=== PATIENT | female | born 1940 | race Caucasian/White ===

== ENCOUNTER → 2016-10-28 | Outpatient (CLI) | payer OTHER ==
[~2016-10-28] MED LIST: ACET-1256 PO; ASPEC81 PO; LPR25 PO; LPT20 PO; LXP10 PO; NCDT21 TD; NRV5 PO; PRT40 PO
[2016-10-28 17:36] LABS: HEMATOCRIT 42.6 % (37-47); MEAN CELL VOLUME 90.3 fL (80-100); MEAN CORPUSCULAR HGB CONC 35.4 g/dl (32-36); MEAN PLATELET VOLUME 10.2 fL (7.4-10.4); PLATELET COUNT 356 K/uL (130-400); RED BLOOD COUNT 4.72 M/uL (4.2-5.4); WHITE BLOOD COUNT 12.09 K/uL (4.8-10.8)
[2016-10-28 17:49] LABS: ALT/SGPT 23 U/L (12-78); AST/SGOT 8 U/L (15-37); BLOOD UREA NITROGEN 10 mg/dl (7-18); BUN/CREATININE RATIO 12.2 (10-20); CALCIUM 9.3 mg/dl (8.5-10.1); CARBON DIOXIDE 27 mmol/L (21-32); CHLORIDE 108 mmol/L (98-107); CREATININE 0.85 mg/dl (0.60-1.20); GLUCOSE 93 mg/dl (70-99); SODIUM 142 mmol/L (136-145)
[2016-10-28 17:51] LABS: ALB/GLOB RATIO 1.1 (0.9-2); ALKALINE PHOSPHATASE 120 U/L (45-117); CHOLESTEROL 139 mg/dl (0-200); CHOLESTEROL/HDL RATIO 3.5; HDL CHOLESTEROL 40 mg/dl; LDL CHOLESTEROL CALCULATED 73 mg/dl; TRIGLYCERIDES 132 mg/dl (0-150); VERY LOW DENSITY LIPOPROT CALC 26 mg/dl
== END | disposition home or self-care (01) ==
LOC: C.LABBFT 10:33
PROVIDERS: ATTEND Internal Medicine
DX: I63.9 Cerebral infarction, unspecified (principal); E78.5 Hyperlipidemia, unspecified

== ENCOUNTER 2017-07-17 23:39 | Emergency (ER) | payer OTHER ==
[~2017-07-17] VITALS: Ht 157.5 cm; Wt 79.4 kg
[2017-07-17 23:43] VITALS: TEMP 36.9; Ht 157.5 cm; Wt 79.4 kg
[2017-07-17] MEDS ORDERED: SODIUM CHLORIDE 0.9% 1000ML 1,000 ML IV SCH (23:58)
[2017-07-18 00:12] LABS: BASO % 0.1 %; BASO ABS # 0.02 K/uL (0-0.2); EOS % 0.4 %; EOS ABS # 0.07 K/uL (0-0.5); HEMATOCRIT 42.6 % (37-47); HEMOGLOBIN 15.2 g/dL (12.0-16.0); IG# 0.06 K/uL (0.00-0.02); LYMPH % 16.8 %; LYMPH ABS # 2.98 K/uL (1.2-3.4); MEAN CORPUSCULAR HEMOGLOBIN 31.4 pg (25-34); MEAN CORPUSCULAR HGB CONC 35.7 g/dl (32-36); MEAN PLATELET VOLUME 9.2 fL (7.4-10.4); MONO % 3.7 %; MONO ABS # 0.66 K/uL (0.11-0.59); NEUT % 78.7 %; NEUT ABS # 13.93 K/uL (1.4-6.5); PLATELET COUNT 337 K/uL (130-400); RED CELL DISTRIBUTION WIDTH CV 13.2 % (11.5-14.5); RED CELL DISTRIBUTION WIDTH SD 42.4 fL (36.4-46.3); WHITE BLOOD COUNT 17.72 K/uL (4.8-10.8)
[2017-07-18] MEDS ORDERED: AMLO-114 PO (00:17)
[2017-07-18] MEDS ORDERED: ASPI81TA28 PO (00:18)
--- NOTE | 2017-07-18 00:18 | DIAGNOSTIC IMAGING REPORT ---
CT SCAN OF THE BRAIN WITHOUT IV CONTRAST CLINICAL HISTORY: Right arm numbness. Stroke like symptoms. COMPARISON STUDY: CT of the brain dated 11/16/2014. TECHNIQUE: Unenhanced axial CT scan of the brain is performed from the vertex to the skull base. A dose lowering technique was utilized adhering to the principles of ALARA. CT DOSE: 537.48 mGy.cm FINDINGS: Brain parenchyma: There are age-related involutional changes noting moderate to advanced subcortical and periventricular microangiopathic change. Left occipital encephalomalacia is consistent with a remote infarct. A chronic lacunar infarct is identified in the left thalamus. There is no hemorrhage, mass effect, or evidence of acute territorial ischemia by CT criteria. Venegas-white matter is preserved. No extra-axial fluid collection is seen. Ventricles, sulci, cisterns: Prominent secondary to involutional change. Intracranial vasculature: There is atherosclerotic calcification of the cavernous carotid arteries. Calvarium: Unremarkable. Sinuses and mastoids: The visualized paranasal sinuses are clear. There is a trace right mastoid effusion. The left mastoid air cells are well pneumatized. Orbits: The bony orbits are grossly intact. There are bilateral ocular lens implants. IMPRESSION: 1. There is no hemorrhage, mass effect, or evidence of acute territorial ischemia by CT criteria. 2. Senescent changes and remote infarct as above. Electronically signed by: Michele Pavon M.D. 07/18/2017 12:17 AM Dictated Date/Time: 07/18/2017 12:13 AM
[2017-07-18] MEDS ORDERED: ATOR-22 PO (00:19)
[2017-07-18] MEDS ORDERED: LORA-741 PO (00:20)
[2017-07-18] MEDS ORDERED: METO25TA56 PO (00:21)
--- NOTE | 2017-07-18 00:21 | EMERGENCY ROOM VISIT NOTE ---
History Report prepared by Ita: Piedad Garcia Under the Supervision of: Dr. Farrah Baumann D.O. First contact with patient: 23:49 Chief Complaint: STROKE SYMPTOMS Stated Complaint: ARM NUMBNESS ON RIGHT History of Present Illness The patient is a 76 year old female who presents to the Emergency Room with complaints of an episode of stroke like symptoms starting 2 hours ago. The patient states that she has a history of strokes with the last being 2 years ago and takes Aspirin daily. She reports that tonight she was washing dishes when her right hand started shaking. She reports that it then started to shake her whole arm. She states that it then felt weak. The patient states that she immediately took 4 Aspirin. The patient complains of being fatigued and having chills. The patient notes that when she had her last stroke she couldn't walk, her face was numb, and she couldn't talk. She reports that the only deficit she has is that she cannot see in her peripheral vision in her right eye. The patient notes that they think the stroke was from her hypertension. The patient denies drinking any alcohol. The patient notes that she is a smoker. Source of History: patient Onset: 2 hours ago Position: other (global) Quality: other (stroke like) Timing: other (episode) Associated Symptoms: + chills, + fatigue, + weakness Note: The patient complains of shaking in her right arm. Review of Systems See HPI for pertinent positives & negatives. A total of 10 systems reviewed and were otherwise negative. Past Medical & Surgical Medical Problems: (1) History of CVA (cerebrovascular accident) (2) Hx: UTI (urinary tract infection) (3) Hypertension Surgical Problems: (1) S/P cholecystectomy Family History Diabetes mellitus Heart disease Hypertension Stroke Social History Smoking Status: Current Every Day Smoker Alcohol Use: none Drug Use: none Marital Status: Housing Status: lives alone Occupation Status: retired Current/Historical Medications Scheduled Aspirin (Aspirin Ec), 81 MG PO DAILY Atorvastatin (Lipitor), 20 MG PO DAILY Metoprolol Tartrate (Lopressor) (Lopressor), 25 MG PO BID Omeprazole (Prilosec), 40 MG PO QAM Sulfamethoxazole-Trimethoprim (Bactrim Ds 800MG/160MG), 1 TAB PO BID Scheduled PRN Lorazepam (Ativan), 0.5 MG PO DAILY PRN for Anxiety Allergies Coded Allergies: Penicillins (Verified Allergy, Intermediate, HIVES, 11/16/14) Physical Exam Vital Signs Date Time Temp Pulse Resp B/P (MAP) Pulse Ox O2 Delivery O2 Flow Rate FiO2 07/18/17 02:26 171/95 07/18/17 02:14 73 19 97 07/18/17 02:01 165/82 07/18/17 01:44 74 20 95 07/18/17 01:31 173/85 07/18/17 01:20 85 07/18/17 01:14 79 19 98 07/18/17 01:00 170/96 07/18/17 00:44 78 20 97 07/18/17 00:39 78 20 98 07/18/17 00:31 188/79 07/18/17 00:24 79 20 168/86 97 Room Air 07/18/17 00:13 184/94 07/17/17 23:43 36.9 91 18 197/75 97 Room Air Physical Exam HEENT: Head - normocephalic and atraumatic. Pupils are equal, round, and reactive to light. Extraocular eye muscles are intact and sclera are anicteric. Ears - bilaterally patent canals with noninjected tympanic membranes and no evidence of hemotympanum. Nose - moist nasal mucosa without discharge. Mouth - moist buccal mucosa. Oropharynx is nonerythematous and there is no tonsillar exudate or edema noted. Neck: Supple; no JVD, nuchal rigidity, cervical lymphadenopathy. Heart: Regular rate and rhythm. There is a normal S1 and S2 with no murmurs, clicks, or gallops appreciated. Lungs: Clear to auscultation bilaterally with no wheezes, rales, or rhonchi. Abdomen: Soft, completely nontender, nondistended, with good bowel sounds. There are no palpable pulsatile masses or hepatosplenomegaly. There is no guarding, rigidity, or rebound noted. Extremities: No evidence of cyanosis, clubbing, or edema. There are easily palpable peripheral pulses. Neuro:The patient is awake and alert, oriented to day, time, and place. Muscle strength is 5/5 in all 4 extremities. The patient has equal dynamics ax developer strength and equal pedal push and pull. There are no cerebellar signs. Medical Decision & Procedures ER Provider Diagnostic Interpretation: Radiology results as stated below per my review and the radiologist's interpretation: CT SCAN OF THE BRAIN WITHOUT IV CONTRAST CLINICAL HISTORY: Right arm numbness. Stroke like symptoms. COMPARISON STUDY: CT of the brain dated 11/16/2014. TECHNIQUE: Unenhanced axial CT scan of the brain is performed from the vertex to the skull base. A dose lowering technique was utilized adhering to the principles of ALARA. CT DOSE: 537.48 mGy.cm FINDINGS: Brain parenchyma: There are age-related involutional changes noting moderate to advanced subcortical and periventricular microangiopathic change. Left occipital encephalomalacia is consistent with a remote infarct. A chronic lacunar infarct is identified in the left thalamus. There is no hemorrhage, mass effect, or evidence of acute territorial ischemia by CT criteria. Venegas-white matter is preserved. No extra-axial fluid collection is seen. Ventricles, sulci, cisterns: Prominent secondary to involutional change. Intracranial vasculature: There is atherosclerotic calcification of the cavernous carotid arteries. Calvarium: Unremarkable. Sinuses and mastoids: The visualized paranasal sinuses are clear. There is a trace right mastoid effusion. The left mastoid air cells are well pneumatized. Orbits: The bony orbits are grossly intact. There are bilateral ocular lens implants. IMPRESSION: 1. There is no hemorrhage, mass effect, or evidence of acute territorial ischemia by CT criteria. 2. Senescent changes and remote infarct as above. Electronically signed by: Michele Pavon M.D. 07/18/2017 12:17 AM Dictated Date/Time: 07/18/2017 12:13 AM Laboratory Results 07/17/17 23:55 Red Blood Count 4.84, Mean Corpuscular Volume 88.0, Mean Corpuscular Hemoglobin 31.4, Mean Corpuscular Hemoglobin Concent 35.7, Mean Platelet Volume 9.2, Neutrophils (%) (Auto) 78.7, Lymphocytes (%) (Auto) 16.8, Monocytes (%) (Auto) 3.7, Eosinophils (%) (Auto) 0.4, Basophils (%) (Auto) 0.1, Neutrophils # (Auto) 13.93, Lymphocytes # (Auto) 2.98, Monocytes # (Auto) 0.66, Eosinophils # (Auto) 0.07, Basophils # (Auto) 0.02 07/17/17 23:55 Test 07/17/17 23:55 07/18/17 00:14 07/18/17 01:00 White Blood Count 17.72 K/uL (4.8-10.8) Red Blood Count 4.84 M/uL (4.2-5.4) Hemoglobin 15.2 g/dL (12.0-16.0) Hematocrit 42.6 % (37-47) Mean Corpuscular Volume 88.0 fL (80-100) Mean Corpuscular Hemoglobin 31.4 pg (25-34) Mean Corpuscular Hemoglobin Concent 35.7 g/dl (32-36) Platelet Count 337 K/uL (130-400) Mean Platelet Volume 9.2 fL (7.4-10.4) Neutrophils (%) (Auto) 78.7 % Lymphocytes (%) (Auto) 16.8 % Monocytes (%) (Auto) 3.7 % Eosinophils (%) (Auto) 0.4 % Basophils (%) (Auto) 0.1 % Neutrophils # (Auto) 13.93 K/uL (1.4-6.5) Lymphocytes # (Auto) 2.98 K/uL (1.2-3.4) Monocytes # (Auto) 0.66 K/uL (0.11-0.59) Eosinophils # (Auto) 0.07 K/uL (0-0.5) Basophils # (Auto) 0.02 K/uL (0-0.2) RDW Standard Deviation 42.4 fL (36.4-46.3) RDW Coefficient of Variation 13.2 % (11.5-14.5) Immature Granulocyte % (Auto) 0.3 % Immature Granulocyte # (Auto) 0.06 K/uL (0.00-0.02) Prothrombin Time 10.0 SECONDS (9.0-12.0) Prothromb Time International Ratio 1.0 (0.9-1.1) Activated Partial Thromboplast Time 26.1 SECONDS (21.0-31.0) Partial Thromboplastin Ratio 1.0 Anion Gap 7.0 mmol/L (3-11) Est Creatinine Clear Calc Drug Dose 36.2 ml/min Estimated GFR () 45.5 Estimated GFR (Non- 39.3 BUN/Creatinine Ratio 9.5 (10-20) Calcium Level 9.0 mg/dl (8.5-10.1) Magnesium Level 1.3 mg/dl (1.8-2.4) Total Creatine Kinase 94 U/L (26-192) Creatine Kinase MB 1.6 ng/ml (0.5-3.6) Creatine Kinase MB Ratio 1.7 (0-3.0) Troponin I 0.035 ng/ml (0-0.045) Bedside Prothrombin Time INR 1.0 (0.9-1.1) Bedside Glucose 124 mg/dl (70-90) Urine Color YELLOW Urine Appearance ERROR (CLEAR) Urine pH 5.0 (4.5-7.5) Urine Specific [place] 1.008 (1.000-1.030) Urine Protein NEG (NEG) Urine Glucose (UA) NEG (NEG) Urine Ketones NEG (NEG) Urine Occult Blood 1+ (NEG) Urine Nitrite POS (NEG) Urine Bilirubin NEG (NEG) Urine Urobilinogen NEG (NEG) Urine Leukocyte Esterase MODERATE (NEG) Urine WBC (Auto) 10-30 /hpf (0-5) Urine RBC (Auto) 10-30 /hpf (0-4) Urine Hyaline Casts (Auto) 5-10 /lpf (0-5) Urine Epithelial Cells (Auto) >30 /lpf (0-5) Urine Bacteria (Auto) 4+ (NEG) Laboratory results per my review. Medications Administered Medications (Trade) Dose Ordered Sig/Jen Route Start Time Stop Time Status Last Admin Dose Admin Sodium Chloride 1,000 ml @ 50 mls/hr Q20H IV 07/17/17 23:58 07/18/17 03:25 DC 07/18/17 00:20 50 MLS/HR Procedure 2358: Ordered NSS 1000 ml @ 50 mls/hr IV. ECG Per My Interpretation Indication: weakness Rate (beats per minute): 83 Rhythm: normal sinus Findings: PAC, no acute ischemic change ED Course 2349: Past medical records reviewed. The patient was evaluated in room A12B. A complete history and physical exam was performed. Laboratory studies were drawn as above. A 12-lead EKG was obtained as described above. 2358: Ordered NSS 1000 ml @ 50 mls/hr IV. The patient went for CT scan of the brain as described above. 0113: I reevaluated the patient and her symptoms have completely resolved, but her blood pressure is still high. 0133: I consulted the [facility] Hospitalist at this time. 0151: I reevaluated the patient and she is signing out AMA. I let Dalton Grullon know to cancel the consult. I discussed findings and results with her. She verbalized agreement of the treatment plan. The patient was discharged home AMA. Medical Decision The patient is a 76 year old female who presents to the Emergency Room with complaints of an episode of stroke like symptoms starting 2 hours ago. Differential diagnoses include CVA, TIA, dizziness. LABS: White count 17.7 Stable H&H Glucose 124 Troponin 0.035 Magnesium 1.3 BUN 13 Creatine 1.3 Urine 1+ blood, positive nitrite, moderate leukocyte esterase, 4+ bacteria, 10- 30 white cells, and 10-30 red cells. This is a 76-year-old female who presents to the emergency department with weakness in her right upper extremity. The patient's symptoms have essentially resolved at this time. She does have a history of a previous thalamic stroke. I am concerned about this being a TIA. The patient does continue to have risk factors as she continues to smoke. Also, her blood pressure is uncontrolled. It seems that the patient has evidence of urinary tract infection. He will be treated with oral antibiotics. Medication Reconcilliation Current Medication List: was personally reviewed by me Blood Pressure Screening Patient's blood pressure: Elevated blood pressure Blood pressure disposition: Referred to PCP Impression Primary Impression: TIA (transient ischemic attack) Additional Impressions: Uncontrolled hypertension UTI (urinary tract infection) Scribe Attestation The scribe's documentation has been prepared under my direction and personally reviewed by me in its entirety. I confirm that the note above accurately reflects all work, treatment, procedures, and medical decision making performed by me. Departure Information Dispostion Home / Self-Care Prescriptions Sulfamethoxazole-Trimethoprim (Bactrim Ds 800MG/160MG) 1 Tab Tab 1 TAB PO BID, #20 TAB Prov: Farrah Baumann D.O. 07/18/17 Referrals Last Null M.D. (PCP) Forms HOME CARE DOCUMENTATION FORM, IMPORTANT VISIT INFORMATION Patient Instructions My [facility] Additional Instructions You are leaving against my advice. You are at risk of having a full-blown stroke that could leave you debilitated. STOP SMOKING Return to the ER at any time for further stroke symptoms. Keep a log of your BP and follow up with Dr. Null on Wednesday Problem Qualifiers Primary Impression: TIA (transient ischemic attack) Transient cerebral ischemia type: unspecified Qualified Codes: G45.9 - Transient cerebral ischemic attack, unspecified Additional Impressions: UTI (urinary tract infection) Urinary tract infection type: site unspecified Hematuria presence: with hematuria Qualified Codes: N39.0 - Urinary tract infection, site not specified ; R31.9 - Hematuria, unspecified
[2017-07-18 00:22] LABS: PTT PATIENT 26.1 SECONDS (21.0-31.0)
[2017-07-18] MEDS ORDERED: PRLSR20 PO (00:22)
[2017-07-18] MEDS ORDERED: ALBUAER INH (00:23)
[2017-07-18 00:31] LABS: CREATININE 1.33 mg/dl (0.60-1.20); POTASSIUM 3.2 mmol/L (3.5-5.1)
[2017-07-18 00:36] LABS: CKMB 1.6 ng/ml (0.5-3.6)
[2017-07-18] MEDS ORDERED: SULF800T23 PO (02:12)
[2017-07-18 02:14] VITALS: PULSE 73; O2SAT 97
[2017-07-18 02:26] VITALS: BP 171/95
--- NOTE | 2017-07-20 12:19 | Pharmacy Progress Note ---
ED Pharmacist Culture FollowUp Date of Service: Jul 20, 2017. Patient was sent home with a prescription for Bactrim DS 1 tab BID x 10 days, which should cover the E. coli growing from the patient's urine culture.
== END 2017-07-18 02:35 | disposition left against medical advice (07) ==
LOC: C.EDB 23:39 → C.EDA 07-18 02:35
DX: G45.9 Transient cerebral ischemic attack, unspecified (principal); I10 Essential (primary) hypertension; N39.0 Urinary tract infection, site not specified; R31.9 Hematuria, unspecified; F17.200 Nicotine dependence, unspecified, uncomplicated; I69.398 Other sequelae of cerebral infarction; H53.451 Other localized visual field defect, right eye; Z79.82 Long term (current) use of aspirin; Z90.49 Acquired absence of other specified parts of digestive tract; Z88.0 Allergy status to penicillin; Z83.3 Family history of diabetes mellitus; Z82.49 Family history of ischemic heart disease and other diseases of the circulatory system; Z82.3 Family history of stroke

== ENCOUNTER → 2017-07-27 | Outpatient (CLI) | payer OTHER ==
[~2017-07-27] MED LIST changes: -ACET-1256 PO; -ASPEC81 PO; +ASPI81TA28 PO; +ATOR-22 PO; +LORA-741 PO; -LPR25 PO; -LPT20 PO; -LXP10 PO; +METO25TA56 PO; -NCDT21 TD; -NRV5 PO; +PRLSR20 PO; -PRT40 PO; +SULF800T23 PO
[2017-07-27 12:45] LABS: BLOOD UREA NITROGEN 16 mg/dl (7-18); CREATININE 1.53 mg/dl (0.60-1.20)
== END | disposition home or self-care (01) ==
LOC: C.LABBFT 10:27
PROVIDERS: ATTEND Physician Assistant Medical
DX: I10 Essential (primary) hypertension (principal); I63.9 Cerebral infarction, unspecified; G45.9 Transient cerebral ischemic attack, unspecified

== ENCOUNTER → 2017-07-29 | Outpatient (CLI) | payer OTHER ==
[~2017-07-29] MED LIST changes: +GADAVIST IV PRN
--- NOTE | 2017-07-29 10:51 | DIAGNOSTIC IMAGING REPORT ---
ULTRASOUND OF THE CAROTID ARTERIES CLINICAL HISTORY: Transient ischemic attack. COMPARISON STUDY: Carotid artery ultrasound dated 11/16/2014. TECHNIQUE: Real-time, grayscale, and color Doppler sonography of the carotid arteries is performed. Images are reviewed in the transverse and longitudinal planes. FINDINGS: Blood pressure in the right arm measures 184/86 and blood pressure in the left arm measures 180/83. The carotid arteries are patent bilaterally and demonstrate antegrade flow. There is moderate echogenic shadowing atherosclerotic plaque seen bilaterally. Normal doppler arterial waveforms are seen throughout. Velocity measurements are listed below. Common carotid peak systolic velocity (cm/sec): RIGHT: 73 LEFT: 44 ICA proximal peak systolic velocity (cm/sec): RIGHT: 38 LEFT: 113 ICA mid peak systolic velocity (cm/sec): RIGHT: 104 LEFT: 118 ICA distal peak systolic velocity (cm/sec): RIGHT: 180 LEFT: 78 ICA/CC peak systolic ratio: RIGHT: 2.5 LEFT: 2.7 Antegrade flow was shown in the vertebral arteries. The external carotid arteries are patent. IMPRESSION: 1. Atherosclerotic plaque with findings suggesting 50-69% stenosis in the distal right internal carotid artery. Some of this may artifactual due to vessel tortuosity. 2. There is no sonographic evidence of hemodynamically significant stenosis in the left carotid arterial system. 3. Antegrade flow is shown in the vertebral arteries. Electronically signed by: Michele Pavon M.D. 07/29/2017 10:50 AM Dictated Date/Time: 07/29/2017 10:47 AM
--- NOTE | 2017-07-29 10:53 | DIAGNOSTIC IMAGING REPORT ---
(RENAL)RETROPERITON COMP HISTORY: 76 years-old Female N17.9 Acute kidney [id number] acute kidney injury COMPARISON: None available TECHNIQUE: Multiple real-time sonographic images of the kidneys and urinary bladder were obtained assessing grayscale appearance and color flow FINDINGS: Right kidney measures 11.4 cm in length and is unremarkable without renal calculi or hydronephrosis. Mild cortical thinning is noted within the right kidney. Right ureteral jet is noted. Bladder is unremarkable. Atrophic echogenic left kidney with cortical thinning decreased cortical medullary differentiation measures 8.9 cm in length. No suspicious renal mass lesions, renal calculi or hydronephrosis. IMPRESSION: 1. No renal calculi or hydronephrosis. 2. Atrophic echogenic left kidney. 3. Only the right ureteral jet identified. The above report was generated using voice recognition software. It may contain grammatical, syntax or spelling errors. Electronically signed by: Ricco Burton M.D. 07/29/2017 10:52 AM Dictated Date/Time: 07/29/2017 10:50 AM
--- NOTE | 2017-07-29 11:26 | DIAGNOSTIC IMAGING REPORT ---
MRI OF THE BRAIN COMBO CLINICAL HISTORY: Transient ischemic attack. COMPARISON STUDY: CT of the brain dated 07/18/2017. MRI of the brain dated 11/16/2014. TECHNIQUE: MRI of the brain was performed utilizing various T1 and T2-weighted sequences in the axial, sagittal, and coronal planes. Contrast-enhanced sequences were acquired following the administration of 7.7 cc of Gadavist. The examination is modestly degraded by motion artifact. FINDINGS: Brain parenchyma: There are age-related involutional changes noting moderate to advanced confluent subcortical and periventricular microangiopathic disease. Left occipital encephalomalacia is consistent with a remote infarct. Small foci of restricted diffusion are present within the left occipital region and may represent acute on chronic ischemia. This was corroborated on the ADC maps. No additional foci of restricted diffusion are identified. Chronic lacunar infarct identified in the left thalamus and left caudate head. There is no hemorrhage or mass effect. No enhancing mass lesion is identified on the postcontrast images. Venegas-white matter differentiation is preserved. No extra-axial fluid collection is seen. The cerebellar tonsils are normal in configuration. Ventricles, sulci, and cisterns: Prominent secondary to involutional change. Pituitary and sella: Unremarkable. Intracranial vasculature: Normal flow voids are maintained at the skull base. Orbits: The bony orbits are grossly intact. Orbital contents are normal in appearance noting bilateral ocular lens implants. Sinuses and mastoids: Clear. Calvarium: Unremarkable. Cervical cord: Partially visualized cervical spinal cord is normal in morphology and signal intensity. IMPRESSION: 1. There is a large focus of left occipital encephalomalacia consistent with a remote infarct. 2. There are several small foci of restricted diffusion within the left occipital lobe, likely representing foci of acute to subacute on chronic ischemia. 3. No additional foci of restricted diffusion are identified. There is no hemorrhage or mass effect. 4. Advanced microangiopathic change. Electronically signed by: Michele Pavon M.D. 07/29/2017 11:24 AM Dictated Date/Time: 07/29/2017 11:18 AM
== END | disposition home or self-care (01) ==
LOC: C.ULTR 09:38
PROVIDERS: ATTEND Physician Assistant Medical
DX: N17.9 Acute kidney failure, unspecified (principal); G45.9 Transient cerebral ischemic attack, unspecified

== ENCOUNTER → 2017-08-16 | Outpatient (CLI) | payer OTHER ==
[~2017-08-16] MED LIST changes: -GADAVIST IV PRN; -SULF800T23 PO
--- NOTE | 2017-08-16 11:13 | DIAGNOSTIC IMAGING REPORT ---
DUPLEX RENAL ARTERY CLINICAL HISTORY: 76 years-old Female presenting with I10 Hypertension E78.5 Hyperlipidemia F17.200 Nicotine dependenceN. TECHNIQUE: Real-time grayscale and color and spectral Doppler ultrasound imaging of the kidneys was performed. COMPARISON: Renal ultrasound from 07/29/2017. FINDINGS: Right kidney: Mild diffuse cortical thinning though normal echogenicity of the renal parenchyma is noted. Right kidney measures 10.5 cm. No hydronephrosis. No convincing evidence of calculus or mass. Intrarenal resistive indices range from 0.64 to 0.67. Normal intrarenal arterial waveforms. Renal artery patent with peak systolic velocity 112 cm/s proximally, 159 cm/s in the midportion, and 152 cm/s distally. Renal vein patent. Left kidney: Diffuse cortical thinning with mild overall atrophy of the left kidney. Left kidney measures 8.4 cm. No hydronephrosis. No convincing evidence of calculus or mass. Intrarenal resistive indices range from 0.63 to 1.0. Abnormal intrarenal arterial waveforms with geographic absence of diastolic flow at the interpolar to lower pole regions. Renal artery patent with peak systolic velocity 71 cm/s proximally, 94 cm/s in the midportion, and 49 cm/s distally. Renal vein patent. Abdominal aorta: Patent. Peak systolic velocity 67 cm/s. Ratio of right renal artery PSV/aortic PSV: 2.37. Ratio of left renal artery PSV/aortic PSV: 1.40. Other: None. Reference ranges: Normal main renal artery peak systolic velocity less than 180 cm/s. Ratio of renal artery PSV to aortic PSV less than 3.5 equates to normal or less than 60% stenosis. Only one of the two criteria listed needs to be met for diagnosis. IMPRESSION: 1. No evidence of renal artery stenosis. 2. Abnormal intrarenal indices in the left kidney is nonspecific and could suggest chronic medical renal disease given the presence of left renal atrophy. 3. No hydronephrosis. Electronically signed by: Fabián Robertson M.D. 08/16/2017 11:12 AM Dictated Date/Time: 08/16/2017 11:03 AM
== END | disposition home or self-care (01) ==
LOC: C.ULTR 10:10
PROVIDERS: ATTEND Internal Medicine Nephrology
DX: I12.9 Hypertensive chronic kidney disease with stage 1 through stage 4 chronic kidney disease, or unspecified chronic kidney disease (principal); N18.9 Chronic kidney disease, unspecified; E78.5 Hyperlipidemia, unspecified; I73.9 Peripheral vascular disease, unspecified; F17.200 Nicotine dependence, unspecified, uncomplicated

== ENCOUNTER → 2017-08-24 | Outpatient (CLI) | payer OTHER ==
[2017-08-24 12:34] LABS: ALBUMIN 3.6 gm/dl (3.4-5.0); BLOOD UREA NITROGEN 16 mg/dl (7-18); CALCIUM 8.7 mg/dl (8.5-10.1); CARBON DIOXIDE 26 mmol/L (21-32); CREATININE 1.16 mg/dl (0.60-1.20); GLUCOSE 81 mg/dl (70-99); POTASSIUM 3.5 mmol/L (3.5-5.1); SODIUM 140 mmol/L (136-145)
[2017-08-24 12:35] LABS: PHOSPHORUS 2.7 mg/dl (2.5-4.9)
[2017-08-24 13:14] LABS: HEMATOCRIT 41.9 % (37-47); HEMOGLOBIN 14.8 g/dL (12.0-16.0); MEAN CORPUSCULAR HEMOGLOBIN 31.1 pg (25-34); MEAN CORPUSCULAR HGB CONC 35.3 g/dl (32-36); MEAN PLATELET VOLUME 10.5 fL (7.4-10.4); PLATELET COUNT 321 K/uL (130-400); RED CELL DISTRIBUTION WIDTH CV 13.2 % (11.5-14.5); RED CELL DISTRIBUTION WIDTH SD 42.7 fL (36.4-46.3); WHITE BLOOD COUNT 10.56 K/uL (4.8-10.8)
[2017-08-24 13:16] LABS: BASO % 0.2 %; BASO ABS # 0.02 K/uL (0-0.2); EOS % 0.9 %; IG# 0.03 K/uL (0.00-0.02); LYMPH % 29.5 %; LYMPH ABS # 3.12 K/uL (1.2-3.4); MONO % 4.4 %; MONO ABS # 0.46 K/uL (0.11-0.59); NEUT % 64.7 %; NEUT ABS # 6.83 K/uL (1.4-6.5)
== END | disposition home or self-care (01) ==
LOC: C.LAB1850 10:27
PROVIDERS: ATTEND Internal Medicine Nephrology
DX: I12.9 Hypertensive chronic kidney disease with stage 1 through stage 4 chronic kidney disease, or unspecified chronic kidney disease (principal); E78.5 Hyperlipidemia, unspecified; F17.200 Nicotine dependence, unspecified, uncomplicated; N18.9 Chronic kidney disease, unspecified; I73.9 Peripheral vascular disease, unspecified; N17.9 Acute kidney failure, unspecified

== ENCOUNTER → 2017-11-23 | Outpatient (CLI) | payer OTHER ==
[2017-11-23 17:26] LABS: ALBUMIN 3.5 gm/dl (3.4-5.0); BLOOD UREA NITROGEN 15 mg/dl (7-18); CALCIUM 8.5 mg/dl (8.5-10.1); CARBON DIOXIDE 28 mmol/L (21-32); CREATININE 1.24 mg/dl (0.60-1.20); GLUCOSE 95 mg/dl (70-99); PHOSPHORUS 3.4 mg/dl (2.5-4.9); POTASSIUM 3.2 mmol/L (3.5-5.1); SODIUM 141 mmol/L (136-145)
== END | disposition home or self-care (01) ==
LOC: C.LABBFT 14:03
PROVIDERS: ATTEND Internal Medicine Nephrology
DX: I12.9 Hypertensive chronic kidney disease with stage 1 through stage 4 chronic kidney disease, or unspecified chronic kidney disease (principal); N18.9 Chronic kidney disease, unspecified

== ENCOUNTER 2020-10-20 19:33 | Inpatient (IN) ==
[2020-10-20] MEDS ORDERED: dilTIAZem HCl 5 MG/ML 5 ML VIAL IV STA (20:27)
[2020-10-20] MEDS ORDERED: STAT IV Infusion **Titration per Protocol STA (20:27)
[2020-10-20 20:31] LABS: Basophils # (auto) 0.01 K/uL (0-0.2); Basophils % (auto) 0.1 %; Eosinophils # (auto) 0.06 K/uL (0-0.5); Eosinophils % (auto) 0.5 %; Hematocrit (blood only) 40.5 % (37-47); Hemoglobin 14.7 g/dL (12.0-16.0); Immature Granulocytes # (auto) 0.04 K/uL (0.00-0.02); Immature Granulocytes % (auto) 0.3 %; Lymphocytes # (auto) 3.59 K/uL (1.2-3.4); Lymphocytes % (auto) 27.2 %; Mean Corpuscular Hemoglobin 30.3 pg (25-34); Mean Corpuscular Hgb Conc 36.3 g/dL (32-36); Mean Corpuscular Volume 83.5 fL (80-100); Mean Platelet Volume 10.1 fL (7.4-10.4); Monocytes # (auto) 0.79 K/uL (0.11-0.59); Neutrophils # (auto) 8.72 K/uL (1.4-6.5); Neutrophils % (auto) 65.9 %; Platelet Count 390 K/uL (130-400); RDW Coefficient of Variation 12.7 % (11.5-14.5); RDW Standard Deviation 38.5 fL (36.4-46.3); Red Blood Count 4.85 M/uL (4.2-5.4); White Blood Count 13.21 K/uL (4.8-10.8)
--- NOTE | 2020-10-20 20:33 | Emergency Department Note ---
Impression & Plan Atrial fibrillation with rapid ventricular response, Gastroenteritis, Weakness, Elevated troponin I level, Acute hyponatremia, Hypokalemia, Hypomagnesemia ED Provider Note Provider: Francois Livingston MD DATE OF SERVICE: 10/20/2020 CHIEF COMPLAINT: Weakness, diarrhea HISTORY OF PRESENT ILLNESS: Patient is a 79-year-old female past medical history including hypertension, nephrectomy, CVA, UTI presenting here today with daughter reporting over the past approximately 2 days significant diarrhea little bit red yesterday but firmed up today. Decreased appetite last several days only taking some water and Diet Coke but no food. Significantly weak today with shakes and Will get around. Reports feeling bit short of breath and a bit dizzy but denies any significant headache or chest pain. Denies abdominal pain earlier or now. Denies back pain. Patient states again the diarrhea has subsid ed some today. No sick contacts reported. No suspect food intake or well water usage. No history of similar reported. Patient evidently had significant increase of weakness today. Recently moved back in by herself and has been some stress recently. Patient has received Covid vaccine. REVIEW OF SYSTEMS: A total of 10 review of systems was obtained and negative except as stated above in the HPI. PAST MEDICAL HISTORY: As noted above MEDICATIONS: Reviewed home medication list SOCIAL HISTORY: Smoker, currently lives by herself PHYSICAL EXAM: GENERAL: alert and oriented in no acute distress on stretcher fatigued appearing Head: normocephalic and atraumatic EYES: No injection, discharge or icterus. NECK: Trachea midline. LUNGS: Airway patent. No retractions. Breath sounds many scattered wheeze with diminished bases. HEART: Irregularly irregular tachycardic rate and rhythm. No chest wall tenderness ABDOMEN: Soft and non-tender, without guarding or rebound. SKIN: Acyanotic, warm, dry, without rashes EXTREMITIES: Without swelling, tenderness or deformity NEUROLOGICAL: No focal deficits. No aphasia. No facial droop or slurred speech. Normal strength and tone in the extremities. Sensation to gross touch normal. Ambulatory. EK bpm atrial fibrillation with rapid ventricular response. Some lateral T wave inversions and ST flattening but no acute ST segment elevation noted. 2 inversions in the inferior leads as well CONTINUOUS CARDIAC MONITORING: was ordered and showed a heart rate of 150s bpm in atrial fibrillation 1 view chest x-ray per my interpretation: No evidence of acute pneumonia or pneumothorax. No pleural effusions. No significant cardiomegaly. No severe pulmonary edema with trace interstitial markings. Patient's laboratory studies and imaging reviewed. Differential includes Infection, dehydration, metabolic abnormality, hypo/hyperglycemia, electrolyte disturbance, anemia, hypoxia, cardiac sources, intracerebral event, toxicologic, neurologic, as well as other pathologies. IMPRESSION/MEDICAL DECISION MAKING: Patient presents with several days of diarrhea and decreased intake significant worsening weakness today. Likely no falls. Denies chest pain. Patient appears to have new onset atrial fibrillation with rapid ventricular response. Labs were obtained. Doubt this is sepsis. Diltiazem drip was ordered after bolus. CT the abdomen pelvis to exclude intra-abdominal pathology will be completed without contrast given her history of nephrectomy but lower suspicion as she is fairly benign here. Question of the physiological stress from decreased intake and her diarrhea because this. She stools maybe a little bit of red stool but denies ignacia blood. Denies a history of significant bleeding. Patient without anemia but some leukocytosis of 13.2 today. Hyponatremia 126 and hypokalemia of 2.7 is noted. Hypomagnesemia of 0.4. Renal function appears at baseline. Given some IV fluids, magnesium, and IV and oral potassium to help with supplementation which may help her A. fib. Troponin at 0.122 consistent with likely demand from her A. fib onset but no CP and doubt ACS. Chest x-ray without significant evidence of pneumonia or severe fluid overload. Patient not hypoxic here but somewhat wheezy and will avoid beta agonist given her A. fib RVR currently. CT scan as below with gastroenteritis findings as below. Made aware patient and her daughter of incidental granuloma and AAA seen on scan. Patient quires admission given her electrolyte abnormalities weakness new onset atrial fibrillation. Will start on heparin drip. Hospitalist contacted. Covid testing negative. DIAGNOSIS: New onset atrial fibrillation with rapid ventricular response, weakness, hyponatremia, hypomagnesemia, hypokalemia, elevated troponin, gastroenteritis DISPOSITION: Hospitalist will evaluate Patient was agreeable with this plan. Critical Care I have personally spent 33 minutes of critical care time in the direct management of this patient. This includes bedside care, interpretation of diagnostic studies, and testing, discussion with consultants, patient, and family members, and other required patient management activities. These 33 minutes is in excess of all separately billable procedures. Preliminary Findings Only See Final Report For Complete Findings CT ABDOMEN & PELVIS Without Contrast: Normal cardiac size. Right lower lobe calcified granuloma measuring 7 mm. Remainder of the lung bases are clear. Status post cholecystectomy otherwise unremarkable biliary system. Normal liver. Splenic granuloma, otherwise normal spleen. The pancreas unremarkable. Mild hypertrophy of the bilateral adrenal glands. Severe atrophy of the left kidney. Unremarkable right kidney. The stomach is decompressed with borderline thickening of the wall. Mild fullness of some of the left side of small bowel loops reaching a maximum diameter of 2.5 cm with air-fluid level and borderline thickening of the wall. These findings suggest gastroenteritis. Diverticulosis with the colon/sigmoid with no signs of diverticulitis. Normal appendix. Over distended urinary bladder. Atrophy of the uterus. Degenerative disease of the spine with osteoporosis. Aneurysmal dilatation of the infrarenal aorta measuring a maximum diameter of 3.2 x 3.2 cm. Radiologist: Mala Ramirez MD Study ready at 20:58 and initial results transmitted at 21:18 Past Med/Surg History Medical History (Updated 10/20/20 @ 21:46 by Francois Livingston M.D.) Hyperlipidemia Hypertension PAD (peripheral artery disease) TIA (transient ischemic attack) Vitamin D deficiency Surgical History History of cholecystectomy Hx of tonsillectomy Family History Other Diabetes Hypertension Myocardial infarction Denies family history of Ovarian cancer Prostate cancer Breast cancer Colorectal cancer Social History Smoking Status: Current every day smoker Age Started Using Tobacco: 30; packs per day: 1; Cigarettes Per Day: 20; Second Hand Exposure: Yes; Hx Alcohol Use: No Hx Substance Use: No Preferred Language: Danish Communication Ability: Effective Hearing Ability: Normal Rod Placer Required: No marital status: / Current Living Situation: Alone current occupational status: retired Feels Safe at Home: Yes Childhood Exposure to Second-Hand Smoke: No caffeine: Yes (diet coke daily) Dental Care, Regularly: Yes Physical Activity Frequency: Does not Exercise Seatbelt Use: always Sunscreen Use: No Assistive Devices: None Allergies Allergies Allergy/AdvReac Type Severity Reaction Status Date / Time Penicillins Allergy Intermediate HIVES Verified 10/20/20 20:43 Home Meds Home Medications Medication Instructions Recorded Confirmed aspirin 81 mg tablet,delayed 81 mg PO DAILY tab 12/16/18 10/20/20 release furosemide 20 mg tablet 20 mg PO DAILY PRN #90 tab 12/16/18 10/20/20 Previous Rx's Medication Instructions Recorded amlodipine 10 mg tablet 10 mg PO DAILY #90 tab 02/15/20 metoprolol tartrate 25 mg tablet 25 mg PO BID #180 tab 04/15/20 potassium chloride 20 mEq 20 meq PO DAILY #90 tab 08/14/20 tablet,extended release omeprazole 20 mg capsule,delayed 40 mg PO DAILY #180 cap 09/10/20 release atorvastatin 40 mg tablet 40 mg PO HS #90 tab 09/23/20 Results & Data (ED) Vital Signs Vital Signs - 24 hr 10/20/20 19:44 10/20/20 20:30 10/20/20 20:31 Temperature 36.8 C Temperature Source Temporal Artery Scan Pulse Rate 110 H 123 H Pulse Rate from SpO2 Sensor Pulse Rhythm Regular Pulse Strength Normal Respiratory Rate 20 18 Respiratory Effort / Characteristics Non-Labored Spontaneous Respiratory Depth Normal Respiratory Pattern Regular Blood Pressure 121/75 138/93 Blood Pressure Mean 90 108 Blood Pressure Position Sitting Pulse Oximetry 98 97 97 Oxygen Delivery Method Room Air Room Air Sepsis Recent Fever Within 48 Hours No Sepsis New/Unexplained Change in Mental Status N/A Sepsis Action Taken by Nursing No Action Required 10/20/20 21:30 10/20/20 21:32 10/20/20 22:00 Temperature Temperature Source Pulse Rate 120 H 139 H 110 H Pulse Rate from SpO2 Sensor 132 H Pulse Rhythm Pulse Strength Respiratory Rate 33 H 27 H 21 Respiratory Effort / Characteristics Respiratory Depth Respiratory Pattern Blood Pressure 153/108 H 119/97 Blood Pressure Mean 123 104 Blood Pressure Position Pulse Oximetry 90 Oxygen Delivery Method Sepsis Recent Fever Within 48 Hours Sepsis New/Unexplained Change in Mental Status Sepsis Action Taken by Nursing 10/20/20 22:01 10/20/20 22:31 Temperature Temperature Source Pulse Rate 117 H 110 H Pulse Rate from SpO2 Sensor Pulse Rhythm Pulse Strength Respiratory Rate 25 H 23 Respiratory Effort / Characteristics Respiratory Depth Respiratory Pattern Blood Pressure 133/101 H Blood Pressure Mean 111 Blood Pressure Position Pulse Oximetry 96 Oxygen Delivery Method Sepsis Recent Fever Within 48 Hours Sepsis New/Unexplained Change in Mental Status Sepsis Action Taken by Nursing Laboratory Data Result diagrams: 10/20/20 20:20 10/20/20 20:20 Lab Results 10/20/20 10/20/20 10/20/20 Range/Units 20:20 20:20 21:04 WBC 13.21 H (4.8-10.8) K/uL RBC 4.85 (4.2-5.4) M/uL Hgb 14.7 (12.0-16.0) g/dL Hct 40.5 (37-47) % MCV 83.5 (80-100) fL MCH 30.3 (25-34) pg MCHC 36.3 H (32-36) g/dL RDW Std Deviation 38.5 (36.4-46.3) fL RDW Coeff of Faviola 12.7 (11.5-14.5) % Plt Count 390 (130-400) K/uL MPV 10.1 (7.4-10.4) fL Immature Gran % (Auto) 0.3 % Neut % (Auto) 65.9 % Lymph % (Auto) 27.2 % Mcdonald % (Auto) 6.0 % Eos % (Auto) 0.5 % Baso % (Auto) 0.1 % Neut # (Auto) 8.72 H (1.4-6.5) K/uL Lymph # (Auto) 3.59 H (1.2-3.4) K/uL Mcdonald # (Auto) 0.79 H (0.11-0.59) K/uL Eos # (Auto) 0.06 (0-0.5) K/uL Baso # (Auto) 0.01 (0-0.2) K/uL Immature Gran # (Auto) 0.04 H (0.00-0.02) K/uL PT 11.9 (9.0-12.0) Seconds INR 1.2 H (0.9-1.1) Sodium 126 L (136-145) mmol/L Potassium 2.7 L (3.5-5.1) mmol/L Chloride 92 L (98-107) mmol/L Carbon Dioxide 22 (21-32) mmol/L Anion Gap 12.0 H (3-11) BUN 12 (7-18) mg/dl Creatinine 1.15 (0.6-1.2) mg/dl Est Cr Clr Drug Dosing Not Reportable Est GFR ( Amer) 53.2 ml/min Est GFR (Non-Af Amer) 45.9 ml/min BUN/Creatinine Ratio 10.3 (10-20) Glucose 98 (70-99) mg/dl Calcium 6.7 L (8.5-10.1) mg/dl Magnesium 0.4 L* (1.8-2.4) mg/dl Total Bilirubin 1.1 H (0.2-1) mg/dl AST 31 (15-37) U/L ALT 23 (12-78) U/L Alkaline Phosphatase 96 (45-117) U/L Troponin I 0.122 H* (0-0.045) ng/ml Total Protein 7.5 (6.4-8.2) gm/dl Albumin 3.8 (3.4-5.0) gm/dl Globulin 3.7 (2.5-4.0) gm/dl Albumin/Globulin Ratio 1.0 (0.9-2) Lipase 60 L (73-393) U/L TSH 0.617 (0.300-4.500) uIu/ml Urine Color Urine Appearance (Clear) Urine pH (4.5-7.5) Ur Specific Beaumont (1.000-1.030) Urine Protein (Negative) Urine Glucose (UA) (Negative) Urine Ketones (Negative) Urine Blood (Negative) Urine Nitrite (Negative) Urine Bilirubin (Negative) Urine Urobilinogen (Negative) Ur Leukocyte Esterase (Negative) Urine WBC (Auto) (0-5) /hpf Urine RBC (Auto) (0-4) /hpf U Hyaline Cast (Auto) (0-5) /lpf U Epithel Cells (Auto) (0-5) /lpf Urine Bacteria (Auto) (Negative) COVID-19 Eval Order SARS-CoV-2 (PCR) (Negative) 10/20/20 10/20/20 10/20/20 Range/Units 21:06 21:06 21:30 WBC (4.8-10.8) K/uL RBC (4.2-5.4) M/uL Hgb (12.0-16.0) g/dL Hct (37-47) % MCV (80-100) fL MCH (25-34) pg MCHC (32-36) g/dL RDW Std Deviation (36.4-46.3) fL RDW Coeff of Faviola (11.5-14.5) % Plt Count (130-400) K/uL MPV (7.4-10.4) fL Immature Gran % (Auto) % Neut % (Auto) % Lymph % (Auto) % Mcdonald % (Auto) % Eos % (Auto) % Baso % (Auto) % Neut # (Auto) (1.4-6.5) K/uL Lymph # (Auto) (1.2-3.4) K/uL Mcdonald # (Auto) (0.11-0.59) K/uL Eos # (Auto) (0-0.5) K/uL Baso # (Auto) (0-0.2) K/uL Immature Gran # (Auto) (0.00-0.02) K/uL PT (9.0-12.0) Seconds INR (0.9-1.1) Sodium (136-145) mmol/L Potassium (3.5-5.1) mmol/L Chloride (98-107) mmol/L Carbon Dioxide (21-32) mmol/L Anion Gap (3-11) BUN (7-18) mg/dl Creatinine (0.6-1.2) mg/dl Est Cr Clr Drug Dosing Est GFR ( Amer) ml/min Est GFR (Non-Af Amer) ml/min BUN/Creatinine Ratio (10-20) Glucose (70-99) mg/dl Calcium (8.5-10.1) mg/dl Magnesium (1.8-2.4) mg/dl Total Bilirubin (0.2-1) mg/dl AST (15-37) U/L ALT (12-78) U/L Alkaline Phosphatase (45-117) U/L Troponin I (0-0.045) ng/ml Total Protein (6.4-8.2) gm/dl Albumin (3.4-5.0) gm/dl Globulin (2.5-4.0) gm/dl Albumin/Globulin Ratio (0.9-2) Lipase (73-393) U/L TSH (0.300-4.500) uIu/ml Urine Color Yellow Urine Appearance Clear (Clear) Urine pH 5.0 (4.5-7.5) Ur Specific Bea[place]ont 1.005 (1.000-1.030) Urine Protein Negative (Negative) Urine Glucose (UA) Negative (Negative) Urine Ketones Negative (Negative) Urine Blood Trace H (Negative) Urine Nitrite Negative (Negative) Urine Bilirubin Negative (Negative) Urine Urobilinogen Negative (Negative) Ur Leukocyte Esterase Negative (Negative) Urine WBC (Auto) 1-5 (0-5) /hpf Urine RBC (Auto) 0-4 (0-4) /hpf U Hyaline Cast (Auto) 0 (0-5) /lpf U Epithel Cells (Auto) 5-10 H (0-5) /lpf Urine Bacteria (Auto) 2+ H (Negative) COVID-19 Eval Order Covid19 at [facility] SARS-CoV-2 (PCR) NEGATIVE (Negative) Administered Medications Diltiazem HCl 125 mg/ Dextrose 125 mls @ 5 mls/hr IV .Q24H JENNIFER; Protocol Stop: 11/19/20 20:29 Last Titration: 10/20/20 22:18 Dose: 15 mg/hr, 15 mls/hr Documented by: [id number] Cosigned by: [id number] Titration: 10/20/20 21:35 Dose: 10 mg/hr, 10 mls/hr Documented by: [id number] Cosigned by: [id number] Admin: 10/20/20 21:00 Dose: 5 mg/hr, 5 mls/hr Documented by: [id number] Cosigned by: [id number] Potassium Chloride (K Jacky / Wtr) 10 meq in 100 mls @ 100 mls/hr IV Q1H JENNIFER Stop: 10/20/20 23:14 Last Admin: 10/20/20 21:45 Dose: 100 mls/hr Documented by: [id number] Heparin Sodium/Dextrose (Heparin Sodium/Dextrose) 25,000 units in 500 mls @ 24 mls/hr IV .[id number] JENNIFER; Protocol Stop: 11/19/20 21:52 Last Admin: 10/20/20 22:11 Dose: 1,200 units/hr, 24 mls/hr Documented by: [id number] Cosigned by: [id number] Discontinued Medications Diltiazem HCl (Diltiazem Hcl 5 Mg/Ml 5 Ml Vial) 10 mg IV NOW STA Stop: 10/20/20 20:28 Last Admin: 10/20/20 20:33 Dose: 10 mg Documented by: [id number] Cosigned by: [id number] Heparin Sodium/Dextrose (Heparin Iv Adult Wt-Based Standard *No* Bolus Protocol) 1 ea N/A ONE ONE; Protocol Stop: 10/20/20 21:38 Last Admin: 10/20/20 22:05 Dose: Not Given Documented by: [id number] Sodium Chloride (Nss) 500 mls @ 999 mls/hr IV .Q31M ONE Stop: 10/20/20 21:32 Last Infusion: 10/20/20 22:32 Dose: 0 mls/hr Documented by: [id number] Admin: 10/20/20 21:05 Dose: 999 mls/hr Documented by: [id number] Magnesium Sulfate/Dextrose (Magnesium Sulfate / D5w) 1 gm in 100 mls @ 200 mls/hr IV Q30M JENNIFER Stop: 10/20/20 22:14 Last Admin: 10/20/20 22:17 Dose: 200 mls/hr Documented by: [id number] Infusion: 10/20/20 22:15 Dose: 200 mls/hr Documented by: [id number] Admin: 10/20/20 21:45 Dose: 200 mls/hr Documented by: [id number] Miscellaneous (Stat Iv Infusion Titration Per Protocol) 1 ea N/A NOW STA Stop: 10/20/20 20:28 Last Admin: 10/20/20 20:34 Dose: 1 ea Documented by: [id number] Potassium Chloride (Potassium Chloride Crtab 20 Meq Tabcr) 20 meq PO NOW STA Stop: 10/20/20 21:03 Last Admin: 10/20/20 21:45 Dose: 20 meq Documented by: [id number] Discharge Plan Visit Data Chief Complaint: Diarrhea Stated Complaint: DIARRHEA, WEAKNESS ED Provider: Francois Livingston Discharge Problem: Atrial fibrillation with rapid ventricular response, Gastroenteritis, Weakness, Elevated troponin I level, Acute hyponatremia, Hypokalemia, Hypomagnesemia Patient Disposition: Being Evaluated by Hospitalist Forms Stand Alone Forms: My [facility] Prescriptions Prescriptions: No Action amlodipine 10 mg tablet 10 mg PO DAILY Qty: 90 RF: 3 metoprolol tartrate 25 mg tablet 25 mg PO BID Qty: 180 RF: 3 omeprazole 20 mg capsule,delayed release(DR/EC) 40 mg PO DAILY Qty: 180 RF: 3 atorvastatin 40 mg tablet 40 mg PO HS Qty: 90 RF: 3 potassium chloride 20 mEq tablet extended release 20 meq PO DAILY Qty: 90 RF: 3 aspirin 81 mg tablet,delayed release (DR/EC) 81 mg PO DAILY RF: 0 furosemide 20 mg tablet 20 mg PO DAILY PRN (Reason: sbp > 180 or leg swelling) Qty: 90 RF: 0 Referrals Referrals: Last Null III, MD [Primary Care Provider] -
[2020-10-20 20:46] LABS: Albumin Level 3.8 gm/dl (3.4-5.0); Blood Urea Nitrogen 12 mg/dl (7-18); Calcium 6.7 mg/dl (8.5-10.1); Carbon Dioxide 22 mmol/L (21-32); Chloride 92 mmol/L (98-107); Glucose 98 mg/dl (70-99); Potassium 2.7 mmol/L (3.5-5.1); Sodium 126 mmol/L (136-145)
[2020-10-20 20:48] LABS: Alanine Aminotransferase 23 U/L (12-78); Aspartate Aminotransferase 31 U/L (15-37); BUN Creatinine Ratio 10.3 (10-20); Est GFR (African American) 53.2 ml/min; Est GFR (Non-African American) 45.9 ml/min
[2020-10-20] MEDS: dilTIAZem HCL 125 MG in DEXTROSE 5% 100 ML IV SCH (21:00)
[2020-10-20] MEDS ORDERED: SODIUM CHLORIDE 0.9% 500 ML IV ONE (21:02)
[2020-10-20] MEDS ORDERED: POTASSIUM CHLORIDE CRTAB 20 MEQ TABCR PO STA (21:02)
[2020-10-20 21:17] LABS: Alkaline Phosphatase 96 U/L (45-117); Bilirubin,Total 1.1 mg/dl (0.2-1); Globulin 3.7 gm/dl (2.5-4.0); Thyroid Stimulating Hormone 0.617 uIu/ml (0.300-4.500); Total Protein 7.5 gm/dl (6.4-8.2)
[2020-10-20 21:30] LABS: Magnesium 0.4 mg/dl (1.8-2.4); Troponin I 0.122 ng/ml (0-0.045)
[2020-10-20 21:30] LABS: INR 1.2 (0.9-1.1); Prothrombin Time 11.9 Seconds (9.0-12.0)
[2020-10-20 21:31] LABS: Lipase 60 U/L (73-393)
[2020-10-20] MEDS ORDERED: Heparin IV Adult Wt-Based Standard *NO* Bolus Protocol ONE (21:37)
[2020-10-20] MEDS: MAGNESIUM SULFATE / D5W 1 GM/100 ML BAG IV SCH ×2 (21:45→22:17)
[2020-10-20] MEDS: POTASSIUM CHLORIDE / WTR 10 MEQ/100 ML PLCT IV SCH ×2 (21:45→22:48)
[2020-10-20 21:52] LABS: Appearance Urine Clear (Clear); Bacteria Urine Automated 2+ (Negative); Bilirubin Urine Negative (Negative); Blood Urine Trace (Negative); Cast Urine Automated 0 /lpf (0-5); Color Urine Yellow; Glucose Urine UA Negative (Negative); Ketones Urine Negative (Negative); Leukocyte Esterase Urine Negative (Negative); Nitrite Urine Negative (Negative); Protein Urine Negative (Negative); RBC Urine Automated 0-4 /hpf (0-4); Specific Gravity Urine 1.005 (1.000-1.030); Urobilinogen Urine Negative (Negative)
[2020-10-20] MEDS: HEPARIN SODIUM/DEXTROSE 25,000 UNITS/500 ML BAG IV SCH (22:11)
--- NOTE | 2020-10-20 23:07 | History & Physical Report ---
Date of Service October 20, 2020 Assessment & Plan (1) Gastroenteritis: 79yo female with history of HTN, HLP presenting with diarrhea, poor oral intake, electrolyte abnormalities to include acute hyponatremia, hypomagnesemia and hypokalemia as well as new onset atrial fibrillation. Diarrhea stopped today. CT with findings consistent with gastroenteritis. -Admit to PCU -IVF and electrolyte repletion as below -NSS at 125mL/hr x 2 liters -Zofran PRN Present on Admission?: Yes (2) Atrial fibrillation with rapid ventricular response: Patient with new onset atrial fibrillation with RVR - initially 123 on ar rival now 96 bpm. Most likely secondary to electrolyte abnormalities. Was started on Diltiazem gtt in ER as well as heparin gtt. [id number] score of 6 (Age >75, Female, history of HTN and prior CVA). Patient should continue on anticoagulation therapy. TSH within normal limits. -Continue Diltiazem gtt -Continue heparin gtt -Check 2D echo -Electrolyte repletion as above -Continue Metoprolol Present on Admission?: Yes (3) Elevated troponin I level: Troponin = 0.122. Patient denies chest pain. No acute ischemic changes on EKG. Possibly supply-demand mismatch in setting of new AF with RVR -Telemetry monitoring -Trend troponin x 3 sets -Echo in AM as above Present on Admission?: Yes (4) Acute hyponatremia: Zi=590 from normal baseline of 136 in 07/2020. Most likely secondary to volume depletion. Patient appears slightly dry on exam -Check urine and serum osm as well as urine Na -NSS x 500mL given in ER -Continue NSS at 125mL/hr x 2 liters -Repeat labs in AM Present on Admission?: Yes (5) Hypokalemia: K=2.7. Patient has had history of hypokalemia before and has been on PO K. Given 30 mEq in ER -KCl x 40mEq PO -Repeat chemistry in AM Present on Admission?: Yes (6) Hypomagnesemia: Mg = 0.4. Given 2gm in ER -Replete x 3gm -Repeat level in AM Present on Admission?: Yes (7) Hypercholesteremia: Chronic -Continue Atorvastatin (8) Hypertension: Blood pressure well controlled at this time -Continue Amlodipine -Continue to monitor F/E/N - NSS at 125mL/ghr x 2 liters, electrolytes as above, AHA diet as tolerated Ppx -Heparin gtt Code - Full per discussion with patient Dispo - Admit to PCU History of Present Illness Chief Complaint: weakness, fatigue, diarrhea Primary Care Provider: Last Null MD Kathi Samuel is a 79yo female with history of HTN, HLP and prior CVA presenting with weakness and shaking. Patient had two days of severe diarrhea - reports multiple episodes of watery diarrhea which stopped today. She does not think there was blood in her BMS. She has had poor appetite and decreased oral intake for the last several days as well. She has nausea but no vomiting as well as subjective fevers and chills. Dizziness and weakness today which prompted her to come to the ER. She denies sick contacts, recent antibiotic use or abnormal food intake. She has had Covid vaccination x 2 No additional complaints at this time - denies chest pain, palpitations, dizziness, abdominal pain, edema Patient found to be in atrial fibrillation upon arrival. No history of prior. ER Course: Diltiazem gtt, Heparin gtt, KCl 30mEq, Mg x 2gm Allergies Allergy/AdvReac Type Severity Reaction Status Date / Time Penicillins Allergy Intermediate HIVES Verified 10/20/20 20:43 Home Medications Medication Instructions Recorded Confirmed Type aspirin 81 mg tablet,delayed 81 mg PO DAILY tab 12/16/18 10/20/20 History release furosemide 20 mg tablet 20 mg PO DAILY PRN #90 tab 12/16/18 10/20/20 History amlodipine 10 mg tablet 10 mg PO DAILY #90 tab 02/15/20 10/20/20 Rx metoprolol tartrate 25 mg tablet 25 mg PO BID #180 tab 04/15/20 10/20/20 Rx potassium chloride 20 mEq 20 meq PO DAILY #90 tab 08/14/20 10/20/20 Rx tablet,extended release omeprazole 20 mg capsule,delayed 40 mg PO DAILY #180 cap 09/10/20 10/20/20 Rx release atorvastatin 40 mg tablet 40 mg PO HS #90 tab 09/23/20 10/20/20 Rx Past Med/Surg History Medical History History of CVA (cerebrovascular accident) Hyperlipidemia Hypertension PAD (peripheral artery disease) TIA (transient ischemic attack) Vitamin D deficiency Surgical History History of cholecystectomy Hx of tonsillectomy Family History Other Diabetes Hypertension Myocardial infarction Denies family history of Ovarian cancer Prostate cancer Breast cancer Colorectal cancer Social History Smoking Status: Current every day smoker Age Started Using Tobacco: 30; packs per day: 1; Cigarettes Per Day: 20; Second Hand Exposure: Yes; Hx Alcohol Use: No Hx Substance Use: No Preferred Language: Kyrgyz Communication Ability: Effective Hearing Ability: Normal Scale Attendant Required: No marital status: / Current Living Situation: Alone current occupational status: retired Feels Safe at Home: Yes Childhood Exposure to Second-Hand Smoke: No caffeine: Yes (diet coke daily) Dental Care, Regularly: Yes Physical Activity Frequency: Does not Exercise Seatbelt Use: always Sunscreen Use: No Assistive Devices: None Review of Systems Review of Systems: All systems reviewed & are unremarkable except as noted in HPI & below Physical Exam Physical Exam: General: patient resting comfortably, NAD, non-toxic in appearance, AA&O x 4 Skin: warm, dry, intact, no rashes or lesions HEENT: NC/AT, PERRL, EOMI, anicteric sclera, conjunctiva without injection, external ear normal to inspection and nontender, nares patent, moist mucus membranes, dentition intact, no oropharyngeal lesions, neck supple, trachea midline, no LAD, no thyromegaly, no JVD Heart: +S1/S2, irregularly irregular, no m/r/g Lungs: equal air entry bilaterally, no rales/rhonchi, scattered end-expiratory wheezing in bilateral lung hinson Abd: +BS, soft, NT/ND, no masses/organomegaly/ascites Ext: warm, 2+ pulses in UE/LE bilaterally, no clubbing/cyanosis or edema Neuro: nonfocal, patient AA&O x 4, speech intact, no facial droop, moving all extremities on command with equal strength 5/5 Results & Data Results & Data ([facility]) Vital Signs (Past 12 Hours) Vital Signs Temp Pulse Resp BP Pulse Ox 10/20/20 22:31 110 H 23 133/101 H 96 10/20/20 22:01 117 H 25 H 10/20/20 22:00 110 H 21 119/97 10/20/20 21:32 139 H 27 H 153/108 H 90 10/20/20 21:30 120 H 33 H 10/20/20 20:31 97 10/20/20 20:30 123 H 18 138/93 97 10/20/20 19:44 36.8 C 110 H 20 121/75 98 Laboratory Results Laboratory Results WBC 13.21 K/uL (4.8-10.8) H 10/20/20 20:20 RBC 4.85 M/uL (4.2-5.4) 10/20/20 20:20 Hgb 14.7 g/dL (12.0-16.0) 10/20/20 20:20 Hct 40.5 % (37-47) 10/20/20 20:20 MCV 83.5 fL (80-100) 10/20/20 20:20 MCH 30.3 pg (25-34) 10/20/20 20:20 MCHC 36.3 g/dL (32-36) H 10/20/20 20:20 RDW Std Deviation 38.5 fL (36.4-46.3) 10/20/20 20:20 RDW Coeff of Faviola 12.7 % (11.5-14.5) 10/20/20 20:20 Plt Count 390 K/uL (130-400) 10/20/20 20:20 MPV 10.1 fL (7.4-10.4) 10/20/20 20:20 Immature Gran % (Auto) 0.3 % 10/20/20 20:20 Neut % (Auto) 65.9 % 10/20/20 20:20 Lymph % (Auto) 27.2 % 10/20/20 20:20 [place] % (Auto) 6.0 % 10/20/20 20:20 Eos % (Auto) 0.5 % 10/20/20 20:20 Baso % (Auto) 0.1 % 10/20/20 20:20 Neut # (Auto) 8.72 K/uL (1.4-6.5) H 10/20/20 20:20 Lymph # (Auto) 3.59 K/uL (1.2-3.4) H 10/20/20 20:20 [place] # (Auto) 0.79 K/uL (0.11-0.59) H 10/20/20 20:20 Eos # (Auto) 0.06 K/uL (0-0.5) 10/20/20 20:20 Baso # (Auto) 0.01 K/uL (0-0.2) 10/20/20 20:20 Immature Gran # (Auto) 0.04 K/uL (0.00-0.02) H 10/20/20 20:20 PT 11.9 Seconds (9.0-12.0) 10/20/20 21:04 INR 1.2 (0.9-1.1) H 10/20/20 21:04 Sodium 126 mmol/L (136-145) L 10/20/20 20:20 Potassium 2.7 mmol/L (3.5-5.1) L 10/20/20 20:20 Chloride 92 mmol/L (98-107) L 10/20/20 20:20 Carbon Dioxide 22 mmol/L (21-32) 10/20/20 20:20 Anion Gap 12.0 (3-11) H 10/20/20 20:20 BUN 12 mg/dl (7-18) 10/20/20 20:20 Creatinine 1.15 mg/dl (0.6-1.2) 10/20/20 20:20 Est Cr Clr Drug Dosing Not Reportable 10/20/20 20:20 Est GFR ( Amer) 53.2 ml/min 10/20/20 20:20 Est GFR (Non-Af Amer) 45.9 ml/min 10/20/20 20:20 BUN/Creatinine Ratio 10.3 (10-20) 10/20/20 20:20 Glucose 98 mg/dl (70-99) 10/20/20 20:20 Calcium 6.7 mg/dl (8.5-10.1) L 10/20/20 20:20 Magnesium 0.4 mg/dl (1.8-2.4) L* 10/20/20 20:20 Total Bilirubin 1.1 mg/dl (0.2-1) H 10/20/20 20:20 AST 31 U/L (15-37) 10/20/20 20:20 ALT 23 U/L (12-78) 10/20/20 20:20 Alkaline Phosphatase 96 U/L (45-117) 10/20/20 20:20 Troponin I 0.122 ng/ml (0-0.045) H* 10/20/20 20:20 Total Protein 7.5 gm/dl (6.4-8.2) 10/20/20 20:20 Albumin 3.8 gm/dl (3.4-5.0) 10/20/20 20:20 Globulin 3.7 gm/dl (2.5-4.0) 10/20/20 20:20 Albumin/Globulin Ratio 1.0 (0.9-2) 10/20/20 20: Lipase 60 U/L (73-393) L 10/20/20 20:20 TSH 0.617 uIu/ml (0.300-4.500) 10/20/20 20:20 Urine Color Yellow 10/20/20 21:30 Urine Appearance Clear (Clear) 10/20/20 21:30 Urine pH 5.0 (4.5-7.5) 10/20/20 21:30 Ur Specific [place]ff[place] 1.005 (1.000-1.030) 10/20/20 21:30 Urine Protein Negative (Negative) 10/20/20 21:30 Urine Glucose (UA) Negative (Negative) 10/20/20 21:30 Urine Ketones Negative (Negative) 10/20/20 21:30 Urine Blood Trace (Negative) H 10/20/20 21:30 Urine Nitrite Negative (Negative) 10/20/20 21:30 Urine Bilirubin Negative (Negative) 10/20/20 21:30 Urine Urobilinogen Negative (Negative) 10/20/20 21:30 Ur Leukocyte Esterase Negative (Negative) 10/20/20 21:30 Urine WBC (Auto) 1-5 /hpf (0-5) 10/20/20 21:30 Urine RBC (Auto) 0-4 /hpf (0-4) 10/20/20 21:30 U Hyaline Cast (Auto) 0 /lpf (0-5) 10/20/20 21:30 U Epithel Cells (Auto) 5-10 /lpf (0-5) H 10/20/20 21:30 Urine Bacteria (Auto) 2+ (Negative) H 10/20/20 21:30 COVID-19 Eval Order Covid19 at [facility] 10/20/20 21:06 SARS-CoV-2 (PCR) NEGATIVE (Negative) 10/20/20 21:06 Diagnostic Findings CXR - by my interpretation, mild calcification or aorta, no infiltrate or evidence of pulmonary edema CT Abdomen and Pelvis - per STAT rad - RLL calcified granuloma measuring 7mm. Remainder of the lulng bases are clear. Status post cholecystectomy otherwise unremarkable biliary system. Normal lier. Splenic granuloma, otherwise normal spleen. The pancreas unremarkable. Mild hypertrophy of the bilateral adrenal glands. Severe atrophy o fthe left kidney. Unremarkable right kidney. The stomach is decompressed wtih borderline thickening of the wall. Mild fullness of some of the left side of small bowel loops reaching a maximum diameter of 2.5cm with air-fluid level and borderline thickening of the wall. Findings sugg est gastroenteritis. Diverticulosis with the colon/sigmoid with no signs of diverticulitis. Normal appendix. Over distended urinary bladder. Atrophy of the uterus. Degenerative disease of the spine with osteoporosis. Aneurysmal dilatation of the infrarenal aorta measuring a maximum diameter of 3.2 x 3.2 cm. ECG Additional Comments: EKG with AF Code Status & VTE Plan VTE Prophylaxis Plan VTE Prophylaxis will be ordered: Yes PG Care Time/CCT Total # of Minutes Spent Total Time Spent with Patient: Total time spent is greater than 50% in agency service coordinator rdination of care (as documented) at patient's floor/unit and/or counseling patient: Coding Level of Care Code 94942 Initial Inpt Care Lvl 3 Diagnoses Gastroenteritis K52.9 Atrial fibrillation with rapid ventricular response I48.91 Elevated troponin I level R77.8 Acute hyponatremia E87.1 Hypokalemia E87.6 Hypomagnesemia E83.42 Hypercholesteremia E78.00 Hypertension I10 Hypertension type: unspecified (1) Hypertension Hypertension type: unspecified Qualified Code(s): I10 - Essential (primary) hypertension
[2020-10-21] MEDS ORDERED: ONDANSETRON INJ 2 MG/ML 2 ML VIAL IV PRN (00:50)
[2020-10-21] MEDS ORDERED: ACETAMINOPHEN 325 MG TAB PO PRN (00:50)
[2020-10-21] MEDS ORDERED: SODIUM CHLORIDE 0.9% 1000ML 1,000 ML IV SCH (01:15)
[2020-10-21 01:44] LABS: Phosphorus 3.9 mg/dl (2.5-4.9)
[2020-10-21] MEDS ORDERED: POTASSIUM CHLORIDE CRTAB 20 MEQ TABCR PO ONE (02:15)
[2020-10-21] MEDS: MAGNESIUM SULFATE / D5W 1 GM/100 ML BAG IV SCH ×3 (02:33→06:18)
[2020-10-21 04:21] LABS: Basophils # (auto) 0.01 K/uL (0-0.2); Basophils % (auto) 0.1 %; Eosinophils # (auto) 0.11 K/uL (0-0.5); Eosinophils % (auto) 0.9 %; Hematocrit (blood only) 34.6 % (37-47); Hemoglobin 12.5 g/dL (12.0-16.0); Immature Granulocytes # (auto) 0.02 K/uL (0.00-0.02); Immature Granulocytes % (auto) 0.2 %; Lymphocytes # (auto) 3.13 K/uL (1.2-3.4); Lymphocytes % (auto) 24.7 %; Mean Corpuscular Hemoglobin 30.6 pg (25-34); Mean Corpuscular Hgb Conc 36.1 g/dL (32-36); Mean Corpuscular Volume 84.8 fL (80-100); Mean Platelet Volume 9.6 fL (7.4-10.4); Monocytes # (auto) 0.89 K/uL (0.11-0.59); Neutrophils # (auto) 8.51 K/uL (1.4-6.5); Neutrophils % (auto) 67.1 %; Platelet Count 303 K/uL (130-400); RDW Coefficient of Variation 12.8 % (11.5-14.5); RDW Standard Deviation 39.5 fL (36.4-46.3); Red Blood Count 4.08 M/uL (4.2-5.4); White Blood Count 12.67 K/uL (4.8-10.8)
[2020-10-21 04:40] LABS: BUN Creatinine Ratio 10.9 (10-20); Creatinine Clr Calc Pharmacy 48.1 ml/min; Est GFR (African American) 62.9 ml/min; Est GFR (Non-African American) 54.3 ml/min; Magnesium 1.5 mg/dl (1.8-2.4); Partial Thromboplastin Ratio 1.9; Potassium 2.6 mmol/L (3.5-5.1)
[2020-10-21 04:43] LABS: Partial Thromboplastin Time 48.7 Seconds (21.0-31.0)
[2020-10-21 04:45] LABS: Troponin I 0.101 ng/ml (0-0.045)
[2020-10-21] MEDS ORDERED: POTASSIUM CHLORIDE 10 MEQ TABCR PO STA (06:11)
[2020-10-21] MEDS: dilTIAZem HCL 125 MG in DEXTROSE 5% 100 ML IV SCH (06:18)
[2020-10-21] MEDS ORDERED: CALCIUM GLUCONATE 10% 2,000 MG in SODIUM CHLORIDE 0.9% 50 ML IV ONE ×2 (06:30→08:00)
[2020-10-21] MEDS: POTASSIUM CHLORIDE / WTR 10 MEQ/100 ML PLCT IV SCH ×4 (06:33→09:41)
--- NOTE | 2020-10-21 07:00 | XRay Report ---
XR chest 1V portable CLINICAL HISTORY: weakness COMPARISON STUDY: November 16, 2014 FINDINGS: No pneumothorax. No pleural effusion. No large infiltrates or consolidative lesions are seen. Stable nodular density is seen at the right infrahilar region which is unchanged since prior study an d might represent calcified granuloma or prominent vessel. Cardiomediastinal silhouette is within normal limits in size. Bilateral russell are prominent which is stable since prior study. Mild central peribronchial cuffing is seen.Aorta is calcified. Osseous structures: unremarkable IMPRESSION: 1. No large infiltrates or consolidative lesions. ACT 112: Negative or not required by law. The above report was generated using voice recognition software. It may contain grammatical, syntax o r spelling errors. Electronically signed by: Nicky Mcclain DO 10/21/2020 6:58 AM
[2020-10-21] MEDS: POTASSIUM CHLORIDE 40 MEQ in SODIUM CHLORIDE 0.9% 1000ML 1,000 ML IV SCH ×2 (07:37→16:06)
[2020-10-21] MEDS ORDERED: PNEUMOCOCCAL POLYSACCHARIDES 25 MCG/0.5 ML VIAL/SYR IM ONE (08:00)
[2020-10-21] MEDS: ASPIRIN 81 MG ECTAB PO SCH (08:42)
[2020-10-21] MEDS: PANTOprazole 40 MG TAB PO SCH (08:43)
--- NOTE | 2020-10-21 08:57 | CT Scan Report ---
CT SCAN OF THE ABDOMEN AND PELVIS WITHOUT IV CONTRAST CLINICAL HISTORY: Diarrhea. Generalized weakness. COMPARISON STUDY: Renal ultrasound dated 07/29/2017. TECHNIQUE: CT scan of the abdomen and pelvis is performed from the lung bases to the proximal femora. Images are reviewed in the axial, sagittal, and coronal planes. IV contrast was not administered for this examination. Note that the examination was performed in suboptimal fashion without oral and IV contrast. A dose lowering technique was utilized adhering to the principles of ALARA. The examination is modestly degraded by motion artifact. CT DOSE: 658.95 mGy.cm FINDINGS: Lung bases: The heart is normal in size and without pericardial effusion. The mitral annulus is dense ly calcified. A tiny hiatal hernia is noted. Emphysematous changes suspected. A large calcified granu kris is seen in the right lower lobe. The lung bases are otherwise clear. Liver: The unenhanced liver is normal in size, contour, and attenuation. There is no intrahepatic babita iary ductal dilatation. Gallbladder: Surgically absent noting clips in the gallbladder fossa. Spleen: Normal in size and attenuation. There are calcified splenic granulomas. Pancreas: The unenhanced pancreas is moderately atrophic and grossly unremarkable. Adrenal glands: Bilateral adrenal adenomas measure up to 1.7 cm. Kidneys: There is markedly asymmetric cortical atrophy of the left kidney as compared to the right. N o hydronephrosis is seen. There are no renal calculi identified. A 2.4 cm cyst is noted in the left u pper pole. Abdominal vasculature: There is advanced atherosclerotic calcification and ectasia of the abdominal a mily. An infrarenal abdominal aortic aneurysm measures up to 3.0 cm. Bowel: There is moderate colonic diverticulosis without CT evidence of acute diverticulitis. No bowel obstruction is seen. The appendix is well-visualized and normal. Peritoneum: There is no intraperitoneal free air or abdominal ascites. Lymphadenopathy: None. Pelvic viscera: The bladder is distended otherwise normal in appearance. The uterus and adnexa are no rmal as visualized. There are small fat-containing inguinal hernias. Skeletal structures: The skeletal structures are osteopenic. Mild lumbosacral spondylosis is observed . Large hemangiomas are seen in the bodies of T10 and L2. No lytic or blastic lesions are seen. IMPRESSION: 1. There are no acute infectious or inflammatory findings in the abdomen or pelvis. 2. Moderate colonic diverticulosis without CT evidence of acute diverticulitis. 3. There is a 3.0 cm infrarenal abdominal aortic aneurysm. 4. Bladder distention. 5. Additional findings as above. ACT 112: Negative or not required by law. Electronically signed by: Michele Pavon M.D. 10/21/2020 8:56 AM
[2020-10-21] MEDS ORDERED: METOPROLOL TARTRATE 25 MG TAB PO SCH (09:00)
[2020-10-21] MEDS ORDERED: amLODIPine BESYLATE 5 MG TAB PO SCH (09:00)
[2020-10-21] MEDS: POTASSIUM CHLORIDE CRTAB 20 MEQ TABCR PO SCH ×2 (09:13→20:52)
[2020-10-21 10:40] LABS: BUN Creatinine Ratio 8.1 (10-20); Calcium 6.6 mg/dl (8.5-10.1); Creatinine Clr Calc Pharmacy 46.2 ml/min; Est GFR (Non-African American) 51.8 ml/min; Magnesium 2.2 mg/dl (1.8-2.4); Phosphorus 2.4 mg/dl (2.5-4.9); Potassium 3.8 mmol/L (3.5-5.1)
--- NOTE | 2020-10-21 13:41 | XCELERA ---
[id number]
--- NOTE | 2020-10-21 15:19 | Hospitalist Progress Note ---
Date of Service October 21, 2020 Assessment & Plan (1) Acute kidney injury: Cr up to 1.6 despite fluids, likely very dry on admission continue fluids, UO is more than adequate check BMP in the morning avoid nephrotoxins (2) Gastroenteritis: diarrhea x 2 days, poor oral intake, electrolyte abnormalities to include acute hyponatremia, hypomagnesemia and hypokalemia as well as new onset atrial fibrillation. CT with findings consistent with gastroenteritis. advance diet as tolerated continue IV fluids only has diarrhea if she eats something, suggests issue with absorption, not a secretory diarrhea (3) Atrial fibrillation with rapid ventricular response: Patient with new onset atrial fibrillation with RVR - initially 123 on arrival Most likely secondary to electrolyte abnormalities HR better on diltiazem drip 5mg/hr and Lopressor 25mg BID continue heparin drip will increase Lopressor to 50mg BID, change to Diltiazem CD 120mg in the morning change to Eliquis 5mg BID as well echo with hyperdynamic LV EF at 70% (4) Elevated troponin I level: troponin elevated at 0.1 for three sets, no rise and fall, no chest pain, no wall motion changes on echo likely just elevated troponin in setting of Afib RVR and hypovolemia does not represent demand ischemia no further work up at this time (5) Acute hyponatremia: Vk=347 Most likely secondary to volume depletion. Patient appears slightly dry on exam Na coming up with NSS, continue and repeat BMP in AM (6) Hypokalemia: K=2.7. Patient has had history of hypokalemia before and has been on PO K. Given 30 mEq in ER K coming up gradually, continue aggressive replacement (7) Hypomagnesemia: Mg = 0.4. Given 2gm in ER -Replete x 3gm up to normal today (8) Hypercholesteremia: Chronic -Continue Atorvastatin (9) Hypertension: Blood pressure well controlled at this time -stop amlodipine since we plan on using Diltiazem and increasing Lopressor (10) Hypophosphatemia: aggressive IV replacement (11) Claudication: will check bilateral arterial dopplers Admission and Anticipated Discharge Date Admission Date: October 20, 2020 Subjective patient feeling better, heart rate well controlled on Diltiazem drip and metoprolol tried eating, had loose stools, feels like food goes right through her says she was not eating/drinking well for a 5 days prior to admission no chest pain, no fever/chills updated her daughter at the bedside reviewed chart and labs, K and Ca low, Cr trending up to 1.6 phosphorus low at 1.8 patient and her daughter mention pain in her legs, sounds like claudication she says she can walk maybe 40-50 feet before both legs start to ache discussed getting arterial doppler tomorrow to assess her circulation Review of Systems Review of Systems: All systems reviewed & are unremarkable except as noted in Subjective Respiratory: + cough; no dyspnea, no dyspnea on exertion and no sputum production Cardiovascular: + claudication; no chest pain, no palpitations and no edema Gastrointestinal: + diarrhea/loose stools; no abdominal pain, no nausea, no vomiting and no constipation Physical Exam Constitutional: well developed, + ill appearing and + frail appearing; no acute distress Neck: trachea midline, no thyromegaly Respiratory: normal respiratory effort, lungs clear to auscultation Cardiovascular: Rate/Rhythm: + tachycardic and + irregularly irregular Heart Sounds: normal S1 and normal S2; no murmur Vessels: no JVD Extremities: normal capillary refill; no edema Gastrointestinal (Abdomen): normal bowel sounds, soft, nontender, no hepatosplenomegaly Musculoskeletal: no cyanosis or clubbing, extremities motor strength 5/5 Skin: no rashes, warm and dry Neurologic: patellar DTR's 2+ bilat, sensation intact and PERRL, EOMI, accommodation nl, no face palsy, no dysarthria Psychiatric: A+Ox3, euthymic affect Results & Data Results & Data ([facility]) Vital Signs (Past 12 Hours) Vital Signs Temp Pulse Pulse Resp BP BP Pulse Ox 10/21/20 11:16 36.9 C 89 20 112/66 98 10/21/20 07:45 36.9 C 125 H 22 125/93 96 10/21/20 07:15 88 10/21/20 06:01 92 H 35 H 10/21/20 06:00 81 29 H 117/67 10/21/20 05:31 94 H 17 10/21/20 05:30 74 17 107/62 10/21/20 05:01 88 17 10/21/20 05:00 74 17 102/65 10/21/20 04:31 98 H 19 10/21/20 04:30 84 16 107/69 10/21/20 04:01 75 17 10/21/20 04:00 90 18 122/61 10/21/20 03:57 37.1 C 93 H 96 10/21/20 03:56 95 H 20 10/21/20 03:30 97/58 L Laboratory Results Laboratory Results - last 24 hr 10/20/20 10/20/20 10/20/20 20:20 20:20 20:20 WBC 13.21 H RBC 4.85 Hgb 14.7 Hct 40.5 MCV 83.5 MCH 30.3 MCHC 36.3 H RDW Std Deviation 38.5 RDW Coeff of Faviola 12.7 Plt Count 390 MPV 10.1 Immature Gran % (Auto) 0.3 Neut % (Auto) 65.9 Lymph % (Auto) 27.2 [place] % (Auto) 6.0 Eos % (Auto) 0.5 Baso % (Auto) 0.1 Neut # (Auto) 8.72 H Lymph # (Auto) 3.59 H [place] # (Auto) 0.79 H Eos # (Auto) 0.06 Baso # (Auto) 0.01 Immature Gran # (Auto) 0.04 H PT INR APTT PTT Ratio Sodium 126 L Potassium 2.7 L Chloride 92 L Carbon Dioxide 22 Anion Gap 12.0 H BUN 12 Creatinine 1.15 Est Cr Clr Drug Dosing Not Reportable Est GFR ( Amer) 53.2 Est GFR (Non-Af Amer) 45.9 BUN/Creatinine Ratio 10.3 Glucose 98 Osmolality 259 L Calcium 6.7 L Ionized Calcium Phosphorus 3.9 Magnesium 0.4 L* Total Bilirubin 1.1 H AST 31 ALT 23 Alkaline Phosphatase 96 Troponin I 0.122 H* Total Protein 7.5 Albumin 3.8 Globulin 3.7 Albumin/Globulin Ratio 1.0 Lipase 60 L TSH 0.617 Urine Color Urine Appearance Urine pH Ur Specific [place] Urine Protein Urine Glucose (UA) Urine Ketones Urine Blood Urine Nitrite Urine Bilirubin Urine Urobilinogen Ur Leukocyte Esterase Urine WBC (Auto) Urine RBC (Auto) U Hyaline Cast (Auto) U Epithel Cells (Auto) Urine Bacteria (Auto) Urine Osmolality Ur Random Sodium COVID-19 Eval Order SARS-CoV-2 (PCR) 10/20/20 10/20/20 10/20/20 21:04 21:06 21:06 WBC RBC Hgb Hct MCV MCH MCHC RDW Std Deviation RDW Coeff of Faviola Plt Count MPV Immature Gran % (Auto) Neut % (Auto) Lymph % (Auto) [place] % (Auto) Eos % (Auto) Baso % (Auto) Neut # (Auto) Lymph # (Auto) [place] # (Auto) Eos # (Auto) Baso # (Auto) Immature Gran # (Auto) PT 11.9 INR 1.2 H APTT PTT Ratio Sodium Potassium Chloride Carbon Dioxide Anion Gap BUN Creatinine Est Cr Clr Drug Dosing Est GFR ( Amer) Est GFR (Non-Af Amer) BUN/Creatinine Ratio Glucose Osmolality Calcium Ionized Calcium Phosphorus Magnesium Total Bilirubin AST ALT Alkaline Phosphatase Troponin I Total Protein Albumin Globulin Albumin/Globulin Ratio Lipase TSH Urine Color Urine Appearance Urine pH Ur Specific [place] Urine Protein Urine Glucose (UA) Urine Ketones Urine Blood Urine Nitrite Urine Bilirubin Urine Urobilinogen Ur Leukocyte Esterase Urine WBC (Auto) Urine RBC (Auto) U Hyaline Cast (Auto) U Epithel Cells (Auto) Urine Bacteria (Auto) Urine Osmolality Ur Random Sodium COVID-19 Eval Order Covid19 at [facility] SARS-CoV-2 (PCR) NEGATIVE 10/20/20 10/21/20 10/21/20 21:30 01:55 01:55 WBC RBC Hgb Hct MCV MCH MCHC RDW Std Deviation RDW Coeff of Faviola Plt Count MPV Immature Gran % (Auto) Neut % (Auto) Lymph % (Auto) [place] % (Auto) Eos % (Auto) Baso % (Auto) Neut # (Auto) Lymph # (Auto) [place] # (Auto) Eos # (Auto) Baso # (Auto) Immature Gran # (Auto) PT INR APTT PTT Ratio Sodium Potassium Chloride Carbon Dioxide Anion Gap BUN Creatinine Est Cr Clr Drug Dosing Est GFR ( Amer) Est GFR (Non-Af Amer) BUN/Creatinine Ratio Glucose Osmolality Calcium Ionized Calcium Phosphorus Magnesium Total Bilirubin AST ALT Alkaline Phosphatase Troponin I Total Protein Albumin Globulin Albumin/Globulin Ratio Lipase TSH Urine Color Yellow Urine Appearance Clear Urine pH 5.0 Ur Specific [place] 1.005 Urine Protein Negative Urine Glucose (UA) Negative Urine Ketones Negative Urine Blood Trace H Urine Nitrite Negative Urine Bilirubin Negative Urine Urobilinogen Negative Ur Leukocyte Esterase Negative Urine WBC (Auto) 1-5 Urine RBC (Auto) 0-4 U Hyaline Cast (Auto) 0 U Epithel Cells (Auto) 5-10 H Urine Bacteria (Auto) 2+ H Urine Osmolality 82 L Ur Random Sodium 11 COVID-19 Eval Order SARS-CoV-2 (PCR) 10/21/20 10/21/20 10/21/20 04:12 04:12 04:12 WBC 12.67 H RBC 4.08 L Hgb 12.5 Hct 34.6 L MCV 84.8 MCH 30.6 MCHC 36.1 H RDW Std Deviation 39.5 RDW Coeff of Faviola 12.8 Plt Count 303 MPV 9.6 Immature Gran % (Auto) 0.2 Neut % (Auto) 67.1 Lymph % (Auto) 24.7 [place] % (Auto) 7.0 Eos % (Auto) 0.9 Baso % (Auto) 0.1 Neut # (Auto) 8.51 H Lymph # (Auto) 3.13 [place] # (Auto) 0.89 H Eos # (Auto) 0.11 Baso # (Auto) 0.01 Immature Gran # (Auto) 0.02 PT INR APTT PTT Ratio Sodium 134 L D Potassium 2.6 L Chloride 101 Carbon Dioxide 23 Anion Gap 10.0 BUN 11 Creatinine 1.00 Est Cr Clr Drug Dosing 48.1 Est GFR ( Amer) 62.9 Est GFR (Non-Af Amer) 54.3 BUN/Creatinine Ratio 10.9 Glucose 85 Osmolality Calcium 6.0 L Ionized Calcium 0.76 L* Phosphorus Magnesium 1.5 L Total Bilirubin AST ALT Alkaline Phosphatase Troponin I 0.101 H* Total Protein Albumin Globulin Albumin/Globulin Ratio Lipase TSH Urine Color Urine Appearance Urine pH Ur Specific [place] Urine Protein Urine Glucose (UA) Urine Ketones Urine Blood Urine Nitrite Urine Bilirubin Urine Urobilinogen Ur Leukocyte Esterase Urine WBC (Auto) Urine RBC (Auto) U Hyaline Cast (Auto) U Epithel Cells (Auto) Urine Bacteria (Auto) Urine Osmolality Ur Random Sodium COVID-19 Eval Order SARS-CoV-2 (PCR) 10/21/20 10/21/20 10/21/20 04:12 09:55 12:28 WBC RBC Hgb Hct MCV MCH MCHC RDW Std Deviation RDW Coeff of Faviola Plt Count MPV Immature Gran % (Auto) Neut % (Auto) Lymph % (Auto) [place] % (Auto) Eos % (Auto) Baso % (Auto) Neut # (Auto) Lymph # (Auto) [place] # (Auto) Eos # (Auto) Baso # (Auto) Immature Gran # (Auto) PT INR APTT 48.7 H* PTT Ratio 1.9 Sodium 136 Potassium 3.8 D Chloride 105 Carbon Dioxide 22 Anion Gap 9.0 BUN 8 Creatinine 1.04 Est Cr Clr Drug Dosing 46.2 Est GFR ( Amer) 60.0 Est GFR (Non-Af Amer) 51.8 BUN/Creatinine Ratio 8.1 L Glucose 97 Osmolality Calcium 6.6 L Ionized Calcium Phosphorus 2.4 L D Magnesium 2.2 Total Bilirubin AST ALT Alkaline Phosphatase Troponin I 0.100 H* Total Protein Albumin Globulin Albumin/Globulin Ratio Lipase TSH Urine Color Urine Appearance Urine pH Ur Specific [place] Urine Protein Urine Glucose (UA) Urine Ketones Urine Blood Urine Nitrite Urine Bilirubin Urine Urobilinogen Ur Leukocyte Esterase Urine WBC (Auto) Urine RBC (Auto) U Hyaline Cast (Auto) U Epithel Cells (Auto) Urine Bacteria (Auto) Urine Osmolality Ur Random Sodium COVID-19 Eval Order SARS-CoV-2 (PCR) Medications Administered Current Inpatient Medications Acetaminophen (Acetaminophen 325 Mg Tab) 650 mg PO Q4H PRN PRN Reason: pain/fever Stop: 11/20/20 00:49 Aspirin (Aspirin 81 Mg Ectab) 81 mg PO DAILY [facility] Stop: 11/20/20 08:59 Last Admin: 10/21/20 08:42 Dose: 81 mg Documented by: Atorvastatin Calcium (Atorvastatin 40 Mg Tab) 40 mg PO HS [facility] Stop: 11/20/20 20:59 Diltiazem HCl 125 mg/ Dextrose 125 mls @ 5 mls/hr IV .Q24H [facility]; Protocol Stop: 11/19/20 20:29 Last Titration: 10/21/20 07:30 Dose: 5 mg/hr, 5 mls/hr Documented by: Heparin Sodium/Dextrose (Heparin Sodium/Dextrose) 25,000 units in 500 mls @ 24 mls/hr IV .[id number] [facility]; Protocol Stop: 11/19/20 21:52 Last Titration: 10/21/20 07:21 Dose: 1,200 units/hr, 24 mls/hr Documented by: Potassium Chloride 40 meq/ (Sodium Chloride) 1,020 mls @ 125 mls/hr IV .[id number] [facility] Stop: 10/21/20 22:49 Last Admin: 10/21/20 07:37 Dose: 125 mls/hr Documented by: Metoprolol Tartrate (Metoprolol Tartrate 50 Mg Tab) 50 mg PO BID [facility] Stop: 11/20/20 20:59 Ondansetron HCl (Ondansetron Inj 2 Mg/Ml 2 Ml Vial) 4 mg IV Q6H PRN PRN Reason: Nausea Stop: 11/20/20 00:49 Pantoprazole Sodium (Pantoprazole 40 Mg Tab) 40 mg PO DAILY [facility] Stop: 11/20/20 08:59 Last Admin: 10/21/20 08:43 Dose: 40 mg Documented by: Potassium Chloride (Potassium Chloride Crtab 20 Meq Tabcr) 20 meq PO BID [facility] Stop: 11/20/20 08:59 Last Admin: 10/21/20 09:13 Dose: 20 meq Documented by: PG Care Time/CCT Total # of Minutes Spent Total Time Spent with Patient: Total time spent is greater than 50% in coordination of care (as documented) at patient's floor/unit and/or counseling patient: Coding Level of Care Code 05082 Subseq Hosp Care Lvl 3 Diagnoses Acute kidney injury N17.9 Gastroenteritis K52.9 Atrial fibrillation with rapid ventricular response I48.91 Elevated troponin I level R77.8 Acute hyponatremia E87.1 Hypokalemia E87.6 Hypomagnesemia E83.42 Hypercholesteremia E78.00 Hypertension I10 Hypertension type: unspecified Hypophosphatemia E83.39 Claudication I73.9 (1) Hypertension Hypertension type: unspecified Qualified Code(s): I10 - Essential (primary) hypertension
--- NOTE | 2020-10-21 17:17 | Electrocardiogram Report ---
Test Reason : Blood Pressure : / mmHG Vent. Rate : 133 BPM Atrial Rate : 144 BPM P-R Int : 000 ms QRS Dur : 094 ms QT Int : 368 ms P-R-T Axes : 000 015 205 degrees QTc Int : 547 ms Poor data quality, interpretation may be adversely affected Atrial fibrillation with rapid ventricular response Low voltage QRS Possible Inferior infarct , age undetermined Cannot rule out Anterior infarct (cited on or before 16-NOV-2014) Abnormal ECG When compared with ECG of 18-JUL-2017 00:18, Atrial fibrillation has replaced Sinus rhythm Vent. rate has increased BY 50 BPM T wave inversion now evident in Lateral leads Confirmed by Jakub Hampton ([id number]) on 10/21/2020 5:17:03 PM Referred By: REFERRED SELF Confirmed By:Jakub Hampton
[2020-10-21] MEDS: HEPARIN SODIUM/DEXTROSE 25,000 UNITS/500 ML BAG IV SCH (17:50)
[2020-10-21 18:32] LABS: BUN Creatinine Ratio 6.4 (10-20); Calcium 6.6 mg/dl (8.5-10.1); Creatinine Clr Calc Pharmacy 29.5 ml/min; Est GFR (African American) 34.9 ml/min; Est GFR (Non-African American) 30.1 ml/min; Magnesium 1.9 mg/dl (1.8-2.4); Phosphorus 1.8 mg/dl (2.5-4.9); Potassium 4.4 mmol/L (3.5-5.1)
[2020-10-21] MEDS: ATORVASTATIN 40 MG TAB PO SCH (20:52)
[2020-10-21] MEDS: METOPROLOL TARTRATE 50 MG TAB PO SCH (20:53)
[2020-10-21] MEDS: NICOTINE 14 MG/24 HR PATCH TD SCH (21:20)
[2020-10-22] MEDS ORDERED: LEVALBUTEROL HCL 0.63 MG/3 ML NEB NEB STA (03:22)
[2020-10-22] MEDS: dilTIAZem HCL 125 MG in DEXTROSE 5% 100 ML IV SCH (05:20)
[2020-10-22] MEDS ORDERED: COUGH DROP (SUGAR FREE) LOZ 24 LOZ/1 BOX BUCCAL ONE (06:32)
[2020-10-22 07:02] LABS: Partial Thromboplastin Ratio 3.4
[2020-10-22 07:06] LABS: Partial Thromboplastin Time 89.1 Seconds (21.0-31.0)
[2020-10-22 07:18] LABS: BUN Creatinine Ratio 10.4 (10-20); Calcium 7.3 mg/dl (8.5-10.1); Creatinine Clr Calc Pharmacy 42.5 ml/min; Est GFR (African American) 54.3 ml/min; Est GFR (Non-African American) 46.8 ml/min; Magnesium 1.8 mg/dl (1.8-2.4)
[2020-10-22] MEDS: NICOTINE 14 MG/24 HR PATCH TD SCH (07:21)
[2020-10-22] MEDS: PANTOprazole 40 MG TAB PO SCH (07:22)
[2020-10-22] MEDS: METOPROLOL TARTRATE 50 MG TAB PO SCH (07:22)
[2020-10-22] MEDS: POTASSIUM CHLORIDE CRTAB 20 MEQ TABCR PO SCH (07:23)
[2020-10-22] MEDS: ASPIRIN 81 MG ECTAB PO SCH (07:23)
[2020-10-22] MEDS ORDERED: dilTIAZem HCL 120 MG CAPCR PO SCH (09:00)
[2020-10-22] MEDS: POT PHOSPHATE MONOBASIC W/ SOD TAB PO SCH ×2 (09:48→20:44)
[2020-10-22] MEDS: APIXABAN 2.5 MG TAB PO SCH ×2 (10:55→20:43)
[2020-10-22] MEDS ORDERED: LOPERAMIDE HCL 2 MG CAP PO PRN (11:50)
--- NOTE | 2020-10-22 13:01 | Hospitalist Progress Note ---
Date of Service October 22, 2020 Assessment & Plan (1) Acute kidney injury: Cr up to 1.6 on 10/21 despite fluids, likely very dry on admission Cr improved to 1.1 today, can stop fluids today as she is drinking better avoid nephrotoxins K is 5.0, stop supplements Phos is low at 2.0, add NeutraPhos (2) Gastroenteritis: diarrhea x 2 days prior to admission, poor oral intake, electrolyte abnormalities to include acute hyponatremia, hypomagnesemia and hypokalemia CT with findings consistent with gastroenteritis. advance diet as tolerated only has diarrhea if she eats something, suggests issue with absorption, not a secretory diarrhea she had 4 very small loose BM this morning add Imodium to use PRN and follow for improvement (3) Atrial fibrillation with rapid ventricular response: Patient with new onset atrial fibrillation with RVR - initially 123 on arrival Most likely secondary to electrolyte abnormalities and dehydration HR better on diltiazem drip 5mg/hr and Lopressor 25mg BID on 10/21 treated with heparin drip echo with hyperdynamic LV EF at 70% today, stopped cardizem drip and HR is in 80-90's continue Lopressor 50mg BID but will increase to 75mg BID this evening started Eliquis 5mg BID (4) Elevated troponin I level: troponin elevated at 0.1 for three sets, no rise and fall, no chest pain, no wall motion changes on echo likely just elevated troponin in setting of Afib RVR and hypovolemia does not represent demand ischemia no further work up at this time (5) Acute hyponatremia: Mm=825 Most likely secondary to volume depletion. Patient appears slightly dry on exam on admission Na up to 140, stop fluids (6) Hypokalemia: K=2.7. Patient has had history of hypokalemia before and has been on PO K. Given 30 mEq in ER K up to 5.0, stop supplementation (7) Hypomagnesemia: Mg = 0.4. Given 2gm in ER -Replete x 3gm up to normal today at 1.8 (8) Hypercholesteremia: Chronic -Continue Atorvastatin (9) Hypertension: Blood pressure well controlled at this time -stop amlodipine since increasing Lopressor (10) Hypophosphatemia: 2.0 today start on NeutraPhos (11) Claudication: will check bilateral arterial dopplers - still pending (12) Dyspnea: certainly possible she has undiagnosed COPD given her smoking history and dyspnea no wheezing on exam will start on Breo and Incruse inhalers plan for referral to pulmonology as outpatient with PFT in a few weeks Admission and Anticipated Discharge Date Admission Date: October 20, 2020 Subjective patient doing well, c/o shortness of breath and increased cough RN did have to increase her oxygen from 2L to 4L this morning, but now her saturations are 98% on the 4L she is a smoker, likely has COPD but not on any inhalers will start on Breo and Incruse and set up with pulmonology as outpatient her labs are improved, Cr down to normal at 1.1, K is 5.0, phos 2.0 no wheezing on exam but she claims she had wheezing last night she is still having diarrhea, maybe 4x this morning, all small amounts, admits to tenesmus, no incontinence HR is 80-90's on monitor despite stopping Cardizem drip, only on Lopressor 50mg BID stopped heparin drip and started Eliquis this morning Review of Systems Review of Systems: All systems reviewed & are unremarkable except as noted in Subjective Respiratory: + cough, + dyspnea, + dyspnea on exertion and + sputum production Cardiovascular: no chest pain and no edema Gastrointestinal: + diarrhea/loose stools; no abdominal pain, no nausea, no vomiting and no constipation Physical Exam Constitutional: well developed; no acute distress Neck: trachea midline, no thyromegaly Respiratory: normal respiratory effort, lungs clear to auscultation Cardiovascular: Rate/Rhythm: regular rate and + irregularly irregular Heart Sounds: normal S1 and normal S2; no murmur Vessels: no JVD Extremities: normal capillary refill; no edema Gastrointestinal (Abdomen): normal bowel sounds, soft, nontender, no hepatosplenomegaly Musculoskeletal: no cyanosis or clubbing, extremities motor strength 5/5 Skin: no rashes, warm and dry Neurologic: patellar DTR's 2+ bilat, sensation intact and PERRL, EOMI, accommodation nl, no face palsy, no dysarthria Psychiatric: A+Ox3, euthymic affect Results & Data Results & Data ([facility]) Vital Signs (Past 12 Hours) Vital Signs Temp Pulse Pulse Resp BP BP Pulse Ox 10/22/20 11:18 36.6 C 82 22 136/68 98 07/06/21 08:00 62 10/22/20 07:03 36.7 C 99 H 22 128/73 91 10/22/20 03:37 90 95 10/22/20 03:00 36.9 C 90 18 121/87 91 Laboratory Results Laboratory Results - last 24 hr 10/21/20 10/21/20 10/22/20 12:28 17:54 06:00 APTT 89.1 H* PTT Ratio 3.4 Sodium 135 L Potassium 4.4 D Chloride 108 H Carbon Dioxide 21 Anion Gap 6.0 BUN 11 Creatinine 1.63 H D Est Cr Clr Drug Dosing 29.5 Est GFR ( Amer) 34.9 Est GFR (Non-Af Amer) 30.1 BUN/Creatinine Ratio 6.4 L Glucose 122 H Calcium 6.6 L Phosphorus 1.8 L Magnesium 1.9 Troponin I 0.100 H* 10/22/20 06:00 APTT PTT Ratio Sodium 140 Potassium 5.0 Chloride 113 H Carbon Dioxide 21 Anion Gap 6.0 BUN 12 Creatinine 1.13 D Est Cr Clr Drug Dosing 42.5 Est GFR ( Amer) 54.3 Est GFR (Non-Af Amer) 46.8 BUN/Creatinine Ratio 10.4 Glucose 104 H Calcium 7.3 L Phosphorus 2.0 L Magnesium 1.8 Troponin I Medications Administered Current Inpatient Medications Acetaminophen (Acetaminophen 325 Mg Tab) 650 mg PO Q4H PRN PRN Reason: pain/fever Stop: 11/20/20 00:49 Apixaban (Apixaban 2.5 Mg Tab) 5 mg PO BID [facility] Stop: 11/21/20 09:29 Last Admin: 10/22/20 10:55 Dose: 5 mg Documented by: Aspirin (Aspirin 81 Mg Ectab) 81 mg PO DAILY [facility] Stop: 11/20/20 08:59 Last Admin: 10/22/20 07:23 Dose: 81 mg Documented by: Atorvastatin Calcium (Atorvastatin 40 Mg Tab) 40 mg PO HS [facility] Stop: 11/20/20 20:59 Last Admin: 10/21/20 20:52 Dose: 40 mg Documented by: Fluticasone/Vilanterol (Fluticasone/Vilanterol 100/25mcg 14 Puffs/Inhaler) 1 puffs INH DAILY [facility] Stop: 11/21/20 13:14 Loperamide HCl (Loperamide Hcl 2 Mg Cap) 2 mg PO Q4H PRN PRN Reason: Diarrhea Stop: 11/21/20 11:49 Last Admin: 10/22/20 12:13 Dose: 2 mg Documented by: Metoprolol Tartrate (Metoprolol Tartrate 25 Mg Tab) 75 mg PO BID [facility] Stop: 11/21/20 20:59 Miscellaneous (Remove Nicoderm Patch) 1 ea N/A DAILY@[id number] [facility] Stop: 11/21/20 08:58 Last Admin: 10/22/20 07:24 Dose: 1 ea Documented by: Nicotine (Nicotine 14 Mg/24 Hr Patch) 14 mg TD QAM [facility] Stop: 11/20/20 20:29 Last Admin: 10/22/20 07:21 Dose: 14 mg Documented by: Ondansetron HCl (Ondansetron Inj 2 Mg/Ml 2 Ml Vial) 4 mg IV Q6H PRN PRN Reason: Nausea Stop: 11/20/20 00:49 Pantoprazole Sodium (Pantoprazole 40 Mg Tab) 40 mg PO DAILY [facility] Stop: 11/20/20 08:59 Last Admin: 10/22/20 07:22 Dose: 40 mg Documented by: Potassium Phosphate (Pot Phosphate Monobasic W/ Sod Tab) 1 tab PO BID [facility] Stop: 11/21/20 08:59 Last Admin: 10/22/20 09:48 Dose: 1 tab Documented by: Umeclidinium [place] (Umeclidinium [place] 62.5mcg/Blister 7 Puffs/Inhaler) 1 puffs INH DAILY [facility] Stop: 11/21/20 13:14 PG Care Time/CCT Total # of Minutes Spent Total Time Spent with Patient: Total time spent is greater than 50% in coordination of care (as documented) at patient's floor/unit and/or counseling patient: Coding Level of Care Code 37308 Subseq Hosp Care Lvl 3 Diagnoses Acute kidney injury N17.9 Gastroenteritis K52.9 Atrial fibrillation with rapid ventricular response I48.91 Elevated troponin I level R77.8 Acute hyponatremia E87.1 Hypokalemia E87.6 Hypomagnesemia E83.42 Hypercholesteremia E78.00 Hypertension I10 Hypertension type: unspecified Hypophosphatemia E83.39 Claudication I73.9 Dyspnea R06.00 (1) Hypertension Hypertension type: unspecified Qualified Code(s): I10 - Essential (primary) hypertension
--- NOTE | 2020-10-22 13:11 | XRay Report ---
TWO VIEW CHEST CLINICAL HISTORY: Hypoxia. COPD. FINDINGS: PA and lateral chest radiographs are compared to study dated 10/20/2020. The heart is enlarge d noting atherosclerotic calcification of the thoracic aorta. Emphysematous change and chronic inters titial thickening is similar to previous. Bibasilar opacities likely represent scarring/atelectasis. There is no pleural effusion or pneumothorax. The skeletal structures are osteopenic. The a mild comp ression deformity is noted in the thoracic spine. Degenerative change and hyperkyphosis is observed. IMPRESSION: 1. Cardiomegaly and emphysema. There is no radiographic evidence of congestive failure. 2. Bibasilar airspace opacities likely represent scarring/atelectasis. Clinical correlation will be r equired. ACT 112: Negative or not required by law. Electronically signed by: Michele Pavon M.D. 10/22/2020 1:10 PM
[2020-10-22] MEDS: UMECLIDINIUM BROMIDE 62.5MCG/BLISTER 7 PUFFS/INHALER INH SCH (16:08)
[2020-10-22] MEDS: FLUTICASONE/VILANTEROL 100/25MCG 14 PUFFS/INHALER INH SCH (16:08)
[2020-10-22] MEDS ORDERED: dilTIAZem HCL 30 MG TAB PO ONE (19:14)
[2020-10-22] MEDS: ATORVASTATIN 40 MG TAB PO SCH (20:43)
[2020-10-22] MEDS: METOPROLOL TARTRATE 25 MG TAB PO SCH (20:44)
--- NOTE | 2020-10-22 23:17 | Ultrasound Report ---
ULTRASOUND BILATERAL LOWER EXTREMITY ARTERIAL; ANKLE-BRACHIAL INDICES CLINICAL HISTORY: Lower extremity claudication. COMPARISON STUDY: No priors. TECHNIQUE: Real-time grayscale and color Doppler sonography of the arteries of the right and left low er extremities performed from the inguinal crease to the foot. Ankle-brachial indices were assessed. FINDINGS: Ankle-brachial indices: Left brachial pressure measures 129. Pressures in the right posterior tibial artery measure 78 for an ALICIA of 0.60, and pressures in the left dorsalis pedis measure 69 for an ALICIA of 0.53. Pressures in the left posterior tibial artery measure 135 for an ALICIA of 1.05, and pressures in the left dorsalis pedis measure 113 for an ALICIA of 0.88. Right lower extremity: Advanced atherosclerotic plaque and irregularity seen throughout the arteries of the right lower extremity. There are monophasic waveforms in the right common femoral artery with velocities measuring up to 64 cm/s. The profunda femoris artery is patent with velocities measuring u p to 61 cm second. Monophasic waveforms are seen throughout the superficial femoral artery with a wilfredo nted arterial upstroke. Velocities in the superficial femoral artery measure up to 49 cm second. Blun quang monophasic waveforms in the popliteal artery are identified with velocities measuring up to 26 cm /s. There is three-vessel runoff to the foot. Velocities within the calf arteries measure up to 20 cm /s. The dorsalis pedis artery is patent with velocities measuring up to 13 cm/s. Left lower extremity: Advanced atherosclerotic plaque and irregularity is seen throughout the arterie s of the left lower extremity. Triphasic waveforms are seen in the common femoral artery with velocit ies measuring up to 107 cm/s. The profunda femoris artery is patent with velocities measuring up to 9 4 cm/s. There are triphasic waveforms seen throughout the superficial femoral artery with velocities measuring up to 89 cm/s. Triphasic waveforms are seen in the popliteal artery with velocities measuri ng up to 38 cm/s. There is three-vessel run-off to the foot. Velocities in the calf arteries measure up to 46 cm/s. The dorsalis pedis artery is patent with velocities measuring up to 43 cm/s. IMPRESSION: 1. Findings are consistent with bilateral lower extremity peripheral vascular disease as above, right leg greater than left. 2. There is no sonographic evidence of focal/high-grade stenosis or focal vessel occlusion throughout the right or left lower extremity arteries. 3. Ankle-brachial indices as above. Dictated: 10/22/2020 10:29 PM Transcribed: 10/22/2020 10:57 PM [facility] [id number] MELISSA_Shonda Electronically signed by: Michele Pavon M.D. 10/22/2020 11:16 PM
[2020-10-23] MEDS: NICOTINE 14 MG/24 HR PATCH TD SCH (09:09)
[2020-10-23] MEDS: METOPROLOL TARTRATE 25 MG TAB PO SCH ×2 (09:10→20:32)
[2020-10-23] MEDS: PANTOprazole 40 MG TAB PO SCH (09:10)
[2020-10-23] MEDS: FLUTICASONE/VILANTEROL 100/25MCG 14 PUFFS/INHALER INH SCH (09:11)
[2020-10-23] MEDS: POT PHOSPHATE MONOBASIC W/ SOD TAB PO SCH ×2 (09:11→20:31)
[2020-10-23] MEDS: ASPIRIN 81 MG ECTAB PO SCH (09:11)
[2020-10-23] MEDS: UMECLIDINIUM BROMIDE 62.5MCG/BLISTER 7 PUFFS/INHALER INH SCH (09:12)
[2020-10-23] MEDS: APIXABAN 2.5 MG TAB PO SCH ×2 (09:12→20:31)
--- NOTE | 2020-10-23 13:23 | Hospitalist Progress Note ---
Date of Service October 23, 2020 Assessment & Plan (1) Acute kidney injury: Cr up to 1.6 on 10/21 despite fluids, likely very dry on admission Cr improved to 1.1 on 10/22, eating and drinking well avoid nephrotoxins (2) Gastroenteritis: diarrhea x 2 days prior to admission, poor oral intake, electrolyte abnormalities to include acute hyponatremia, hypomagnesemia and hypokalemia CT with findings consistent with gastroenteritis. advance diet as tolerated, eating well today diarrhea much improved today, pretty much resolved (3) Atrial fibrillation with rapid ventricular response: Patient with new onset atrial fibrillation with RVR - initially 123 on arrival Most likely secondary to electrolyte abnormalities and dehydration HR better on diltiazem drip 5mg/hr and Lopressor 25mg BID on 10/21 treated with heparin drip echo with hyperdynamic LV EF at 70% continue Eliquis 5mg BID continue Lopressor 75mg BID started Diltiazem 60mg BID, HR better, in 100's will change to Diltiazem CD 180mg tomorrow morning likely ready for discharge tomorrow (4) Elevated troponin I level: troponin elevated at 0.1 for three sets, no rise and fall, no chest pain, no wall motion changes on echo likely just elevated troponin in setting of Afib RVR and hypovolemia does not represent demand ischemia no further work up at this time (5) Acute hyponatremia: Jb=387 Most likely secondary to volume depletion. Patient appears slightly dry on exam on admission Na up to 140, stop fluids (6) Hypokalemia: K=2.7. Patient has had history of hypokalemia before and has been on PO K. Given 30 mEq in ER K up to 5.0, stop supplementation (7) Hypomagnesemia: Mg = 0.4. Given 2gm in ER -Replete x 3gm up to normal at 1.8 (8) Hypercholesteremia: Chronic -Continue Atorvastatin (9) Hypertension: Blood pressure well controlled at this time Lopressor 75mg BID and Diltiazem 60mg BID (10) Hypophosphatemia: continue neutraphos (11) Claudication: arterial dopplers with evidence of peripheral vascular disease, no severe stenosis ALICIA is 0.6 and 0.8 continue aspirin and Lipitor (12) Dyspnea: certainly possible she has undiagnosed COPD given her smoking history and dyspnea will start on Breo and Incruse inhalers, she feels better now plan for referral to pulmonology as outpatient with PFT in a few weeks Admission and Anticipated Discharge Date Admission Date: October 20, 2020 Subjective patient is feeling better today, no diarrhea, she is happy to say that it is resolved eating well, no nausea breathing better after starting inhalers no labs today HR is 100's at rest on Lopressor 75mg and Diltiazem 60mg BID will increase the Diltiazem tomorrow and plan for discharge tomorrow, she agrees with this plan Review of Systems Review of Systems: All systems reviewed & are unremarkable except as noted in Subjective Respiratory: + cough and + dyspnea on exertion; no dyspnea Cardiovascular: no chest pain, no palpitations, no syncope and no edema Gastrointestinal: no abdominal pain, no nausea, no vomiting, no constipation and no diarrhea/loose stools Physical Exam Constitutional: well developed; no acute distress Neck: trachea midline, no thyromegaly Respiratory: normal respiratory effort; no respiratory distress, no labored breathing and no cough Auscultation: + wheezes (faint, end expiratory); no rales and no rhonchi Cardiovascular: Rate/Rhythm: + tachycardic and + irregularly irregular H eart Sounds: normal S1 and normal S2; no murmur Vessels: no JVD Extremities: normal capillary refill; no edema Gastrointestinal (Abdomen): normal bowel sounds, soft, nontender, no hepatosplenomegaly Musculoskeletal: no cyanosis or clubbing, extremities motor strength 5/5 Skin: no rashes, warm and dry Neurologic: patellar DTR's 2+ bilat, sensation intact and PERRL, EOMI, accommodation nl, no face palsy, no dysarthria Psychiatric: A+Ox3, euthymic affect Results & Data Results & Data ([facility]) Vital Signs (Past 12 Hours) Vital Signs Temp Pulse Pulse Resp BP Pulse Ox 10/23/20 11:36 36.9 C 103 H 18 145/81 H 95 10/23/20 08:00 37.3 C 131 H 111 H 26 H 128/75 96 10/23/20 03:00 36.4 C L 91 H 18 140/90 92 Medications Administered Current Inpatient Medications Acetaminophen (Acetaminophen 325 Mg Tab) 650 mg PO Q4H PRN PRN Reason: pain/fever Stop: 11/20/20 00:49 Apixaban (Apixaban 2.5 Mg Tab) 5 mg PO BID [facility] Stop: 11/21/20 09:29 Last Admin: 10/23/20 09:12 Dose: 5 mg Documented by: Aspirin (Aspirin 81 Mg Ectab) 81 mg PO DAILY [facility] Stop: 11/20/20 08:59 Last Admin: 10/23/20 09:11 Dose: 81 mg Documented by: Atorvastatin Calcium (Atorvastatin 40 Mg Tab) 40 mg PO HS [facility] Stop: 11/20/20 20:59 Last Admin: 10/22/20 20:43 Dose: 40 mg Documented by: Diltiazem HCl (Diltiazem Sr 60 Mg Cap) 60 mg PO BID [facility] Stop: 10/23/20 23:59 Last Admin: 10/23/20 09:10 Dose: 60 mg Documented by: Diltiazem HCl (Diltiazem Hcl 180 Mg Capcr) 180 mg PO QAM [facility] Stop: 11/23/20 08:59 Fluticasone/Vilanterol (Fluticasone/Vilanterol 100/25mcg 14 Puffs/Inhaler) 1 puffs INH DAILY [facility] Stop: 11/21/20 13:14 Last Admin: 10/23/20 09:11 Dose: 1 puffs Documented by: Loperamide HCl (Loperamide Hcl 2 Mg Cap) 2 mg PO Q4H PRN PRN Reason: Diarrhea Stop: 11/21/20 11:49 Last Admin: 10/22/20 12:13 Dose: 2 mg Documented by: Metoprolol Tartrate (Metoprolol Tartrate 25 Mg Tab) 75 mg PO BID [facility] Stop: 11/21/20 20:59 Last Admin: 10/23/20 09:10 Dose: 75 mg Documented by: Miscellaneous (Remove Nicoderm Patch) 1 ea N/A DAILY@0859 [facility] Stop: 11/21/20 08:58 Last Admin: 10/23/20 09:13 Dose: 1 ea Documented by: Nicotine (Nicotine 14 Mg/24 Hr Patch) 14 mg TD QAM [facility] Stop: 11/20/20 20:29 Last Admin: 10/23/20 09:09 Dose: 14 mg Documented by: Ondansetron HCl (Ondansetron Inj 2 Mg/Ml 2 Ml Vial) 4 mg IV Q6H PRN PRN Reason: Nausea Stop: 11/20/20 00:49 Pantoprazole Sodium (Pantoprazole 40 Mg Tab) 40 mg PO DAILY [facility] Stop: 11/20/20 08:59 Last Admin: 10/23/20 09:10 Dose: 40 mg Documented by: Potassium Phosphate (Pot Phosphate Monobasic W/ Sod Tab) 1 tab PO BID [facility] Stop: 11/21/20 08:59 Last Admin: 10/23/20 09:11 Dose: 1 tab Documented by: Umeclidinium [place] (Umeclidinium [place] 62.5mcg/Blister 7 Puffs/Inhaler) 1 puffs INH DAILY [facility] Stop: 11/21/20 13:14 Last Admin: 10/23/20 09:12 Dose: 1 puffs Documented by: PG Care Time/CCT Total # of Minutes Spent Total Time Spent with Patient: Total time spent is greater than 50% in coordination of care (as documented) at patient's floor/unit and/or counseling patient: Coding Level of Care Code 50884 Subseq Hosp Care Lvl 3 Diagnoses Acute kidney injury N17.9 Gastroenteritis K52.9 Atrial fibrillation with rapid ventricular response I48.91 Elevated troponin I level R77.8 Acute hyponatremia E87.1 Hypokalemia E87.6 Hypomagnesemia E83.42 Hypercholesteremia E78.00 Hypertension I10 Hypertension type: unspecified Hypophosphatemia E83.39 Claudication I73.9 Dyspnea R06.00 (1) Hypertension Hypertension type: unspecified Qualified Code(s): I10 - Essential (primary) hypertension
[2020-10-23] MEDS: HEPARIN SODIUM/DEXTROSE 25,000 UNITS/500 ML BAG IV SCH (19:16)
[2020-10-23] MEDS: dilTIAZem HCL 125 MG in DEXTROSE 5% 100 ML IV SCH (19:16)
[2020-10-23] MEDS: ATORVASTATIN 40 MG TAB PO SCH (20:32)
[2020-10-24 06:37] LABS: Hematocrit (blood only) 38.8 % (37-47); Hemoglobin 13.1 g/dL (12.0-16.0); Mean Corpuscular Hemoglobin 29.8 pg (25-34); Mean Corpuscular Hgb Conc 33.8 g/dL (32-36); Mean Corpuscular Volume 88.4 fL (80-100); Mean Platelet Volume 10.5 fL (7.4-10.4); Platelet Count 322 K/uL (130-400); RDW Coefficient of Variation 13.8 % (11.5-14.5); RDW Standard Deviation 44.9 fL (36.4-46.3); Red Blood Count 4.39 M/uL (4.2-5.4); White Blood Count 11.42 K/uL (4.8-10.8)
[2020-10-24 07:13] LABS: BUN Creatinine Ratio 13.6 (10-20); Calcium 8.9 mg/dl (8.5-10.1); Creatinine Clr Calc Pharmacy 43.4 ml/min; Est GFR (African American) 54.9 ml/min; Est GFR (Non-African American) 47.3 ml/min; Magnesium 1.2 mg/dl (1.8-2.4); Potassium 4.2 mmol/L (3.5-5.1)
[2020-10-24] MEDS: NICOTINE 14 MG/24 HR PATCH TD SCH (08:10)
[2020-10-24] MEDS: UMECLIDINIUM BROMIDE 62.5MCG/BLISTER 7 PUFFS/INHALER INH SCH (08:10)
[2020-10-24] MEDS: FLUTICASONE/VILANTEROL 100/25MCG 14 PUFFS/INHALER INH SCH (08:10)
[2020-10-24] MEDS: METOPROLOL TARTRATE 25 MG TAB PO SCH (08:10)
[2020-10-24] MEDS: APIXABAN 2.5 MG TAB PO SCH (08:11)
[2020-10-24] MEDS: ASPIRIN 81 MG ECTAB PO SCH (08:12)
[2020-10-24] MEDS: POT PHOSPHATE MONOBASIC W/ SOD TAB PO SCH (08:12)
[2020-10-24] MEDS: PANTOprazole 40 MG TAB PO SCH (08:12)
[2020-10-24] MEDS ORDERED: dilTIAZem HCL 180 MG CAPCR PO SCH (09:00)
--- NOTE | 2020-10-27 07:33 | Discharge Summary ---
Date of Service October 24, 2020 Admission HPI Per Admitting Provider Kathi Samuel is a 79yo female with history of HTN, HLP and prior CVA presenting with weakness and shaking. Patient had two days of severe diarrhea - reports multiple episodes of watery diarrhea which stopped today. She does not think there was blood in her BMS. She has had poor appetite and decreased oral intake for the last several days as well. She has nausea but no vomiting as well as subjective fevers and chills. Dizziness and weakness today which prompted her to come to the ER. She denies sick contacts, recent antibiotic use or abnormal food intake. She has had Covid vaccination x 2 No additional complaints at this time - denies chest pain, palpitations, dizziness, abdominal pain, edema Patient found to be in atrial fibrillation upon arrival. No history of prior. ER Course: Diltiazem gtt, Heparin gtt, KCl 30mEq, Mg x 2gm Principal Diagnosis Atrial fibrillation with RVR Discharge Exam Constitutional well developed; no acute distress Neck trachea midline, no thyromegaly Respiratory normal respiratory effort; no respiratory distress, no labored breathing and no cough Auscultation: + diminished lung sounds; no rales, no rhonchi and no wheezes Cardiovascular Rate/Rhythm: regular rate and + irregularly irregular Heart Sounds: normal S1 and normal S2; no murmur Vessels: no JVD Extremities: normal capillary refill; no edema Gastrointestinal (Abdomen) normal bowel sounds, soft, nontender, no hepatosplenomegaly Musculoskeletal no cyanosis or clubbing, extremities motor strength 5/5 Skin no rashes, warm and dry Neurologic patellar DTR's 2+ bilat, sensation intact and PERRL, EOMI, accommodation nl, no face palsy, no dysarthria Psychiatric A+Ox3, euthymic affect Discharge Data Allergies Allergy/AdvReac Type Severity Reaction Status Date / Time Penicillins Allergy Intermediate HIVES Verified 10/20/20 20:43 Consultations 10/20/20 21:43 ED Decision to Admit Stat Ordered Studies 10/20/20 20:27 CT abd pelvis wo con Urgent 10/22/20 07:46 US arterial duplex LE BI Routine Hospital Course (1) Atrial fibrillation with rapid ventricular response: Patient with new onset atrial fibrillation with RVR - initially 123 on arrival Most likely secondary to electrolyte abnormalities and dehydration HR better on diltiazem drip 5mg/hr and Lopressor 25mg BID on 10/21 treated with heparin drip initially echo with hyperdynamic LV EF at 70% initiated on Eliquis 5mg BID for stroke prevention titrated up on Lopressor to 75mg BID, continue this on discharge started Diltiazem 60mg BID, HR better, in 100's will change to Diltiazem CD 240mg PO daily on discharge rates are well controlled at rest and on exertion, anticoagulated will place referral to follow up with 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 advance diet as tolerated, eating well for three days diarrhea much improved today, pretty much resolved (4) Dyspnea: certainly possible she has undiagnosed COPD given her smoking history and dyspnea CXR with signs of emphysema will start on Breo and Incruse inhalers, she feels better the past two days, no longer has faint wheezing plan for referral to pulmonology as outpatient with PFT in a few weeks needs to stop smoking, she says she is committed to stopping (5) Claudication: arterial dopplers with evidence of peripheral vascular disease, no severe stenosis ALICIA is 0.6 and 0.8 continue aspirin and Lipitor follow up with PCP (6) Elevated troponin I level: troponin elevated at 0.1 for three sets, no rise and fall, no chest pain, no wall motion changes on echo likely just elevated troponin in setting of Afib RVR and hypovolemia does not represent demand ischemia no further work up at this time (7) Acute hyponatremia: Rt=307 Most likely secondary to volume depletion. Patient appears slightly dry on exam on admission Na up to 140, stop fluids (8) Hypokalemia: K=2.7. Patient has had history of hypokalemia before and has been on PO K. Given 30 mEq in ER K up to 5.0, stopped supplementation (9) Hypomagnesemia: Mg = 0.4. Given 2gm in ER -Replete x 3gm up to normal at 1.8 (10) Hypercholesteremia: Chronic -Continue Atorvastatin (11) Hypertension: Blood pressure well controlled at this time Lopressor 75mg BID and Diltiazem 60mg BID (12) Hypophosphatemia: continue neutraphos Total Time Total Time Spent Total Time Spent (In Minutes): 38 Total Time Includes: Examination of the Patient, Discharge Planning, Medication Reconciliation and Other (discussion with her daughter) Discharge Plan Discharge Items Patient Disposition: Home - Self-Care Reason For Visit: AF WITH RVR, ELECTROLYTE ABNORMALITIES Discharge Diagnosis: Atrial fibrillation with rapid response Suspected COPD causing shortness of breath Diarrhea causing electrolyte abnormalities, dehydration Condition on Discharge: Good Goals: medical management of atrial fibrillation stay well nourished, well hydrated follow up with pulmonology for pulmonary function testing Activity: Resume your previous activity Driving/Machine Use: No limitations Weightbearing: Full weightbearing Non-emergency contact: Primary Care Provider Call non-emergency contact if: you have any medication questions Follow-up/Referrals: Blaine Weinstein MD [Physician] - 11/11/20 10:30 am (Please follow up with Dr. Weinstein on Wednesday11/11/20 at 10:30 am. Please arrive to the office at 10:15 am for your appointment. If you are unable to keep this appointment, please call the office to reschedule at [phone].) Last Null III, MD [Primary Care Provider] - 10/31/20 11:00 am (Please follow up with Dr. Null on 10/31/20 at 11:00 am. Please arrive to the office at 10:45 am for your appointment. If you are unable to keep this appointment, please call the office to reschedule at [phone].) Av Thompson MD [Physician] - (can be with any provider in pulmonology, needs PFTs) Diet: Heart Healthy Addtl Attending Provider Instructions: Medications: - ELIQUIS: 5mg twice a day, this thins blood, protects against stroke, you need to take it every day as prescribed - METOPROLOL: dose increased to 75mg three times a day for better heart rate control - DILTIAZEM: 240mg daily, new medications for heart rate control with atrial fibrillation - BREO and INCRUSE ELIPTA: new inhalers that are intended to be maintenance inh tina for COPD, use these each once a day to help you breathe please note that AMLODIPINE was stopped, do not take this medication anymore Atrial fibrillation with rapid response, new diagnosis of atrial fibrillation goal is to control heart rate and use anticoagulation to prevent stroke we increased metoprolol to 75mg twice a day and added Diltiazem 240mg daily we started Eliquis 5mg twice a day for prevention of stroke please follow up with cardiology, will make a referral [place] [facility] [place] Peripheral artery disease arterial dopplers showed that you have stenosis (narrowing) in major arteries in legs at this point no areas show severe stenosis manage with aspirin and Lipitor and follow with cardiology Suspected COPD/emphysema due to years of smoking chest x-ray shows some signs of emphysema, formal diagnosis would be made with pulmonary function tests, these are only done as outpatient started you on inhaled steroid, long acting beta agonist and anti-muscarinic (Breo and Incruse Elipta) will refer you to pulmonology for evaluation and recommendations you need to quit smoking to prevent any further damage to your lungs stay well hydrated, well nourished and get rest Pending Studies at Discharge: No Stand-Alone Forms: My [facility], Smoking Cessation Medications and DC Order Prescriptions: New Incruse Ellipta 62.5 mcg/actuation Blister With Device 1 inh inhalation DAILY 30 Days Qty: 30 RF: 3 apixaban 5 mg tablet 5 mg PO BID 30 Days Qty: 60 RF: 3 metoprolol tartrate 25 mg Tablet 75 mg PO BID 30 Days Qty: 180 RF: 3 diltiazem HCl 240 mg capsule,extended release 24hr 240 mg PO QAM Qty: 30 RF: 3 Breo Ellipta 100-25 mcg/dose Blister With Device 1 inh inhalation DAILY 28 Days Qty: 28 RF: 3 Continued omeprazole 20 mg capsule,delayed release(DR/EC) 40 mg PO DAILY Qty: 180 RF: 3 atorvastatin 40 mg tablet 40 mg PO HS Qty: 90 RF: 3 potassium chloride 20 mEq tablet extended release 20 meq PO DAILY Qty: 90 RF: 3 aspirin 81 mg tablet,delayed release (DR/EC) 81 mg PO DAILY RF: 0 furosemide 20 mg tablet 20 mg PO DAILY PRN (Reason: sbp > 180 or leg swelling) Qty: 90 RF: 0 Discontinued amlodipine 10 mg tablet 10 mg PO DAILY Qty: 90 RF: 3 metoprolol tartrate 25 mg tablet 25 mg PO BID Qty: 180 RF: 3 Discharge Orders: Discharge Order (Routine); Ordered 10/24/20 Ordered By: Rangel Mejia Admission Data Admit Date/Time: 10/20/20 22:59 Attending Provider: Rangel Mejia Admit Provider: Rosario Washington Primary Care Provider: Last Null III Other Providers: Rosario Washington Other Interventions: Discharge Summary Assessment (RN) Last Done: 10/24/20 14:29 Coding Level of Care Code D/C Day Management >30 mins Diagnoses Atrial fibrillation with rapid ventricular response I48.91 Acute kidney injury N17.9 Gastroenteritis K52.9 Dyspnea R06.00 Claudication I73.9 Elevated troponin I level R77.8 Acute hyponatremia E87.1 Hypokalemia E87.6 Hypomagnesemia E83.42 Hypercholesteremia E78.00 Hypertension I10 Hypertension type: unspecified Hypophosphatemia E83.39
== END 2020-10-24 14:25 | disposition home or self-care (01) | DRG 392 ==
LOC: ED 19:33 → 2E 22:59 → SUATTDRO 22:59 → 2E 10-21 00:12

== ENCOUNTER 2020-11-22 09:48 | Inpatient (IN) ==
[2020-11-22] MEDS ORDERED: ONDANSETRON INJ 2 MG/ML 2 ML VIAL IV STA (11:51)
[2020-11-22] MEDS ORDERED: ACETAMINOPHEN 1,000 MG/100 ML VIAL IV STA (11:51)
[2020-11-22] MEDS ORDERED: HYDROmorphone INJ 0.5 MG/0.5 ML SYR IV PRN ×3 (11:51→19:30)
[2020-11-22] MEDS ORDERED: ACETAMINOPHEN 1000 MG/100 ML IV IV ONE (12:18)
[2020-11-22] MEDS ORDERED: HYDROmorphone INJ 0.5 MG/0.5 ML SYR ONE (12:19)
[2020-11-22] MEDS ORDERED: ONDANSETRON INJ 2 MG/ML 2 ML VIAL ONE (12:19)
[2020-11-22 13:10] LABS: Basophils # (auto) 0.01 K/uL (0-0.2); Basophils % (auto) 0.1 %; Eosinophils # (auto) 0.06 K/uL (0-0.5); Eosinophils % (auto) 0.4 %; Hematocrit (blood only) 39.7 % (37-47); Hemoglobin 13.3 g/dL (12.0-16.0); Immature Granulocytes # (auto) 0.03 K/uL (0.00-0.02); Immature Granulocytes % (auto) 0.2 %; Lymphocytes # (auto) 3.48 K/uL (1.2-3.4); Lymphocytes % (auto) 25.6 %; Mean Corpuscular Hemoglobin 29.5 pg (25-34); Mean Corpuscular Hgb Conc 33.5 g/dL (32-36); Mean Platelet Volume 11.3 fL (7.4-10.4); Monocytes # (auto) 0.88 K/uL (0.11-0.59); Monocytes % (auto) 6.5 %; Neutrophils # (auto) 9.13 K/uL (1.4-6.5); Neutrophils % (auto) 67.2 %; Platelet Count 394 K/uL (130-400); RDW Coefficient of Variation 13.6 % (11.5-14.5); Red Blood Count 4.51 M/uL (4.2-5.4); White Blood Count 13.59 K/uL (4.8-10.8)
[2020-11-22 13:23] LABS: Partial Thromboplastin Ratio 1.1; Partial Thromboplastin Time 28.6 Seconds (21.0-31.0)
[2020-11-22 13:28] LABS: Albumin Globulin Ratio 0.7 (0.9-2); Albumin Level 2.9 gm/dl (3.4-5.0); BUN Creatinine Ratio 17.7 (10-20); Bilirubin,Total 0.5 mg/dl (0.2-1); Calcium 6.9 mg/dl (8.5-10.1); Est GFR (African American) 49.5 ml/min; Est GFR (Non-African American) 42.7 ml/min; Globulin 4.4 gm/dl (2.5-4.0); Potassium 4.4 mmol/L (3.5-5.1); Total Protein 7.3 gm/dl (6.4-8.2)
--- NOTE | 2020-11-22 13:36 | CT Scan Report ---
CT lumbar spine wo con CT DOSE: 642.36 mGy.cm CLINICAL HISTORY: Pt low back pain TECHNIQUE: Helical images were acquired in transverse plane. Reformatted sagittal and coronal images were reviewed. A dose lowering technique was utilized adhering to the principles of ALARA. CONTRAST: No contrast was administered COMPARISON STUDY: None. FINDINGS: No definite acute fracture or traumatic malalignment is seen. Vertebral body heights are maintained. Intervertebral disc space narrowing is seen at L5-S1 level. Minimal anterior osteophytes are seen at multiple levels. Accidental findings of calcified abdominal aorta with few partially visualized areas of ectasia are s een and where better visualized on CT of abdomen and pelvis performed on October 20, 2020. L1-2 level: There is no evidence of significant disc bulge or focal herniation. There is no evidence of spinal or foraminal stenosis. L2-3 level: Minimal narrowing of intervertebral disc space with diffuse bulge of the disc and mild ce ntral canal stenosis. Bilateral neuroforamina are patent. L3-4 level: Intervertebral disc space is preserved. Diffuse bulge of the disc is seen and in associat ion with hypertrophic changes of facet joints causing severe stenosis of the central canal. Bilateral neuroforamina are patent. L4-5 level: Intervertebral disc space is preserved. Diffuse bulge of the disc is seen and in associat ion with hypertrophic changes of facet joints causing severe stenosis of the central canal. Bilateral neural foramina are patent. L5-S1 level: Narrowing of intervertebral disc space is seen with subchondral sclerosis and vacuum phe nomenon. Diffuse bulge of the disc is seen and in association with hypertrophic changes of facet join ts causing moderate stenosis of the central canal. Bilateral neuroforamina are patent. IMPRESSION: 1. No acute fracture or traumatic malalignment. Limited evaluation due to osteopenia. 2. Few areas of disc bulge causing stenosis of the central canal, most severe at the C3-4 and 4 5 l evels ACT 112: Negative or not required by law. The above report was generated using voice recognition software. It may contain grammatical, syntax o r spelling errors. Electronically signed by: Nicky Mcclain DO 11/22/2020 1:34 PM
--- NOTE | 2020-11-22 13:51 | XRay Report ---
XR chest 1V portable CLINICAL HISTORY: Chest Pain COMPARISON STUDY: Chest radiograph October 22, 2020. FINDINGS: Lung volumes are normal. There is cardiomegaly. No evidence for pulmonary edema. No pneumot horax or pleural effusion is present. Mild bilateral opacities have improved since exam October 22, 2020. Minimal left basilar opacity favors atelectasis. IMPRESSION: 1. Interval improvement in mild bilateral airspace opacities since chest radiograph of October 22, 2020. 2. Cardiomegaly without evidence for pulmonary edema. ACT 112: Negative or not required by law. Electronically signed by: Silviano Call M.D. 11/22/2020 1:50 PM
[2020-11-22 13:54] LABS: Troponin I 0.055 ng/ml (0-0.045)
[2020-11-22] MEDS ORDERED: dilTIAZem HCl 5 MG/ML 5 ML VIAL IV STA (14:23)
[2020-11-22] MEDS ORDERED: MAGNESIUM SULFATE / D5W 1 GM/100 ML BAG IV STA (17:20)
--- NOTE | 2020-11-22 17:41 | History & Physical Report ---
Date of Service November 22, 2020 Assessment & Plan (1) Back pain: Plan: Appears to be right-sided thoracic paraspinal spasm driven. While she was imaged with CT, unfortunately was the lumbar spine, and its really more of a mid to lower thoracic region where there is pain. She does not have bony tenderness, but given her age gender and vitamin D deficiencyshe also could easily have some degree of osteoporotic type changes such as a compression fracture driving the paraspinal changeswe will check plain film x-rays to evaluate for this, but otherwise start management for the paraspinal spasm that is clearly there. -OMT as above -Voltaren gel 4 times daily, lidocaine patch nightly -Tylenol -Valium as a muscle relaxantdiscussed efficacy versus delirium genic risk, both patient and daughter are accepting of risk-benefit balance -Consider Toradolbut with her CKD and mild troponin bump for now I am hesitant that the harm may outweigh the benefit -PT/OT eval and treat -IV mag, supplement calcium (2) Somatic dysfunction of thoracic region: Plan: OMT as above (3) Superficial burn: Plan: While there was a little bit of a concern as it relates to shingles, it clearly does seem to be a bit of a superficial burn woundand does not seem consistent with shingles and that it is bilateral and crosses dermatomes. Topical care (4) Atrial fibrillation with rapid ventricular response: Plan: She has known A. fib, generally rate controlled with metoprolol and diltiazem, anticoagulated with Eliquisher rate control is essentially commensurate with a reflex tachycardia from her pain. Follow, but no specific intervention other than her home meds at this time (5) Vitamin D deficiency: Plan: Related to her CKDlabs from about 4 days ago also suggest she has some secondary hyperparathyroidism. Given that the hypocalcemia could be perpetuating the muscle spasm, will supplement calcium as well as vitamin D in the acute setting, obviously this will need to be continued in the chronic sett ing as well (6) Benign hypertension with chronic kidney disease, stage III: Plan: Home meds and follow (7) Elevated troponin: Plan: Question mild demand ischemia from pain/mild degree of RVR. At any rate she does not appear consistent with any true ACS picture (8) Tobacco dependence: Plan: She has been cutting back, she declines need for nicotine patch at this time, her daughter does note that she could have some withdrawalwe will add nicotine gum as needed (9) DVT prophylaxis: Plan: Anticoagulated with Eliquis (10) [facility] planning issues: [facility] Goal will be to improve pain, improve mobility, and hopefully be able to discharge to her home setting. History of Present Illness Chief Complaint: Back pain Primary Care Provider: Last Null MD 79-year-old female with onset of back pain about 5 or 6 days ago. Does not rec all any inciting eventsno strains, no fall, no lifting, no heavy work, no trauma. Just notes that it started somewhat spontaneously and then got very intense very quickly. It is right side mid to low back, it does not radiate into her buttock, does not radiate down her legs, she has no change in bowel or bladder. It is very intense. Is a little bit better whenever she lays flat, if she is sitting still that is better than moving but still quite intense, and if she is moving it is the worst. Pain is all right-sided and intense and predominantly in her right mid to low back. She was trying heating pad to helpunfortunately fell asleep on a heating pad, and has some burn blisters on her low back. She saw her PCP who got her set up for x-rays and therapy, she was actually supposed to have her first therapy appointment today, but the pain was too intense, so she came to the ER for further evaluation. Denies any chest pain or shortness of breath, no palpitations, no abdominal pain, no nausea vomiting. No change in bowel or bladder habits, no numbness no radiation down legs etc. Review of systems is otherwise negative except for as above. Allergies Allergy/AdvReac Type Severity Reaction Status Date / Time Penicillins Allergy Intermediate HIVES Verified 11/22/20 14:16 Home Medications Medication Instructions Recorded Confirmed Type aspirin 81 mg tablet,delayed 81 mg PO QAM tab 12/16/18 11/22/20 History release furosemide 20 mg tablet 20 mg PO DAILY PRN #90 tab 12/16/18 11/22/20 History atorvastatin 40 mg tablet 40 mg PO HS #90 tab 09/23/20 11/22/20 Rx apixaban 5 mg tablet 5 mg PO BID 30 Days #60 tab 10/24/20 11/22/20 Rx diltiazem HCl 240 mg 240 mg PO QAM #30 cap 10/24/20 11/22/20 Rx capsule,extended release 24 hr metoprolol tartrate 25 mg tablet 75 mg PO BID 30 Days #180 tab 10/24/20 11/22/20 Rx silver sulfadiazine 1 % topical 1 applic TOPICAL BID #25 g 11/20/20 11/22/20 Rx cream (Silvadene) acetaminophen 500 mg tablet 1,000 mg PO Q6H PRN 11/22/20 11/22/20 History (Tylenol Extra Strength) fluticasone furoate 100 1 inh INHALATION QAM 11/22/20 11/22/20 History mcg-vilanterol 25 mcg/dose inhalation powder (Breo Ellipta) magnesium oxide 400 mg (241.3 mg 400 mg PO QAM 11/22/20 11/22/20 History magnesium) tablet omeprazole 20 mg capsule,delayed 40 mg PO QAM 11/22/20 11/22/20 History release potassium chloride 20 mEq 20 meq PO QAM 11/22/20 11/22/20 History tablet,extended release umeclidinium 62.5 mcg/actuation 1 inh INHALATION QAM 11/22/20 11/22/20 History blister powder for inhalation (Incruse Ellipta) Past Med/Surg History Medical History Acute hyponatremia Elevated troponin I level Gastroenteritis History of CVA (cerebrovascular accident) Hyperlipidemia Hypertension Hypokalemia Hypomagnesemia PAD (peripheral artery disease) TIA (transient ischemic attack) Vitamin D deficiency Weakness Surgical History History of cholecystectomy Hx of tonsillectomy Family History Other Diabetes Hypertension Myocardial infarction Denies family history of Ovarian cancer Prostate cancer Breast cancer Colorectal cancer Social History Smoking Status: Current every day smoker Age Started Using Tobacco: 30; packs per day: 1; Cigarettes Per Day: pack a day; Second Hand Exposure: Yes; Hx Alcohol Use: No Hx Substance Use: No Preferred Language: Sami Communication Ability: Effective Hearing Ability: Normal [employer] Required: No Beliefs That Will Affect Care: None marital status: / Current Living Situation: Alone current occupational status: retired Feels Safe at Home: Yes Childhood Exposure to Second-Hand Smoke: No caffeine: Yes (diet coke daily) Dental Care, Regularly: Yes Physical Activity Frequency: Does not Exercise Seatbelt Use: always Sunscreen Use: No Assistive Devices: Glasses Review of Systems Review of Systems: All systems reviewed & are unremarkable except as noted in HPI & below Physical Exam Physical Exam: Vitals noted, in general she is awake alert oriented x3 pleasant whenever she is laying still appears mildly uncomfortable, whenever he is moving she appears to be in significant pain. HEENT normocephalic atraumatic mucous membranes are moist. Neck is supple. Cardio is irregularly irregular, mildly tachycardic, no rubs murmurs or gallops. Lungs are overall clear diminished air entry with faint wheeze base right, and a little bit of an upper airway wheezing soundwhich seems to be chronic on again/off again. Abdomen is soft nondistended nontender no masses organomegaly, no guarding rebound or rigidity. Extremities without cyanosis clubbing or edema no calf tenderness. S kin shows no pallor or icterus, she does have several areas of shallow blisters or where the blisters have been denuded with shallow ulcerations in her low backshe notes is the region where she fell asleep with a heating pad onof note it does cover multiple dermatomes bilaterally and has no surrounding erythema no exudate. Neuro shows no focal deficits. Cranial nerves II through XII grossly intact. Most notably she has no distal motor or sensory deficits and equal sensation bilaterally. Strength 5 out of 5 and equal lower extremities bilaterally. Musculoskeletal/osteopathic structural exam shows her to have right-sided paraspinal hypertonicity, decreased range of motion, tender about T8-11 on the rightresponded reasonably nicely to direct myofascial and mild inhibitory pressure, but was unable to tolerate LAS. No notable bony tenderness over her thoracic spine. Results & Data Results & Data ([facility]) Vital Signs (Past 12 Hours) Vital Signs Temp Pulse Resp BP Pulse Ox 11/22/20 16:31 93 H 23 158/89 H 91 11/22/20 16:00 115 H 19 138/110 H 92 11/22/20 15:30 95 H 13 148/86 H 11/22/20 15:00 95 H 22 126/85 91 11/22/20 14:31 120 H 17 159/94 H 97 11/22/20 14:00 116 H 19 128/98 94 11/22/20 13:30 115 H 24 140/84 94 11/22/20 11:51 98 11/22/20 10:55 108 H 22 141/114 H 99 11/22/20 09:52 97.3 F L 127 H 22 123/86 98 PG Care Time/CCT Total # of Minutes Spent Total Time Spent with Patient: Total time spent is greater than 50% in coordination of care (as documented) at patient's floor/unit and/or counseling patient: Coding Level of Care Code 30653 Initial Inpt Care Lvl 3 Diagnoses Back pain M54.9 Somatic dysfunction of thoracic region M99.02 Superficial burn T30.0 Atrial fibrillation with rapid ventricular response I48.91 Vitamin D deficiency E55.9 Benign hypertension with chronic kidney disease, stage III I12.9; N18.3 Elevated troponin R74.8 Tobacco dependence F17.200 DVT prophylaxis Z29.9 Discharge planning issues Z02.9 CPT Codes Musculoskeletal - Musculoskeletal: [address] 1-2 Body regions ([id number])
[2020-11-22] MEDS ORDERED: ACETAMINOPHEN 325 MG TAB PO PRN (18:28)
[2020-11-22] MEDS ORDERED: NICOTINE POLACRILEX 2 MG GUM MT PRN (18:28)
[2020-11-22] MEDS ORDERED: diazePAM 5 MG TABLET PO ONE (18:28)
[2020-11-22] MEDS ORDERED: ONDANSETRON INJ 2 MG/ML 2 ML VIAL IV PRN (18:28)
[2020-11-22] MEDS ORDERED: ACETAMINOPHEN 500 MG TAB PO PRN (18:28)
[2020-11-22] MEDS ORDERED: ERGOCALCIFEROL 50,000 UNITS 1250 MCG CAP PO ONE (18:28)
[2020-11-22] MEDS ORDERED: diazePAM 2 MG TABLET PO PRN (18:28)
[2020-11-22] MEDS ORDERED: MAGNESIUM HYDROXIDE SUSP 30 ML UDC PO PRN (18:28)
[2020-11-22] MEDS ORDERED: ALUMINUM/MAGNESIUM SUSP 30 ML UDC PO PRN (18:28)
[2020-11-22] MEDS ORDERED: CALCIUM GLUCONATE 10% 1,000 MG in SODIUM CHLORIDE 0.9% 50 ML IV ONE (19:30)
[2020-11-22] MEDS: ATORVASTATIN 40 MG TAB PO SCH (21:16)
[2020-11-22] MEDS: APIXABAN 5 MG TABLET PO SCH (21:16)
[2020-11-22] MEDS: METOPROLOL TARTRATE 25 MG TAB PO SCH (21:16)
[2020-11-22] MEDS: LIDOCAINE 5% 1 PATCH TD SCH (21:18)
[2020-11-22] MEDS: SILVER SULFADIAZINE 1% CR 50 GM JAR TOP SCH (21:18)
[2020-11-22] MEDS: CALCIUM CARBONATE 500 MG CHEWABLE TAB PO SCH (21:18)
[2020-11-22] MEDS: DICLOFENAC SOD 1% GEL 100 GM TUBE EXT SCH (21:18)
[2020-11-22] MEDS: MAGNESIUM SULFATE / D5W 1 GM/100 ML BAG IV SCH (22:31)
[2020-11-23] MEDS: MAGNESIUM SULFATE / D5W 1 GM/100 ML BAG IV SCH ×2 (00:29→03:00)
[2020-11-23 03:32] LABS: Appearance Urine Clear (Clear); Bacteria Urine Automated 1+ (Negative); Bilirubin Urine Negative (Negative); Blood Urine Negative (Negative); Color Urine Yellow; Epithelial Cell Urine Auto 20-30 /lpf (0-5); Glucose Urine UA Negative (Negative); Ketones Urine Negative (Negative); Leukocyte Esterase Urine Trace (Negative); Nitrite Urine Negative (Negative); Protein Urine Trace (Negative); RBC Urine Automated 0-4 /hpf (0-4); Specific Gravity Urine 1.013 (1.000-1.030); Urobilinogen Urine Negative (Negative); pH Urine 5.5 (4.5-7.5)
--- NOTE | 2020-11-23 06:58 | Electrocardiogram Report ---
Test Reason : Blood Pressure : / mmHG Vent. Rate : 115 BPM Atrial Rate : 131 BPM P-R Int : 000 ms QRS Dur : 076 ms QT Int : 330 ms P-R-T Axes : 000 060 088 degrees QTc Int : 456 ms Atrial fibrillation with rapid ventricular response Low voltage QRS Cannot rule out Anteroseptal infarct (cited on or before 16-NOV-2014) Abnormal ECG When compared with ECG of 20-OCT-2020 20:13, Borderline criteria for Inferior infarct are no longer Present Confirmed by Jakub Hampton ([id number]) on 11/23/2020 6:58:06 AM Referred By: REFERRED SELF Confirmed By:Jakub Hampton
[2020-11-23 07:24] LABS: BUN Creatinine Ratio 16.4 (10-20); Calcium 7.6 mg/dl (8.5-10.1); Creatinine Clr Calc Pharmacy 39.4 ml/min; Est GFR (Non-African American) 43.1 ml/min; Magnesium 1.6 mg/dl (1.8-2.4); Potassium 4.4 mmol/L (3.5-5.1)
[2020-11-23] MEDS ORDERED: METOPROLOL TARTRATE 25 MG TAB PO ONE (08:21)
[2020-11-23] MEDS: ASPIRIN 81 MG ECTAB PO SCH (08:31)
[2020-11-23] MEDS: CHOLECALCIFEROL 1,000 UNITS 25 MCG TAB PO SCH (08:31)
[2020-11-23] MEDS: APIXABAN 5 MG TABLET PO SCH ×2 (08:31→20:19)
[2020-11-23] MEDS: dilTIAZem HCL 240 MG CAPCR PO SCH (08:32)
[2020-11-23] MEDS: PANTOprazole 40 MG TAB PO SCH (08:32)
[2020-11-23] MEDS: POTASSIUM CHLORIDE CRTAB 20 MEQ TABCR PO SCH (08:32)
[2020-11-23] MEDS: CALCIUM CARBONATE 500 MG CHEWABLE TAB PO SCH ×3 (08:32→20:21)
[2020-11-23] MEDS: DICLOFENAC SOD 1% GEL 100 GM TUBE EXT SCH ×4 (08:33→20:18)
[2020-11-23] MEDS: SILVER SULFADIAZINE 1% CR 50 GM JAR TOP SCH ×2 (08:33→20:18)
[2020-11-23] MEDS: UMECLIDINIUM BROMIDE 62.5MCG/BLISTER 7 PUFFS/INHALER INH SCH (08:33)
[2020-11-23] MEDS: FLUTICASONE/VILANTEROL 100/25MCG 14 PUFFS/INHALER INH SCH (08:34)
[2020-11-23] MEDS: HYDROmorphone INJ 0.5 MG/0.5 ML SYR IV PRN ×2 (08:40→13:47)
[2020-11-23] MEDS ORDERED: MAGNESIUM OXIDE 400 MG TAB PO SCH (09:00)
[2020-11-23] MEDS: METOPROLOL TARTRATE 25 MG TAB PO SCH ×2 (09:10→20:19)
[2020-11-23] MEDS ORDERED: diazePAM 5 MG TABLET PO PRN (09:58)
--- NOTE | 2020-11-23 11:43 | XRay Report ---
Thoracic SPINE 3 VIEWS HISTORY: R paraspinal pain ?compression fx COMPARISON: None. FINDINGS: Multilevel compression fracture deformities are seen within thoracolumbar spine. Evaluation is limit ed due to osteopenia. Mild degenerative changes are seen. Aortic calcifications and cholecystectomy clips are seen. Normal thoracic kyphosis is preserved. Small anterior osteophytes are seen at multiple levels. IMPRESSION: Multilevel compression fracture deformities within thoracic spine. ACT 112: Negative or not required by law. Electronically signed by: Nicky Mcclain DO 11/23/2020 11:42 AM
--- NOTE | 2020-11-23 19:06 | Hospitalist Progress Note ---
Date of Service November 23, 2020 Assessment & Plan (1) Back pain: Plan: Appears to be right-sided thoracic paraspinal spasm driven. X-ray does show some compression fractures, but do not overtly appear acute to me, radiology does not comment on acuity versus chronicity, but patient herself does not have bony tenderness. At any rate nothing would require surgical interventionit would all be pain control and supportive care, and her pain is entirely in the paraspinals at this time. -OMT as above again -Continue Voltaren gel 4 times daily, lidocaine patch nightly -Continue Tylenol -Continue Valium as a muscle relaxantfortunately she showed no delirium -Consider Toradolbut with her CKD and mild troponin bump for now I am hesitant that the harm may outweigh the benefit (continue to consider day to day, but objectively she seems to be showing improvement.) -PT/OT eval and treat -IV mag, supplement calcium (2) Somatic dysfunction of thoracic region: Plan: OMT as above again today (3) Superficial burn: Plan: While there was a little bit of a concern as it relates to shingles, it clearly does seem to be a bit of a superficial burn woundand does not seem consistent with shingles and that it is bilateral and crosses dermatomes. continue topical care (4) Atrial fibrillation with rapid ventricular response: Plan: She has known A. fib, generally rate controlled with metoprolol and diltiazem, anticoagulated with Eliquisher rate control is essentially commensurate with a reflex tachycardia from her pain. Follow, but no specific intervention other than her home meds at this time - rates reasonable (5) Vitamin D deficiency: Plan: Related to her CKDlabs from about 4 days ago also suggest she has some secondary hyperparathyroidism. Given that the hypocalcemia could be perpetuati ng the muscle spasm, will supplement calcium as well as vitamin D in the acute setting, obviously this will need to be continued in the chronic setting as well (6) Benign hypertension with chronic kidney disease, stage III: Plan: Home meds and follow (7) Elevated troponin: Plan: Question mild demand ischemia from pain/mild degree of RVR. At any rate she does not appear consistent with any true ACS picture (8) Tobacco dependence: Plan: She has been cutting back, she declines need for nicotine patch at this time, her daughter does note that she could have some withdrawalwe will add nicotine gum as needed (9) DVT prophylaxis: Plan: Anticoagulated with Eliquis (10) Discharge planning issues: Plan: stable [facility] She is a full code Goal will be to improve pain, improve mobility, and hopefully be able to discharge to her home setting. Admission and Anticipated Discharge Date Admission Date: November 22, 2020 Subjective thinks she's feeling about the same. not worse. still hurts w movement and reasonably ok at rest. No chest pain palpitations or shortness of breath. no confusion w valium Review of Systems Review of Systems: All systems reviewed & are unremarkable except as noted in HPI & below Physical Exam Physical Exam: In general she is awake and alert pleasant no distress. She is sitting up in a chair, not grimacing or staying perfectly still like she was in bed whenever I first met her last nightshe is rocking back and forth a little in the chair appearing mildly uncomfortable at times. HEENT normocephalic atraumatic mucous membranes moist. HEENT normocephalic atraumatic mucous membranes are moist. Breathing unlabored no accessory muscle use good effort. Still no bony tenderness, but with osteopathic/musculoskeletal while she does not have bony tenderness, she has right-sided thoracic paraspinal tenderness and hypertonicitydirect myofascial done with some improvement in tissue texture changes, patient tolerated well. Results & Data Results & Data ([facility]) Vital Signs (Past 12 Hours) Vital Signs Temp Pulse Pulse Resp BP Pulse Ox 11/23/20 15:36 97.7 F 84 16 121/81 91 11/23/20 15:00 83 11/23/20 13:22 98.1 F 85 16 118/81 93 11/23/20 07:52 97.9 F 131 H 16 143/96 H 91 11/23/20 07:17 114 H PG Care Time/CCT Total # of Minutes Spent Total Time Spent with Patient: Total time spent is greater than 50% in coordination of care (as documented) at patient's floor/unit and/or counseling patient: Coding Level of Care Code 77223 Subseq Hosp Care Lvl 3 Diagnoses Back pain M54.9 Somatic dysfunction of thoracic region M99.02 Superficial burn T30.0 Atrial fibrillation with rapid ventricular response I48.91 Vitamin D deficiency E55.9 Benign hypertension with chronic kidney disease, stage III I12.9; N18.3 Elevated troponin R74.8 Tobacco dependence F17.200 DVT prophylaxis Z29.9 Discharge planning issues Z02.9 CPT Codes Musculoskeletal - Musculoskeletal: [address] 1-2 Body regions ([id number])
[2020-11-23] MEDS: ATORVASTATIN 40 MG TAB PO SCH (20:20)
[2020-11-23] MEDS: LIDOCAINE 5% 1 PATCH TD SCH (20:20)
[2020-11-23] MEDS: MAGNESIUM OXIDE 400 MG TAB PO SCH (20:21)
[2020-11-24 07:00] LABS: BUN Creatinine Ratio 16.1 (10-20); Calcium 8.4 mg/dl (8.5-10.1); Creatinine Clr Calc Pharmacy 36.1 ml/min; Est GFR (Non-African American) 38.8 ml/min; Magnesium 1.3 mg/dl (1.8-2.4); Potassium 4.9 mmol/L (3.5-5.1)
[2020-11-24] MEDS: HYDROmorphone INJ 0.5 MG/0.5 ML SYR IV PRN (08:01)
[2020-11-24] MEDS: DICLOFENAC SOD 1% GEL 100 GM TUBE EXT SCH ×4 (08:05→20:17)
[2020-11-24] MEDS: SILVER SULFADIAZINE 1% CR 50 GM JAR TOP SCH ×2 (08:06→20:18)
[2020-11-24] MEDS: FLUTICASONE/VILANTEROL 100/25MCG 14 PUFFS/INHALER INH SCH (08:08)
[2020-11-24] MEDS: UMECLIDINIUM BROMIDE 62.5MCG/BLISTER 7 PUFFS/INHALER INH SCH (08:08)
[2020-11-24] MEDS: CALCIUM CARBONATE 500 MG CHEWABLE TAB PO SCH ×3 (08:09→20:10)
[2020-11-24] MEDS: CHOLECALCIFEROL 1,000 UNITS 25 MCG TAB PO SCH (08:10)
[2020-11-24] MEDS: PANTOprazole 40 MG TAB PO SCH (08:10)
[2020-11-24] MEDS: POTASSIUM CHLORIDE CRTAB 20 MEQ TABCR PO SCH (08:10)
[2020-11-24] MEDS: dilTIAZem HCL 240 MG CAPCR PO SCH (08:10)
[2020-11-24] MEDS: APIXABAN 5 MG TABLET PO SCH ×2 (08:10→20:10)
[2020-11-24] MEDS: METOPROLOL TARTRATE 25 MG TAB PO SCH ×2 (08:10→20:05)
[2020-11-24] MEDS: ASPIRIN 81 MG ECTAB PO SCH (08:11)
[2020-11-24] MEDS ORDERED: Nursing to Pharmacy Communication SCH (08:30)
[2020-11-24] MEDS: MAGNESIUM SULFATE / D5W 1 GM/100 ML BAG IV SCH ×2 (09:37→11:27)
[2020-11-24] MEDS: ACETAMINOPHEN 325 MG TAB PO SCH ×3 (09:37→20:04)
[2020-11-24] MEDS: MAGNESIUM OXIDE 400 MG TAB PO SCH ×2 (09:37→20:06)
[2020-11-24] MEDS ORDERED: diazePAM 2 MG TABLET PO PRN (16:17)
--- NOTE | 2020-11-24 16:17 | Hospitalist Progress Note ---
Date of Service November 24, 2020 Assessment & Plan (1) Back pain: Plan: Appears to be right-sided thoracic paraspinal spasm driven. X-ray does show some compression fractures, but do not overtly appear acute to me, radiology does not comment on acuity versus chronicity, but patient herself does not have bony tenderness. At any rate nothing would require surgical interventionit would all be pain control and supportive care, and her pain is entirely in the paraspinals at this time. -OMT as above again -Continue Voltaren gel 4 times daily, lidocaine patch nightly -Continue Tylenol -Continue Valium for muscle relaxant purposesbut given that the pain appears to be improving, and she does appear a little bit "loopy" will reduce from 5 mg to 2 -PT/OT eval and treatof note yesterday they recommended subacute rehab, but as her pain improves, hopefully so will her functional status, I will await reassessment today and tomorrow, with the hopes that maybe she can go home. -Supplement magnesium and calcium. (2) Somatic dysfunction of thoracic region: Plan: OMT directed at thoracic paraspinals done 11/22, 11/23, none appears indicated today (3) Superficial burn: Plan: While there was a little bit of a concern as it relates to shingles, it clearly does seem to be a bit of a superficial burn woundand does not seem consistent with shingles and that it is bilateral and crosses dermatomes. continue topical care (4) Atrial fibrillation with rapid ventricular response: Plan: She has known A. fib, generally rate controlled with metoprolol and diltiazem, anticoagulated with Eliquisoverall rates have been reasonable, but I am seeing that she seems to be persistently tachycardic first thing in the morning before she gets her meds. I wonder given that her metoprolol is twice daily but her diltiazem is daily, if it starts to wear off at the end of her dosing interval. Rather than increasing dosing, we will take the 240, switch to 120 twice daily, and follow how her heart rates behave through the day, night, and supervisor assembling. (5) Vitamin D deficiency: Plan: Related to her CKDlabs from about 4 days ago also suggest she has some secondary hyperparathyroidism. Given that the hypocalcemia could be perpetuating the muscle spasm, continue to supplement calcium as well as vitamin D in the acute setting, obviously this will need to be continued in the chronic setting as well (6) Benign hypertension with chronic kidney disease, stage III: Plan: Home meds and follow (7) Elevated troponin: Plan: Question mild demand ischemia from pain/mild degree of RVR. At any rate she does not appear consistent with any true ACS picture (8) Tobacco dependence: Plan: She has been cutting back, she declines need for nicotine patch at this time, her daughter does note that she could have some withdrawalhas nicotine gum as needed (9) DVT prophylaxis: Plan: Anticoagulated with Eliquis (10) Discharge planning issues: Plan: stable on Med tele, [facility] hospitalist service She is a full code Pain improving, right now PT would recommend subacute rehabshe would much prefer to go home, given that her pain is improving, we will allow for PT reassessment today and tomorrow, and then hopefully see that she is showing enough progress to go home. Admission and Anticipated Discharge Date Admission Date: November 22, 2020 Subjective Complains of back painbut on clarification it is now a low back pain in her SI region bilaterally, the midthoracic back pain that brought her in she does not complain of today. Of note her history is a little bit unreliable as she seems somewhat medicated. No chest pain or palpitations. No dysuria, urinary urgency or frequency. Review of Systems Review of Systems: All systems reviewed & are unremarkable except as noted in HPI & below Physical Exam Physical Exam: In general she is awake and alert does seem a little bit "loopy" but otherwise pleasant no distress. HEENT normocephalic atraumatic mucous membranes moist. Breathing unlabored no accessory muscle use good effort. MSK/osteopathicno tenderness in her mid thoracic region, the paraspinal seem much softer, less stiff, not really at all tender, ongoing no bony tenderness. She does not really have any palpable or reproducible tenderness in her low back region either. No focal neuro deficits. Results & Data Results & Data ([facility]) Vital Signs (Past 12 Hours) Vital Signs Temp Pulse Pulse Resp BP Pulse Ox 11/24/20 15:24 97.7 F 65 16 123/77 93 11/24/20 15:00 68 11/24/20 11:40 97.9 F 85 16 131/80 95 11/24/20 07:50 98.1 F 120 H 16 142/94 H 92 11/24/20 07:00 119 H PG Care Time/CCT Total # of Minutes Spent Total Time Spent with Patient: Total time spent is greater than 50% in coordination of care (as documented) at patient's floor/unit and/or counseling patient: Coding Level of Care Code 04209 Subseq Hosp Care Lvl 3 Diagnoses Back pain M54.9 Somatic dysfunction of thoracic region M99.02 Superficial burn T30.0 Atrial fibrillation with rapid ventricular response I48.91 Vitamin D deficiency E55.9 Benign hypertension with chronic kidney disease, stage III I12.9; N18.3 Elevated troponin R74.8 Tobacco dependence F17.200 DVT prophylaxis Z29.9 Discharge planning issues Z02.9
[2020-11-24] MEDS: ATORVASTATIN 40 MG TAB PO SCH (20:10)
[2020-11-24] MEDS: LIDOCAINE 5% 1 PATCH TD SCH (20:12)
[2020-11-24] MEDS ORDERED: dilTIAZem HCL 240 MG CAPCR PO SCH (21:00)
[2020-11-24] MEDS: dilTIAZem HCL 120 MG CAPCR PO SCH (21:02)
[2020-11-25 07:58] LABS: Creatinine Clr Calc Pharmacy 36.8 ml/min; Est GFR (African American) 46.3 ml/min; Est GFR (Non-African American) 39.9 ml/min
[2020-11-25] MEDS: MAGNESIUM OXIDE 400 MG TAB PO SCH ×2 (07:59→20:36)
[2020-11-25] MEDS: ASPIRIN 81 MG ECTAB PO SCH (08:00)
[2020-11-25] MEDS: POTASSIUM CHLORIDE CRTAB 20 MEQ TABCR PO SCH (08:00)
[2020-11-25] MEDS: APIXABAN 5 MG TABLET PO SCH ×2 (08:00→20:38)
[2020-11-25] MEDS: PANTOprazole 40 MG TAB PO SCH (08:00)
[2020-11-25] MEDS: CHOLECALCIFEROL 1,000 UNITS 25 MCG TAB PO SCH (08:00)
[2020-11-25] MEDS: SILVER SULFADIAZINE 1% CR 50 GM JAR TOP SCH ×2 (08:00→20:40)
[2020-11-25] MEDS: METOPROLOL TARTRATE 25 MG TAB PO SCH ×2 (08:00→20:36)
[2020-11-25] MEDS: CALCIUM CARBONATE 500 MG CHEWABLE TAB PO SCH ×3 (08:00→20:38)
[2020-11-25] MEDS: DICLOFENAC SOD 1% GEL 100 GM TUBE EXT SCH ×4 (08:01→20:40)
[2020-11-25] MEDS: ACETAMINOPHEN 325 MG TAB PO SCH ×3 (08:01→20:39)
[2020-11-25] MEDS: dilTIAZem HCL 120 MG CAPCR PO SCH ×2 (08:01→20:37)
[2020-11-25] MEDS: FLUTICASONE/VILANTEROL 100/25MCG 14 PUFFS/INHALER INH SCH (08:01)
[2020-11-25] MEDS: UMECLIDINIUM BROMIDE 62.5MCG/BLISTER 7 PUFFS/INHALER INH SCH (08:02)
--- NOTE | 2020-11-25 14:57 | Hospitalist Progress Note ---
Date of Service November 25, 2020 Assessment & Plan (1) Back pain: Plan: Appears to be right-sided thoracic paraspinal spasm driven. X-ray does show some compression fractures, but do not overtly appear acute to me, radiology does not comment on acuity versus chronicity, but patient herself does not have bony tenderness. At any rate nothing would require surgical interventionit would all be pain control and supportive care, and her pain is entirely in the paraspinals at this time. -No OMT performed today. -Continue Voltaren gel 4 times daily, lidocaine patch nightly -Continue Tylenol -Continue Valium for muscle relaxant purposesreduced from 5 mg to 2mg yesterd ay. Patient doing well. -PT/OT eval and treatof note initial visit said they recommended subacute rehab, but as her pain improves, hopefully so will her functional status. Awaiting PT reassessment and OT assessment wiith the hopes that maybe she can go home. Case management was ordered as well in case we ultimately decide to go with a rehab facility instead of home care. -Supplement magnesium and calcium. (2) Somatic dysfunction of thoracic region: Plan: OMT directed at thoracic paraspinals done 11/22, 11/23, none appears indicated today (3) Superficial burn: Plan: While there was a little bit of a concern as it relates to shingles, it clearly does seem to be a bit of a superficial burn woundand does not seem consistent with shingles and that it is bilateral and crosses dermatomes. Continue topical care (4) Atrial fibrillation with rapid ventricular response: Plan: She has known A. fib, generally rate controlled with metoprolol and diltiazem, anticoagulated with Eliquisoverall rates have been reasonable, but I am seeing that she seems to be persistently tachycardic first thing in the morning before she gets her meds. I wonder given that her metoprolol is twice daily but her diltiazem is daily, if it starts to wear off at the end of her dosing interval. Yesterday, we switched the 240mg qd to 120 BID daily. Heart rates have remained stable and WNL. Will continue this regimen at this time. (5) Vitamin D deficiency: Plan: Related to her CKDlabs from about 5 days ago also suggest she has some secondary hyperparathyroidism. Given that the hypocalcemia could be perpetuating the muscle spasm, continue to supplement calcium as well as vitamin D in the acute setting, obviously this will need to be continued in the chronic setting as well (6) Benign hypertension with chronic kidney disease, stage III: Plan: Home meds and follow (7) Elevated troponin: Plan: Question mild demand ischemia from pain/mild degree of RVR. At any rate she does not appear consistent with any true ACS picture (8) Tobacco dependence: Plan: She has been cutting back and her daughter does note that she could have some withdrawalhas nicotine gum as needed, and daily nicotine patch (9) DVT prophylaxis: Plan: Anticoagulated with Eliquis (10) Discharge planning issues: Plan[facility] full code Pain improving, right now PT would recommend subacute rehabshe would much prefer to go home, given that her pain is improving, we will allow for PT reassessment and then hopefully see that she is showing enough progress to go home. Admission and Anticipated Discharge Date Admission Date: November 22, 2020 Supervising Physician Co-Signing Physician Notes Patient seen and examined with PGY-1 Dr. Mendiola. Agree with history, exam findings, assessment and plan of care as outlined. In brief, Ms. Samuel is a 79 year old female admitted with new onset mid to low back pain found to have compression fractures and afib with RVR. Today, back pain is improving. She is modifying how she moves and transfers to minimize pain. Vital signs and nursing notes reviewed. Well appearing. Tender over the lower thoracic spine. Labs and imaging reviewed. 1. Mid to lower thoracic pain. Compression fractures on thoracic spine x-ray. Voltaren QID, lidocaine patch. Valium 2mg PRN muscle spasm. 2. Osteoporosis. With known vitamin D deficiency likely secondary to hyperPTH related to CKD. Repleting vitamin D. Discussed that she will need DEXA as an outpatient to determine bone density and she can discuss with her PCP starting anti-fracture medication. 3. Superficial burn. From heating pad. Healing. 4. Afib with RVR. Rate controlled. Has chronic afib. AC with Eliquis. 5. CKD. eGFR has been stable here. 6. Tobacco use. Declined nicotine patchy. Nictotine gum PRN. Dispo: Awaiting repeat PT evaluation to determine safe discharge plan. Subjective Patient still has low back pain in her SI region and midthoracic bilaterally. She is in less pain than yesterday and would like to go home to her daughter where she believes she can do rehab rather than go to a facility. No chest pain or palpitations. No dysuria, urinary urgency or frequency. Review of Systems Review of Systems: All systems reviewed & are unremarkable except as noted in HPI & below Physical Exam Physical Exam: Constitutional: Awake and alert, pleasant no distress. HEENT normocephalic atraumatic mucous membranes moist. Breathing unlabored no accessory muscle use good effort. MSK/osteopathicmild tenderness to palpation in her mid thoracic region, the paraspinal seem much softer, less stiff, mildly tender, ongoing no bony tenderness. Neuro: No focal neuro deficits. Results & Data Results & Data ([facility]) Vital Signs (Past 12 Hours) Vital Signs Temp Pulse Pulse Resp BP Pulse Ox 11/25/20 11:12 36.4 C L 66 20 147/85 H 98 11/25/20 07:57 36.9 C 94 H 20 120/69 96 11/25/20 03:14 82 11/25/20 02:52 36.8 C 66 16 158/84 H 98 Resident Activity Tracking Resident Involvement: Resident Care Provided Care Provided: Adult [facility]
[2020-11-25] MEDS: ATORVASTATIN 40 MG TAB PO SCH (20:38)
[2020-11-25] MEDS: LIDOCAINE 5% 1 PATCH TD SCH (20:41)
[2020-11-26] MEDS: SILVER SULFADIAZINE 1% CR 50 GM JAR TOP SCH (08:08)
[2020-11-26] MEDS: FLUTICASONE/VILANTEROL 100/25MCG 14 PUFFS/INHALER INH SCH (08:09)
[2020-11-26] MEDS: POTASSIUM CHLORIDE CRTAB 20 MEQ TABCR PO SCH (08:09)
[2020-11-26] MEDS: CHOLECALCIFEROL 1,000 UNITS 25 MCG TAB PO SCH (08:09)
[2020-11-26] MEDS: UMECLIDINIUM BROMIDE 62.5MCG/BLISTER 7 PUFFS/INHALER INH SCH (08:09)
[2020-11-26] MEDS: ASPIRIN 81 MG ECTAB PO SCH (08:09)
[2020-11-26] MEDS: CALCIUM CARBONATE 500 MG CHEWABLE TAB PO SCH ×2 (08:10→13:25)
[2020-11-26] MEDS: PANTOprazole 40 MG TAB PO SCH (08:10)
[2020-11-26] MEDS: APIXABAN 5 MG TABLET PO SCH (08:10)
[2020-11-26] MEDS: ACETAMINOPHEN 325 MG TAB PO SCH ×2 (08:10→13:19)
[2020-11-26] MEDS: DICLOFENAC SOD 1% GEL 100 GM TUBE EXT SCH ×2 (08:11→13:19)
[2020-11-26] MEDS: MAGNESIUM OXIDE 400 MG TAB PO SCH (08:11)
[2020-11-26] MEDS: METOPROLOL TARTRATE 25 MG TAB PO SCH (08:11)
[2020-11-26] MEDS: dilTIAZem HCL 120 MG CAPCR PO SCH (08:11)
--- NOTE | 2020-11-26 10:27 | Discharge Summary ---
Date of Service November 26, 2020 Admission HPI Per Admitting Provider 79-year-old female with onset of back pain about 5 or 6 days ago. Does not recall any inciting eventsno strains, no fall, no lifting, no heavy work, no trauma. Just notes that it started somewhat spontaneously and then got very intense very quickly. It is right side mid to low back, it does not radiate into her buttock, does not radiate down her legs, she has no change in bowel or bladder. It is very intense. Is a little bit better whenever she lays flat, if she is sitting still that is better than moving but still quite intense, and if she is moving it is the worst. Pain is all right-sided and intense and predominantly in her right mid to low back. She was trying heating pad to helpunfortunately fell asleep on a heating pad, and has some burn blisters on her low back. She saw her PCP who got her set up for x-rays and therapy, she was actually supposed to have her first therapy appointment today, but the pain was too intense, so she came to the ER for further evaluation. Denies any chest pain or shortness of breath, no palpitations, no abdominal pain, no nausea vomiting. No change in bowel or bladder habits, no numbness no radiation down legs etc. Review of systems is otherwise negative except for as above. Discharge Data Allergies Allergy/AdvReac Type Severity Reaction Status Date / Time Penicillins Allergy Intermediate HIVES Verified 11/22/20 14:16 Consultations 11/22/20 15:15 ED Decision to Admit Stat Ordered Studies 11/22/20 11:53 CT lumbar spine wo con Stat Hospital Course (1) Back pain: Appears to be right-sided thoracic paraspinal spasm driven. X-ray does show some compression fractures, but do not overtly appear acute to me, radiology does not comment on acuity versus chronicity, but patient herself does not have bony tenderness. At any rate nothing would require surgical interventionit would all be pain control and supportive care, and her pain is entirely in the paraspinals at this time. -No OMT performed today. -Continue Voltaren gel 4 times daily, lidocaine patch nightly -Continue Tylenol -Continue Valium for muscle relaxant purposesreduced from 5 mg to 2mg yesterd ay. Patient doing well. -PT/OT eval and treatof note initial visit said they recommended subacute rehab, but as her pain improves, hopefully so will her functional status. Awaiting PT reassessment and OT assessment wiith the hopes that maybe she can go home. Case management was ordered as well in case we ultimately decide to go with a rehab facility instead of home care. -Supplement magnesium and calcium. (2) Somatic dysfunction of thoracic region: OMT directed at thoracic paraspinals done 11/22, 11/23, none appears indicated today (3) Superficial burn: While there was a little bit of a concern as it relates to shingles, it clearly does seem to be a bit of a superficial burn woundand does not seem consistent with shingles and that it is bilateral and crosses dermatomes. Continue topical care (4) Atrial fibrillation with rapid ventricular response: She has known A. fib, generally rate controlled with metoprolol and diltiazem, anticoagulated with Eliquisoverall rates have been reasonable, but I am seeing that she seems to be persistently tachycardic first thing in the morning before she gets her meds. I wonder given that her metoprolol is twice daily but her diltiazem is daily, if it starts to wear off at the end of her dosing interval. Yesterday, we switched the 240mg qd to 120 BID daily. Heart rates have remained stable and WNL. Will continue this regimen at this time. (5) Vitamin D deficiency: Related to her CKDlabs from about 5 days ago also suggest she has some secondary hyperparathyroidism. Given that the hypocalcemia could be perpetuating the muscle spasm, continue to supplement calcium as well as vitamin D in the acute setting, obviously this will need to be continued in the chronic setting as well (6) Benign hypertension with chronic kidney disease, stage III: Home meds and follow (7) Elevated troponin: Question mild demand ischemia from pain/mild degree of RVR. At any rate she does not appear consistent with any true ACS picture (8) Tobacco dependence: She has been cutting back and her daughter does note that she could have some withdrawalhas nicotine gum as needed, and daily nicotine patch (9) DVT prophylaxis: Anticoagulated with Eliquis (10) Discharge planning issues: [facility] She is a full code Pain improving, right now PT would recommend subacute rehabshe would much prefer to go home, given that her pain is improving, we will allow for PT reassessment and then hopefully see that she is showing enough progress to go home. Discharge Plan Discharge Items Reason For Visit: BACK PAIN, RVR Follow-up/Referrals: Last Null III, MD [Primary Care Provider] - Medications and DC Order Prescriptions: No Action atorvastatin 40 mg tablet 40 mg PO HS Qty: 90 RF: 3 silver sulfadiazine [Silvadene] 1 % cream 1 applic topical BID Qty: 25 RF: 2 aspirin 81 mg tablet,delayed release (DR/EC) 81 mg PO QAM RF: 0 furosemide 20 mg tablet 20 mg PO DAILY PRN (Reason: sbp > 180 or leg swelling) Qty: 90 RF: 0 apixaban 5 mg tablet 5 mg PO BID 30 Days Qty: 60 RF: 3 metoprolol tartrate 25 mg Tablet 75 mg PO BID 30 Days Qty: 180 RF: 3 diltiazem HCl 240 mg capsule,extended release 24hr 240 mg PO QAM Qty: 30 RF: 3 acetaminophen [Tylenol Extra Strength] 500 mg Tablet 1,000 mg PO Q6H PRN (Reason: Pain) RF: 0 magnesium oxide 400 mg (241.3 mg magnesium) tablet 400 mg PO QAM RF: 0 omeprazole 20 mg capsule,delayed release(DR/EC) 40 mg PO QAM RF: 0 Breo Ellipta 100-25 mcg/dose blister with device 1 inh inhalation QAM RF: 0 potassium chloride 20 mEq tablet extended release 20 meq PO QAM RF: 0 Incruse Ellipta 62.5 mcg/actuation blister with device 1 inh inhalation QAM RF: 0 Admission Data Admit Date/Time: 11/22/20 16:24 Attending Provider: Ariela Stevens Admit Provider: Jeferson Collazo Primary Care Provider: Last Null III Other Providers: Jose Etienne
--- NOTE | 2020-11-26 10:58 | Discharge Summary ---
Date of Service November 26, 2020 Admission HPI Per Admitting Provider 79-year-old female with onset of back pain about 5 or 6 days ago. Does not recall any inciting eventsno strains, no fall, no lifting, no heavy work, no trauma. Just notes that it started somewhat spontaneously and then got very intense very quickly. It is right side mid to low back, it does not radiate into her buttock, does not radiate down her legs, she has no change in bowel or bladder. It is very intense. Is a little bit better whenever she lays flat, if she is sitting still that is better than moving but still quite intense, and if she is moving it is the worst. Pain is all right-sided and intense and predominantly in her right mid to low back. She was trying heating pad to helpunfortunately fell asleep on a heating pad, and has some burn blisters on her low back. She saw her PCP who got her set up for x-rays and therapy, she was actually supposed to have her first therapy appointment today, but the pain was too intense, so she came to the ER for further evaluation. Denies any chest pain or shortness of breath, no palpitations, no abdominal pain, no nausea vomiting. No change in bowel or bladder habits, no numbness no radiation down legs etc. Review of systems is otherwise negative except for as above. Admission Exam Per Admitting Provider Physical Exam: Constitutional: Vitals noted, in general she is awake alert oriented x3 pleasant whenever she is laying still appears mildly uncomfortable, whenever he is moving she appears to be in significant pain. HEENT: normocephalic atraumatic mucous membranes are moist. Neck is supple. Cardio: is irregularly irregular, mildly tachycardic, no rubs murmurs or gallops. Lungs: are overall clear diminished air entry with faint wheeze base right, and a little bit of an upper airway wheezing soundwhich seems to be chronic on again/off again. Abdomen: is soft nondistended nontender no masses organomegaly, no guarding rebound or rigidity. Extremities: without cyanosis clubbing or edema no calf tenderness. Skin: shows no pallor or icterus, she does have several areas of shallow blisters or where the blisters have been denuded with shallow ulcerations in her low backshe notes is the region where she fell asleep with a heating pad onof note it does cover multiple dermatomes bilaterally and has no surrounding erythema no exudate. Neuro: shows no focal deficits. Cranial nerves II through XII grossly intact. Most notably she has no distal motor or sensory deficits and equal sensation bilaterally. Strength 5 out of 5 and equal lower extremities bilaterally. Musculoskeletal/osteopathic structural exam: shows her to have right-sided paraspinal hypertonicity, decreased range of motion, tender about T8-11 on the rightresponded reasonably nicely to direct myofascial and mild inhibitory pressure, but was unable to tolerate LAS. No notable bony tenderness over her thoracic spine. Principal Diagnosis Multilevel compression fracture thoracic spine Discharge Exam Physical Exam: Constitutional: Awake and alert, pleasant no distress. Cardio: regular, no rubs murmurs or gallops. HEENT normocephalic atraumatic mucous membranes moist. Breathing unlabored no accessory muscle use good effort. MSK/osteopathicmild tenderness to palpation in her mid-thoracic region, the paraspinal seem much softer, less stiff, mildly tender, ongoing no bony tenderness. Neuro: No focal neuro deficits. Discharge Data Allergies Allergy/AdvReac Type Severity Reaction Status Date / Time Penicillins Allergy Intermediate HIVES Verified 11/22/20 14:16 Consultations 11/22/20 15:15 ED Decision to Admit Stat Ordered Studies 11/22/20 11:53 CT lumbar spine wo con Stat Hospital Course (1) Back pain: -came to ED for severe low back pain -xrays were taken and showed multilevel compression fractures of thoracic spine -Supportive treatment was indicated: OMT was performed (direct myofascial and mild inhibitory pressure), voltaren gel, tylenol, and valium for pain relief. -Evaluated by PT who recommended acute rehab facility; however, after we discussed with our medical team and the patient's daughter, we think the patient would be fit to perform at home PT. Patient also wishes to go home and refuses rehab. Daughter is working from home at the moment so will be able to provide around the clock daily care to the patient. (2) Somatic dysfunction of thoracic region: OMT was directed at thoracic paraspinals done 11/22, 11/23. (3) Superficial burn: -Noted on back during admission. While there was a little bit of a concern as it relates to shingles, it clearly seemed to be a bit of a superficial burn woundand did not seem consistent with shingles and that it is bilateral and crosses dermatomes --> Resolved (4) Atrial fibrillation with rapid ventricular response: -She has known A. fib, generally rate controlled with metoprolol and diltiazem, anticoagulated with Eliquisoverall rates have been reasonable, but I am seeing that she seems to be persistently tachycardic first thing in the morning before she gets her meds. We switched her diltiazem 240mg PO daily to 120 PO BID which she should continue at home due to her heart rates remaining stable and WNL. (5) Vitamin D deficiency: -Related to her CKDlabs from about 5 days ago also suggest she has some secondary hyperparathyroidism. Given that the hypocalcemia could be perpetuating the muscle spasm, continue to supplement vitamin D 2000iu daily. (6) Benign hypertension with chronic kidney disease, stage III: -Home meds and follow (7) Elevated troponin: -Question mild demand ischemia from pain/mild degree of RVR. At any rate she does not appear consistent with any true ACS picture (8) Tobacco dependence: -She has been cutting back and her daughter does note that she could have some withdrawalhad nicotine gum as needed. -Nicotine patch offered but declined during stay. (9) DVT prophylaxis: -Anticoagulated with Eliquis. Continue at home for AFib. (10) Osteoporosis: Total Time Total Time Spent Total Time Spent (In Minutes): 45 Discharge Plan Discharge Items Patient Disposition: Home - Home Health Services Reason For Visit: BACK PAIN, RVR Discharge Diagnosis: Multilevel Compression Fractures of Thoracic Spine Activity: Per Instructions section Non-emergency contact: Primary Care Provider Call non-emergency contact if: you have any medication questions, your symptoms worsen and your pain is not controlled Follow-up/Referrals: Last Null III, MD [Primary Care Provider] - 12/06/20 3:00 pm Diet: Heart Healthy Addtl Attending Provider Instructions: Back Pain (compression fractures): -I spoke to our rn field case manager and they will get in touch with you to plan in home PT. Scheduling and details to come. PT can further direct your home management and treatment plan. Keep working on getting stronger at home, and if you are struggling, let your PCP know. -Maintain pain relief with Tylenol and Voltaren gel, both of which I will send to your pharmacy but could also be bought over the counter. -Please use care when ambulating to prevent further injury. It is important that you use your walker in order to help prevent falls. -Follow up with Dr. Null (PCP) for osteoporosis management. Ask about obtaining a DEXA scan (a bone scan) and a bisphosphonate medication to help strengthen your bones. Atrial Fibrillation: -In the hospital we changed your dosing regimen of diltiazem from 240mg at night to 120mg in the morning and 120mg at night. This showed better results in stabilizing your pulse rate in the hospital and should be continued going forward. -Continue other home medications for condition. Vitamin D Deficiency: -Continue supplementing Vitamin D. This can be bought over the counter. You should take 2000 units daily and can further discuss dosing going forward with your PCP. Pending Studies at Discharge: No Stand-Alone Forms: My [facility] [employer], Smoking Cessation Medications and DC Order Prescriptions: New diltiazem HCl 120 mg Capsule,Extended Release 24hr 120 mg PO BID Qty: 60 RF: 0 diclofenac sodium [Voltaren Arthritis Pain] 1 % Gel 2 g EXT QID Qty: 100 RF: 0 cholecalciferol (vitamin D3) 25 mcg (1,000 unit) Capsule 2,000 unit PO QAM Qty: 30 RF: 0 Continued atorvastatin 40 mg tablet 40 mg PO HS Qty: 90 RF: 3 silver sulfadiazine [Silvadene] 1 % cream 1 applic topical BID Qty: 25 RF: 2 aspirin 81 mg tablet,delayed release (DR/EC) 81 mg PO QAM RF: 0 furosemide 20 mg tablet 20 mg PO DAILY PRN (Reason: sbp > 180 or leg swelling) Qty: 90 RF: 0 apixaban 5 mg tablet 5 mg PO BID 30 Days Qty: 60 RF: 3 metoprolol tartrate 25 mg Tablet 75 mg PO BID 30 Days Qty: 180 RF: 3 acetaminophen [Tylenol Extra Strength] 500 mg Tablet 1,000 mg PO Q6H PRN (Reason: Pain) RF: 0 magnesium oxide 400 mg (241.3 mg magnesium) tablet 400 mg PO QAM RF: 0 omeprazole 20 mg capsule,delayed release(DR/EC) 40 mg PO QAM RF: 0 Breo Ellipta 100-25 mcg/dose blister with device 1 inh inhalation QAM RF: 0 potassium chloride 20 mEq tablet extended release 20 meq PO QAM RF: 0 Incruse Ellipta 62.5 mcg/actuation blister with device 1 inh inhalation QAM RF: 0 Discontinued diltiazem HCl 240 mg capsule,extended release 24hr 240 mg PO QAM Qty: 30 RF: 3 Discharge Orders: Discharge Order (Routine); Ordered 11/26/20 Ordered By: Constantine Mendiola Admission Data Admit Date/Time: 11/22/20 16:24 Attending Provider: Ariela Stevens Admit Provider: Jeferson Collazo Primary Care Provider: Last Null III Other Providers: Jose Etienne ; Anjum,Home Health Other Interventions: Discharge Summary Assessment (RN) Last Done: 11/26/20 13:53 Supervising Physician Co-Signing Physician Notes Patient seen and examined independently of PGY-1 Dr. Mendiola. Agree with history, exam findings, assessment and plan of care as outlined. In brief, Ms. Samuel is a 79 year old female admitted with new onset mid to low back pain found to have compression fractures and afib with RVR. Today, back pain is well controlled. Feels that the topical medications are helpful. Vital signs and nursing notes reviewed. Well appearing. Tender over the lower thoracic spine. Labs and imaging reviewed. 1. Mid to lower thoracic pain. Compression fractures on thoracic spine x-ray. Voltaren QID, lidocaine patch. Valium 2mg PRN muscle spasm. 2. Osteoporosis. With known vitamin D deficiency likely secondary to hyperPTH related to CKD. Repleting vitamin D. Discussed that she will need DEXA as an outpatient to determine bone density and she can discuss with her PCP starting anti-fracture medication. 3. Superficial burn. From heating pad. Healing. 4. Afib with RVR. Rate controlled. Has chronic afib. AC with Eliquis. 5. CKD. eGFR has been stable here. 6. Tobacco use. Declined nicotine patchy. Nictotine gum PRN. Dispo: home today with [facility], daughter is home all day and can provide near constant supervision. I personally spent 35 minutes discharge planning for this patient. Resident Activity Tracking Resident Involvement: Resident Care Provided Care Provided: Adult Hospital Medicine
--- NOTE | 2020-11-26 20:25 | Emergency Department Note ---
Impression & Plan Elevated troponin, Lumbar back pain, Superficial burn ED Provider Note NAME: HERMINIO WITT AGE: 79 SEX: F : 1940 ARRIVES VIA: Walk-In INFORMANT: Patient, ED PROVIDER(S): Hector Nogueira MD CHIEF COMPLAINT: back pain HPI: Records review reveals patient was evaluated on October 20 in the emergency department for A. fib with RVR. This is a 79-year-old female who presents emergency department complaining of back pain. The patient and her daughter report that the pain was so severe that she could not get out of bed this morning. She reports that the pain started 2 days ago. She describes the pain as an aching sensation with radiation into her legs. She reports taking Tylenol for the pain without any improvement in the pain. She reports nothing appears to make the pain any better or worse. The patient attempted to apply a heating pad to her back which resulted in a burn bilaterally to her back. The patient also reports a history of shingles however she reports the shingles were up high on her back. ROS: See above HPI for pertinent positives & negatives. A total of 10 systems reviewed and were otherwise negative. PAST MEDICAL HISTORY: See Below PAST SURGICAL HISTORY: See Below FAMILY HISTORY: See Below SOCIAL HISTORY: See Below HOME MEDICATIONS: See Below ALLERGIES: See Below VITALS: See Below PHYSICAL EXAMINATION: VITAL SIGNS - Vital signs and nursing notes were reviewed. GENERAL - 79-year-old female appearing stated age who is in no acute distress. Communicates well with provider and answers questions appropriately. SKIN - b/l second degree barrett to the L5 area of back HEAD - NC/AT. EYES - PERRL with EOMI bilaterally. Sclera anicteric. Palpebral conjunctiva pink and moist with no injection noted. EARS - No deformities of external structures noted on gross examination bilaterally. NOSE - Midline and without cyanosis. No epistaxis or purulent drainage noted. Septum midline without deviation or septal hematoma noted. MOUTH/OROPHARYNX - Without perioral cyanosis. Buccal mucosa pink and moist and without leukoplakia. Tongue midline with equal elevation of palate bilaterally. No tonsillar hypertrophy, erythema, or exudates noted. NECK - Neck with FROM. Supple to palpation. LUNGS - Chest wall symmetric without accessory muscle use, intercostals retractions, or central cyanosis. Normal vesicular breath sounds CTA B/L. No wheezes, rales, or rhonchi appreciated. CARDIAC - RRR with S1/S2. No murmur, rubs, or gallops appreciated. ABDOMEN - Abdominal contour without pulsations or visible masses. BS normoactive all four quadrants. No tenderness, palpable masses, hepatosplenomegaly, or ascites noted. EXTREMITIES - No clubbing or peripheral cyanosis. No pretibial edema present. +3/5 radial, posterior tibial, and dorsalis pedis pulses palpated throughout. +5/5 strength noted in UE/LE bilaterally. NEUROLOGIC - Cranial nerves II through XII grossly intact. Sensory intact to light touch throughout. Patellar reflexes +2/4. PSYCH - A&Ox3 and cooperates fully with examiner. Pt is very pleasant and interacts well with examiner. MEDICAL DECISION MAKING: Patient was seen and evaluated as above in room B4. Review was performed of nursing notes and vital signs. I did review pertinent previous visits and patient history. After obtaining a thorough history and physical examination the above work up was performed. This patient is a 79-year-old female who presents during a period of high-volume and high acuity during a [facility] downtime for back pain. Using shared medical decision making with the patient and daughter the decision was made to obtain laboratory work. The patient does have an elevation in her troponin as well as her white blood cell count. She was given Dilaudid here for her pain. Repeat examination revealed improving the patient's symptoms due to the elevation of the troponin as well as the intractable back pain we did discuss the case with the medicine service who did agree to meet the patient. CAT scan was interpreted by me does not show any evidence of fracture dislocation or subluxa tion. An order was placed for continuous cardiac monitoring. The monitor shows a rate of 69 with Normal Sinus rhythm. The patient was evaluated during a period of high volume and high acuity during the global COVID-19 pandemic, and that diagnosis was suspected/considered upon their initial presentation. Their evaluation, treatment and testing was consistent with current guidelines for patients who present with complaints or symptoms that may be related to COVID-19. Patient was seen while provider was wearing PPE. Triage Nursing notes reviewed. Prior medical records reviewed Vital Signs: reviewed and remarkable for no significant abnormalities Differential diagnosis: Cardiac ischemia, aortic dissection, pulmonary embolism, pneumothorax, pneumonia, pericarditis, myocarditis, esophageal rupture, GERD, cholecystitis, pancreatitis, musculoskeletal, as well as other pathologies. ER treatment provided: See below Diagnostics interpreted by me: ECG: Gracia. aleksandr with RVR QTC is 456 ventricular rate is [address] elevation or depression EKG is compared to 10/20/2020 no acute changes Laboratory studies: As stated above and show below. Imaging studies: See below Consultation(s): iNternal Medicine Past Med/Surg History Medical History Acute hyponatremia Elevated troponin I level Gastroenteritis History of CVA (cerebrovascular accident) Hyperlipidemia Hypertension Hypokalemia Hypomagnesemia PAD (peripheral artery disease) TIA (transient ischemic attack) Vitamin D deficiency Weakness Surgical History History of cholecystectomy Hx of tonsillectomy Family History Other Diabetes Hypertension Myocardial infarction Denies family history of Ovarian cancer Prostate cancer Breast cancer Colorectal cancer Social History Smoking Status: Current every day smoker Age Started Using Tobacco: 32; packs per day: 1; Cigarettes Per Day: pack a day; Second Hand Exposure: Yes; Hx Alcohol Use: No Hx Substance Use: No Preferred Language: Citizen Of [place] Communication Ability: Effective Hearing Ability: Normal [employer]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 Beliefs That Will Affect Care: None marital status: / Current Living Situation: Alone current occupational status: retired Feels Safe at Home: Yes Childhood Exposure to Second-Hand Smoke: No caffeine: Yes (diet coke daily) Dental Care, Regularly: Yes Physical Activity Frequency: Does not Exercise Seatbelt Use: always Sunscreen Use: No Assistive Devices: Walker Allergies Allergies Allergy/AdvReac Type Severity Reaction Status Date / Time Penicillins Allergy Intermediate HIVES Verified 11/22/20 14:16 Home Meds Home Medications Medication Instructions Recorded Confirmed aspirin 81 mg tablet,delayed 81 mg PO QAM tab 12/16/18 11/22/20 release furosemide 20 mg tablet 20 mg PO DAILY PRN #90 tab 12/16/18 11/22/20 acetaminophen 500 mg tablet 1,000 mg PO Q6H PRN 11/22/20 11/22/20 (Tylenol Extra Strength) fluticasone furoate 100 1 inh INHALATION QAM 11/22/20 11/22/20 mcg-vilanterol 25 mcg/dose inhalation powder (Breo Ellipta) magnesium oxide 400 mg (241.3 mg 400 mg PO QAM 11/22/20 11/22/20 magnesium) tablet omeprazole 20 mg capsule,delayed 40 mg PO QAM 11/22/20 11/22/20 release potassium chloride 20 mEq 20 meq PO QAM 11/22/20 11/22/20 tablet,extended release umeclidinium 62.5 mcg/actuation 1 inh INHALATION QAM 11/22/20 11/22/20 blister powder for inhalation (Incruse Ellipta) Previous Rx's Medication Instructions Recorded atorvastatin 40 mg tablet 40 mg PO HS #90 tab 09/23/20 apixaban 5 mg tablet 5 mg PO BID 30 Days #60 tab 10/24/20 metoprolol tartrate 25 mg tablet 75 mg PO BID 30 Days #180 tab 10/24/20 silver sulfadiazine 1 % topical 1 applic TOPICAL BID #25 g 11/20/20 cream (Silvadene) cholecalciferol (vitamin D3) 25 2,000 unit PO QAM #30 cap 11/26/20 mcg (1,000 unit) capsule diclofenac sodium 1 % topical gel 2 g EXT QID #100 g 11/26/20 (Voltaren Arthritis Pain) diltiazem HCl 120 mg 120 mg PO BID #60 cap 11/26/20 capsule,extended release 24 hr Results & Data (ED) Home Medications Current Medication List: was personally reviewed by me Laboratory Data Attestation: I reviewed the patient's lab results. Result diagrams: 11/22/20 12:20 11/25/20 06:56 Lab Results 11/22/20 11/22/20 11/22/20 Range/Units 12:20 12:20 12:20 WBC 13.59 H (4.8-10.8) K/uL RBC 4.51 (4.2-5.4) M/uL Hgb 13.3 (12.0-16.0) g/dL Hct 39.7 (37-47) % MCV 88.0 (80-100) fL MCH 29.5 (25-34) pg MCHC 33.5 (32-36) g/dL RDW Std Deviation 44.0 (36.4-46.3) fL RDW Coeff of Faviola 13.6 (11.5-14.5) % Plt Count 394 (130-400) K/uL MPV 11.3 H (7.4-10.4) fL Immature Gran % (Auto) 0.2 % Neut % (Auto) 67.2 % Lymph % (Auto) 25.6 % Frontier % (Auto) 6.5 % Eos % (Auto) 0.4 % Baso % (Auto) 0.1 % Neut # (Auto) 9.13 H (1.4-6.5) K/uL Lymph # (Auto) 3.48 H (1.2-3.4) K/uL Frontier # (Auto) 0.88 H (0.11-0.59) K/uL Eos # (Auto) 0.06 (0-0.5) K/uL Baso # (Auto) 0.01 (0-0.2) K/uL Immature Gran # (Auto) 0.03 H (0.00-0.02) K/uL APTT 28.6 (21.0-31.0) Seconds PTT Ratio 1.1 Sodium 139 (136-145) mmol/L Potassium 4.4 (3.5-5.1) mmol/L Chloride 111 H (98-107) mmol/L Carbon Dioxide 24 (21-32) mmol/L Anion Gap 4.0 (3-11) BUN 22 H (7-18) mg/dl Creatinine 1.22 H (0.6-1.2) mg/dl Est Cr Clr Drug Dosing 36.0 ml/min Est GFR ( Amer) 49.5 ml/min Est GFR (Non-Af Amer) 42.7 ml/min BUN/Creatinine Ratio 17.7 (10-20) Glucose 104 H (70-99) mg/dl Calcium 6.9 L (8.5-10.1) mg/dl Total Bilirubin 0.5 (0.2-1) mg/dl AST 14 L (15-37) U/L ALT 22 (12-78) U/L Alkaline Phosphatase 90 (45-117) U/L Troponin I 0.055 H* (0-0.045) ng/ml Total Protein 7.3 (6.4-8.2) gm/dl Albumin 2.9 L (3.4-5.0) gm/dl Globulin 4.4 H (2.5-4.0) gm/dl Albumin/Globulin Ratio 0.7 L (0.9-2) Lipase 73 (73-393) U/L COVID-19 Eval Order SARS-CoV-2 (PCR) (Negative) 11/22/20 11/22/20 Range/Units 15:37 15:37 WBC (4.8-10.8) K/uL RBC (4.2-5.4) M/uL Hgb (12.0-16.0) g/dL Hct (37-47) % MCV (80-100) fL MCH (25-34) pg MCHC (32-36) g/dL RDW Std Deviation (36.4-46.3) fL RDW Coeff of Faviola (11.5-14.5) % Plt Count (130-400) K/uL MPV (7.4-10.4) fL Immature Gran % (Auto) % Neut % (Auto) % Lymph % (Auto) % Frontier % (Auto) % Eos % (Auto) % Baso % (Auto) % Neut # (Auto) (1.4-6.5) K/uL Lymph # (Auto) (1.2-3.4) K/uL Frontier # (Auto) (0.11-0.59) K/uL Eos # (Auto) (0-0.5) K/uL Baso # (Auto) (0-0.2) K/uL Immature Gran # (Auto) (0.00-0.02) K/uL APTT (21.0-31.0) Seconds PTT Ratio Sodium (136-145) mmol/L Potassium (3.5-5.1) mmol/L Chloride (98-107) mmol/L Carbon Dioxide (21-32) mmol/L Anion Gap (3-11) BUN (7-18) mg/dl Creatinine (0.6-1.2) mg/dl Est Cr Clr Drug Dosing ml/min Est GFR ( Amer) ml/min Est GFR (Non-Af Amer) ml/min BUN/Creatinine Ratio (10-20) Glucose (70-99) mg/dl Calcium (8.5-10.1) mg/dl Total Bilirubin (0.2-1) mg/dl AST (15-37) U/L ALT (12-78) U/L Alkaline Phosphatase (45-117) U/L Troponin I (0-0.045) ng/ml Total Protein (6.4-8.2) gm/dl Albumin (3.4-5.0) gm/dl Globulin (2.5-4.0) gm/dl Albumin/Globulin Ratio (0.9-2) Lipase (73-393) U/L COVID-19 Eval Order Covid19 at [facility] SARS-CoV-2 (PCR) NEGATIVE (Negative) Administered Medications Discontinued Medications Acetaminophen (Acetaminophen 1000 Mg/100 Ml Iv) Confirm Administered Dose 1,000 mg IV .STK-MED [facility] Stop: 11/22/20 12:19 Last Admin: 11/22/20 12:23 Dose: 1,000 mg Documented by: [id number] Acetaminophen (Acetaminophen 325 Mg Tab) 650 mg PO Q4H PRN PRN Reason: Pain or Fever Stop: 12/22/20 18:27 Last Admin: 11/23/20 10:48 Dose: 650 mg Documented by: [id number] Acetaminophen (Acetaminophen 325 Mg Tab) 650 mg PO TID [facility] Stop: 12/24/20 08:59 Last Admin: 11/26/20 13:19 Dose: 650 mg Documented by: [id number] Admin: 11/26/20 08:10 Dose: 650 mg Documented by: [id number] Admin: 11/25/20 20:39 Dose: 650 mg Documented by: [id number] Admin: 11/25/20 14:04 Dose: 650 mg Documented by: [id number] Admin: 11/25/20 08:01 Dose: 650 mg Documented by: [id number] Admin: 11/24/20 20:04 Dose: 650 mg Documented by: [id number] Admin: 11/24/20 13:48 Dose: 650 mg Documented by: [id number] Admin: 11/24/20 09:37 Dose: 650 mg Documented by: [id number] Apixaban (Apixaban 5 Mg Tablet) 5 mg PO BID [facility] Stop: 12/22/20 20:59 Last Admin: 11/26/20 08:10 Dose: 5 mg Documented by: [id number] Admin: 11/25/20 20:38 Dose: 5 mg Documented by: [id number] Admin: 11/25/20 08:00 Dose: 5 mg Documented by: [id number] Admin: 11/24/20 20:10 Dose: 5 mg Documented by: [id number] Admin: 11/24/20 08:10 Dose: 5 mg Documented by: [id number] Admin: 11/23/20 20:19 Dose: 5 mg Documented by: [id number] Admin: 11/23/20 08:31 Dose: 5 mg Documented by: [id number] Admin: 11/22/20 21:16 Dose: 5 mg Documented by: [id number] Aspirin (Aspirin 81 Mg Ectab) 81 mg PO QAM JENNIFER Stop: 12/23/20 08:59 Last Admin: 11/26/20 08:09 Dose: 81 mg Documented by: [id number] Admin: 11/25/20 08:00 Dose: 81 mg Documented by: [id number] Admin: 11/24/20 08:11 Dose: 81 mg Documented by: [id number] Admin: 11/23/20 08:31 Dose: 81 mg Documented by: [id number] Atorvastatin Calcium (Atorvastatin 40 Mg Tab) 40 mg PO HS [facility] Stop: 12/22/20 20:59 Last Admin: 11/25/20 20:38 Dose: 40 mg Documented by: [id number] Admin: 11/24/20 20:10 Dose: 40 mg Documented by: [id number] Admin: 11/23/20 20:20 Dose: 40 mg Documented by: [id number] Admin: 11/22/20 21:16 Dose: 40 mg Documented by: [id number] Calcium Carbonate (Calcium Carbonate 500 Mg Chewable Tab) 500 mg PO TID JENNIFER Stop: 12/22/20 20:59 Last Admin: 11/26/20 13:25 Dose: Not Given Documented by: [id number] Admin: 11/26/20 08:10 Dose: 500 mg Documented by: [id number] Admin: 11/25/20 20:38 Dose: 500 mg Documented by: [id number] Admin: 11/25/20 14:05 Dose: 500 mg Documented by: [id number] Admin: 11/25/20 08:00 Dose: 500 mg Documented by: [id number] Admin: 11/24/20 20:10 Dose: 500 mg Documented by: [id number] Admin: 11/24/20 14:44 Dose: 500 mg Documented by: [id number] Admin: 11/24/20 08:09 Dose: 500 mg Documented by: [id number] Admin: 11/23/20 20:21 Dose: 500 mg Documented by: [id number] Admin: 11/23/20 13:49 Dose: 500 mg Documented by: [id number] Admin: 11/23/20 08:32 Dose: 500 mg Documented by: [id number] Admin: 11/22/20 21:18 Dose: 500 mg Documented by: [id number] Diazepam (Diazepam 5 Mg Tablet) 5 mg PO NOW ONE Stop: 11/22/20 18:29 Last Admin: 11/22/20 19:31 Dose: 5 mg Documented by: [id number] Diazepam (Diazepam 5 Mg Tablet) 5 mg PO TID PRN PRN Reason: back spasms Stop: 12/22/20 18:27 Last Admin: 11/23/20 10:48 Dose: 5 mg Documented by: [id number] Diazepam (Diazepam 2 Mg Tablet) 2 mg PO TID PRN PRN Reason: back spasms Stop: 12/22/20 18:27 Last Admin: 11/25/20 02:04 Dose: 2 mg Documented by: [id number] Diclofenac Sodium (Diclofenac Sod 1% Gel 100 Gm Tube) 2 gm EXT QID JENNIFER Stop: 12/22/20 20:59 Last Admin: 11/26/20 13:19 Dose: 2 gm Documented by: [id number] Admin: 11/26/20 08:11 Dose: 2 gm Documented by: [id number] Admin: 11/25/20 20:40 Dose: 2 gm Documented by: [id number] Admin: 11/25/20 17:56 Dose: 2 gm Documented by: [id number] Admin: 11/25/20 14:04 Dose: 2 gm Documented by: [id number] Admin: 11/25/20 08:01 Dose: 2 gm Documented by: [id number] Admin: 11/24/20 20:17 Dose: 2 gm Documented by: [id number] Admin: 11/24/20 16:57 Dose: 2 gm Documented by: [id number] Admin: 11/24/20 13:48 Dose: 2 gm Documented by: [id number] Admin: 11/24/20 08:05 Dose: 2 gm Documented by: [id number] Admin: 11/23/20 20:18 Dose: 2 gm Documented by: [id number] Admin: 11/23/20 16:14 Dose: 2 gm Documented by: [id number] Admin: 11/23/20 12:11 Dose: 2 gm Documented by: [id number] Admin: 11/23/20 08:33 Dose: 2 gm Documented by: [id number] Admin: 11/22/20 21:18 Dose: 2 gm Documented by: [id number] Diltiazem HCl (Diltiazem Hcl 5 Mg/Ml 5 Ml Vial) 20 mg IV NOW STA Stop: 11/22/20 14:24 Last Admin: 11/22/20 14:50 Dose: 20 mg Documented by: [id number] Cosigned by: [id number] Diltiazem HCl (Diltiazem Hcl 240 Mg Capcr) 240 mg PO QAM JENNIFER Stop: 12/23/20 08:59 Last Admin: 11/24/20 08:10 Dose: 240 mg Documented by: [id number] Admin: 11/23/20 08:32 Dose: 240 mg Documented by: [id number] Diltiazem HCl (Diltiazem Hcl 120 Mg Capcr) 120 mg PO BID JENNIFER Stop: 12/24/20 20:59 Last Admin: 11/26/20 08:11 Dose: 120 mg Documented by: [id number] Admin: 11/25/20 20:37 Dose: 120 mg Documented by: [id number] Admin: 11/25/20 08:01 Dose: 120 mg Documented by: [id number] Admin: 11/24/20 21:02 Dose: 120 mg Documented by: [id number] Ergocalciferol (Ergocalciferol 50,000 Units 1250 Mcg Cap) 50,000 units PO ONE ONE Stop: 11/22/20 18:29 Last Admin: 11/22/20 21:17 Dose: 50,000 units Documented by: [id number] Fluticasone/Vilanterol (Fluticasone/Vilanterol 100/25mcg 14 Puffs/Inhaler) 1 puffs INH QAM JENNIFER Stop: 12/23/20 08:59 Last Admin: 11/26/20 08:09 Dose: 1 puffs Documented by: [id number] Admin: 11/25/20 08:01 Dose: 1 puffs Documented by: [id number] Admin: 11/24/20 08:08 Dose: 1 puffs Documented by: [id number] Admin: 11/23/20 08:34 Dose: 1 puffs Documented by: [id number] Hydromorphone HCl (Hydromorphone Inj 0.5 Mg/0.5 Ml Syr) Confirm Administered Dose 0.5 mg .ROUTE .STK-MED ONE Stop: 11/22/20 12:20 Last Admin: 11/22/20 12:23 Dose: 0.5 mg Documented by: [id number] Hydromorphone HCl (Hydromorphone Inj 0.5 Mg/0.5 Ml Syr) 0.25 mg IV Q2H PRN PRN Reason: Pain - severe Stop: 12/06/20 19:19 Last Admin: 11/24/20 08:01 Dose: 0.25 mg Documented by: [id number] Admin: 11/23/20 13:47 Dose: 0.25 mg Documented by: [id number] Admin: 11/23/20 08:40 Dose: 0.25 mg Documented by: [id number] Acetaminophen (Ofirmev) 1,000 mg in 100 mls @ 400 mls/hr IV NOW STA Stop: 11/22/20 12:05 Last Admin: 11/22/20 13:08 Dose: Not Given Documented by: [id number] Magnesium Sulfate/Dextrose (Magnesium Sulfate / D5w) 1 gm in 100 mls @ 50 mls/hr IV Q2H STA Stop: 11/22/20 19:19 Last Infusion: 11/22/20 22:28 Dose: 0 mls/hr Documented by: [id number] Admin: 11/22/20 20:08 Dose: 50 mls/hr Documented by: [id number] Calcium Gluconate 1,000 mg/ (Sodium Chloride) 60 mls @ 240 mls/hr IV 1930 ONE Stop: 11/22/20 19:44 Last Infusion: 11/22/20 20:10 Dose: 0 mls/hr Documented by: [id number] Admin: 11/22/20 19:31 Dose: 240 mls/hr Documented by: [id number] Magnesium Sulfate/Dextrose (Magnesium Sulfate / D5w) 1 gm in 100 mls @ 50 mls/hr IV Q2H JENNIFER Stop: 11/23/20 04:29 Last Infusion: 11/23/20 05:32 Dose: 0 mls/hr Documented by: [id number] Admin: 11/23/20 03:00 Dose: 50 mls/hr Documented by: [id number] Infusion: 11/23/20 02:59 Dose: 50 mls/hr Documented by: [id number] Admin: 11/23/20 00:29 Dose: 50 mls/hr Documented by: [id number] Infusion: 11/23/20 00:29 Dose: 50 mls/hr Documented by: [id number] Admin: 11/22/20 22:31 Dose: 50 mls/hr Documented by: [id number] Magnesium Sulfate/Dextrose (Magnesium Sulfate / D5w) 1 gm in 100 mls @ 50 mls/hr IV Q2H JENNIFER Stop: 11/24/20 13:14 Last Infusion: 11/24/20 13:49 Dose: 0 mls/hr Documented by: [id number] Admin: 11/24/20 11:27 Dose: 50 mls/hr Documented by: [id number] Infusion: 11/24/20 11:26 Dose: 0 mls/hr Documented by: [id number] Admin: 11/24/20 09:37 Dose: 50 mls/hr Documented by: [id number] Lidocaine (Lidocaine 5% 1 Patch) 1 patch TD HS JENNIFER Stop: 12/22/20 20:59 Last Admin: 11/25/20 20:41 Dose: 1 patch Documented by: [id number] Admin: 11/24/20 20:12 Dose: 1 patch Documented by: [id number] Admin: 11/23/20 20:20 Dose: 1 patch Documented by: [id number] Admin: 11/22/20 21:18 Dose: 1 patch Documented by: [id number] Magnesium Oxide (Magnesium Oxide 400 Mg Tab) 400 mg PO QAM JENNIFER Stop: 12/23/20 08:59 Last Admin: 11/23/20 08:32 Dose: 400 mg Documented by: [id number] Magnesium Oxide (Magnesium Oxide 400 Mg Tab) 400 mg PO BID JENNIFER Stop: 12/23/20 20:59 Last Admin: 11/26/20 08:11 Dose: 400 mg Documented by: [id number] Admin: 11/25/20 20:36 Dose: 400 mg Documented by: [id number] Admin: 11/25/20 07:59 Dose: 400 mg Documented by: [id number] Admin: 11/24/20 20:06 Dose: 400 mg Documented by: [id number] Admin: 11/24/20 09:37 Dose: 400 mg Documented by: [id number] Admin: 11/23/20 20:21 Dose: 400 mg Documented by: [id number] Metoprolol Tartrate (Metoprolol Tartrate 25 Mg Tab) 75 mg PO BID JENNIFER Stop: 12/22/20 20:59 Last Admin: 11/26/20 08:11 Dose: 75 mg Documented by: [id number] Admin: 11/25/20 20:36 Dose: 75 mg Documented by: [id number] Admin: 11/25/20 08:00 Dose: 75 mg Documented by: [id number] Admin: 11/24/20 20:05 Dose: 75 mg Documented by: [id number] Admin: 11/24/20 08:10 Dose: 75 mg Documented by: [id number] Admin: 11/23/20 20:19 Dose: 75 mg Documented by: [id number] Admin: 11/23/20 09:10 Dose: 75 mg Documented by: [id number] Admin: 11/22/20 21:16 Dose: 75 mg Documented by: [id number] Metoprolol Tartrate (Metoprolol Tartrate 25 Mg Tab) 25 mg PO ONE ONE Stop: 11/23/20 08:22 Last Admin: 11/23/20 08:31 Dose: 25 mg Documented by: [id number] Miscellaneous (Remove Lidoderm Patch) 1 ea N/A [facility] Stop: 12/23/20 08:59 Last Admin: 11/26/20 08:12 Dose: 1 ea Documented by: [id number] Admin: 11/25/20 08:00 Dose: 1 ea Documented by: [id number] Admin: 11/24/20 08:12 Dose: 1 ea Documented by: [id number] Admin: 11/23/20 08:36 Dose: 1 ea Documented by: [id number] Ondansetron HCl (Ondansetron Inj 2 Mg/Ml 2 Ml Vial) Confirm Administered Dose 4 mg .ROUTE .STK-MED ONE Stop: 11/22/20 12:20 Last Admin: 11/22/20 12:22 Dose: 4 mg Documented by: [id number] Ondansetron HCl (Ondansetron Inj 2 Mg/Ml 2 Ml Vial) 4 mg IV NOW STA Stop: 11/22/20 11:52 Last Admin: 11/22/20 13:08 Dose: Not Given Documented by: [id number] Pantoprazole Sodium (Pantoprazole 40 Mg Tab) 40 mg PO [facility] Stop: 12/23/20 08:59 Last Admin: 11/26/20 08:10 Dose: 40 mg Documented by: [id number] Admin: 11/25/20 08:00 Dose: 40 mg Documented by: [id number] Admin: 11/24/20 08:10 Dose: 40 mg Documented by: [id number] Admin: 11/23/20 08:32 Dose: 40 mg Documented by: [id number] Potassium Chloride (Potassium Chloride Crtab 20 Meq Tabcr) 20 meq PO QAM JENNIFER Stop: 12/23/20 08:59 Last Admin: 11/26/20 08:09 Dose: 20 meq Documented by: [id number] Admin: 11/25/20 08:00 Dose: 20 meq Documented by: [id number] Admin: 11/24/20 08:10 Dose: 20 meq Documented by: [id number] Admin: 11/23/20 08:32 Dose: 20 meq Documented by: [id number] Silver Sulfadiazine (Silver Sulfadiazine 1% Cr 50 Gm Jar) 1 appln TOP BID JENNIFER Stop: 12/22/20 20:59 Last Admin: 11/26/20 08:08 Dose: 1 appln Documented by: [id number] Admin: 11/25/20 20:40 Dose: 1 appln Documented by: [id number] Admin: 11/25/20 08:00 Dose: 1 appln Documented by: [id number] Admin: 11/24/20 20:18 Dose: 1 appln Documented by: [id number] Admin: 11/24/20 08:06 Dose: 1 appln Documented by: [id number] Admin: 11/23/20 20:18 Dose: 1 appln Documented by: [id number] Admin: 11/23/20 08:33 Dose: 1 appln Documented by: [id number] Admin: 11/22/20 21:18 Dose: 1 appln Documented by: [id number] Umeclidinium [place] (Umeclidinium [place] 62.5mcg/Blister 7 Puffs/Inhaler) 1 puffs INH QAM JENNIFER Stop: 12/23/20 08:59 Last Admin: 11/26/20 08:09 Dose: 1 puffs Documented by: [id number] Admin: 11/25/20 08:02 Dose: 1 puffs Documented by: [id number] Admin: 11/24/20 08:08 Dose: 1 puffs Documented by: [id number] Admin: 11/23/20 08:33 Dose: 1 puffs Documented by: [id number] Vitamin D (Cholecalciferol 1,000 Units 25 Mcg Tab) 2,000 units PO QAM JENNIFER Stop: 12/23/20 08:59 Last Admin: 11/26/20 08:09 Dose: 2,000 units Documented by: [id number] Admin: 11/25/20 08:00 Dose: 2,000 units Documented by: [id number] Admin: 11/24/20 08:10 Dose: 2,000 units Documented by: [id number] Admin: 11/23/20 08:31 Dose: 2,000 units Documented by: [id number] Imaging Data Radiologist's Impression: Chest X-Ray 11/22/20 11:51 XR chest 1V portable CLINICAL HISTORY: Chest Pain COMPARISON STUDY: Chest radiograph October 22, 2020. FINDINGS: Lung volumes are normal. There is cardiomegaly. No evidence for pulmonary edema. No pneumothorax or pleural effusion is present. Mild bilateral opacities have improved since exam October 22, 2020. Minimal left basilar opacity favors atelectasis. IMPRESSION: 1. Interval improvement in mild bilateral airspace opacities since chest radiograph of October 22, 2020. 2. Cardiomegaly without evidence for pulmonary edema. ACT 112: Negative or not required by law. Electronically signed by: Silviano Call M.D. 11/22/2020 1:[address] 11/22/20 11:53 CT lumbar spine wo con CT DOSE: 642.36 mGy.cm CLINICAL HISTORY: Pt low back pain TECHNIQUE: Helical images were acquired in transverse plane. Reformatted sagittal and coronal images were reviewed. A dose lowering technique was utilized adhering to the principles of ALARA. CONTRAST: No contrast was administered COMPARISON STUDY: None. FINDINGS: No definite acute fracture or traumatic malalignment is seen. Vertebral body heights are maintained. Intervertebral disc space narrowing is seen at L5-S1 level. Minimal anterior osteophytes are seen at multiple levels. Accidental findings of calcified abdominal aorta with few partially visualized areas of ectasia are seen and where better visualized on CT of abdomen and pelvis performed on October 20, 2020. L1-2 level: There is no evidence of significant disc bulge or focal herniation. There is no evidence of spinal or foraminal stenosis. L2-3 level: Minimal narrowing of intervertebral disc space with diffuse bulge of the disc and mild central canal stenosis. Bilateral neuroforamina are patent. L3-4 level: Intervertebral disc space is preserved. Diffuse bulge of the disc is seen and in association with hypertrophic changes of facet joints causing severe stenosis of the central canal. Bilateral neuroforamina are patent. L4-5 level: Intervertebral disc space is preserved. Diffuse bulge of the disc is seen and in association with hypertrophic changes of facet joints causing severe stenosis of the central canal. Bilateral neural foramina are patent. L5-S1 level: Narrowing of intervertebral disc space is seen with subchondral sclerosis and vacuum phenomenon. Diffuse bulge of the disc is seen and in association with hypertrophic changes of facet joints causing moderate stenosis of the central canal. Bilateral neuroforamina are patent. IMPRESSION: 1. No acute fracture or traumatic malalignment. Limited evaluation due to osteopenia. 2. Few areas of disc bulge causing stenosis of the central canal, most severe at the C3-4 and 4 5 levels ACT 112: Negative or not required by law. The above report was generated using voice recognition software. It may contain grammatical, syntax or spelling errors. Electronically signed by: Nicky Mcclain DO 11/22/2020 1:34 PM Discharge Plan Visit Data Chief Complaint: Back Injury/Pain Stated Complaint: SEVERE BACK PAIN ED Provider: Hector Nogueira Discharge Problem: Elevated troponin, Lumbar back pain, Superficial burn Patient Disposition: Admitted As Inpatient Discharge Instructions Interventions: ED Discharge Assessment Last Done: 11/22/20 17:36
--- NOTE | 2020-12-05 13:13 | Coding Query ---
To promote full compliance with coding requirements relating to patient care, physician participation is requested in all cases of tree planter uncertainty. Please assist us with the question(s) below: Coding Question(s): It was noted throughout the record that the patient has/is suspected to have osteoporosis. According to coding guidelines "a code for osteoporotic fracture, and not a traumatic fracture, should be used for any patient with known osteoporosis who suffers a fracture, even if the patient had a minor fall or trauma, if that fall or trauma would not usually break a normal, healthy bone." Please indicate below the type of fracture: Physician's Response(s): ( x ) Osteoporotic fracture of Thoracic Spine ( ) Traumatic fracture of Thoracic Spine ( ) Other, please specify ( ) Unable to be determined MTDD
== END 2020-11-26 14:42 | disposition home health service (06) | DRG 543 ==
LOC: ED 09:48 → SUATTDRO 16:24 → 2N 16:24

== ENCOUNTER 2021-04-20 17:19 | Inpatient (IN) ==
[2021-04-20] MEDS ORDERED: OPTIRAY 320 125ml IV ONE (17:36)
[2021-04-20] MEDS ORDERED: SODIUM CHLORIDE 0.9% 500 ML IV ONE (17:38)
[2021-04-20 17:47] LABS: Basophils # (auto) 0.01 K/uL (0-0.2); Basophils % (auto) 0.1 %; Eosinophils # (auto) 0.04 K/uL (0-0.5); Eosinophils % (auto) 0.3 %; Hematocrit (blood only) 41.3 % (37-47); Hemoglobin 13.9 g/dL (12.0-16.0); Immature Granulocytes # (auto) 0.04 K/uL (0.00-0.02); Immature Granulocytes % (auto) 0.3 %; Lymphocytes # (auto) 2.77 K/uL (1.2-3.4); Lymphocytes % (auto) 20.9 %; Mean Corpuscular Hemoglobin 30.4 pg (25-34); Mean Corpuscular Hgb Conc 33.7 g/dL (32-36); Mean Corpuscular Volume 90.4 fL (80-100); Mean Platelet Volume 9.2 fL (7.4-10.4); Monocytes # (auto) 0.43 K/uL (0.11-0.59); Monocytes % (auto) 3.2 %; Neutrophils # (auto) 9.97 K/uL (1.4-6.5); Neutrophils % (auto) 75.2 %; Platelet Count 368 K/uL (130-400); RDW Coefficient of Variation 14.3 % (11.5-14.5); RDW Standard Deviation 47.1 fL (36.4-46.3); Red Blood Count 4.57 M/uL (4.2-5.4); White Blood Count 13.26 K/uL (4.8-10.8)
--- NOTE | 2021-04-20 17:52 | CT Scan Report ---
UNENHANCED CT OF THE BRAIN; CT ANGIOGRAM OF THE BRAIN; CT ANGIOGRAM OF THE NECK CLINICAL HISTORY: Strokelike symptoms. Right-sided weakness. COMPARISON STUDY: CT of the brain dated 07/18/2017. TECHNIQUE: Unenhanced axial CT scan of the brain is performed. Subsequently, following the IV adminis tration of 118 of [address] [address], CT angiogram of the head and neck was performed from the aortic arch t o the vertex. Images are reviewed in the axial, sagittal, and coronal planes. 3-D MIPS images are cre ated and assessed. IV contrast was administered without complication. All measurements were calculate d based on NASCET criteria. A dose lowering technique was utilized adhering to the principles of ALA RA. The examinations are degraded by motion artifact. 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 Large foci of left parietal and left occipital encephalomal acia are consistent with remote infarcts. A chronic lacunar infarct is noted in the left thalamus. Th ere is no hemorrhage, mass effect, or evidence of acute territorial ischemia by CT criteria. There is no evidence of enhancing mass lesion on the angiogram phase images. The ventricles, sulci, and ciste rns are prominent secondary to involutional change. There is ex vacuo dilatation of the left lateral ventricle. Venegas-white matter differentiation is preserved. No extra-axial fluid collection is seen. Thoracic aorta: There is atherosclerotic calcification of the thoracic aorta. Visualized portions of the thoracic aorta are normal in caliber. The aortic arch demonstrates standard 3-vessel anatomy. Right carotid arterial system: The right common carotid artery is widely patent. There is advanced at herosclerotic plaque in the proximal internal carotid artery which causes less than 50% luminal narro wing. The remainder of the internal carotid artery is widely patent, as is the right external carotid artery. Left carotid arterial system: The left common carotid artery is widely patent. Advanced atherosclerot ic plaque is noted in the carotid bulb. The left internal carotid artery is widely patent. There is m oderate to high-grade stenosis at the origin of the left external carotid artery. The remainder of th e external carotid artery is patent. There is tortuosity of the distal internal carotid artery. Vertebral arteries: The vertebral arteries are widely patent in the neck and codominant. Subclavian arteries: Widely patent bilaterally. Intracranial vasculature: The internal carotid arteries are patent at the skull base, as are the ante rior and middle cerebral arteries bilaterally. The vertebrobasilar system and left posterior cerebral artery are widely patent. The vertebral arteries are codominant. The left posterior cerebral artery is not visualized and likely occluded. This may be related to remote infarcts detailed above. 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 No additiona l aneurysm is identified. Jugular veins: Patent bilaterally. Dural sinuses: Patent. Lung apices: Partially visualized upper lobe lung parenchyma appears clear. Soft tissues: The visualized pharyngeal soft tissues are normal in appearance noting angiographic pha se technique. The oropharyngeal airway appears widely patent. The thyroid gland is enlarged and heter ogeneous. The salivary glands are normal in appearance. No cervical lymphadenopathy is seen. Skeletal structures: The skeletal structures are osteopenic. The calvarium appears intact. The cervic al spine is maintained noting multilevel spondylosis. No lytic or blastic lesion is seen. Orbits: The bony orbits are intact. Orbital contents are normal as visualized noting bilateral ocular lens implants. Sinuses and mastoids: The paranasal sinuses are clear. There is atherosclerotic calcification of the cavernous carotid and vertebral arteries. There is trace right mastoid effusion. The left mastoid air cells are well pneumatized. IMPRESSION: 1. Senescent change and remote infarcts as above with no hemorrhage, mass effect, or evidence of acut e territorial ischemia by CT criteria. 2. The left posterior cerebral artery is not identified and presumed occluded. This may correspond to remote infarcts detailed above. 3. The remaining intracranial vessels are patent. 4. 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 5. Atherosclerotic plaque causes less than 50% narrowing of the proximal right internal carotid arter y. There is no evidence of significant carotid artery stenosis in the neck. 6. Additional findings as above. ACT 112: Negative or not required by law. Electronically signed by: Michele Pavon M.D. 04/20/2021 5:51 PM
[2021-04-20 18:01] LABS: Partial Thromboplastin Ratio 1.1; Partial Thromboplastin Time 28.2 Seconds (21.0-31.0); Prothrombin Time 10.4 Seconds (9.0-12.0)
[2021-04-20 18:05] LABS: BUN Creatinine Ratio 6.9 (10-20); Calcium 8.8 mg/dl (8.5-10.1); Creatinine Clr Calc Pharmacy 36.5 ml/min; Est GFR (African American) 47.7 ml/min; Est GFR (Non-African American) 41.2 ml/min; Magnesium 1.3 mg/dl (1.8-2.4); Potassium 4.8 mmol/L (3.5-5.1)
--- NOTE | 2021-04-20 18:05 | Emergency Department Note ---
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 The patient was able to call her daughter who was driving back from [place] around 332 tell her of when it happened and upon arrival the daughter noticed that the patient's arm was much weaker than her normal. She was able to walk at that time and speak. She is unsure of when she was last normal however and so it is unclear where the estimate of noon originated. On arrival the patient has severe expressive aphasia and is unable to communicate though she does exhibit understanding of commands. She lifts both arms but has severe right upper and right lower extremity drift with strength only against gravity. Per the patient's daughter she did take her medications this morning as she reviewed her pillbox. They are unaware of any recent illness including fevers, chills, cough, congestion, GI or symptoms. The patient daughter reports the patient has recently seen all her outpatient providers in the past 1-2 weeks and evaluations were stable. On arrival the patient is uncomfortable but no acute distress, afebrile with blood pressure elevated in the 200s/100s. She appears clinically dry. She exhibits right facial droop with drooling present. She has 3/5 strength of right upper and right lower extremity. She has severe expressive aphasia. She does exhibit understanding. The patient did go immediately to CT upon arrival via stroke alert protocol and had CT of the head and CT of the head and neck performed. The patient is not a TPA candidate due to unclear last known well and being on Eliquis. However unclear if endovascular therapy will be a p ossibility. The patient's symptoms were noted to be progressively improving in the room where she was able to communicate certain phrases intentionally. BP also somewhat improved. Patient's daughter did ultimately arrive to the bedside to provide more information. I did review the case with [facility] telestroke neurology, Dr. Alvarado, evaluated the patient via telestroke monitor. Subsequently CT of the head was negative for acute stroke. Note is made of left posterior cerebral artery that was not identified and so is presumed to be occluded and likely corresponds to her remote infarcts. 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 WBC 13.2K nonspecific. H/H and platelets within normal limits. Chemistry without metabolic acidosis. Creatinine 1.25 similar to prior range of values. Magnesium was 1.3 with repletion provided. LFTs without significant abnormality. Initial troponin was elevated at 0.306, similar to prior elevations. Covid-19 RNA, NAAT test was negative. During the patient's telestroke evaluation she did begin to exhibit more frequent myoclonus of her right lower extremity which did raise suspicion for seizures. Decision was made to treat with Ativan and Keppra however while obtaining the medications the patient developed generalized seizure episode where she exhibited tonic-clonic movements and did briefly become cyanotic and hypoxic. Her airway was managed with jaw thrust and placed on nonrebreather and oral pharyngeal suction was provided. Her respiratory status did recover however she did remain postictal. 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 The patient did receive 1000 g of Keppra as well as 1 mg of IV Ativan. Appreciate recommendations to continue 500 mg twice daily of Keppra in addition to obtaining EEG as well as MRI. Agrees that absence of left SERVICE OBSERVER CHIEF is unlikely to be related to today's events and most likely reflects source of patient's previous stroke. Moreover, attempt at intervention in this area even if it were suspected to be contributing would be considered to be more risk than benefit. Dr. Alvarado did review plan with daughter at the bedside who agreed. Dr. Washington, [facility] hospitalist, to evaluate the patient for admission. Triage Nursing notes reviewed and agree them. Prior medical records reviewed Vital Signs: reviewed and remarkable for hypertension. Differential diagnosis: Infection, dehydration, metabolic abnormality, hypo/hyperglycemia, electrolyte disturbance, anemia, hypoxia, cardiac sources, intracerebral event, toxicologic, neurologic, as well as other pathologies. ER treatment provided: See below. Diagnostics interpreted by me: ECG: Sinus rhythm with first-degree AV block, 66 bpm, no overt ST elevation or depression, QTC 454, QRS 100. Cardiac Monitoring: An order for continuous cardiac monitoring was placed and demonstrated sinus rhythm with first-degree AV block, 66 bpm, no ectopy. Laboratory studies: See below Imaging studies: See below Consultation(s): Dr. Washington, [facility] hospitalist, to evaluate the patient for admission. 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 The patient was able to call her daughter who was driving back from [place] around 332 tell her of when it happened and upon arrival the daughter noticed that the patient's arm was much weaker than her normal. She was able to walk at that time and speak. She is unsure of when she was last normal however and so it is unclear where the estimate of noon originated. On arrival the patient has severe expressive aphasia and is unable to communicate though she does exhibit understanding of commands. She lifts both arms but has severe right upper and right lower extremity drift with strength only against gravity. Per the patient's daughter she did take her medications this morning as she reviewed her pillbox. They are unaware of any recent illness including fevers, chills, cough, congestion, GI or symptoms. The patient does report she has recently seen all her outpatient providers in the past 1-2 weeks and things were stable. ROS: See above HPI for pertinent positives & negatives. A total of 10 systems reviewed and were otherwise negative. PAST MEDICAL HISTORY:See Below PAST SURGICAL HISTORY:See Below FAMILY HISTORY:See Below SOCIAL HISTORY:See Below HOME MEDICATIONS:See Below ALLERGIES:See Below VITALS:See Below PHYSICAL EXAMINATION: GENERAL: Awake, alert, uncomfortable-appearing, in no distress HENT: Normocephalic, atraumatic. Oropharynx with dry mucous membranes and otherwise unremarkable. EYES: Normal conjunctiva. Sclera non-icteric. NECK: Supple. No nuchal rigidity. FROM. No JVD. RESPIRATORY: Clear to auscultation. CARDIAC: Regular rate, normal rhythm. Extremities warm and well perfused. Pulses equal. ABDOMEN: Soft, non-distended. No tenderness to palpation. No rebound or guarding. No masses. RECTAL: Deferred. MUSCULOSKELETAL: Chest examination reveals no tenderness. The back is symmetrical on inspection without obvious abnormality. There is no CVA tenderness to palpation. No joint edema. LOWER EXTREMITIES: Calves are equal size bilaterally and non-tender. No edema. No discoloration. NEURO: Right facial droop with drooling present. She has 3/5 strength of right upper and right lower extremity. She has severe expressive aphasia. She does exhibit understanding. SKIN: No rash or jaundice noted. ED COURSE: Critical Care: I have personally spent greater than 95 minutes of critical care time in the direct management of this patient. This includes bedside care, interpretation of diagnostic studies, and testing, discussion with consultants, patient, and f amily members, and other required patient management activities. This 95 minutes is in excess of all separately billable procedures. Lexx Pete MD Past Med/Surg History Medical History Acute hyponatremia Afib Elevated troponin I level Gastroenteritis History of CVA (cerebrovascular accident) Hyperlipidemia Hypertension Hypokalemia Hypomagnesemia PAD (peripheral artery disease) TIA (transient ischemic attack) Vitamin D deficiency Weakness Surgical History History of cholecystectomy Hx of tonsillectomy Family History Other Diabetes Hypertension Myocardial infarction Denies family history of Ovarian cancer Prostate cancer Breast cancer Colorectal cancer Social History Smoking Status: Unknown if ever smoked Age Started Using Tobacco: 32; packs per day: 1; Cigarettes Per Day: pack a day; Second Hand Exposure: Yes; Hx Alcohol Use: No Hx Substance Use: No Preferred Language: Urdu Communication Ability: Effective Hearing Ability: Normal Certified First Assistant Required: No Beliefs That Will Affect Care: None marital status: / Current Living Situation: Alone current occupational status: retired Feels Safe at Home: Yes Childhood Exposure to Second-Hand Smoke: No caffeine: Yes (diet coke daily) Dental Care, Regularly: Yes Physical Activity Frequency: Does not Exercise Seatbelt Use: always Sunscreen Use: No Assistive Devices: Walker Allergies Allergies Allergy/AdvReac Type Severity Reaction Status Date / Time Penicillins Allergy Intermediate HIVES Verified 04/20/21 19:56 Home Meds Home Medications Medication Instructions Recorded Confirmed aspirin 81 mg tablet,delayed 81 mg PO QAM tab 12/16/18 04/20/21 release furosemide 20 mg tablet 20 mg PO DAILY PRN #90 tab 12/16/18 04/20/21 acetaminophen 500 mg tablet 1,000 mg PO Q6H PRN 11/22/20 04/20/21 (Tylenol Extra Strength) magnesium oxide 400 mg (241.3 mg 400 mg PO QAM 11/22/20 04/20/21 magnesium) tablet omeprazole 20 mg capsule,delayed 40 mg PO QAM 11/22/20 04/20/21 release potassium chloride 20 mEq 20 meq PO QAM 11/22/20 04/20/21 tablet,extended release diclofenac sodium 1 % topical gel 2 g EXT QID PRN 04/20/21 04/20/21 (Voltaren Arthritis Pain) Previous Rx's Medication Instructions Recorded atorvastatin 40 mg tablet 40 mg PO HS #90 tab 09/23/20 cholecalciferol (vitamin D3) 25 2,000 unit PO QAM #30 cap 11/26/20 mcg (1,000 unit) capsule metoprolol succinate 200 mg 200 mg PO DAILY #90 tab 11/28/20 tablet,extended release 24 hr apixaban 5 mg tablet 5 mg PO BID 90 Days #180 tab 12/24/20 diltiazem HCl 120 mg 120 mg PO BID #180 cap 12/24/20 capsule,extended release 24 hr Results & Data (ED) Vital Signs Vital Signs - 24 hr 04/20/21 17:20 04/20/21 17:44 04/20/21 18:34 Pulse Rate 99 H Pulse Rate [Left Finger] 62 Respiratory Rate 16 21 Respiratory Effort / Characteristics Non-Labored Non-Labored Respiratory Depth Normal Blood Pressure 217/100 H Blood Pressure [Left Arm] 169/86 H Blood Pressure Mean 139 Blood Pressure Mean [Left Arm] 113 Pulse Oximetry 94 Oxygen Delivery Method Room Air Non-rebreather Oxygen Flow Rate Sepsis Recent Fever Within 48 Hours No Sepsis New/Unexplained Change in Mental Status N/A N/A Sepsis Action Taken by Nursing No Action Required 04/20/21 18:46 04/20/21 19:18 Pulse Rate Pulse Rate [Left Finger] 54 L Respiratory Rate 19 Respiratory Effort / Characteristics Non-Labored Spontaneous Respiratory Depth Normal Blood Pressure Blood Pressure [Left Arm] 146/66 H Blood Pressure Mean Blood Pressure Mean [Left Arm] 92 Pulse Oximetry 93 95 Oxygen Delivery Method Nasal Cannula Nasal Cannula Oxygen Flow Rate 4 4 Sepsis Recent Fever Within 48 Hours Sepsis New/Unexplained Change in Mental Status Sepsis Action Taken by Nursing Laboratory Data Attestation: I reviewed the patient's lab results. Result diagrams: 04/20/21 17:38 04/20/21 17:38 Lab Results 04/20/21 04/20/21 04/20/21 Range/Units 17:38 17:38 17:38 WBC 13.26 H (4.8-10.8) K/uL RBC 4.57 (4.2-5.4) M/uL Hgb 13.9 (12.0-16.0) g/dL Hct 41.3 (37-47) % MCV 90.4 (80-100) fL MCH 30.4 (25-34) pg MCHC 33.7 (32-36) g/dL RDW Std Deviation 47.1 H (36.4-46.3) fL RDW Coeff of Faviola 14.3 (11.5-14.5) % Plt Count 368 (130-400) K/uL MPV 9.2 (7.4-10.4) fL Immature Gran % (Auto) 0.3 % Neut % (Auto) 75.2 % Lymph % (Auto) 20.9 % Gage % (Auto) 3.2 % Eos % (Auto) 0.3 % Baso % (Auto) 0.1 % Neut # (Auto) 9.97 H (1.4-6.5) K/uL Lymph # (Auto) 2.77 (1.2-3.4) K/uL Gage # (Auto) 0.43 (0.11-0.59) K/uL Eos # (Auto) 0.04 (0-0.5) K/uL Baso # (Auto) 0.01 (0-0.2) K/uL Immature Gran # (Auto) 0.04 H (0.00-0.02) K/uL PT 10.4 (9.0-12.0) Seconds INR 1.0 (0.9-1.1) APTT 28.2 (21.0-31.0) Seconds PTT Ratio 1.1 Sodium (136-145) mmol/L Potassium (3.5-5.1) mmol/L Chloride (98-107) mmol/L Carbon Dioxide (21-32) mmol/L Anion Gap (3-11) BUN (7-18) mg/dl Creatinine (0.6-1.2) mg/dl Est Cr Clr Drug Dosing ml/min Est GFR ( Amer) ml/min Est GFR (Non-Af Amer) ml/min BUN/Creatinine Ratio (10-20) Glucose (70-99) mg/dl POC Glucose (70-99) mg/dl Calcium (8.5-10.1) mg/dl Phosphorus (2.5-4.9) mg/dl Magnesium (1.8-2.4) mg/dl Total Bilirubin (0.2-1) mg/dl AST (15-37) U/L ALT (12-78) Alkaline Phosphatase (45-117) U/L Troponin I (0-0.045) ng/ml Total Protein (6.4-8.2) gm/dl Albumin (3.4-5.0) gm/dl Globulin (2.5-4.0) gm/dl Albumin/Globulin Ratio (0.9-2) SARS-CoV-2, RNA, NAAT (NEGATIVE) Blood Type O Positive Antibody Screen NEGATIVE 04/20/21 04/20/21 04/20/21 Range/Units 17:38 17:39 19:01 WBC (4.8-10.8) K/uL RBC (4.2-5.4) M/uL Hgb (12.0-16.0) g/dL Hct (37-47) % MCV (80-100) fL MCH (25-34) pg MCHC (32-36) g/dL RDW Std Deviation (36.4-46.3) fL RDW Coeff of Faviola (11.5-14.5) % Plt Count (130-400) K/uL MPV (7.4-10.4) fL Immature Gran % (Auto) % Neut % (Auto) % Lymph % (Auto) % Gage % (Auto) % Eos % (Auto) % Baso % (Auto) % Neut # (Auto) (1.4-6.5) K/uL Lymph # (Auto) (1.2-3.4) K/uL Gage # (Auto) (0.11-0.59) K/uL Eos # (Auto) (0-0.5) K/uL Baso # (Auto) (0-0.2) K/uL Immature Gran # (Auto) (0.00-0.02) K/uL PT (9.0-12.0) Seconds INR (0.9-1.1) APTT (21.0-31.0) Seconds PTT Ratio Sodium 130 L (136-145) mmol/L Potassium 4.8 (3.5-5.1) mmol/L Chloride 100 (98-107) mmol/L Carbon Dioxide 26 (21-32) mmol/L Anion Gap 4.0 (3-11) BUN 9 (7-18) mg/dl Creatinine 1.25 H (0.6-1.2) mg/dl Est Cr Clr Drug Dosing 36.5 ml/min Est GFR ( Amer) 47.7 ml/min Est GFR (Non-Af Amer) 41.2 ml/min BUN/Creatinine Ratio 6.9 L (10-20) Glucose 105 H (70-99) mg/dl POC Glucose 110 H (70-99) mg/dl Calcium 8.8 (8.5-10.1) mg/dl Phosphorus 3.3 (2.5-4.9) mg/dl Magnesium 1.3 L (1.8-2.4) mg/dl Total Bilirubin 0.3 (0.2-1) mg/dl AST 10 L (15-37) U/L ALT 20 (12-78) Alkaline Phosphatase 108 (45-117) U/L Troponin I 0.306 H* (0-0.045) ng/ml Total Protein 6.6 (6.4-8.2) gm/dl Albumin 3.0 L (3.4-5.0) gm/dl Globulin 3.6 (2.5-4.0) gm/dl Albumin/Globulin Ratio 0.8 L (0.9-2) SARS-CoV-2, RNA, NAAT NEGATIVE (NEGATIVE) Blood Type Antibody Screen Administered Medications Atorvastatin Calcium (Atorvastatin 40 Mg Tab) 40 mg PO HS JENNIFER Stop: 05/20/21 21:18 Last Admin: 04/20/21 21:46 Dose: Not Given Documented by: [id number] Diltiazem HCl (Diltiazem Hcl 120 Mg Capcr) 120 mg PO BID JENNIFER Stop: 05/20/21 21:18 Last Admin: 04/20/21 21:45 Dose: Not Given Documented by: [id number] Discontinued Medications Sodium Chloride (Nss) 500 mls @ 999 mls/hr IV .Q31M ONE Stop: 04/20/21 18:08 Last Infusion: 04/20/21 18:38 Dose: 0 mls/hr Documented by: [id number] Admin: 04/20/21 17:38 Dose: 999 mls/hr Documented by: [id number] Magnesium Sulfate/Dextrose (Magnesium Sulfate / D5w) 1 gm in 100 mls @ 100 mls/hr IV Q1H JENNIFER Stop: 04/20/21 20:13 Last Infusion: 04/20/21 20:45 Dose: 0 mls/hr Documented by: [id number] Admin: 04/20/21 19:42 Dose: 100 mls/hr Documented by: [id number] Infusion: 04/20/21 19:41 Dose: 0 mls/hr Documented by: [id number] Admin: 04/20/21 18:37 Dose: 100 mls/hr Documented by: [id number] Levetiracetam 1,000 mg/ Sodium (Chloride) 110 mls @ 440 mls/hr IV NOW STA Stop: 04/20/21 18:45 Last Infusion: 04/20/21 19:15 Dose: 0 mls/hr Documented by: [id number] Admin: 04/20/21 18:56 Dose: 440 mls/hr Documented by: [id number] Lorazepam (Ativan) 1 mg in 2 mls @ 2 mls/min IV NOW STA Stop: 04/20/21 18:32 Last Admin: 04/20/21 18:31 Dose: 2 mls/min Documented by: [id number] Ioversol (Optiray 320 125ml) 118 ml IV ONCE ONE Stop: 04/20/21 17:37 Last Admin: 04/20/21 17:36 Dose: 118 ml Documented by: [id number] Imaging Data Radiologist's Impression: Head CT 04/20/21 17:[address] OF THE BRAIN; CT ANGIOGRAM OF THE BRAIN; CT ANGIOGRAM OF THE NECK CLINICAL HISTORY: Strokelike symptoms. Right-sided weakness. COMPARISON STUDY: CT of the brain dated 07/18/2017. TECHNIQUE: Unenhanced axial CT scan of the brain is performed. Subsequently, following the IV administration of 118 of [address] [address], CT angiogram of the head and neck was performed from the aortic arch to the vertex. Images are reviewed in the axial, sagittal, and coronal planes. 3-D MIPS images are created and assessed. IV contrast was administered without complication. All measurements were calculated based on NASCET criteria. A dose lowering technique was utilized adhering to the principles of ALARA. The examinations are degraded by motion artifact. 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 Large foci o f left parietal and left occipital encephalomalacia are consistent with remote infarcts. A chronic lacunar infarct is noted in the left thalamus. There is no hemorrhage, mass effect, or evidence of acute territorial ischemia by CT criteria. There is no evidence of enhancing mass lesion on the angiogram phase images. The ventricles, sulci, and cisterns are prominent secondary to involutional change. There is ex vacuo dilatation of the left lateral ventricle. Venegas-white matter differentiation is preserved. No extra-axial fluid collection is seen. Thoracic aorta: There is atherosclerotic calcification of the thoracic aorta. Visualized portions of the thoracic aorta are normal in caliber. The aortic arch demonstrates standard 3-vessel anatomy. Right carotid arterial system: The right common carotid artery is widely patent. There is advanced atherosclerotic plaque in the proximal internal carotid artery which causes less than 50% luminal narrowing. The remainder of the internal carotid artery is widely patent, as is the right external carotid artery. Left carotid arterial system: The left common carotid artery is widely patent. Advanced atherosclerotic plaque is noted in the carotid bulb. The left internal carotid artery is widely patent. There is moderate to high-grade stenosis at the origin of the left external carotid artery. The remainder of the external carotid artery is patent. There is tortuosity of the distal internal carotid artery. Vertebral arteries: The vertebral arteries are widely patent in the neck and codominant. Subclavian arteries: Widely patent bilaterally. Intracranial vasculature: The internal carotid arteries are patent at the skull base, as are the anterior and middle cerebral arteries bilaterally. The vertebrobasilar system and left posterior cerebral artery are widely patent. The vertebral arteries are codominant. The left posterior cerebral artery is not visualized and likely occluded. This may be related to remote infarcts detailed above. 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 No additional aneurysm is identified. Jugular veins: Patent bilaterally. Dural sinuses: Patent. Lung apices: Partially visualized upper lobe lung parenchyma appears clear. Soft tissues: The visualized pharyngeal soft tissues are normal in appearance noting angiographic phase technique. The oropharyngeal airway appears widely patent. The thyroid gland is enlarged and heterogeneous. The salivary glands are normal in appearance. No cervical lymphadenopathy is seen. Skeletal structures: The skeletal structures are osteopenic. The calvarium appears intact. The cervical spine is maintained noting multilevel spondylosis. No lytic or blastic lesion is seen. Orbits: The bony orbits are intact. Orbital contents are normal as visualized noting bilateral ocular lens implants. Sinuses and mastoids: The paranasal sinuses are clear. There is atherosclerotic calcification of the cavernous carotid and vertebral arteries. There is trace right mastoid effusion. The left mastoid air cells are well pneumatized. IMPRESSION: 1. Senescent change and remote infarcts as above with no hemorrhage, mass effect, or evidence of acute territorial ischemia by CT criteria. 2. The left posterior cerebral artery is not identified and presumed occluded. This may correspond to remote infarcts detailed above. 3. The remaining intracranial vessels are patent. 4. 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 5. Atherosclerotic plaque causes less than 50% narrowing of the proximal right internal carotid artery. There is no evidence of significant carotid artery stenosis in the neck. 6. Additional findings as above. ACT 112: Negative or not required by law. Electronically signed by: Michele Pavon M.D. 04/20/2021 5:51 PM Head CTA 04/20/21 17:[address] OF THE BRAIN; CT ANGIOGRAM OF THE BRAIN; CT ANGIOGRAM OF THE NECK CLINICAL HISTORY: Strokelike symptoms. Right-sided weakness. COMPARISON STUDY: CT of the brain dated 07/18/2017. TECHNIQUE: Unenhanced axial CT scan of the brain is performed. Subsequently, following the IV administration of 118 of [address] [address], CT angiogram of the head and neck was performed from the aortic arch to the vertex. Images are reviewed in the axial, sagittal, and coronal planes. 3-D MIPS images are created and assessed. IV contrast was administered without complication. All measurements were calculated based on NASCET criteria. A dose lowering technique was utilized adhering to the principles of ALARA. The examinations are degraded by motion artifact. 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 Large foci of left parietal and left occipital encephalomalacia are consistent with remote infarcts. A chronic lacunar infarct is noted in the left thalamus. There is no hemorrhage, mass effect, or evidence of acute territorial ischemia by CT criteria. There is no evidence of enhancing mass lesion on the angiogram phase images. The ventricles, sulci, and cisterns are prominent secondary to involutional change. There is ex vacuo dilatation of the left lateral ventricle. Venegas-white matter differentiation is preserved. No extra-axial fluid collection is seen. Thoracic aorta: There is atherosclerotic calcification of the thoracic aorta. Visualized portions of the thoracic aorta are normal in caliber. The aortic arch demonstrates standard 3-vessel anatomy. Right carotid arterial system: The right common carotid artery is widely patent. There is advanced atherosclerotic plaque in the proximal internal carotid artery which causes less than 50% luminal narrowing. The remainder of the internal carotid artery is widely patent, as is the right external carotid artery. Left carotid arterial system: The left common carotid artery is widely patent. Advanced atherosclerotic plaque is noted in the carotid bulb. The left internal carotid artery is widely patent. There is moderate to high-grade stenosis at the origin of the left external carotid artery. The remainder of the external carotid artery is patent. There is tortuosity of the distal internal carotid artery. Vertebral arteries: The vertebral arteries are widely patent in the neck and codominant. Subclavian arteries: Widely patent bilaterally. Intracranial vasculature: The internal carotid arteries are patent at the skull base, as are the anterior and middle cerebral arteries bilaterally. The vertebrobasilar system and left posterior cerebral artery are widely patent. The vertebral arteries are codominant. The left posterior cerebral artery is not visualized and likely occluded. This may be related to remote infarcts detailed above. 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 No additional aneurysm is identified. Jugular veins: Patent bilaterally. Dural sinuses: Patent. Lung apices: Partially visualized upper lobe lung parenchyma appears clear. Soft tissues: The visualized pharyngeal soft tissues are normal in appearance noting angiographic phase technique. The oropharyngeal airway appears widely patent. The thyroid gland is enlarged and heterogeneous. The salivary glands are normal in appearance. No cervical lymphadenopathy is seen. Skeletal structures: The skeletal structures are osteopenic. The calvarium appears intact. The cervical spine is maintained noting multilevel spondylosis. No lytic or blastic lesion is seen. Orbits: The bony orbits are intact. Orbital contents are normal as visualized noting bilateral ocular lens implants. Sinuses and mastoids: The paranasal sinuses are clear. There is atherosclerotic calcification of the cavernous carotid and vertebral arteries. There is trace right mastoid effusion. The left mastoid air cells are well pneumatized. IMPRESSION: 1. Senescent change and remote infarcts as above with no hemorrhage, mass effect, or evidence of acute territorial ischemia by CT criteria. 2. The left posterior cerebral artery is not identified and presumed occluded. This may correspond to remote infarcts detailed above. 3. The remaining intracranial vessels are patent. 4. 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 5. Atherosclerotic plaque causes less than 50% narrowing of the proximal right internal carotid artery. There is no evidence of significant carotid artery stenosis in the neck. 6. Additional findings as above. ACT 112: Negative or not required by law. Electronically signed by: Michele Pavon M.D. 04/20/2021 5:51 PM Neck CTA 04/20/21 17:[address] OF THE BRAIN; CT ANGIOGRAM OF THE BRAIN; CT ANGIOGRAM OF THE NECK CLINICAL HISTORY: Strokelike symptoms. Right-sided weakness. COMPARISON STUDY: CT of the brain dated 07/18/2017. TECHNIQUE: Unenhanced axial CT scan of the brain is performed. Subsequently, following the IV administration of 118 of [address] [address], CT angiogram of the head and neck was performed from the aortic arch to the vertex. Images are reviewed in the axial, sagittal, and coronal planes. 3-D MIPS images are created and assessed. IV contrast was administered without complication. All measurements were calculated based on NASCET criteria. A dose lowering technique was utilized adhering to the principles of ALARA. The examinations are degraded by motion artifact. 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 Large foci of left parietal and left occipital encephalomalacia are consistent with remote infarcts. A chronic lacunar infarct is noted in the left thalamus. There is no hemorrhage, mass effect, or evidence of acute territorial ischemia by CT criteria. There is no evidence of enhancing mass lesion on the angiogram phase images. The ventricles, sulci, and cisterns are prominent secondary to involutional change. There is ex vacuo dilatation of the left lateral ventricle. Venegas-white matter differentiation is preserved. No extra-axial fluid collection is seen. Thoracic aorta: There is atherosclerotic calcification of the thoracic aorta. Visualized portions of the thoracic aorta are normal in caliber. The aortic arch demonstrates standard 3-vessel anatomy. Right carotid arterial system: The right common carotid artery is widely patent. There is advanced atherosclerotic plaque in the proximal internal carotid artery which causes less than 50% luminal narrowing. The remainder of the internal carotid artery is widely patent, as is the right external carotid artery. Left carotid arterial system: The left common carotid artery is widely patent. Advanced atherosclerotic plaque is noted in the carotid bulb. The left internal carotid artery is widely patent. There is moderate to high-grade stenosis at the origin of the left external carotid artery. The remainder of the external carotid artery is patent. There is tortuosity of the distal internal carotid artery. Vertebral arteries: The vertebral arteries are widely patent in the neck and codominant. Subclavian arteries: Widely patent bilaterally. Intracranial vasculature: The internal carotid arteries are patent at the skull base, as are the anterior and middle cerebral arteries bilaterally. The vertebrobasilar system and left posterior cerebral artery are widely patent. The vertebral arteries are codominant. The left posterior cerebral artery is not visualized and likely occluded. This may be related to remote infarcts detailed above. 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 No additional aneurysm is identified. Jugular veins: Patent bilaterally. Dural sinuses: Patent. Lung apices: Partially visualized upper lobe lung parenchyma appears clear. Soft tissues: The visualized pharyngeal soft tissues are normal in appearance noting angiographic phase technique. The oropharyngeal airway appears widely patent. The thyroid gland is enlarged and heterogeneous. The salivary glands are normal in appearance. No cervical lymphadenopathy is seen. Skeletal structures: The skeletal structures are osteopenic. The calvarium appears intact. The cervical spine is maintained noting multilevel spondylosis. No lytic or blastic lesion is seen. Orbits: The bony orbits are intact. Orbital contents are normal as visualized noting bilateral ocular lens implants. Sinuses and mastoids: The paranasal sinuses are clear. There is atherosclerotic calcification of the cavernous carotid and vertebral arteries. There is trace right mastoid effusion. The left mastoid air cells are well pneumatized. IMPRESSION: 1. Senescent change and remote infarcts as above with no hemorrhage, mass effect , or evidence of acute territorial ischemia by CT criteria. 2. The left posterior cerebral artery is not identified and presumed occluded. This may correspond to remote infarcts detailed above. 3. The remaining intracranial vessels are patent. 4. 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 5. Atherosclerotic plaque causes less than 50% narrowing of the proximal right internal carotid artery. There is no evidence of significant carotid artery stenosis in the neck. 6. Additional findings as above. ACT 112: Negative or not required by law. Electronically signed by: Michele Pavon M.D. 04/20/2021 5:51 PM Discharge Plan Visit Data Chief Complaint: Stroke Alert ED Provider: [facility] Discharge Problem: New onset seizure with abnormal neurological exam without head trauma, Right sided weakness, Aphasia, On apixaban therapy, Elevated troponin, Hypomagnesemia Patient Disposition: Admitted As Inpatient Discharge Instructions Interventions: ED Discharge Assessment Last Done: 04/20/21 21:20
[2021-04-20] MEDS ORDERED: levETIRAcetam 1,000 MG in 0.9 % SODIUM CHLORIDE 100 ML IV STA (18:31)
[2021-04-20] MEDS ORDERED: LORazepam 1 MG/2 ML VIAL IV STA (18:31)
[2021-04-20 18:32] LABS: Albumin Globulin Ratio 0.8 (0.9-2); Bilirubin,Total 0.3 mg/dl (0.2-1); Globulin 3.6 gm/dl (2.5-4.0); Total Protein 6.6 gm/dl (6.4-8.2); Troponin I 0.306 ng/ml (0-0.045)
[2021-04-20] MEDS: MAGNESIUM SULFATE / D5W 1 GM/100 ML BAG IV SCH ×2 (18:37→19:42)
[2021-04-20 18:50] LABS: Phosphorus 3.3 mg/dl (2.5-4.9)
--- NOTE | 2021-04-20 20:05 | History & Physical Report ---
Date of Service April 20, 2021 Assessment & Plan (1) New onset seizure with abnormal neurological exam without head trauma: Plan: 80 yo F with hx stroke, ongoing smoker, hx htn, PAF brought to ER with concern for new stroke, admitted for new seizure workup. Seizure - likely secondary to changes after old stroke - loaded with keppra in ER, received ativan - neuro consult, EEG - will likely need daily keppra therapy - MRI pending. 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 likely hypovolemic hyponatremia Elevated Creatinine - GFR 41 which is ~baseline - BMP in AM Leukocytosis - mildly elevated to 13.2, appears chronic Chronic Conditions HTN, Afib: cont metoprolol, cardizem, eliquis GERD: cont omeprazole 80 AM Hx Hypokalemia/Hypomagnesemia: continue supplemental K and Mag PO. Recheck in AM. HLD, Hx Stroke: Cont statin, ASA DVT ppx: on eliquis FEN/GI: NPO Code Status: Full Code Dispo: med/tele. To be discharged to daughter's home after hospitalization. PT/OT for evaluation of possible home health/nursing care. (2) SSS (sick sinus syndrome): (3) Chronic kidney disease, stage III (moderate): (4) Afib: (5) Tobacco use: (6) Anticoagulant long-term use: (7) Hypercholesteremia: (8) Vitamin D deficiency: (9) Hypertension: History of Present Illness Primary Care Provider: Last Null MD 80 yo F with hx stroke, CKD3, SSS, PAF, HTN who presents to the ER with her daughter by ambulance for concern for stroke. Per daughter, patient called her at 3:30pm today saying her arm was 'numb' and she couldn't move it. was also confused. Daughter was able to come to the house within ~20 minutes, whereupon Kathi was able to walk to the restroom with some assistance and get dressed with some assistance. She notes that her arm twitched a few times while they were at home prior to the ambulance arriving. Per ER provider, she had a facial droop, drooling, 3/5 R upper and lower extremity weakness with severe aphasia. Head CT/CTA head + neck performed per stroke protocol. [facility] [place]. During interview with telestroke, patient had what sounds like a grand mal seizure for >2 minutes, leading to oxygen desaturation. She was given ativan, placed on NC, loaded with keppra. Interview with patient limited due to postictal state and having received ativan. Responsive to pain, breathing comfortably on her own on NC, otherwise not responsive to questions. Allergies Allergy/AdvReac Type Severity Reaction Status Date / Time Penicillins Allergy Intermediate HIVES Verified 04/20/21 19:56 Home Medications Medication Instructions Recorded Confirmed Type aspirin 81 mg tablet,delayed 81 mg PO QAM tab 12/16/18 04/20/21 History release furosemide 20 mg tablet 20 mg PO DAILY PRN #90 tab 12/16/18 04/20/21 History atorvastatin 40 mg tablet 40 mg PO HS #90 tab 09/23/20 04/20/21 Rx acetaminophen 500 mg tablet 1,000 mg PO Q6H PRN 11/22/20 04/20/21 History (Tylenol Extra Strength) magnesium oxide 400 mg (241.3 mg 400 mg PO QAM 11/22/20 04/20/21 History magnesium) tablet omeprazole 20 mg capsule,delayed 40 mg PO QAM 11/22/20 04/20/21 History release potassium chloride 20 mEq 20 meq PO QAM 11/22/20 04/20/21 History tablet,extended release cholecalciferol (vitamin D3) 25 2,000 unit PO QAM #30 cap 11/26/20 04/20/21 Rx mcg (1,000 unit) capsule metoprolol succinate 200 mg 200 mg PO DAILY #90 tab 11/28/20 04/20/21 Rx tablet,extended release 24 hr apixaban 5 mg tablet 5 mg PO BID 90 Days #180 tab 12/24/20 04/20/21 Rx diltiazem HCl 120 mg 120 mg PO BID #180 cap 12/24/20 04/20/21 Rx capsule,extended release 24 hr diclofenac sodium 1 % topical gel 2 g EXT QID PRN 04/20/21 04/20/21 History (Voltaren Arthritis Pain) Past Med/Surg History Medical History Acute hyponatremia Afib Elevated troponin I level Gastroenteritis History of CVA (cerebrovascular accident) Hyperlipidemia Hypertension Hypokalemia Hypomagnesemia PAD (peripheral artery disease) TIA (transient ischemic attack) Vitamin D deficiency Weakness Surgical History History of cholecystectomy Hx of tonsillectomy Family History Other Diabetes Hypertension Myocardial infarction Denies family history of Ovarian cancer Prostate cancer Breast cancer Colorectal cancer Social History Smoking Status: Heavy tobacco smoker Age Started Using Tobacco: 32; packs per day: 1; Cigarettes Per Day: pack a day; Second Hand Exposure: Yes; Hx Alcohol Use: No Hx Substance Use: No Preferred Language: Ethiopian Communication Ability: Effective Hearing Ability: Normal Drop Wirer Required: No Beliefs That Will Affect Care: None marital status: / Current Living Situation: Alone current occupational status: retired Feels Safe at Home: Yes Safety Concerns: Feels Safe At This Time Childhood Exposure to Second-Hand Smoke: No caffeine: Yes (diet coke daily) Dental Care, Regularly: Yes Physical Activity Frequency: Does not Exercise Seatbelt Use: always Sunscreen Use: No Assistive Devices: Walker Review of Systems Review of Systems: Unobtainable due to reduced consciousness Physical Exam Physical Exam: Constitutional: obese, in no apparent distress, sedated, asleep Eyes: pupils equal and reactive bilaterally, no scleral icterus Cardiac: RRR, no murmurs, gallops or rubs. Normal S1, S2 Pulm: CTA BL, breathing comfortably on 2L NC Abd: soft, nontender, nondistended, normal bowel sounds, no rebound or guarding Extremities: 2+ peripheral pulses, no edema Neuro: responsive to pain, not responsive to commands Results & Data Results & Data ([facility]) Vital Signs (Past 12 Hours) Vital Signs Pulse Pulse Resp BP BP Pulse Ox 04/20/21 19:56 90 22 129/62 95 04/20/21 19:18 54 L 19 146/66 H 95 04/20/21 18:46 93 04/20/21 18:34 62 21 169/86 H 04/20/21 17:20 99 H 16 217/100 H 94 Laboratory Results Laboratory Results WBC 13.26 K/uL (4.8-10.8) H 04/20/21 17:38 RBC 4.57 M/uL (4.2-5.4) 04/20/21 17:38 Hgb 13.9 g/dL (12.0-16.0) 04/20/21 17:38 Hct 41.3 % (37-47) 04/20/21 17:38 MCV 90.4 fL (80-100) 04/20/21 17:38 MCH 30.4 pg (25-34) 04/20/21 17:38 MCHC 33.7 g/dL (32-36) 04/20/21 17:38 RDW Std Deviation 47.1 fL (36.4-46.3) H 04/20/21 17:38 RDW Coeff of Faviola 14.3 % (11.5-14.5) 04/20/21 17:38 Plt Count 368 K/uL (130-400) 04/20/21 17:38 MPV 9.2 fL (7.4-10.4) 04/20/21 17:38 Immature Gran % (Auto) 0.3 % 04/20/21 17:38 Neut % (Auto) 75.2 % 04/20/21 17:38 Lymph % (Auto) 20.9 % 04/20/21 17:38 Baca % (Auto) 3.2 % 04/20/21 17:38 Eos % (Auto) 0.3 % 04/20/21 17:38 Baso % (Auto) 0.1 % 04/20/21 17:38 Neut # (Auto) 9.97 K/uL (1.4-6.5) H 04/20/21 17:38 Lymph # (Auto) 2.77 K/uL (1.2-3.4) 04/20/21 17:38 Baca # (Auto) 0.43 K/uL (0.11-0.59) 04/20/21 17:38 Eos # (Auto) 0.04 K/uL (0-0.5) 04/20/21 17:38 Baso # (Auto) 0.01 K/uL (0-0.2) 04/20/21 17:38 Immature Gran # (Auto) 0.04 K/uL (0.00-0.02) H 04/20/21 17:38 PT 10.4 Seconds (9.0-12.0) 04/20/21 17:38 INR 1.0 (0.9-1.1) 04/20/21 17:38 APTT 28.2 Seconds (21.0-31.0) 04/20/21 17:38 PTT Ratio 1.1 04/20/21 17:38 Sodium 130 mmol/L (136-145) L 04/20/21 17:38 Potassium 4.8 mmol/L (3.5-5.1) 04/20/21 17:38 Chloride 100 mmol/L (98-107) 04/20/21 17:38 Carbon Dioxide 26 mmol/L (21-32) 04/20/21 17:38 Anion Gap 4.0 (3-11) 04/20/21 17:38 BUN 9 mg/dl (7-18) 04/20/21 17:38 Creatinine 1.25 mg/dl (0.6-1.2) H 04/20/21 17:38 Est Cr Clr Drug Dosing 36.5 ml/min 04/20/21 17:38 Est GFR ( Amer) 47.7 ml/min 04/20/21 17:38 Est GFR (Non-Af Amer) 41.2 ml/min 04/20/21 17:38 BUN/Creatinine Ratio 6.9 (10-20) L 04/20/21 17:38 Glucose 105 mg/dl (70-99) H 04/20/21 17:38 POC Glucose 110 mg/dl (70-99) H 04/20/21 17:39 Calcium 8.8 mg/dl (8.5-10.1) 04/20/21 17:38 Phosphorus 3.3 mg/dl (2.5-4.9) 04/20/21 17:38 Magnesium 1.3 mg/dl (1.8-2.4) L 04/20/21 17:38 Total Bilirubin 0.3 mg/dl (0.2-1) 04/20/21 17:38 AST 10 U/L (15-37) L 04/20/21 17:38 ALT 20 (12-78) 04/20/21 17:38 Alkaline Phosphatase 108 U/L (45-117) 04/20/21 17:38 Troponin I 0.306 ng/ml (0-0.045) H* 04/20/21 17:38 Total Protein 6.6 gm/dl (6.4-8.2) 04/20/21 17:38 Albumin 3.0 gm/dl (3.4-5.0) L 04/20/21 17:38 Globulin 3.6 gm/dl (2.5-4.0) 04/20/21 17:38 Albumin/Globulin Ratio 0.8 (0.9-2) L 04/20/21 17:38 SARS-CoV-2, RNA, NAAT NEGATIVE (NEGATIVE) 04/20/21 19:01 Blood Type O Positive 04/20/21 17:38 Antibody Screen NEGATIVE 04/20/21 17:[address] 04/20/21 17:[address] OF THE BRAIN; CT ANGIOGRAM OF THE BRAIN; CT ANGIOGRAM OF THE NECK CLINICAL HISTORY: Strokelike symptoms. Right-sided weakness. COMPARISON STUDY: CT of the brain dated 07/18/2017. TECHNIQUE: Unenhanced axial CT scan of the brain is performed. Subsequently, following the IV administration of 118 of [address] [address], CT angiogram of the head and neck was performed from the aortic arch to the vertex. Images are reviewed in the axial, sagittal, and coronal planes. 3-D MIPS images are created and assessed. IV contrast was administered without complication. All measurements were calculated based on NASCET criteria. A dose lowering technique was utilized adhering to the principles of ALARA. The examinations are degraded by motion artifact. 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 Large foci of left parietal and left occipital encephalomalacia are consistent with remote infarcts. A chronic lacunar infarct is noted in the left thalamus. There is no hemorrhage, mass effect, or evidence of acute territorial ischemia by CT criteria. There is no evidence of enhancing mass lesion on the angiogram phase images. The ventricles, sulci, and cisterns are prominent secondary to involutional change. There is ex vacuo dilatation of the left lateral ventricle. Venegas-white matter differentiation is preserved. No extra-axial fluid collection is seen. Thoracic aorta: There is atherosclerotic calcification of the thoracic aorta. Visualized portions of the thoracic aorta are normal in caliber. The aortic arch demonstrates standard 3-vessel anatomy. Right carotid arterial system: The right common carotid artery is widely patent. There is advanced atherosclerotic plaque in the proximal internal carotid artery which causes less than 50% luminal narrowing. The remainder of the internal carotid artery is widely patent, as is the right external carotid artery. Left carotid arterial system: The left common carotid artery is widely patent. Advanced atherosclerotic plaque is noted in the carotid bulb. The left internal carotid artery is widely patent. There is moderate to high-grade stenosis at the origin of the left external carotid artery. The remainder of the external carotid artery is patent. There is tortuosity of the distal internal carotid artery. Vertebral arteries: The vertebral arteries are widely patent in the neck and codominant. Subclavian arteries: Widely patent bilaterally. Intracranial vasculature: The internal carotid arteries are patent at the skull base, as are the anterior and middle cerebral arteries bilaterally. The vertebrobasilar system and left posterior cerebral artery are widely patent. The vertebral arteries are codominant. The left posterior cerebral artery is not visualized and likely occluded. This may be related to remote infarcts detailed above. 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 No additional aneurysm is identified. Jugular veins: Patent bilaterally. Dural sinuses: Patent. Lung apices: Partially visualized upper lobe lung parenchyma appears clear. Soft tissues: The visualized pharyngeal soft tissues are normal in appearance noting angiographic phase technique. The oropharyngeal airway appears widely patent. The thyroid gland is enlarged and heterogeneous. The salivary glands are normal in appearance. No cervical lymphadenopathy is seen. Skeletal structures: The skeletal structures are osteopenic. The calvarium appears intact. The cervical spine is maintained noting multilevel spondylosis. No lytic or blastic lesion is seen. Orbits: The bony orbits are intact. Orbital contents are normal as visualized noting bilateral ocular lens implants. Sinuses and mastoids: The paranasal sinuses are clear. There is atherosclerotic calcification of the cavernous carotid and vertebral arteries. There is trace right mastoid effusion. The left mastoid air cells are well pneumatized. IMPRESSION: 1. Senescent change and remote infarcts as above with no hemorrhage, mass effect, or evidence of acute territorial ischemia by CT criteria. 2. The left posterior cerebral artery is not identified and presumed occluded. This may correspond to remote infarcts detailed above. 3. The remaining intracranial vessels are patent. 4. 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 5. Atherosclerotic plaque causes less than 50% narrowing of the proximal right internal carotid artery. There is no evidence of significant carotid artery stenosis in the neck. 6. Additional findings as above. ACT 112: Negative or not required by law. Electronically signed by: Michele Pavon M.D. 04/20/2021 5:51 PM Head CTA 04/20/21 17:[address] OF THE BRAIN; CT ANGIOGRAM OF THE BRAIN; CT ANGIOGRAM OF THE NECK CLINICAL HISTORY: Strokelike symptoms. Right-sided weakness. COMPARISON STUDY: CT of the brain dated 07/18/2017. TECHNIQUE: Unenhanced axial CT scan of the brain is performed. Subsequently, f ollowing the IV administration of 118 of [address] [address], CT angiogram of the head and neck was performed from the aortic arch to the vertex. Images are reviewed in the axial, sagittal, and coronal planes. 3-D MIPS images are created and assessed. IV contrast was administered without complication. All measurements were calculated based on NASCET criteria. A dose lowering technique was utilized adhering to the principles of ALARA. The examinations are degraded by motion artifact. 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 Large foci of left parietal and left occipital encephalomalacia are consistent with remote infarcts. A chronic lacunar infarct is noted in the left thalamus. There is no hemorrhage, mass effect, or evidence of acute territorial ischemia by CT criteria. There is no evidence of enhancing mass lesion on the angiogram phase images. The ventricles, sulci, and cisterns are prominent secondary to involutional change. There is ex vacuo dilatation of the left lateral ventricle. Venegas-white matter differentiation is preserved. No extra-axial fluid collection is seen. Thoracic aorta: There is atherosclerotic calcification of the thoracic aorta. Visualized portions of the thoracic aorta are normal in caliber. The aortic arch demonstrates standard 3-vessel anatomy. Right carotid arterial system: The right common carotid artery is widely patent. There is advanced atherosclerotic plaque in the proximal internal carotid artery which causes less than 50% luminal narrowing. The remainder of the internal carotid artery is widely patent, as is the right external carotid artery. Left carotid arterial system: The left common carotid artery is widely patent. Advanced atherosclerotic plaque is noted in the carotid bulb. The left internal carotid artery is widely patent. There is moderate to high-grade stenosis at the origin of the left external carotid artery. The remainder of the external carotid artery is patent. There is tortuosity of the distal internal carotid artery. Vertebral arteries: The vertebral arteries are widely patent in the neck and codominant. Subclavian arteries: Widely patent bilaterally. Intracranial vasculature: The internal carotid arteries are patent at the skull base, as are the anterior and middle cerebral arteries bilaterally. The vertebrobasilar system and left posterior cerebral artery are widely patent. The vertebral arteries are codominant. The left posterior cerebral artery is not visualized and likely occluded. This may be related to remote infarcts detailed above. 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 No additional aneurysm is identified. Jugular veins: Patent bilaterally. Dural sinuses: Patent. Lung apices: Partially visualized upper lobe lung parenchyma appears clear. Soft tissues: The visualized pharyngeal soft tissues are normal in appearance noting angiographic phase technique. The oropharyngeal airway appears widely patent. The thyroid gland is enlarged and heterogeneous. The salivary glands are normal in appearance. No cervical lymphadenopathy is seen. Skeletal structures: The skeletal structures are osteopenic. The calvarium appears intact. The cervical spine is maintained noting multilevel spondylosis. No lytic or blastic lesion is seen. Orbits: The bony orbits are intact. Orbital contents are normal as visualized noting bilateral ocular lens implants. Sinuses and mastoids: The paranasal sinuses are clear. There is atherosclerotic calcification of the cavernous carotid and vertebral arteries. There is trace right mastoid effusion. The left mastoid air cells are well pneumatized. IMPRESSION: 1. Senescent change and remote infarcts as above with no hemorrhage, mass effect, or evidence of acute territorial ischemia by CT criteria. 2. The left posterior cerebral artery is not identified and presumed occluded. This may correspond to remote infarcts detailed above. 3. The remaining intracranial vessels are patent. 4. 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 5. Atherosclerotic plaque causes less than 50% narrowing of the proximal right internal carotid artery. There is no evidence of significant carotid artery stenosis in the neck. 6. Additional findings as above. ACT 112: Negative or not required by law. Electronically signed by: Michele Pavon M.D. 04/20/2021 5:51 PM Neck CTA 04/20/21 17:[address] OF THE BRAIN; CT ANGIOGRAM OF THE BRAIN; CT ANGIOGRAM OF THE NECK CLINICAL HISTORY: Strokelike symptoms. Right-sided weakness. COMPARISON STUDY: CT of the brain dated 07/18/2017. TECHNIQUE: Unenhanced axial CT scan of the brain is performed. Subsequently, following the IV administration of 118 of [address] [address], CT angiogram of the head and neck was performed from the aortic arch to the vertex. Images are reviewed in the axial, sagittal, and coronal planes. 3-D MIPS images are created and assessed. IV contrast was administered without complication. All measurements we re calculated based on NASCET criteria. A dose lowering technique was utilized adhering to the principles of ALARA. The examinations are degraded by motion artifact. 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 Large foci of left parietal and left occipital encephalomalacia are consistent with remote infarcts. A chronic lacunar infarct is noted in the left thalamus. There is no hemorrhage, mass effect, or evidence of acute territorial ischemia by CT criteri a. There is no evidence of enhancing mass lesion on the angiogram phase images. The ventricles, sulci, and cisterns are prominent secondary to involutional change. There is ex vacuo dilatation of the left lateral ventricle. Venegas-white matter differentiation is preserved. No extra-axial fluid collection is seen. Thoracic aorta: There is atherosclerotic calcification of the thoracic aorta. Visualized portions of the thoracic aorta are normal in caliber. The aortic arch demonstrates standard 3-vessel anatomy. Right carotid arterial system: The right common carotid artery is widely patent. There is advanced atherosclerotic plaque in the proximal internal carotid artery which causes less than 50% luminal narrowing. The remainder of the internal carotid artery is widely patent, as is the right external carotid artery. Left carotid arterial system: The left common carotid artery is widely patent. Advanced atherosclerotic plaque is noted in the carotid bulb. The left internal carotid artery is widely patent. There is moderate to high-grade stenosis at the origin of the left external carotid artery. The remainder of the external carotid artery is patent. There is tortuosity of the distal internal carotid artery. Vertebral arteries: The vertebral arteries are widely patent in the neck and codominant. Subclavian arteries: Widely patent bilaterally. Intracranial vasculature: The internal carotid arteries are patent at the skull base, as are the anterior and middle cerebral arteries bilaterally. The vertebrobasilar system and left posterior cerebral artery are widely patent. The vertebral arteries are codominant. The left posterior cerebral artery is not visualized and likely occluded. This may be related to remote infarcts detailed above. 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 No additional aneurysm is identified. Jugular veins: Patent bilaterally. Dural sinuses: Patent. Lung apices: Partially visualized upper lobe lung parenchyma appears clear. Soft tissues: The visualized pharyngeal soft tissues are normal in appearance noting angiographic phase technique. The oropharyngeal airway appears widely patent. The thyroid gland is enlarged and heterogeneous. The salivary glands are normal in appearance. No cervical lymphadenopathy is seen. Skeletal structures: The skeletal structures are osteopenic. The calvarium appears intact. The cervical spine is maintained noting multilevel spondylosis. No lytic or blastic lesion is seen. Orbits: The bony orbits are intact. Orbital contents are normal as visualized noting bilateral ocular lens implants. Sinuses and mastoids: The paranasal sinuses are clear. There is atherosclerotic calcification of the cavernous carotid and vertebral arteries. There is trace right mastoid effusion. The left mastoid air cells are well pneumatized. IMPRESSION: 1. Senescent change and remote infarcts as above with no hemorrhage, mass effect, or evidence of acute territorial ischemia by CT criteria. 2. The left posterior cerebral artery is not identified and presumed occluded. This may correspond to remote infarcts detailed above. 3. The remaining intracranial vessels are patent. 4. 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 5. Atherosclerotic plaque causes less than 50% narrowing of the proximal right internal carotid artery. There is no evidence of significant carotid artery stenosis in the neck. 6. Additional findings as above. ACT 112: Negative or not required by law. Electronically signed by: Michele Pavon M.D. 04/20/2021 5:51 PM Supervising Physician Co-Signing Physician Notes Patient seen and examined, chart reviewed, case discussed with Dr. Mendiola and I agree with her assessment and plan as documented above. In brief, patient is a 80yo female with history of prior CVA, AF, HTN, GERD presenting with acute on chronic RUE weakness, slurred speech. Patient was being seen as a Code Stroke and had a tonic-clonic seizure lasting appx 2 minutes. Patient had post-ictal period. On exam she is afebrile, hypertensive otherwise HD stable Skin intact, no rashes HEENT - NC/AT, PERRL, MMM, Neck supple, tongue midline Heart - +S1/S2, regular, no m/r/g Lungs- CTA Abd - +BS, soft, NT/ND Ext - no edema Neuro - somnolent, arousable, oriented x 3, moving all extremities with mile RUE weakness 4+/5, else 5/5 Labs and images reviewed CTA with 2.5mm aneurysm noted in the supraclinoid left internal carotid artery Assessment/Plan -Seizure, most likely secondary to encephalomalacia from prior CVA. Patient received Keppra, Ativan. -Continue Ativan PRN, EEG, MRI brain, Neurology appreciated -REmainder of plana as above Resident Activity Tracking Resident Involvement: Resident Care Provided Care Provided: Adult Hospital Medicine (1) Hypertension Hypertension type: unspecified Qualified Code(s): I10 - Essential (primary) hypertension
[2021-04-20] MEDS ORDERED: ONDANSETRON INJ 2 MG/ML 2 ML VIAL IV PRN (21:19)
[2021-04-20] MEDS ORDERED: NITROGLYCERIN SL 0.4 MG/TAB TAB SL PRN (21:19)
[2021-04-20] MEDS ORDERED: ACETAMINOPHEN 325 MG TAB PO PRN (21:19)
[2021-04-20] MEDS: dilTIAZem HCL 120 MG CAPCR PO SCH (21:45)
[2021-04-20] MEDS: ATORVASTATIN 40 MG TAB PO SCH (21:46)
[2021-04-21] MEDS ORDERED: GADOBUTROL 30ML VIAL IV ONE (00:13)
[2021-04-21] MEDS: APIXABAN 5 MG TABLET PO SCH ×3 (01:07→21:09)
--- NOTE | 2021-04-21 03:17 | Billing Data ---
Date of Service April 20, 2021 Coding Level of Care Code INT OBSERVATION CARE 70M LVL 3
[2021-04-21 06:04] LABS: Albumin Level 3.2 gm/dl (3.4-5.0); Calcium 9.7 mg/dl (8.5-10.1); Creatinine Clr Calc Pharmacy 36.5 ml/min; Est GFR (African American) 47.7 ml/min; Est GFR (Non-African American) 41.2 ml/min; Magnesium 2.6 mg/dl (1.8-2.4); Potassium 4.4 mmol/L (3.5-5.1)
[2021-04-21 06:11] LABS: Albumin Globulin Ratio 0.8 (0.9-2); Bilirubin,Total 0.6 mg/dl (0.2-1); Globulin 3.8 gm/dl (2.5-4.0); Phosphorus 4.6 mg/dl (2.5-4.9)
--- NOTE | 2021-04-21 07:57 | Magnetic Resonance Report ---
MR brain wo/w con HISTORY: 80 years-old Female new seizure acute strokelike symptoms with seizure like activity COMPARISON: CT head, CTA head and neck studies of same day, brain MRI 07/29/2017 TECHNIQUE: Multiplanar multisequence MRI of the brain was obtained both with and without the use of 7 .5 cc Gadavist FINDINGS: Repack Room Worker localizer images demonstrate no gross extracranial abnormality. There is no restricted diffusio n to suggest acute or subacute infarct. Motion degraded exam. Repack Room Worker localizer images appear unremarka ble. Age-related involutional changes. Extensive white matter T2/FLAIR hyperintense foci are noted th roughout the white matter. Encephalomalacia and gliosis related to chronic left parietal occipital in farcts. Ex vacuo ventriculomegaly of the posterior horn left lateral ventricle. Chronic lacunar infar ct of the left thalamus. The bilateral mesial temporal lobes appear unremarkable without evidence of mesial temporal sclerosis. No acute seizure focus identified. There is no abnormal intra-axial or ext ra-axial enhancement. The cerebral venous sinuses and major arterial flow voids appear patent. Trace right mastoid effusion . The skull and soft tissues are unremarkable. Prior bilateral lens repair. IMPRESSION: 1. Motion degraded exam without acute intracranial abnormality. Specifically there is no acute or sub acute infarct. 2. Age-related involutional changes with severe chronic microvascular ischemic disease. 3. Chronic infarcts of the left parietal and occipital lobes. ACT 112: Negative or not required by law. The above report was generated using voice recognition software. It may contain grammatical, syntax o r spelling errors. Electronically signed by: Oren Burton M.D. 04/21/2021 7:56 AM
[2021-04-21] MEDS ORDERED: levETIRAcetam 250 MG TAB PO SCH (09:00)
[2021-04-21] MEDS: ASPIRIN 81 MG ECTAB PO SCH (09:18)
[2021-04-21] MEDS: MAGNESIUM OXIDE 400 MG TAB PO SCH (09:19)
[2021-04-21] MEDS: PANTOprazole 40 MG TAB PO SCH (09:20)
[2021-04-21] MEDS: POTASSIUM CHLORIDE CRTAB 20 MEQ TABCR PO SCH (09:21)
--- NOTE | 2021-04-21 09:56 | Neurology Consultation ---
Date of Consultation April 21, 2021 Assessment & Plan (1) Seizure as late effect of cerebrovascular accident (CVA): Probable focal motor seizure as a consequence of patient's chronic left hemispheric infarct. She is a chronic right homonymous hemianopsia. She does have mild right upper limb apraxia and made a few words substitutions with casual speech this morning as well. She does not have a global or expressive aphasia at this time. No evidence of acute or subacute stroke on MRI. 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 No significant stenosis of either internal carotid artery. Patient does have a history of atrial fibrillation and is on apixaban. Also takes aspirin 81 mg/day and atorvastatin. No prior history of seizures. She was given a 1 g loading do se of levetiracetam. An EEG has been ordered. Would recommend increasing patient's dosage of levetiracetam to 500 mg twice daily. Follow-up with results of EEG. No driving. However, given patient's right homonymous hemianopsia she may not be driving at this time. Patient may continue with apixaban and daily low-dose aspirin. History of Present Illness Reason for Consultation: Stroke Requesting Physician: Rosario Washington Attending Physician: Jose Etienne History of Present Illness The patient is a 80-year-old female who presented to the emergency department ye sterday with a chief complaint of right-sided weakness affecting the face arm and leg and associated severe expressive aphasia. History notable for atrial fibrillation, on Eliquis. Patient exhibited shaking of the right lower extremity during her telestroke evaluation potentially worrisome for seizure activity. She was given lorazepam and a loading dose of Keppra. tPA was excluded given that patient is on an anticoagulant. History also notable for left hemispheric stroke occurring in 2018 with a chronic residual right homonymous hemianopsia and mild right-sided weakness. A CT of the head was negative for hemorrhage or acute process. 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 Follow-up brain MRI negative for acute or subacute infarct. This morning, patient remarks that her right-sided weakness and word finding difficulty are significantly improved. She continues to report chronic difficulty with her right visual field. She denies headache. Allergies Allergy/AdvReac Type Severity Reaction Status Date / Time Penicillins Allergy Intermediate HIVES Verified 04/20/21 19:56 Home Medications Medication Instructions Recorded Confirmed Type aspirin 81 mg tablet,delayed 81 mg PO QAM tab 12/16/18 04/20/21 History release furosemide 20 mg tablet 20 mg PO DAILY PRN #90 tab 12/16/18 04/20/21 History atorvastatin 40 mg tablet 40 mg PO HS #90 tab 09/23/20 04/20/21 Rx acetaminophen 500 mg tablet 1,000 mg PO Q6H PRN 11/22/20 04/20/21 History (Tylenol Extra Strength) magnesium oxide 400 mg (241.3 mg 400 mg PO QAM 11/22/20 04/20/21 History magnesium) tablet omeprazole 20 mg capsule,delayed 40 mg PO QAM 11/22/20 04/20/21 History release potassium chloride 20 mEq 20 meq PO QAM 11/22/20 04/20/21 History tablet,extended release cholecalciferol (vitamin D3) 25 2,000 unit PO QAM #30 cap 11/26/20 04/20/21 Rx mcg (1,000 unit) capsule metoprolol succinate 200 mg 200 mg PO DAILY #90 tab 11/28/20 04/20/21 Rx tablet,extended release 24 hr apixaban 5 mg tablet 5 mg PO BID 90 Days #180 tab 12/24/20 04/20/21 Rx diltiazem HCl 120 mg 120 mg PO BID #180 cap 12/24/20 04/20/21 Rx capsule,extended release 24 hr diclofenac sodium 1 % topical gel 2 g EXT QID PRN 04/20/21 04/20/21 History (Voltaren Arthritis Pain) Patient History Medical History Acute hyponatremia Afib Elevated troponin I level Gastroenteritis History of CVA (cerebrovascular accident) Hyperlipidemia Hypertension Hypokalemia Hypomagnesemia PAD (peripheral artery disease) TIA (transient ischemic attack) Vitamin D deficiency Weakness Surgical History History of cholecystectomy Hx of tonsillectomy Family History Other Diabetes Hypertension Myocardial infarction Denies family history of Ovarian cancer Prostate cancer Breast cancer Colorectal cancer Social History Smoking Status: Heavy tobacco smoker Age Started Using Tobacco: 32; packs per day: 1; Cigarettes Per Day: pack a day; Second Hand Exposure: Yes; Hx Alcohol Use: No Hx Substance Use: No Preferred Language: Montenegrin Communication Ability: Effective Hearing Ability: Normal Chief Maintenance Supervisor Required: No Beliefs That Will Affect Care: None marital status: / Current Living Situation: Alone current occupational status: retired Feels Safe at Home: Yes Safety Concerns: Feels Safe At This Time Childhood Exposure to Second-Hand Smoke: No caffeine: Yes (diet coke daily) Dental Care, Regularly: Yes Physical Activity Frequency: Does not Exercise Seatbelt Use: always Sunscreen Use: No Assistive Devices: Walker Review of Systems Constitutional: no fever and no chills Eyes: as per Subjective / HPI and + blind spots; no diplopia Ear, Nose, Mouth, Throat: no ear pain and no hearing loss Respiratory: no cough and no dyspnea Cardiovascular: no chest pain and no palpitations Gastrointestinal: no constipation and no diarrhea/loose stools Genitourinary: no urinary urgency and no urinary incontinence Musculoskeletal: no muscle weakness and no muscle atrophy Integumentary: no rash and no lesions Neurologic: as per Subjective / HPI, + localized weakness and + seizure-like activity Psychiatric: no behavioral changes, no depression, no abnormal sleep pattern and no anxiety Hematologic / Lymphatic: no easy bruising and no lymphadenopathy Exam (Neuro) Constitutional: well developed and well nourished; no acute distress Eyes: PERRL, normal accommodation and EOM intact bilaterally; + abnormal visual field confrontation, no fundoscopic abnormality, no nystagmus and no papilledema Cardiovascular: Vessels: normal carotid upstroke; no carotid bruit Neurologic: Oriented to:: Person, Place and Time Memory: Short Term Intact and Remote Intact Attention: Span Intact and Concentration Intact Language: Naming Objects and Repeating Phrases Speech Fluency: negative Dysarthria Speech Aphasia: negative Aphasia Fund of Knowledge: Current Events, Past History and Vocabulary Cranial Nerves: Normal III, IV, (Pupils equal round reactive to light and accommodation, eye movements normal), V (Facial sensation intact), VII (There is no facial droop or weakness), VIII (Hearing intact), IX, X (Palate elevates to midline), XI (Shoulder shrug intact) and XII (Tongue protrudes to midline); Abnorm II (Right homonymous hemianopsia noted with confrontation testing) Motor Strength: Normal Lower Extremities and Normal Upper Extremities; negative Pronator Drift Motor Tone: Normal Lower Extremities and Normal Upper Extremities Muscle Bulk/Involuntary Movements: No Involuntary Movements; negative Muscle Atrophy Sensation: Light Touch Intact, Pain/Temperature Intact, Vibration Intact and Proprioception Intact Coordination: Finger-Nose Abnormal Laterality: Right; negative Dysdiadochokinesia or Heel-Duque Abnormal Deep Tendon Reflexes: Rt Triceps: 2+, Lt Triceps: 2+, Rt Biceps: 2+, Lt Biceps: 2+, Rt Brachioradialis: 2+, Lt Brachioradialis: 2+, Rt Patellar: 2+, Lt Patellar: 2+, Rt Ankle: 1+ and Lt Ankle: 1+ Special Tests: Babinski Present (R>L) Gait: Normal Station and Gait Details: Patient makes a few words substitutions. She has mild apraxia of movement of the right hand/upper limb. Patient able to identify fingers, distinguish left from right, and perform simple calculations. Results & Data ([facility]) Vital Signs (Past 12 Hours) Vital Signs Temp Pulse Resp BP BP Pulse Ox 04/21/21 07:00 36.7 C 93 H 20 163/67 H 96 04/21/21 03:36 53 L 14 142/75 H 93 04/20/21 23:01 165/85 H 97 04/20/21 22:46 130/65 99 04/20/21 22:31 167/73 H 98 04/20/21 22:16 153/66 H 99 04/20/21 22:01 151/65 H 98 Laboratory Results WBC 13.26, hemoglobin 13.9, hematocrit 41.3, platelet count 368, sodium 130, potassium 4.4, BUN 9, creatinine 1.25, magnesium 2.6, AST 12, ALT 21, triglycerides 93, cholesterol 128, LDL 65, VLDL 19, HDL [address] of the head, CT angiography of the head and neck revealed senescent changes, remote infarcts, no hemorrhage, mass-effect, or acute ischemia. Left posterior cerebral artery not visualized likely due to chronic occlusion. 2.5 mm aneurysm of the supraclinoid left internal carotid artery. Atherosclerotic plaque causing less than 50% narrowing of the proximal right internal carotid artery noted. Brain MRI negative for acute or subacute stroke. Age-related involutional changes with severe chronic microvascular ischemic disease. Chronic left parietal and occipital lobe infarcts identified. I reviewed the images as well as the radiologist's interpretation of these tests. Electrocardiogram reveals a sinus rhythm with first-degree AV block, 66 bpm. Coding Level of Care Code 28152 Initial In Care Lvl 3 Diagnoses Seizure as late effect of cerebrovascular accident (CVA) I69.398; R56.9
[2021-04-21] MEDS: dilTIAZem HCL 120 MG CAPCR PO SCH ×2 (12:26→21:08)
--- NOTE | 2021-04-21 12:34 | Hospitalist Progress Note ---
Date of Service April 21, 2021 Assessment & Plan (1) Seizure as late effect of cerebrovascular accident (CVA): Plan: MRI brain neg for acute stroke EEG with seizure spikes from the left temporal lobe region Thus, seizure as a result of her previous left hemispheric stroke Initiated on keppra and titrated to 500mg BID by neurology appreciate neurology consult and recs observe again overnight for recurrent seizures seizure precautions (2) Right sided weakness: Plan: worse than baseline but finally improving 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 cont to monitor (3) Elevated troponin: Plan: myocardial demand ischemia in setting of seizure no ischemic symptoms (4) Chronic kidney disease, stage III (moderate): Plan: stage 3B CrCl at baseline in the low 30s (5) Tobacco dependence: (6) Hypertension: Plan: cont home meds (7) PAF (paroxysmal atrial fibrillation): Plan: remains in NSR cont BB cont CCB cont eliquis telemetry (8) Hypomagnesemia: Plan: replaced resolved pt states she had been using lasix for edema thus likely from such mag is normal today (9) Leg cramps: Plan: despite replacement of low mag she continues with leg cramps K level wnl check Fe studies in am Plan: updated pt's daughter extensively by phone PT/OT both advising rehab daughter wants to take pt home with her will see if daughter can observe a PT session to ensure she can assist her mom at home Admission and Anticipated Discharge Date Admission Date: April 20, 2021 Subjective no seizures since admission during my assessment she was very tired once awake she could answer questions she was mildly confused she did complain of the severe fatigue/being tired coughed occasionally during the visit - she said she has a chronic cough at baseline she did not mention these symptoms to me, but when I spoke to the pt's daughter the daughter reported that the pt's vision was worse than usual and her right arm/hand were weaker than typical Review of Systems Review of Systems: gen - no fevers or chills pulm - no dyspnea GI - no pain cv - no chest pain Physical Exam Physical Exam: gen - tired appearing, NAD, occasional cough, mild confusion eyes - PERRL mouth - MMM neck - no JVD heart - RR, borderline tachy, s1 s2 lungs - mild end-exp wheezes in multiple segments abd - soft NT ext - no edema, pulses 2+ b/l neuro - strength near 5/5 RUE and RLE; strength 5/5 left side Results & Data Results & Data ([facility]) Vital Signs (Past 12 Hours) Vital Signs Temp Pulse Resp BP Pulse Ox 04/21/21 07:00 36.7 C 93 H 20 163/67 H 96 04/21/21 03:36 53 L 14 142/75 H 93 Laboratory Results Laboratory Results - last 24 hr 04/21/21 04/21/21 05:03 12:50 Sodium 137 D Potassium 4.4 Chloride 104 Carbon Dioxide 27 Anion Gap 6.0 BUN 9 Creatinine 1.25 H Est Cr Clr Drug Dosing 36.5 Est GFR ( Amer) 47.7 Est GFR (Non-Af Amer) 41.2 BUN/Creatinine Ratio 7.0 L Glucose 82 Calcium 9.7 Phosphorus 4.6 D Magnesium 2.6 H Total Bilirubin 0.6 AST 12 L ALT 21 Alkaline Phosphatase 115 Troponin I 0.348 H* Total Protein 7.0 Albumin 3.2 L Globulin 3.8 Albumin/Globulin Ratio 0.8 L PG Care Time/CCT Total # of Minutes Spent Total Time Spent with Patient: Total time spent is greater than 50% in coordination of care (as documented) at patient's floor/unit and/or counseling patient: Coding Level of Care Code 69482 Subseq Obs Care Lvl 3 Diagnoses Seizure as late effect of cerebrovascular accident (CVA) I69.398; R56.9 Right sided weakness R53.1 Elevated troponin R77.8 Chronic kidney disease, stage III (moderate) N18.30 Tobacco dependence F17.200 Hypertension I10 Hypertension type: unspecified PAF (paroxysmal atrial fibrillation) I48.0 Hypomagnesemia E83.42 Leg cramps R25.2 (1) Hypertension Hypertension type: unspecified Qualified Code(s): I10 - Essential (primary) hypertension
--- NOTE | 2021-04-21 13:08 | Electrocardiogram Report ---
Test Reason : Blood Pressure : / mmHG Vent. Rate : 066 BPM Atrial Rate : 066 BPM P-R Int : 250 ms QRS Dur : 100 ms QT Int : 434 ms P-R-T Axes : 057 016 023 degrees QTc Int : 454 ms Sinus rhythm with 1st degree A-V block Low voltage QRS Possible Anterolateral infarct (cited on or before 16-NOV-2014) Abnormal ECG When compared with ECG of 22-NOV-2020 12:06, Sinus rhythm has replaced Atrial fibrillation Vent. rate has decreased BY 49 BPM QRS duration has increased Questionable change in initial forces of Lateral leads T wave amplitude has increased in Lateral leads Confirmed by Victoriano Jama ([id number]) on 04/21/2021 1:08:21 PM Referred By: REFERRED SELF Confirmed By:Victoriano Jama
--- NOTE | 2021-04-21 15:25 | XRay Report ---
XR chest 2V PA/lateral CLINICAL HISTORY: b/l wheezing; eval pneumonia TECHNIQUE: AP and lateral frontal radiograph of the chest was obtained. Comparison: Comparison is made to chest one view 11/22/2020 FINDINGS: No lines and tubes are seen. Calcified aortic knob is seen. The lungs are clear. No evidence of pleur al effusion or pneumothorax. IMPRESSION: No acute chest disease. ACT 112: Negative or not required by law. Electronically signed by: Rangel Day M.D. 04/21/2021 3:24 PM
--- NOTE | 2021-04-21 16:08 | Electroencephalogram ---
EEG Procedure Note Date of Service April 21, 2021 Start / End Times Start Time: 11:26 AM End Time: 11:46 AM Referring Physician Milly Mendiola History Focal motor seizure, right lower extremity Home Medication List Medication Instructions Recorded Confirmed Type aspirin 81 mg tablet,delayed 81 mg PO QAM tab 12/16/18 04/20/21 History release furosemide 20 mg tablet 20 mg PO DAILY PRN #90 tab 12/16/18 04/20/21 History atorvastatin 40 mg tablet 40 mg PO HS #90 tab 09/23/20 04/20/21 Rx acetaminophen 500 mg tablet 1,000 mg PO Q6H PRN 11/22/20 04/20/21 History (Tylenol Extra Strength) magnesium oxide 400 mg (241.3 mg 400 mg PO QAM 11/22/20 04/20/21 History magnesium) tablet omeprazole 20 mg capsule,delayed 40 mg PO QAM 11/22/20 04/20/21 History release potassium chloride 20 mEq 20 meq PO QAM 11/22/20 04/20/21 History tablet,extended release cholecalciferol (vitamin D3) 25 2,000 unit PO QAM #30 cap 11/26/20 04/20/21 Rx mcg (1,000 unit) capsule metoprolol succinate 200 mg 200 mg PO DAILY #90 tab 11/28/20 04/20/21 Rx tablet,extended release 24 hr apixaban 5 mg tablet 5 mg PO BID 90 Days #180 tab 12/24/20 04/20/21 Rx diltiazem HCl 120 mg 120 mg PO BID #180 cap 12/24/20 04/20/21 Rx capsule,extended release 24 hr diclofenac sodium 1 % topical gel 2 g EXT QID PRN 04/20/21 04/20/21 History (Voltaren Arthritis Pain) Inpatient Medication List Apixaban (Apixaban 5 Mg Tablet) 5 mg PO BID JENNIFER Stop: 05/20/21 21:18 Last Admin: 04/21/21 09:17 Dose: 5 mg Documented by: [id number] Admin: 04/21/21 01:07 Dose: Not Given Documented by: [id number] Aspirin (Aspirin 81 Mg Ectab) 81 mg PO QAM JENNIFER Stop: 05/21/21 08:59 Last Admin: 04/21/21 09:18 Dose: 81 mg Documented by: [id number] Atorvastatin Calcium (Atorvastatin 40 Mg Tab) 40 mg PO HS [facility] Stop: 05/20/21 21:18 Last Admin: 04/20/21 21:46 Dose: Not Given Documented by: [id number] Diltiazem HCl (Diltiazem Hcl 120 Mg Capcr) 120 mg PO BID [facility] Stop: 05/20/21 21:18 Last Admin: 04/21/21 12:26 Dose: Not Given Documented by: [id number] Admin: 04/20/21 21:45 Dose: Not Given Documented by: [id number] Levetiracetam (Levetiracetam 250 Mg Tab) [facility] [place] Stop: 05/21/21 08:59 Last Admin: 04/21/21 09:18 Dose: 250 mg Documented by: [id number] Magnesium Oxide (Magnesium Oxide 400 Mg Tab) 400 [facility] [place] Stop: 05/21/21 08:59 Last Admin: 04/21/21 09:19 Dose: 400 mg Documented by: [id number] Pantoprazole Sodium (Pantoprazole 40 Mg Tab) 40 [facility] [place] Stop: 05/21/21 08:59 Last Admin: 04/21/21 09:20 Dose: 40 mg Documented by: [id number] Potassium Chloride (Potassium Chloride Crtab 20 Meq Tabcr) 20 meq [facility] [place] Stop: 05/21/21 08:59 Last Admin: 04/21/21 09:21 Dose: 20 meq Documented by: [id number] Discontinued Medications Gadobutrol (Gadobutrol 30ml Vial) 7.5 ml IV ONCE ONE Stop: 04/21/21 00:14 Last Admin: 04/21/21 00:14 Dose: 7.5 ml Documented by: [id number] Sodium Chloride (Nss) 500 mls @ 999 mls/hr IV .Q31M ONE Stop: 04/20/21 18:08 Last Infusion: 04/20/21 18:38 Dose: 0 mls/hr Documented by: [id number] Admin: 04/20/21 17:38 Dose: 999 mls/hr Documented by: [id number] Magnesium Sulfate/Dextrose (Magnesium Sulfate / D5w) 1 gm in 100 mls @ 100 mls/hr IV Q1H JENNIFER Stop: 04/20/21 20:13 Last Infusion: 04/20/21 20:45 Dose: 0 mls/hr Documented by: [id number] Admin: 04/20/21 19:42 Dose: 100 mls/hr Documented by: [id number] Infusion: 04/20/21 19:41 Dose: 0 mls/hr Documented by: [id number] Admin: 04/20/21 18:37 Dose: 100 mls/hr Documented by: [id number] Levetiracetam 1,000 mg/ Sodium (Chloride) 110 mls @ 440 mls/hr IV NOW STA Stop: 04/20/21 18:45 Last Infusion: 04/20/21 19:15 Dose: 0 mls/hr Documented by: [id number] Admin: 04/20/21 18:56 Dose: 440 mls/hr Documented by: [id number] Lorazepam (Ativan) 1 mg in 2 mls @ 2 mls/min IV NOW STA Stop: 04/20/21 18:32 Last Admin: 04/20/21 18:31 Dose: 2 mls/min Documented by: [id number] Ioversol (Optiray 320 125ml) 118 ml IV ONCE ONE Stop: 04/20/21 17:37 Last Admin: 04/20/21 17:36 Dose: 118 ml Documented by: [id number] Description This is a 21 electrode EEG with a single channel dedicated to limited EKG. The electrodes were placed in accordance with the International 10-20 system. The background rhythm consists of a mix of 10 Hz alpha and 6 Hz theta frequencies. There is a symmetric frontal beta rhythm. Photic stimulation is unremarkable. Hyperventilation is not performed. There are intermittent 4-1/2 to 6 Hz moderate to high amplitude left temporal slowing and sharps seen throughout the majority of the study. Interpretation Abnormal awake/drowsy EEG with focal slowing and sharps localizing to the left temporal lobe. These findings are potentially supportive of an underlying tendency for seizures. Please see today's neurology consultation for further clinical correlation. [facility] EEG Procedure Codes Indication for Procedure (1) Seizure as late effect of cerebrovascular accident (CVA): Neurology Neurology: 22731 EEG include record awake & drowsy
[2021-04-21] MEDS: METOPROLOL SUCC 50MG EXT REL TAB PO SCH (18:01)
[2021-04-21] MEDS: ATORVASTATIN 40 MG TAB PO SCH (21:08)
[2021-04-21] MEDS: levETIRAcetam 500 MG TAB PO SCH (22:10)
[2021-04-22 06:44] LABS: Calcium 9.4 mg/dl (8.5-10.1); Creatinine Clr Calc Pharmacy 28.7 ml/min; Est GFR (African American) 35.7 ml/min; Est GFR (Non-African American) 30.8 ml/min; Ferritin 94.2 ng/ml (8-388); Potassium 4.3 mmol/L (3.5-5.1); Troponin I 0.311 ng/ml (0-0.045)
[2021-04-22] MEDS ORDERED: SODIUM CHLORIDE 0.9% 1000ML 1,000 ML IV SCH (08:15)
[2021-04-22] MEDS: MAGNESIUM OXIDE 400 MG TAB PO SCH (08:51)
[2021-04-22] MEDS: PANTOprazole 40 MG TAB PO SCH (08:54)
[2021-04-22] MEDS: METOPROLOL SUCC 50MG EXT REL TAB PO SCH (08:54)
[2021-04-22] MEDS: dilTIAZem HCL 120 MG CAPCR PO SCH (08:55)
[2021-04-22] MEDS: ASPIRIN 81 MG ECTAB PO SCH (08:55)
[2021-04-22] MEDS: APIXABAN 5 MG TABLET PO SCH ×2 (08:56→20:34)
[2021-04-22] MEDS: POTASSIUM CHLORIDE CRTAB 20 MEQ TABCR PO SCH (08:56)
[2021-04-22] MEDS: levETIRAcetam 500 MG TAB PO SCH ×2 (09:00→20:34)
--- NOTE | 2021-04-22 18:08 | Hospitalist Progress Note ---
Date of Service April 22, 2021 Assessment & Plan (1) Seizure as late effect of cerebrovascular accident (CVA): Plan: MRI brain at admission negative for acute stroke EEG with seizure spikes from the left temporal lobe region Thus, seizure as a result of her previous left hemispheric stroke suspected Initiated on keppra and titrated to 500mg BID by neurology appreciate neurology consult and recs no seizures since admission (2) Acute metabolic encephalopathy: Plan: ongoing, waxing/waning check u/a and urine cx, r/o UTI I am concerned that she is complaining of visual loss that is worse than baseline further, she reports her right hand issues are much worse than baseline 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 could the first MRI have missed an acute stroke? other? spoke with Dr Yeung - lars for repeat MRI brain tonight serial exams follow urine culture (3) Visual field cut: Plan: right sided had a previous L occipital lobe stroke and had residual right-sided visual field deficits from that however, she is complaining that things are worse she is clearly not well - during the visit she was dropping things, turning to the right and reaching inappropriately into the air, etc recheck MRI brain - r/o stroke that could have been missed on first MRI (4) Bradycardia: Plan: iatrogenic is on high-dose metoprolol and diltiazem BID HOLD diltiazem may need to reduce dose of metoprolol as well continue telemetry TSH 10/2020 wnl there has been no pauses, block, slow a.fib, etc while here her PMH suggests h/o SSS so this issue needs to be watched very carefully (5) Right sided weakness: Plan: worse than baseline 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 cont to monitor repeat MRI brain ordered for tonight (6) Elevated troponin: Plan: myocardial demand ischemia in setting of seizure? 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 (9) Hypertension: Plan: cont metoprolol hold diltiazem due to bradycardia (10) PAF (paroxysmal atrial fibrillation): Plan: remains in NSR but bradycardic cont BB hold CCB cont eliquis telemetry see above (11) Hypomagnesemia: Plan: replaced resolved (12) Leg cramps: Plan: resolved was likely due to low mag Fe studies wnl (13) Acute kidney injury: Plan: mild see above hydrate, bmp in am Plan: daughter extensively updated at bedside today PT/OT both advising rehab post-d/c daughter agrees w/ such await MRI brain (repeat) change observation to full admission status Admission and Anticipated Discharge Date Admission Date: April 22, 2021 Subjective tele overnight - bradycardia, rates consistently in the 40s occasional HR upper 30s no sinus pauses no AV block no a.fib overnight she slept ok and is taking frequent naps - she is tired as the day has gone on she has become more confused she continues to have difficulties with her vision on the right visual field she is dropping things with her right hand and has been spilling her water cups, etc no dysphagia no dysarthria daughter at bedside - questions answered Review of Systems Review of Systems: gen - fatigue, weakness eyes - ongoing visual deficits on right - worse than baseline cv - no chest pain pulm - some cough, denies dyspnea neuro - no right or left leg weakness; no weakness of arms, but apraxic with right hand GI - no N/V/pain Physical Exam Physical Exam: gen - again very tired appearing, NAD, confused, dropping things, losing her balance easily, etc eyes - right sided visual field cut mouth - MMM neck - no JVD heart - bradycardic, s1 s2, regular rhythm, no murmur lungs - mild end-exp wheezes in multiple segments - no change from yesterday abd - soft NT ND BS+ ext - no edema, pulses 2+ b/l neuro - strength 5/5 RUE and RLE; strength 5/5 LUE/LLE; rapid finger movements of both hands are normal/symmetric Results & Data Results & Data ([facility]) Vital Signs (Past 12 Hours) Vital Signs Temp Pulse Resp BP Pulse Ox 04/22/21 15:35 36.2 C L 49 L 20 153/63 H 98 04/22/21 12:12 37.0 C 55 L 20 174/81 H 93 04/22/21 07:45 37.3 C 52 L 20 170/93 H 92 Laboratory Results Laboratory Results - last 24 hr 04/22/21 04/22/21 05:50 05:50 Sodium 135 L Potassium 4.3 Chloride 104 Carbon Dioxide 25 Anion Gap 6.0 BUN 19 H D Creatinine 1.59 H D Est Cr Clr Drug Dosing 28.7 Est GFR ( Amer) 35.7 Est GFR (Non-Af Amer) 30.8 BUN/Creatinine Ratio 12.0 Glucose 86 Calcium 9.4 Iron 82 Cancelled Transferrin 226 Cancelled Transferrin % Sat 26 Cancelled Ferritin 94.2 Cancelled Troponin I 0.311 H* PG Care Time/CCT Total # of Minutes Spent Total Time Spent with Patient: Total time spent is greater than 50% in coordination of care (as documented) at patient's floor/unit and/or counseling patient: Coding Level of Care Code 24815 Subseq Hosp Care Lvl 3 Diagnoses Seizure as late effect of cerebrovascular accident (CVA) I69.398; R56.9 Right sided weakness R53.1 Elevated troponin R77.8 Chronic kidney disease, stage III (moderate) N18.30 Tobacco dependence F17.200 Hypertension I10 Hypertension type: unspecified PAF (paroxysmal atrial fibrillation) I48.0 Hypomagnesemia E83.42 Leg cramps R25.2 Visual field cut H53.40 Acute metabolic encephalopathy G93.41 Bradycardia R00.1 Acute kidney injury N17.9 (1) Hypertension Hypertension type: unspecified Qualified Code(s): I10 - Essential (primary) hypertension
[2021-04-22 18:27] LABS: Appearance Urine Clear (Clear); Bacteria Urine Automated Negative (Negative); Bilirubin Urine Negative (Negative); Blood Urine Trace (Negative); Cast Urine Automated 0 /lpf (0-5); Color Urine Yellow; Epithelial Cell Urine Auto 0-5 /lpf (0-5); Glucose Urine UA Negative (Negative); Ketones Urine Negative (Negative); Leukocyte Esterase Urine 2+ (Negative); Nitrite Urine Negative (Negative); Protein Urine Negative (Negative); RBC Urine Automated 0-4 /hpf (0-4); Specific Gravity Urine 1.007 (1.000-1.030); Urobilinogen Urine Negative (Negative); WBC Urine Automated >30 /hpf (0-5)
--- NOTE | 2021-04-22 20:31 | Magnetic Resonance Report ---
MR brain seizure wo con HISTORY: 80 years-old Female R hand apraxia/R visual field cut; eval new CVA acute blurry vision wit h new onset seizure COMPARISON: Brain MRI April 20, 2021 TECHNIQUE: Multiple planar multisequence MRI the brain was obtained without the use of IV contrast ut ilizing seizure protocol. FINDINGS: Pcu Rn localizer images demonstrate no gross extracranial abnormality. Motion degraded exam. There is an 11 mm focus of restricted diffusion involving a small area of previously preserved parenchyma with in the left occipital lobe surrounded by encephalomalacia from chronic infarct, new from prior. No ac [place] or subacute territorial infarct. Age-related involutional changes. Extensive white matter T2/FLAI R hyperintense foci are noted throughout the white matter. Encephalomalacia and gliosis related to ch ronic left parietal and occipital infarcts. Linear necrosis of the left parietal lobe redemonstrated. Ex vacuo ventriculomegaly of the posterior horn left lateral ventricle. Chronic lacunar infarct of t he left thalamus. No acute seizure focus identified. No definite evidence of mesial temporal sclerosi s. The cerebral venous sinuses and major arterial flow voids appear patent. Trace right mastoid effusion . The skull and soft tissues are unremarkable. Prior bilateral lens repair. IMPRESSION: 1. 11 mm acute infarct of the left occipital lobe. 2. Age-related involutional changes with severe chronic microvascular ischemic disease. 3. Chronic infarcts of the left parietal and occipital lobes. ACT 112: Negative or not required by law. The above report was generated using voice recognition software. It may contain grammatical, syntax o r spelling errors. Electronically signed by: Oren Burton M.D. 04/22/2021 8:30 PM
[2021-04-22] MEDS: ATORVASTATIN 40 MG TAB PO SCH (20:34)
[2021-04-22] MEDS: NICOTINE 21 MG/24 HR TDSY TD SCH (22:11)
[2021-04-23 07:15] LABS: BUN Creatinine Ratio 11.7 (10-20); Calcium 9.3 mg/dl (8.5-10.1); Creatinine Clr Calc Pharmacy 28.3 ml/min; Est GFR (African American) 35.1 ml/min; Est GFR (Non-African American) 30.3 ml/min; Potassium 4.3 mmol/L (3.5-5.1)
[2021-04-23] MEDS: PANTOprazole 40 MG TAB PO SCH (08:24)
[2021-04-23] MEDS: METOPROLOL SUCC 50MG EXT REL TAB PO SCH (08:24)
[2021-04-23] MEDS: NICOTINE 21 MG/24 HR TDSY TD SCH (08:24)
[2021-04-23] MEDS: ASPIRIN 81 MG ECTAB PO SCH (08:24)
[2021-04-23] MEDS: POTASSIUM CHLORIDE CRTAB 20 MEQ TABCR PO SCH (08:25)
[2021-04-23] MEDS: APIXABAN 5 MG TABLET PO SCH ×2 (08:25→20:19)
[2021-04-23] MEDS: levETIRAcetam 500 MG TAB PO SCH ×2 (08:25→20:19)
[2021-04-23] MEDS: MAGNESIUM OXIDE 400 MG TAB PO SCH (08:25)
--- NOTE | 2021-04-23 10:41 | Neurology Progress Note ---
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 Patient does have a chronic left occipitoparietal stroke that is a likely seizure focus. I would recommend that she continue with Keppra 500 mg twice daily for seizure prevention going forward. Follow-up brain MRI did reveal a small acute infarct within her left occipital lobe, within her previous area of infarction. This finding would not be expected to directly contribute to her previously observed right hemiparesis. 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 Her visual field may be further compromised at this point in time due to the recurrent left occipital lobe infarct. Patient should have an outpatient assessment with ophthalmology to further evaluate her visual hinson. Again, patient should continue with Keppra 500 mg twice daily for seizure prevention. Patient to continue with daily low-dose aspirin and apixaban given her history of stroke/recurrent stroke. Stroke risk factors for this patient include atrial fibrillation, cigarette smoking, and hypertension. Patient should continue with other cardiovascular risk modifying medications as medically appropriate. Smoking cessation will need to be stressed. Patient may follow-up with either myself or one of our advanced practice clinicians in neurology clinic in 2 to 3 weeks. Admission and Anticipated Discharge Date Admission Date: April 22, 2021 Subjective Follow-up for seizure and stroke The patient underwent repeat brain MRI yesterday as she had been exhibiting persistent right-sided weakness. The follow-up MRI did reveal an area of small acute infarct within the left occipital lobe, with her previous left occipital lobe stroke. However, no stroke with the left MCA territory that would otherwise explain her right hemiparesis. Notably, however, her right-sided weakness has completely resolved. She continues to complain of difficulty with the right visual field, chronic issue, related to her chronic left [employer] territory stroke. She has not had any further focal motor seizure activity during this hospitalization and continues with Keppra 500 mg twice daily, recently started. An EEG did reveal some focal epileptiform abnormalities localizing to the left cerebral hemisphere. Again, patient reports that her right-sided weakness has resolved. No further seizures, continues to report chronic difficulty with vision off to the right. No headache or other neurologic signs or symptoms at this point in time. Review of Systems Eyes: as per Subjective / HPI and + blind spots Neurologic: as per Subjective / HPI; no headache(s), no abnormal speech and no memory loss Results & Data ([facility]) Vital Signs (Past 12 Hours) Vital Signs Temp Pulse Pulse Pulse Resp BP BP 04/23/21 07:20 36.4 C L 50 L 19 172/74 H 04/23/21 03:10 36.6 C 49 L 16 161/69 H 04/22/21 23:28 36.6 C 47 L 20 165/88 H 04/22/21 23:04 45 L Pulse Ox 04/23/21 07:20 96 04/23/21 03:10 96 04/22/21 23:28 95 04/22/21 23:04 Laboratory Results Sodium 139, potassium 4.3, BUN 19, creatinine 1.61, glucose 89, calcium 9.3, triglycerides 135, cholesterol 151, LDL 82, VLDL 27, HDL 42 Diagnostic Findings Repeat brain MRI reveals an 11 mm acute infarct in the left occipital lobe as well as chronic infarcts within the left parietal and occipital lobes. I reviewed the images as well as the radiologist's interpretation of this test. An EEG completed on April 21 revealed focal slowing and sharps localizing to the left temporal lobe. Exam (Neuro) Neurologic: Oriented to:: Person, Place and Time Memory: Short Term Intact and Remote Intact Attention: Span Intact and Concentration Intact Speech Fluency: negative Dysarthria or Dysfluency Fund of Knowledge: Vocabulary Cranial Nerves: Normal III, IV, and VII; Abnorm II (Right homonymous hemianopsia with confrontation testing) Motor Strength: Normal Lower Extremities and Normal Upper Extremities Muscle Bulk/Involuntary Movements: No Involuntary Movements Coordination: Normal Gait: Normal Station and Gait PG Care Time/CCT Total # of Minutes Spent Total Time Spent with Patient: Total time spent is greater than 50% in coordination of care (as documented) at patient's floor/unit and/or counseling patient: Coding Level of Care Code 52637 Subseq Hosp Care Lvl 2 Diagnoses Occipital stroke I63.9 Maco's paralysis G83.84 Seizure as late effect of cerebrovascular accident (CVA) I69.398; R56.9
--- NOTE | 2021-04-23 12:33 | XCELERA ---
[id number] \\[id number]
--- NOTE | 2021-04-23 19:56 | Hospitalist Progress Note ---
Date of Service April 23, 2021 Assessment & Plan (1) Occipital stroke: Plan: left - new; was not seen on admission MRI but seen on 04/22 MRI. likely due to occluded left [employer]. this explains her complaints of new visual impairment on right - superimposed upon prior right sided hemianopsia. will need to see ophtho post-d/c. cont eliquis and asa for secondary prevention. cont statin. new CVA d/w daughter and I showed them the MRI images. appreciate neuro consult/recs. (2) Maco's paralysis: Plan: right arm/right leg/right hand symptoms/signs at time of admission and in the subsequent 1-2 days. symptoms now resolved. was due to the seizure at time of admission. (3) Seizure as late effect of cerebrovascular accident (CVA): Plan: MRI brain at admission negative for acute stroke but repeat MRI with acute L occipital lobe CVA EEG with seizure spikes from the left temporal lobe region Thus, seizure as a result of her previous left hemispheric stroke suspected Initiated on keppra and titrated to 500mg BID by neurology appreciate neurology consult and recs no seizures since admission (4) Acute metabolic encephalopathy: Plan: improved today likely 2nd to combination of new stroke and seizure urine cx pending to r/o concomitant UTI (5) Visual field cut: Plan: right sided had a previous L occipital lobe stroke and had residual right-sided visual field deficits from that now with new L occipital lobe stroke superimposed upon the old stroke region see above will need ophtho post-d/c (6) Bradycardia: Plan: iatrogenic is on high-dose metoprolol and diltiazem BID HOLDING diltiazem despite such -- still bradycardic lower metoprolol dose from 200mg to 100mg continue telemetry TSH 10/2020 wnl there has been no pauses, block, slow a.fib, etc while here her PMH suggests h/o SSS so this issue needs to be watched very carefully if HRs don't respond would need EP evaluation (7) Right sided weakness: Plan: 2nd to Maco's paralysis in setting of seizure resolved today repeat MRI without any new stroke in the motor strip regions (8) Elevated troponin: Plan: myocardial demand ischemia in setting of seizure suspected no ischemic symptoms at home or during this stay troponin peaked 0.3 - slowly coming down echo with preserved EF and normal wall motion follow (9) Chronic kidney disease, stage III (moderate): Plan: stage 3B at baseline now with mild SELVIN hydrating repeat BMP am (10) Tobacco dependence: 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 - await culture Admission and Anticipated Discharge Date Admission Date: April 22, 2021 Subjective tele continues to show sinus clarence - no pauses; no block - just clarence HRs 40s still occasional 50 nothing above 60 no a.fib pt's daughter at bedside daughter states "she's so much better today" patient herself notices her right arm/hand fine motor skills, etc are all improved today vision seems better too?? we discussed the MRI showing acute left occipital lobe CVA we discussed the probable Maco's paralysis no new complaints Review of Systems Review of Systems: gen - better energy but still very tired; no fever cv - no cp pulm - no cough or dyspnea GI - no pain or N/V - no dysuria Physical Exam Physical Exam: gen - again very tired appearing but does seem better overall with less confusion eyes - right sided visual field cut mouth - MMM neck - no JVD heart - bradycardic, s1 s2, regular rhythm, no murmur lungs - CTA b/l abd - soft NT ND BS+ ext - no edema, pulses 2+ b/l neuro - strength 5/5 RUE and RLE; strength 5/5 LUE/LLE; rapid finger movements of both hands are normal/symmetric again today; no apraxia of right hand Results & Data Results & Data ([facility]) Vital Signs (Past 12 Hours) Vital Signs Temp Pulse Pulse Resp BP Pulse Ox 04/23/21 19:00 36.7 C 52 L 20 165/75 H 96 04/23/21 15:00 36.7 C 51 L 16 158/80 H 96 04/23/21 11:11 36.3 C L 52 L 20 148/80 H 97 Laboratory Results Laboratory Results - last 24 hr 04/23/21 06:14 Sodium 139 Potassium 4.3 Chloride 106 Carbon Dioxide 29 Anion Gap 4.0 BUN 19 H Creatinine 1.61 H Est Cr Clr Drug Dosing 28.3 Est GFR ( Amer) 35.1 Est GFR (Non-Af Amer) 30.3 BUN/Creatinine Ratio 11.7 Glucose 89 Calcium 9.3 Triglycerides 135 Cholesterol 151 LDL Cholesterol, Calc 82 VLDL Cholesterol, Calc 27 HDL Cholesterol 42 Cholesterol/HDL Ratio 4 Diagnostic Findings Brain MRI 04/22/21 17:00 MR brain seizure wo con HISTORY: 80 years-old Female R hand apraxia/R visual field cut; eval new CVA acute blurry vision with new onset seizure COMPARISON: Brain MRI April 20, 2021 TECHNIQUE: Multiple planar multisequence MRI the brain was obtained without the use of IV contrast utilizing seizure protocol. FINDINGS: Block Pa[place] localizer images demonstrate no gross extracranial abnormality. Motion degraded exam. There is an 11 mm focus of restricted diffusion involving a small area of previously preserved parenchyma within the left occipital lobe surrounded by encephalomalacia from chronic infarct, new from prior. No acute or subacute territorial infarct. Age-related involutional changes. Extensive white matter T2/FLAIR hyperintense foci are noted throughout the white matter. Encephalomalacia and gliosis related to chronic left parietal and occipital infarcts. Linear necrosis of the left parietal lobe redemonstrated. Ex vacuo ventriculomegaly of the posterior horn left lateral ventricle. Chronic lacunar infarct of the left thalamus. No acute seizure focus identified. No definite evidence of mesial temporal sclerosis. The cerebral venous sinuses and major arterial flow voids appear patent. Trace right mastoid effusion. The skull and soft tissues are unremarkable. Prior bilateral lens repair. IMPRESSION: 1. 11 mm acute infarct of the left occipital lobe. 2. Age-related involutional changes with severe chronic microvascular ischemic disease. 3. Chronic infarcts of the left parietal and occipital lobes. ACT 112: Negative or not required by law. The above report was generated using voice recognition software. It may contain grammatical, syntax or spelling errors. Electronically signed by: Oren Burton M.D. 04/22/2021 8:30 PM PG Care Time/CCT Total # of Minutes Spent Total Time Spent with Patient: Total time spent is greater than 50% in coordination of care (as documented) at patient's floor/unit and/or counseling patient: Coding Level of Care Code 68513 Subseq Hosp Care Lvl 3 Diagnoses Seizure as late effect of cerebrovascular accident (CVA) I69.398; R56.9 Acute metabolic encephalopathy G93.41 Visual field cut H53.40 Bradycardia R00.1 Right sided weakness R53.1 Elevated troponin R77.8 Chronic kidney disease, stage III (moderate) N18.30 Tobacco dependence F17.200 Hypertension I10 Hypertension type: unspecified PAF (paroxysmal atrial fibrillation) I48.0 Hypomagnesemia E83.42 Leg cramps R25.2 Acute kidney injury N17.9 Occipital stroke I63.9 Maco's paralysis G83.84 (1) Hypertension Hypertension type: unspecified Qualified Code(s): I10 - Essential (primary) hypertension
[2021-04-23] MEDS: ATORVASTATIN 40 MG TAB PO SCH (20:19)
[2021-04-24] MEDS: MAGNESIUM OXIDE 400 MG TAB PO SCH (08:06)
[2021-04-24] MEDS: ASPIRIN 81 MG ECTAB PO SCH (08:06)
[2021-04-24] MEDS: APIXABAN 5 MG TABLET PO SCH ×2 (08:06→21:18)
[2021-04-24] MEDS: METOPROLOL SUCC 50MG EXT REL TAB PO SCH (08:06)
[2021-04-24] MEDS: levETIRAcetam 500 MG TAB PO SCH ×2 (08:06→21:18)
[2021-04-24] MEDS: NICOTINE 21 MG/24 HR TDSY TD SCH (08:07)
[2021-04-24] MEDS: PANTOprazole 40 MG TAB PO SCH (08:07)
[2021-04-24] MEDS: POTASSIUM CHLORIDE CRTAB 20 MEQ TABCR PO SCH (08:09)
[2021-04-24 08:13] LABS: Hematocrit (blood only) 45.5 % (37-47); Hemoglobin 15.3 g/dL (12.0-16.0); Mean Corpuscular Hemoglobin 30.4 pg (25-34); Mean Corpuscular Hgb Conc 33.6 g/dL (32-36); Mean Corpuscular Volume 90.3 fL (80-100); Mean Platelet Volume 9.5 fL (7.4-10.4); Platelet Count 356 K/uL (130-400); RDW Coefficient of Variation 14.2 % (11.5-14.5); RDW Standard Deviation 46.8 fL (36.4-46.3); Red Blood Count 5.04 M/uL (4.2-5.4); White Blood Count 10.19 K/uL (4.8-10.8)
[2021-04-24 08:57] LABS: Calcium 9.9 mg/dl (8.5-10.1); Creatinine Clr Calc Pharmacy 29.3 ml/min; Est GFR (African American) 36.2 ml/min; Est GFR (Non-African American) 31.3 ml/min; Magnesium 2.1 mg/dl (1.8-2.4); Potassium 4.2 mmol/L (3.5-5.1)
[2021-04-24] MEDS: DAPTOmycin 200 MG in SYRINGE 0 ML IV SCH (11:46)
--- NOTE | 2021-04-24 21:25 | Hospitalist Progress Note ---
Date of Service April 24, 2021 Assessment & Plan (1) Occipital stroke: Plan: left - new; was not seen on admission MRI but seen on 04/22/21 MRI. 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 this explains her complaints of new visual impairment on right - superimposed upon prior right sided hemianopsia. will need to see ophtho post-d/c. cont eliquis and asa for secondary prevention. resume statin once off the daptomycin IV. needs to quit tobacco if possible. LDL on lipid profile was 82 - consider increasing her lipitor to 80mg/day. appreciate neuro consult/recs. (2) Maco's paralysis: Plan: right arm/right leg/right hand symptoms/signs at time of admission and in the subsequent 1-2 days. symptoms now resolved. was due to the seizure at time of admission. (3) Seizure as late effect of cerebrovascular accident (CVA): Plan: MRI brain at admission negative for acute stroke but repeat MRI with acute L occipital lobe CVA EEG with seizure spikes from the left temporal lobe region Thus, seizure occurred as a result of her previous left hemispheric stroke Initiated on keppra and titrated to 500mg BID by neurology appreciate neurology consult and recs no seizures since admission (4) Acute metabolic encephalopathy: Plan: again improved; and mental status near baseline likely 2nd to combination of new stroke and seizure +/- UTI (5) Visual field cut: Plan: right sided had a previous L occipital lobe stroke and had residual right-sided visual field deficits from that now with new L occipital lobe stroke superimposed upon the old stroke region see above will need ophtho post-d/c (6) Bradycardia: Plan: iatrogenic was on high-dose metoprolol and diltiazem BID at time of admission HELD diltiazem and despite such -- still bradycardic thus, lowered metoprolol succinate dose from 200mg to 100mg HRs now normal range TSH 10/2020 wnl there have been no pauses, block, slow a.fib, etc while here her PMH suggests h/o SSS so this issue needs to be watched very carefully after d/c - given the med changes - should f/u with EP Dr Weinstein as outpatient (7) Right sided weakness: Plan: 2nd to Maco's paralysis in setting of seizure resolved repeat MRI without any new stroke in the motor strip regions (8) Elevated troponin: Plan: myocardial demand ischemia in setting of seizure suspected no ischemic symptoms at home or during this stay troponin peaked 0.3 echo with preserved EF and normal wall motion follow (9) Chronic kidney disease, stage III (moderate): Plan: stage 3B at baseline now with mild SELVIN repeat BMP am (10) Tobacco dependence: Plan: counseled to quit nicoderm patch (11) Hypertension: Plan: reduced metoprolol held diltiazem due to bradycardia BPs now a bit high - may need to use amlodipine in laura of the diltiazem if BPs remain high (12) PAF (paroxysmal atrial fibrillation): Plan: remains in NSR but had significant bradycardia adjusted BB as above held CCB cont eliquis telemetry see above (13) Hypomagnesemia: Plan: replaced resolved (14) Leg cramps: Plan: resolved was likely due to low mag at time of admission Fe studies wnl (15) Acute kidney injury: Plan: mild see above Cr still 1.5 repeat BMP am (16) UTI (urinary tract infection): Plan: 2nd to enterococcus, sensitivities pending given her PCN allergy and acute kidney injury- start daptomycin 4mg/kg IV daily await final culture result (17) Depression: Plan: offered medication but she declined could benefit from SSRI or similar Plan: daughter extensively updated at bedside once again today PT/OT both advising rehab post-d/c EXCELLENT candidate for inpatient rehab goal is ultimately to home where she was previously living independently social work aware of dispo plan Admission and Anticipated Discharge Date Admission Date: April 22, 2021 Subjective patient's daughter was present during the visit today daughter confirms her mother is near-normal from mental status standpoint (occasional confusion but markedly better) pt denies any issues with use of her right arm, right hand, or right leg vision seems to be at baseline today she admits to being irritable because of "wanting to smoke" she is also irritable because she "is ready to go" but realizes that rehab is being advised to her no recurrent seizures tele - HRs much improved, now consistently >60 Review of Systems Review of Systems: gen - no fevers, chills; still some fatigue cv - no cp, no orthopnea pulm - no cough or dyspnea GI - no pain psych - admits to depression; started to tear up when talking about her who in 2007; declines medication for her depression Physical Exam Physical Exam: gen - looks much better today; more awake, alert; tearful during the visit, however mouth - MMM neck - no JVD heart - RRR, s1 s2, no murmur lungs - CTA b/l abd - soft NT ND BS+ ext - no edema, pulses 2+ b/l neuro - strength 5/5 RUE and RLE; strength 5/5 LUE/LLE; no apraxia of right hand psych - depressed, tearful Results & Data Results & Data ([facility]) Vital Signs (Past 12 Hours) Vital Signs Temp Pulse Pulse Pulse Resp BP Pulse Ox 04/24/21 19:23 36.5 C 71 18 164/82 H 98 04/24/21 15:40 36.5 C 71 18 155/92 H 96 04/24/21 15:13 63 Laboratory Results Laboratory Results - last 24 hr 04/24/21 04/24/21 07:58 07:58 WBC 10.19 RBC 5.04 Hgb 15.3 Hct 45.5 MCV 90.3 MCH 30.4 MCHC 33.6 RDW Std Deviation 46.8 H RDW Coeff of Faviola 14.2 Plt Count 356 MPV 9.5 Sodium 137 Potassium 4.2 Chloride 104 Carbon Dioxide 28 Anion Gap 5.0 BUN 24 H Creatinine 1.57 H Est Cr Clr Drug Dosing 29.3 Est GFR ( Amer) 36.2 Est GFR (Non-Af Amer) 31.3 BUN/Creatinine Ratio 15.0 Glucose 98 Calcium 9.9 Magnesium 2.1 Diagnostic Findings Urine cx: >100,000 CFU probable enterococcus PG Care Time/CCT Total # of Minutes Spent Total Time Spent with Patient: Total time spent is greater than 50% in coordination of care (as documented) at patient's floor/unit and/or counseling patient: Coding Level of Care Code 14037 Subseq Hosp Care Lvl 3 Diagnoses Occipital stroke I63.9 Maco's paralysis G83.84 Seizure as late effect of cerebrovascular accident (CVA) I69.398; R56.9 Acute metabolic encephalopathy G93.41 Visual field cut H53.40 Bradycardia R00.1 Right sided weakness R53.1 Elevated troponin R77.8 Chronic kidney disease, stage III (moderate) N18.30 Tobacco dependence F17.200 Hypertension I10 Hypertension type: unspecified PAF (paroxysmal atrial fibrillation) I48.0 Hypomagnesemia E83.42 Leg cramps R25.2 Acute kidney injury N17.9 UTI (urinary tract infection) N39.0 Depression F32.A (1) Hypertension Hypertension type: unspecified Qualified Code(s): I10 - Essential (primary) hypertension
[2021-04-25 08:12] LABS: BUN Creatinine Ratio 19.6 (10-20); Calcium 9.8 mg/dl (8.5-10.1); Creatinine Clr Calc Pharmacy 27.7 ml/min; Est GFR (African American) 33.9 ml/min; Est GFR (Non-African American) 29.2 ml/min; Potassium 4.7 mmol/L (3.5-5.1)
[2021-04-25] MEDS: PANTOprazole 40 MG TAB PO SCH (10:00)
[2021-04-25] MEDS: NICOTINE 21 MG/24 HR TDSY TD SCH (10:00)
[2021-04-25] MEDS: MAGNESIUM OXIDE 400 MG TAB PO SCH (10:00)
[2021-04-25] MEDS: ASPIRIN 81 MG ECTAB PO SCH (10:00)
[2021-04-25] MEDS: levETIRAcetam 500 MG TAB PO SCH (10:00)
[2021-04-25] MEDS: APIXABAN 5 MG TABLET PO SCH (10:00)
[2021-04-25] MEDS: METOPROLOL SUCC 50MG EXT REL TAB PO SCH (10:00)
[2021-04-25] MEDS: POTASSIUM CHLORIDE CRTAB 20 MEQ TABCR PO SCH (10:03)
[2021-04-25] MEDS: DAPTOmycin 200 MG in SYRINGE 0 ML IV SCH (11:23)
--- NOTE | 2021-04-25 14:05 | Discharge Summary ---
Date of Service April 25, 2021 Admission HPI Per Admitting Provider 80 yo F with hx stroke, CKD3, SSS, PAF, HTN who presents to the ER with her daughter by ambulance for concern for stroke. Per daughter, patient called her at 3:30pm today saying her arm was 'numb' and she couldn't move it. was also confused. Daughter was able to come to the house within ~20 minutes, whereupon Kathi was able to walk to the restroom with some assistance and get dressed with some assistance. She notes that her arm twitched a few times while they were at home prior to the ambulance arriving. Per ER provider, she had a facial droop, drooling, 3/5 R upper and lower extremity weakness with severe aphasia. Head CT/CTA head + neck performed per stroke protocol. [facility] [place] was contacted. During interview with telestroke, patient had what sounds like a grand mal seizure for >2 minutes, leading to oxygen desaturation. She was given ativan, placed on NC, loaded with keppra. Interview with patient limited due to postictal state and having received ativan. Responsive to pain, breathing comfortably on her own on NC, otherwise not responsive to questions. Principal Diagnosis Acute stroke, seizure Discharge Exam General: well developed, well nourished, no acute distress, comfortable Neck: supple, trachea midline, normal thyroid Lungs: clear to auscultation bilaterally, normal respiratory effort, no accessory muscle use, no distress Heart: regular S1 and S2, no murmur, peripheral pulses normal, capillary refill normal, no edema Abdomen: soft, NT, ND, + BS, no hepatomegaly, normal to percussion Extremities: normal in appearance, no cyanosis, no petechiae, strength is 5/5 bilaterally Neuro: awake, cooperative, moves all extremities, no focal motor deficits, CN II-XII intact except right visual field deficit, sensation in extremities intact, normal speech Skin: warm, dry, no rash, normal turgor Psych: Awake, alert oriented x 3, euthymic affect Discharge Data Allergies Allergy/AdvReac Type Severity Reaction Status Date / Time Penicillins Allergy Intermediate HIVES Verified 04/28/21 10:43 Consultations 04/20/21 19:19 ED Decision to Admit Stat 04/20/21 20:02 Consult Neurology Routine Ordered Studies 04/20/21 17:25 CT angio head w con Stat CT angio neck with con Stat CT head/brain wo con Stat 04/21/21 00:09 MR brain wo/w con Stat 04/22/21 17:00 MR brain seizure wo con Routine Hospital Course (1) Occipital stroke: left - new; was not seen on admission MRI but seen on 04/22/21 MRI. 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 this explains her complaints of new visual impairment on right - superimposed upon prior right sided hemianopsia. will need to see ophtho post-d/c. cont eliquis and asa for secondary prevention. continue statin therapy needs to quit tobacco if possible. home PT/OT follow up with neurology (2) Maco's paralysis: right arm/right leg/right hand symptoms/signs at time of admission and in the subsequent 1-2 days. symptoms now completely resolved. 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): MRI brain at admission negative for acute stroke but repeat MRI with acute L occipital lobe CVA EEG with seizure spikes from the left temporal lobe region Thus, seizure occurred as a result of her previous left hemispheric stroke Initiated on keppra and titrated to 500mg BID by neurology appreciate neurology consult and recs no seizures since admission, continue Keppra on discharge follow up with neurology (4) Acute metabolic encephalopathy: again improved; and mental status near baseline likely 2nd to combination of new stroke and seizure +/- UTI (5) Visual field cut: right sided had a previous L occipital lobe stroke and had residual right-sided visual field deficits from that now with new L occipital lobe stroke superimposed upon the old stroke region see above will need ophtho post-d/c (6) Bradycardia: iatrogenic was on high-dose metoprolol and diltiazem BID at time of admission HELD diltiazem and despite such -- still bradycardic thus, lowered metoprolol succinate dose from 200mg to 100mg HRs now normal range TSH 10/2020 wnl there have been no pauses, block, slow a.fib, etc while here her PMH suggests h/o SSS so this issue needs to be watched very carefully after d/c - given the med changes - should f/u with EP Dr Weinstein as outpatient on discharge, will be on metoprolol 100mg daily, diltiazem has been stopped (7) Right sided weakness: 2nd to Maco's paralysis in setting of seizure resolved repeat MRI without any new stroke in the motor strip regions (8) Elevated troponin: myocardial demand ischemia in setting of seizure suspected no ischemic symptoms at home or during this stay troponin peaked 0.3 echo with preserved EF and normal wall motion follow (9) Chronic kidney disease, stage III (moderate): stage 3B at baseline now with mild SELVIN repeat BMP am (10) Tobacco dependence: counseled to quit nicoderm patch (11) Hypertension: reduced metoprolol held diltiazem due to bradycardia BPs now a bit high - may need to use amlodipine in laura of the diltiazem if BPs remain high (12) PAF (paroxysmal atrial fibrillation): remains in NSR but had significant bradycardia adjusted BB as above held CCB cont eliquis telemetry see above (13) Hypomagnesemia: replaced resolved (14) Leg cramps: resolved was likely due to low mag at time of admission Fe studies wnl (15) Acute kidney injury: mild see above Cr still 1.5 repeat BMP am (16) UTI (urinary tract infection): 2nd to enterococcus, sensitivities pending given her PCN allergy and acute kidney injury- start daptomycin 4mg/kg IV daily await final culture result (17) Depression: offered medication but she declined could benefit from SSRI or similar daughter extensively updated by physician on day prior to discharge PT/OT : cleared to go home as she has 24/7 care with her daughter for the next week home therapy and home nursing checks Home Health Attestation I certify that this patient is under my care and that I, or a physicians transportation assistant working with me, had a face to-face encounter that meets the home health [id number] encounter requirements with this patient. The encounter with the patient was in whole, or in part, for the following medical condition, which is the primary reason for home health care (list medical condition): seizure I certify that, based on my findings, the following services are medically necessary home health services: My clinical findings support the need for the above services because: OT Assess ADL Status and Restore Function w ADLs PT Assessment for Endurance / Balance / Strength PT Eval for Safety and Mobility PT Eval for Safety, Gait Training, Assistive Devices PT Gait and Balance Training, Strengthening and Safety Further, I certify that my clinical findings support that this patient is homebound (i.e. absences from home require considerable and taxing effort and are for medical reasons or yazidi services or infrequently or of short duration when for other reasons) because: Supportive Aid - Walker Transportation Assistance/Unable to Leave Home Unassisted Certification for Home Health Services: Based on the above findings, I certify that this patient is confined to the home and needs intermittent alf care, physical therapy and/or speech therapy or continues to need occupational therapy. The patient is under my care, and I have initiated the establishment of the plan of care. This patient will be followed by a physician who will periodically review the plan of care. Total Time Total Time Spent Total Time Spent (In Minutes): 34 minutes Discharge Plan Discharge Items Patient Disposition: Home - Home Health Services Reason For Visit: STROKE ALERT Discharge Diagnosis: Stroke Seizure UTI - Enterococcus Acute kidney injury Condition on Discharge: Good Goals: complete course of Cipro get stronger with therapy follow up with lab work next week Activity: Resume your previous activity Weightbearing: Full weightbearing Non-emergency contact: Primary Care Provider Call non-emergency contact if: you have any medication questions and your symptoms worsen Follow-up/Referrals: John Yeung MD [Physician] - (3-4 weeks, new seizure from old stroke) Last Null III, MD [Primary Care Provider] - 05/07/21 3:00 pm (one week, can be with any provider in the office) Diet: Heart Healthy Ambulatory Orders: Basic Metabolic Panel (Routine) Timeframe: 3 Days Location: Determined by Patient Ordered By: Rangel Devine Attending Provider Instructions: Medications: note that several changes have been made - METOPROLOL: dose was REDUCED to 100mg daily from 200mg daily, new prescription sent, next dose due tomorrow morning - DILTIAZEM: this medication was STOPPED, do not take anymore - KEPPRA: 500mg twice a day, this is new medication to prevent seizures, next dose is this evening - CIPRO: antibiotic for UTI, complete 4 more days, next dose is this evening Old stroke, seizure with resulting right sided weakness (Maco's paralysis) recovering well, therapy stated that you were independent but would benefit from having family with you for a week neurology started you on Keppra, this is anti-seizure medication, continue this medication please follow up with neurology in several weeks Acute kidney injury on Chronic kidney disease Creatinine is 1.6 today, has been 1.5 and 1.6 on prior days this is slightly above your baseline but you are making urine, electrolytes are stable please stay well hydrated and well nourished you are not on any medications that are toxic to the kidneys please get lab work next week UTI: urine culture grew out Enterococcus, initially treated with Daptomycin IV it is sensitive to Cipro, change to Cipro for 4 more days Pending Studies at Discharge: No Stand-Alone Forms: My [facility] [email or web address], Smoking Cessation Medications and DC Order Prescriptions: New metoprolol succinate 100 mg tablet extended release 24 hr 100 mg PO DAILY 30 Days Qty: 30 RF: 3 levetiracetam [Keppra] 500 mg Tablet 500 mg PO BID 30 Days Qty: 60 RF: 3 Continued atorvastatin 40 mg tablet 40 mg PO HS Qty: 90 RF: 3 apixaban 5 mg tablet 5 mg PO BID 90 Days Qty: 180 RF: 3 aspirin 81 mg tablet,delayed release (DR/EC) 81 mg PO QAM RF: 0 furosemide 20 mg tablet 20 mg PO DAILY PRN (Reason: sbp > 180 or leg swelling) Qty: 90 RF: 0 acetaminophen [Tylenol Extra Strength] 500 mg Tablet 1,000 mg PO Q6H PRN (Reason: Pain) RF: 0 magnesium oxide 400 mg (241.3 mg magnesium) tablet 400 mg PO QAM RF: 0 omeprazole 20 mg capsule,delayed release(DR/EC) 40 mg PO QAM RF: 0 potassium chloride 20 mEq tablet extended release 20 meq PO QAM RF: 0 cholecalciferol (vitamin D3) 25 mcg (1,000 unit) Capsule 2,000 unit PO QAM Qty: 30 RF: 0 diclofenac sodium [Voltaren Arthritis Pain] 1 % gel 2 g EXT QID PRN (Reason: Pain) RF: 0 Discontinued diltiazem HCl 120 mg capsule,extended release 24hr 120 mg PO BID Qty: 180 RF: 2 metoprolol succinate 200 mg tablet extended release 24 hr 200 mg PO DAILY Qty: 90 RF: 3 Discharge Orders: Discharge Order (Routine); Ordered 04/25/21 Ordered By: Rangel Mejia Admission Data Admit Date/Time: 04/22/21 16:37 Attending Provider: Rangel Mejia Admit Provider: Rosario Washington Primary Care Provider: Last Null III Other Providers: John Yeung ; Rosaroi Washington ; [facility] ; [place] [place] ; [facility] Other Interventions: Discharge Summary Assessment (RN) Last Done: 04/25/21 15:18 Coding Level of Care Code D/C DAY MANAGEMENT >30 MINS Diagnoses Occipital stroke I63.9 Maco's paralysis G83.84 Seizure as late effect of cerebrovascular accident (CVA) I69.398; R56.9 Acute metabolic encephalopathy G93.41 Visual field cut H53.40 Bradycardia R00.1 Right sided weakness R53.1 Elevated troponin R77.8 Chronic kidney disease, stage III (moderate) N18.30 Tobacco dependence F17.200 Hypertension I10 Hypertension type: unspecified PAF (paroxysmal atrial fibrillation) I48.0 Hypomagnesemia E83.42 Leg cramps R25.2 Acute kidney injury N17.9 UTI (urinary tract infection) N39.0 Depression F32.A
[2021-04-26] MEDS ORDERED: CIPROFLOXACIN 250 MG TAB PO SCH (09:00)
[2021-04-27] MEDS ORDERED: DAPTOmycin 200 MG in SYRINGE 0 ML IV SCH (09:00)
== END 2021-04-25 16:04 | disposition home health service (06) | DRG 64 ==
LOC: EDINP 17:19 → ED 17:19 → SUATTDRO 19:52 → 2N 04-21 18:07 → SUATTDRO 04-22 16:37

== ENCOUNTER 2023-11-16 18:06 | Inpatient (IN) ==
[2023-11-16] MEDS: METOPROLOL TARTRATE 1 MG/ML VIAL IV STA ×3 (18:19→20:32)
[2023-11-16] MEDS: levETIRAcetam 500 MG/5 ML VIAL IV STA (18:19)
--- NOTE | 2023-11-16 18:25 | Emergency Department Note ---
Impression & Plan Seizure, Acidosis, lactic, Post-ictal confusion, Hypomagnesemia ED Provider Note Provider: Francois Livingston MD DATE OF SERVICE: 11/16/2023 CHIEF COMPLAINT: Altered mental status, seizure HISTORY OF PRESENT ILLNESS: Patient is a 82-year-old female past medical history including atrial fibrillation on Eliquis, CVA, seizures presenting here today from [place] care via ambulance. Patient evidently had some confusion develop over the past 24 hours of facility. Had basic blood work completed there but evidently no witnessed seizure earlier in the day when seen by medical team. This evening had approximately report of an hour episode of seizure-like event with initially right hand arm twitching and then some generalized seizure activity. Received 2 and half milligrams intranasal Versed as well as 2 mg of intramuscular Ativan for EMS and brought here for further evaluation. Upon arrival follows some simple commands but not really answering questions. No trauma reported. Later history from family arrived report the patient was admitted several weeks ago to [facility] for possible stroke with a negative workup. As for the past 2 weeks or so been at [facility] for rehab. Has been doing well until just today by the report. Evidently had some shaking to the right hand earlier at the facility today and a Keppra level was sent off. PAST MEDICAL HISTORY: As noted above MEDICATIONS: Reviewed medication list from facility. SOCIAL HISTORY: Currently at rehab at [facility]. PHYSICAL EXAM: GENERAL: alert to verbal stimuli following commands appears fatigued and tachypneic Head: normocephalic and atraumatic EYES: No injection, discharge or icterus. PERRL, EOMI. NECK: Trachea midline. ENT: Mucous membranes pink and moist. LUNGS: Airway patent. No retractions. Breath sounds clear but tachypneic here. HEART: Irregular regular tachycardic rate and rhythm. No chest wall tenderness ABDOMEN: Soft and non-tender, without guarding or rebound. SKIN: Acyanotic, warm, dry, without rashes EXTREMITIES: Without deformity with a little bit of decreased capillary refill in the toes bilaterally. No severe swelling notable. NEUROLOGICAL: No focal deficits following commands with all extremities. EK beats minute atrial fibrillation brief 4 beat episode of nonsustained V. tach/PVC. No acute ST segment elevation with nonspecific T wave changes and QTc of 497. CONTINUOUS CARDIAC MONITORING: was ordered and showed a heart rate of 110s-200s bpm in atrial fibrillation occasional PVCs/nonsustained VT. Patient's laboratory studies and imaging reviewed. Differential includes Epilepsy, infection, hypoglycemia, electrolyte abnormalities, cardiac sources, intracerebral event, trauma, toxicologic, neurologic, syncope, as well as other pathologies. IMPRESSION/MEDICAL DECISION MAKING: Afebrile here. Following commands but drowsy and nonverbal. Does make eye contact. Not significant hypoxic but in rapid A-fib. Sounds like he had a prolonged seizure event prior to arrival. Not seizing upon arrival. Will load with additional IV Keppra. Received IV benzodiazepine prior to arrival. Will look for infectious metabolic abnormality. Believe likely significantly acidotic explaining her tachypnea and lactate greater than 17. Given some gentle IV hydration. Head CT to be obtained to exclude intracranial abnormality. Given a bit metoprolol for some rate control as heart rate was approaching 200s here upon arrival. Chest x-ray obtained and per radiology mild cardiomegaly.. Obtain CT abdomen pelvis given elevated lactate here. Not significantly tender on exam however. CK not elevated at this time which is surprising. Minimal troponin elevation 26. Magnesium low and CO2 low. Again compensating for an acidosis. Minimal anemia of 10.8. Leukocytosis 16.5. IV magnesium supplementation ordered. Procalcitonin undetectably low leans against a systemic infection. CT head per radiology with evidence of acute bleed. History of old stroke notable. CT abdomen pelvis without contrast Patient's son later arrives and updated both him and daughter via phone regarding situation. Patient more alert and mumbling some asking for water. Will continue monitor given her significant drowsiness and prolonged seizure event. Do not believe she is continuing to seize at this time. Discussed with the hospitalist team as well as the ICU here. On 2 L of oxygen. Will give some additional metoprolol with heart rates in the 120s as well as a small amount of IV fluid. Urine sample from straight cath was collected. Lactate improving on repeat down to 6. Chemistry is improving and VBG with a pH of 7.35 and a CO2 of 36. Improving acidosis and laboratory studies with resuscitation. Troponin somewhat elevated on repeat like related to her tachycardia from rapid A-fib. Heart rate is again improving. Hospitalist aware. DIAGNOSIS: Seizure, lactic acidosis, hypomagnesemia, postictal confusion, rapid A-fib DISPOSITION: Hospitalist will evaluate Patient was agreeable with this plan. Critical Care I have personally spent 55 minutes of critical care time in the direct management of this patient. This includes bedside care, interpretation of diagnostic studies, and testing, discussion with consultants, patient, and family members, and other required patient management activities. These 55 minutes is in excess of all separately billable procedures. Past Med/Surg History Problem List (Updated 11/16/23 @ 20:58 by Francois Livingston M.D.) Hypomagnesemia (Acute) Post-ictal confusion (Acute) Acidosis, lactic (Acute) Seizure (Acute) Class 1 obesity due to excess calories with serious comorbidity and body mass index (BMI) of 33.0 to 33.9 in adult Depression UTI (urinary tract infection) Occipital stroke Visual field cut Leg cramps PAF (paroxysmal atrial fibrillation) Seizure as late effect of cerebrovascular accident (CVA) On apixaban therapy (Acute) SSS (sick sinus syndrome) Chronic kidney disease, stage III (moderate) Thoracic compression fracture Afib Tobacco use Anticoagulant long-term use Lumbar spinal stenosis Osteoporosis Superficial burn (Acute) Somatic dysfunction of thoracic region Back pain Lumbar back pain (Acute) Tobacco dependence Dyspnea Claudication Hypomagnesemia Atrial fibrillation with rapid ventricular response (Acute) Distal radius fracture, left Vitamin D deficiency Hypercholesteremia (Chronic) S/P cholecystectomy Hx: UTI (urinary tract infection) Depression (Acute) Hypertension (Chronic) Medical History Compression fx, thoracic spine Maco's paralysis Bradycardia Acute metabolic encephalopathy Elevated troponin Aphasia Right sided weakness Acute kidney injury Hypophosphatemia Hypokalemia Acute hyponatremia Elevated troponin I level Weakness Gastroenteritis PAD (peripheral artery disease) Hypertension Hyperlipidemia TIA (transient ischemic attack) History of CVA (cerebrovascular accident) Surgical History Hx of tonsillectomy History of cholecystectomy Family History Other Diabetes Hypertension Myocardial infarction Denies family history of Ovarian cancer Prostate cancer Breast cancer Colorectal cancer Social History Smoking Status: Unknown if ever smoked Age Started Using Tobacco: 32; packs per day: 1; Cigarettes Per Day: pack a day; Second Hand Exposure: Yes; Do You Dip or Chew Tobacco: No; Hx Alcohol Use: No Hx Substance Use: No Preferred Language: Citizen Of [place] Communication Ability: Impaired Hearing Ability: Normal Prison Librarian Required: No Beliefs That Will Affect Care: None marital status: / Current Living Situation: Alone current occupational status: retired Feels Safe at Home: Yes Childhood Exposure to Second-Hand Smoke: No Diet: regular caffeine: Yes (diet coke daily) Dental Care, Regularly: Yes Physical Activity Frequency: Does not Exercise Seatbelt Use: always Sunscreen Use: No Assistive Devices: None and Glasses Allergies Allergies Allergy/AdvReac Type Severity Reaction Status Date / Time Penicillins Allergy Intermediate HIVES Verified 11/16/23 18:42 Home Meds Home Medications Medication Instructions Recorded Confirmed aspirin 81 mg tablet,delayed 81 mg PO QAM 12/16/18 11/16/23 release acetaminophen 325 mg tablet 650 mg PO Q6H PRN PAIN/FEVER 11/16/23 11/16/23 (Tylenol) levetiracetam 500 mg tablet 750 mg PO BID 11/16/23 11/16/23 (Keppra) loperamide 2 mg capsule 2 mg PO Q2H PRN LOOSE STOOLS 11/16/23 11/16/23 omeprazole 40 mg capsule,delayed 80 mg PO DAILY 11/16/23 11/16/23 release Previous Rx's Medication Instructions Recorded metoprolol succinate 100 mg 100 mg PO DAILY 90 days #90 tabs 05/04/23 tablet,extended release 24 hr potassium chloride 20 mEq 20 meq PO QAM #90 tabs 06/10/23 tablet,extended release atorvastatin 40 mg tablet 40 mg PO HS #90 tabs 08/26/23 amlodipine 2.5 mg tablet 2.5 mg PO DAILY #90 tabs 10/26/23 apixaban 5 mg tablet 5 mg PO BID 90 days #180 tabs 11/09/23 Results & Data (ED) Vital Signs Vital Signs - 24 hr 11/16/23 18:12 11/16/23 19:06 11/16/23 19:12 Pulse Rate 141 H 146 H Pulse Rate [Apical] Respiratory Rate Blood Pressure 160/113 H Blood Pressure [Right Arm] Blood Pressure Mean [Right Arm] Pulse Oximetry 98 Oxygen Delivery Method Nasal Cannula Oxygen Flow Rate 6 11/16/23 19:42 11/16/23 20:13 11/16/23 20:21 Pulse Rate 124 H 124 H Pulse Rate [Apical] 132 H Respiratory Rate 28 H Blood Pressure 110/91 150/101 H Blood Pressure [Right Arm] 142/110 H Blood Pressure Mean [Right Arm] 120 Pulse Oximetry 98 Oxygen Delivery Method Room Air Oxygen Flow Rate 11/16/23 20:32 11/16/23 20:54 11/16/23 21:00 Pulse Rate 134 H 120 H Pulse Rate [Apical] 124 H Respiratory Rate 24 Blood Pressure 145/110 H 107/86 Blood Pressure [Right Arm] 133/98 Blood Pressure Mean [Right Arm] 109 Pulse Oximetry 97 Oxygen Delivery Method Nasal Cannula Oxygen Flow Rate 4 Laboratory Data 11/16/23 18:05 11/16/23 20:15 Lab Results 11/16/23 11/16/23 11/16/23 Range/Units 18:05 18:17 18:39 WBC 16.58 H (4.8-10.8) K/ul RBC 3.21 L (4.20-5.40) M/uL Hgb 10.8 L (12.0-16.0) g/dl POC Hgb 11.2 L (12.0-16.0) g/dl Hct 34.7 L (37.0-47.0) % POC Hct 33 L (37-47) % MCV 108.1 H D (80.0-100.0) fL MCH 33.6 (25.0-34.0) pg MCHC 31.1 L (32.0-36.0) g/dL RDW Std Deviation 53.4 H (36.4-46.3) fL RDW Coeff of Faviola 13.4 (11.5-14.5) % Plt Count 361 (130-400) K/uL MPV 11.1 (9.4-12.4) fL Immature Gran % (Auto) 2.5 % Neut % (Auto) 78.6 % Lymph % (Auto) 15.3 % Cocke % (Auto) 3.2 % Eos % (Auto) 0.2 % Baso % (Auto) 0.2 % Neut # (Auto) 13.03 H (1.40-6.50) K/uL Lymph # (Auto) 2.53 (1.20-3.40) K/uL Cocke # (Auto) 0.53 (0.11-0.59) K/uL Eos # (Auto) 0.03 (0.00-0.50) K/uL Baso # (Auto) 0.04 (0.00-0.20) K/uL Immature Gran # (Auto) 0.42 H (0.01-0.20) K/uL Absolute Nucleated RBC 0.04 (0.00-0.12) K/uL Nucleated RBC % (auto) 0.2 % PT 14.4 H (9.0-12.0) Seconds INR 1.4 H (0.9-1.1) VBG pH (7.36-7.41) VBG pCO2 (38-50) mmHg VBG pO2 mmHg VBG HCO3 mmol/L VBG O2 Saturation % VBG Base Excess mEq/L POC Sodium 139 (135-144) mmol/L Sodium 139 (136-145) mmol/L POC Potassium 4.3 (3.3-5.0) mmol/L Potassium 4.3 D (3.5-5.1) mmol/L POC Chloride 104 (101-112) mmol/L Chloride 101 (98-107) mmol/L Carbon Dioxide 6 L* (21-32) mmol/L POC Total CO2 8 L* (24-31) mmol/L Anion Gap 32 H (3-11) POC Anion Gap 32.0 H (16-25) mmol/L POC BUN 7 (7-18) mg/dl BUN 10 (6-23) mg/dl Creatinine 1.64 H D (0.6-1.2) mg/dl POC Creatinine 1.6 H (0.6-1.3) mg/dl Est Cr Clr Drug Dosing Not Reportable Est GFR ( Amer) 33.9 ml/min Est GFR (Non-Af Amer) 29.2 ml/min BUN/Creatinine Ratio 6.1 L (10-20) Glucose 262 H (70-99(Fasting)) mg/dl POC Glucose (other) 242 H (70-99) mg/dl Lactate > 17.0 H* (0.4-2.0) mmol/L Calcium 7.0 L (8.6-10.3) mg/dl POC Ioniz Calcium Ayan 0.83 L (1.12-1.32) mmol/l Magnesium 0.7 L* (1.7-2.4) mg/dl Total Bilirubin 1.1 H (0.2-1.0) mg/dl AST 19 (13-39) U/L ALT 19 (7-52) U/L Alkaline Phosphatase 79 (34-104) U/L Total Creatine Kinase 146 (26-192) U/L Troponin I High Sens 26.9 H (0-14) pg/ml Total Protein 6.1 (6.0-8.3) gm/dl Albumin 3.6 (3.4-5.0) gm/dl Globulin 2.5 (2.5-4.0) gm/dl Albumin/Globulin Ratio 1.4 (0.9-2) Procalcitonin < 0.02 (0-0.5) ng/ml TSH 2.383 (0.300-4.500) uIu/ml Urine Color Urine Appearance (Clear) Urine pH (4.5-7.5) Ur Specific [place] (1.000-1.030) Urine Protein (Negative) Urine Glucose (UA) (Negative) Urine Ketones (Negative) Urine Blood (Negative) Urine Nitrite (Negative) Urine Bilirubin (Negative) Urine Urobilinogen (Negative) Ur Leukocyte Esterase (Negative) Urine WBC (Auto) (0-5) /hpf Urine RBC (Auto) (0-2) /hpf U Hyaline Cast (Auto) (0-2) /lpf U Epithel Cells (Auto) (0-2) /hpf Urine Bacteria (Auto) (None Seen) Adenovirus (PCR) Not Detected (NotDetected) B. pertussis DNA (PCR) Not Detected (NotDetected) B.parapertussis DNA PCR Not Detected (NotDetected) C. pneumoniae DNA (PCR) Not Detected (NotDetected) Coronavirus OC43 (PCR) Not Detected (NotDetected) Coronavirus HKU1 (PCR) Not Detected (NotDetected) Coronavirus 229E (PCR) Not Detected (NotDetected) SARS-CoV-2 (PCR) Not Detected (NotDetected) Coronavirus NL63 (PCR) Not Detected (NotDetected) Human Metapneumovir PCR Not Detected (NotDetected) Influenza Type A (PCR) Not Detected (NotDetected) Influenza Type B (PCR) Not Detected (NotDetected) M. pneumoniae (PCR) Not Detected (NotDetected) Parainfluenza 1 (PCR) Not Detected (NotDetected) Parainfluenza 2 (PCR) Not Detected (NotDetected) Parainfluenza 3 (PCR) Not Detected (NotDetected) Parainfluenza 4 (PCR) Not Detected (NotDetected) RSV (PCR) Not Detected (NotDetected) Entero/Rhino (PCR) Not Detected (NotDetected) 11/16/23 11/16/23 11/16/23 Range/Units 20:15 20:48 20:55 WBC (4.8-10.8) K/ul RBC (4.20-5.40) M/uL Hgb (12.0-16.0) g/dl POC Hgb (12.0-16.0) g/dl Hct (37.0-47.0) % POC Hct (37-47) % MCV (80.0-100.0) fL MCH (25.0-34.0) pg MCHC (32.0-36.0) g/dL RDW Std Deviation (36.4-46.3) fL RDW Coeff of Faviola (11.5-14.5) % Plt Count (130-400) K/uL MPV (9.4-12.4) fL Immature Gran % (Auto) % Neut % (Auto) % Lymph % (Auto) % Cocke % (Auto) % Eos % (Auto) % Baso % (Auto) % Neut # (Auto) (1.40-6.50) K/uL Lymph # (Auto) (1.20-3.40) K/uL Cocke # (Auto) (0.11-0.59) K/uL Eos # (Auto) (0.00-0.50) K/uL Baso # (Auto) (0.00-0.20) K/uL Immature Gran # (Auto) (0.01-0.20) K/uL Absolute Nucleated RBC (0.00-0.12) K/uL Nucleated RBC % (auto) % PT (9.0-12.0) Seconds INR (0.9-1.1) VBG pH 7.35 L (7.36-7.41) VBG pCO2 36 L (38-50) mmHg VBG pO2 31 mmHg VBG HCO3 20 mmol/L VBG O2 Saturation < 60.0 % VBG Base Excess -5.1 mEq/L POC Sodium (135-144) mmol/L Sodium 139 (136-145) mmol/L POC Potassium (3.3-5.0) mmol/L Potassium 3.4 L D (3.5-5.1) mmol/L POC Chloride (101-112) mmol/L Chloride 105 (98-107) mmol/L Carbon Dioxide 16 L (21-32) mmol/L POC Total CO2 (24-31) mmol/L Anion Gap 18 H (3-11) POC Anion Gap (16-25) mmol/L POC BUN (7-18) mg/dl BUN 10 (6-23) mg/dl Creatinine 1.47 H (0.6-1.2) mg/dl POC Creatinine (0.6-1.3) mg/dl Est Cr Clr Drug Dosing Not Reportable Est GFR ( Amer) 38.7 ml/min Est GFR (Non-Af Amer) 33.4 ml/min BUN/Creatinine Ratio 6.8 L (10-20) Glucose 182 H (70-99(Fasting)) mg/dl POC Glucose (other) (70-99) mg/dl Lactate 6.2 H* (0.4-2.0) mmol/L Calcium 6.9 L (8.6-10.3) mg/dl POC Ioniz Calcium Ayan (1.12-1.32) mmol/l Magnesium (1.7-2.4) mg/dl Total Bilirubin (0.2-1.0) mg/dl AST (13-39) U/L ALT (7-52) U/L Alkaline Phosphatase (34-104) U/L Total Creatine Kinase (26-192) U/L Troponin I High Sens 60.8 H* D (0-14) pg/ml Total Protein (6.0-8.3) gm/dl Albumin (3.4-5.0) gm/dl Globulin (2.5-4.0) gm/dl Albumin/Globulin Ratio (0.9-2) Procalcitonin (0-0.5) ng/ml TSH (0.300-4.500) uIu/ml Urine Color Yellow Urine Appearance Clear (Clear) Urine pH 5.5 (4.5-7.5) Ur Specific [place] 1.016 (1.000-1.030) Urine Protein 2+ H (Negative) Urine Glucose (UA) Negative (Negative) Urine Ketones 1+ H (Negative) Urine Blood 1+ H (Negative) Urine Nitrite Negative (Negative) Urine Bilirubin Negative (Negative) Urine Urobilinogen Negative (Negative) Ur Leukocyte Esterase Negative (Negative) Urine WBC (Auto) 0-5 (0-5) /hpf Urine RBC (Auto) 0-2 (0-2) /hpf U Hyaline Cast (Auto) 3-5 H (0-2) /lpf U Epithel Cells (Auto) 0-2 (0-2) /hpf Urine Bacteria (Auto) None Seen (None Seen) Adenovirus (PCR) (NotDetected) B. pertussis DNA (PCR) (NotDetected) B.parapertussis DNA PCR (NotDetected) C. pneumoniae DNA (PCR) (NotDetected) Coronavirus OC43 (PCR) (NotDetected) Coronavirus HKU1 (PCR) (NotDetected) Coronavirus 229E (PCR) (NotDetected) SARS-CoV-2 (PCR) (NotDetected) Coronavirus NL63 (PCR) (NotDetected) Human Metapneumovir PCR (NotDetected) Influenza Type A (PCR) (NotDetected) Influenza Type B (PCR) (NotDetected) M. pneumoniae (PCR) (NotDetected) Parainfluenza 1 (PCR) (NotDetected) Parainfluenza 2 (PCR) (NotDetected) Parainfluenza 3 (PCR) (NotDetected) Parainfluenza 4 (PCR) (NotDetected) RSV (PCR) (NotDetected) Entero/Rhino (PCR) (NotDetected) Administered Medications Magnesium Sulfate/Dextrose (Magnesium Sulfate / D5w) 1 gm in 100 mls @ 50 mls/hr IV Q2H JENNIFER Stop: 11/17/23 00:59 Last Admin: 11/16/23 21:20 Dose: 50 mls/hr Documented By: SKM Discontinued Medications Sodium Chloride (Nss) 500 mls @ 999 mls/hr IV .Q31M ONE Stop: 11/16/23 19:00 Last Infusion: 11/16/23 19:40 Dose: Infused Documented By: JORGE LUIS Admin: 11/16/23 19:02 Dose: 999 mls/hr Documented By: RYAN Magnesium Sulfate/Dextrose (Magnesium Sulfate / D5w) 1 gm in 100 mls @ 200 mls/hr IV Q30M JENNIFER Stop: 11/16/23 19:56 Last Infusion: 11/16/23 20:13 Dose: Infused Documented By: JORGE LUIS Admin: 11/16/23 19:40 Dose: 200 mls/hr Documented By: JORGE LUIS Infusion: 11/16/23 19:40 Dose: Infused Documented By: JORGE LUIS Admin: 11/16/23 19:10 Dose: 200 mls/hr Documented By: JORGE LUIS Sodium Chloride (Nss) 500 mls @ 999 mls/hr IV .Q31M ONE Stop: 11/16/23 21:16 Last Admin: 11/16/23 20:55 Dose: Not Given Documented By: JORGE LUIS Sodium Chloride (Nss) 1,000 mls @ 999 mls/hr IV .Q1H1M ONE Stop: 11/16/23 21:52 Last Admin: 11/16/23 21:20 Dose: 999 mls/hr Documented By: JORGE LUIS Potassium Chloride (K Jacky / Wtr) 10 meq in 100 mls @ 100 mls/hr IV ONE ONE Stop: 11/16/23 21:56 Last Admin: 11/16/23 21:26 Dose: 100 mls/hr Documented By: JORGE LUIS Levetiracetam (Levetiracetam 500 Mg/5 Ml Vial) 1,000 mg IV NOW STA Stop: 11/16/23 18:13 Last Admin: 11/16/23 18:19 Dose: 1,000 mg Documented By: RYAN Metoprolol Tartrate (Metoprolol Tartrate 1 Mg/Ml Vial) 5 mg IV NOW STA Stop: 11/16/23 18:13 Last Admin: 11/16/23 18:19 Dose: 5 mg Documented By: RYAN Metoprolol Tartrate (Metoprolol Tartrate 1 Mg/Ml Vial) 5 mg IV NOW STA Stop: 11/16/23 19:37 Last Admin: 11/16/23 19:42 Dose: 5 mg Documented By: JORGE LUIS Metoprolol Tartrate (Metoprolol Tartrate 1 Mg/Ml Vial) 5 mg IV NOW STA Stop: 11/16/23 20:27 Last Admin: 11/16/23 20:32 Dose: 5 mg Documented By: JORGE LIUS Imaging Data Radiologist's Impression: Chest X-Ray 11/16/23 18:12 XR chest 1V portable HISTORY: Altered mental status. Seizure. COMPARISON: Chest 04/21/2021. FINDINGS: No pneumothorax. No pleural effusions. No focal lung consolidations to suggest a pneumonia. No evidence for pulmonary edema. The cardiac silhouette is mildly enlarged. There are low lung volumes. No acute fractures. IMPRESSION: Mild cardiomegaly. Otherwise, no acute process within the chest. ACT 112: Negative or not required by law. Electronically signed by: Kobe Gold M.D. 11/16/2023 7:[address] 11/16/23 18:12 Exam(s): CT HEAD Without Contrast EXAM: CT Head Without Intravenous Contrast CLINICAL HISTORY: Reason for exam: ams, seizure. TECHNIQUE: Axial computed tomography images of the head/brain without intravenous contrast. CTDI is 62.75 mGy and DLP is 961.59 mGy-cm. Automated exposure control was utilized for the study. A dose lowering technique was utilized adhering to the principles of ALARA. COMPARISON: 04/20/21 FINDINGS: Brain: Stable chronic left parietal and left occipital lobe infarcts. Venegas-white matter differentiation otherwise maintained. Chronic left thalamic lacunar infarct. Generalized volume loss. Confluent hypoattenuation in the cerebral white matter in keeping with chronic small vessel ischemic disease. No hemorrhage, mass-effect, parenchymal edema, or midline shift. Ventricles: Unremarkable. No hydrocephalus. Bones/joints: Unremarkable. No acute fracture. Soft tissues: Unremarkable. Vasculature: Intracranial atherosclerosis. Sinuses: Unremarkable as visualized. Mastoid air cells: Unremarkable as visualized. No mastoid effusion. Orbits: Bilateral lens replacements. IMPRESSION: 1. Chronic left parietal and left occipital infarcts. 2. Involutional and chronic small vessel ischemic changes. 3. No acute findings. Electronically signed by: Nancy Lazcano M.D. 11/16/23 19:25 PM Abdomen/Pelvis CT 11/16/23 18:40 Exam(s): CT ABDOMEN + PELVIS Without Contrast EXAM: CT Abdomen and Pelvis Without Intravenous Contrast CLINICAL HISTORY: Reason for exam: ams, seizure, acidosis. TECHNIQUE: Axial computed tomography images of the abdomen and pelvis without intravenous contrast. CTDI is 33.32 mGy and DLP is 1709.08 mGy-cm. Automated exposure control was utilized for the study. A dose lowering technique was utilized adhering to the principles of ALARA. COMPARISON: 10/20/20 FINDINGS: Lung bases: Calcified granuloma right lower lobe. No consolidation. Pleural space: Small bilateral pleural effusions. ABDOMEN: Liver: Unremarkable. Gallbladder and bile ducts: Cholecystectomy. No ductal dilation. Pancreas: Unremarkable. No ductal dilation. Spleen: Calcified splenic granulomas. Adrenals: Unremarkable. No mass. Kidneys and ureters: No hydronephrosis. No radiopaque stones. Severe left renal atrophy. Simple 2 cm left kidney cyst; no follow-up required. Stomach and bowel: No bowel obstruction. Sigmoid diverticulosis without diverticulitis. PELVIS: Appendix: Normal appendix. Bladder: Unremarkable. No stones. Reproductive: Unremarkable as visualized. ABDOMEN and PELVIS: Intraperitoneal space: Unremarkable. No free fluid or free air. Bones/joints: Osteopenia. Chronic T12 compression fracture. No acute fracture or dislocation. Disc degeneration at the lumbosacral junction. Soft tissues: Unremarkable. Vasculature: Atherosclerosis. Infrarenal abdominal aortic aneurysm measuring 3.2 x 3.5 cm and extending over a craniocaudal length of 9 cm. Lymph nodes: Unremarkable. No enlarged lymph nodes. IMPRESSION: 1. Infrarenal abdominal aortic aneurysm measuring 3.2 x 3.5 cm and extending over a craniocaudal length of 9 cm. Aneurysm previously measured 3 cm. 2. Small bilateral pleural effusions. Electronically signed by: Nancy Lazcano M.D. 11/16/23 20:08 PM Discharge Plan Visit Data Chief Complaint: Seizure ED Provider: Francois Livingston Discharge Problem: Seizure, Acidosis, lactic, Post-ictal confusion, Hypomagnesemia Patient Disposition: Admitted As Inpatient Discharge Instructions Interventions: ED Discharge Assessment Last Done: 11/16/23 22:01
[2023-11-16 18:37] LABS: iSTAT Creatinine 1.6 mg/dl (0.6-1.3); iSTAT Hemoglobin 11.2 g/dl (12.0-16.0); iSTAT Ionized Calcium 0.83 mmol/l (1.12-1.32); iSTAT Potassium 4.3 mmol/L (3.3-5.0)
[2023-11-16 18:53] LABS: Alanine Aminotransferase 19 U/L (7-52); Albumin Globulin Ratio 1.4 (0.9-2); Albumin Level 3.6 gm/dl (3.4-5.0); Alkaline Phosphatase 79 U/L (34-104); Anion Gap 32 (3-11); Aspartate Aminotransferase 19 U/L (13-39); BUN Creatinine Ratio 6.1 (10-20); Basophils # (auto) 0.04 K/uL (0.00-0.20); Basophils % (auto) 0.2 %; Bilirubin,Total 1.1 mg/dl (0.2-1.0); Blood Urea Nitrogen 10 mg/dl (6-23); Carbon Dioxide 6 mmol/L (21-32); Chloride 101 mmol/L (98-107); Creatine Kinase 146 U/L (26-192); Eosinophils # (auto) 0.03 K/uL (0.00-0.50); Eosinophils % (auto) 0.2 %; Est GFR (African American) 33.9 ml/min; Est GFR (Non-African American) 29.2 ml/min; Globulin 2.5 gm/dl (2.5-4.0); Glucose 262 mg/dl (70-99(Fasting)); Hematocrit (blood only) 34.7 % (37.0-47.0); Hemoglobin 10.8 g/dl (12.0-16.0); Immature Granulocytes # (auto) 0.42 K/uL (0.01-0.20); Immature Granulocytes % (auto) 2.5 %; Lymphocytes # (auto) 2.53 K/uL (1.20-3.40); Lymphocytes % (auto) 15.3 %; Magnesium 0.7 mg/dl (1.7-2.4); Mean Corpuscular Hemoglobin 33.6 pg (25.0-34.0); Mean Corpuscular Hgb Conc 31.1 g/dL (32.0-36.0); Mean Corpuscular Volume 108.1 fL (80.0-100.0); Mean Platelet Volume 11.1 fL (9.4-12.4); Monocytes # (auto) 0.53 K/uL (0.11-0.59); Monocytes % (auto) 3.2 %; Neutrophils # (auto) 13.03 K/uL (1.40-6.50); Neutrophils % (auto) 78.6 %; Nucleated RBC # (auto) 0.04 K/uL (0.00-0.12); Nucleated RBC % (auto) 0.2 %; Platelet Count 361 K/uL (130-400); Potassium 4.3 mmol/L (3.5-5.1); RDW Coefficient of Variation 13.4 % (11.5-14.5); RDW Standard Deviation 53.4 fL (36.4-46.3); Red Blood Count 3.21 M/uL (4.20-5.40); Sodium 139 mmol/L (136-145); Total Protein 6.1 gm/dl (6.0-8.3); Troponin I High Sensitivity 26.9 pg/ml (0-14); White Blood Count 16.58 K/ul (4.8-10.8)
[2023-11-16 18:56] LABS: INR 1.4 (0.9-1.1); Prothrombin Time 14.4 Seconds (9.0-12.0)
[2023-11-16 19:00] LABS: Thyroid Stimulating Hormone 2.383 uIu/ml (0.300-4.500)
[2023-11-16] MEDS: SODIUM CHLORIDE 0.9% 500 ML IV ONE ×2 (19:02→20:55)
[2023-11-16] MEDS: MAGNESIUM SULFATE / D5W 1 GM/100 ML BAG IV SCH ×2 (19:10→21:20)
--- NOTE | 2023-11-16 19:19 | XRay Report ---
XR chest 1V portable HISTORY: Altered mental status. Seizure. COMPARISON: Chest 04/21/2021. FINDINGS: No pneumothorax. No pleural effusions. No focal lung consolidations to suggest a pneumonia. No evidence for pulmonary edema. The cardiac silhouette is mildly enlarged. There are low lung volum es. No acute fractures. IMPRESSION: Mild cardiomegaly. Otherwise, no acute process within the chest. ACT 112: Negative or not required by law. Electronically signed by: Kobe Gold M.D. 11/16/2023 7:18 PM
--- NOTE | 2023-11-16 19:26 | CT Scan Report ---
Exam(s): CT HEAD Without Contrast EXAM: CT Head Without Intravenous Contrast CLINICAL HISTORY: Reason for exam: ams, seizure. TECHNIQUE: Axial computed tomography images of the head/brain without intravenous contrast. CTDI is 62.75 mGy and DLP is 961.59 mGy-cm. Automated exposure control was utilized for the study. A dose lowering technique was utilized adhering to the principles of ALARA. COMPARISON: 04/20/21 FINDINGS: Brain: Stable chronic left parietal and left occipital lobe infarcts. Venegas-white matter differentiation otherwise maintained. Chronic left thalamic lacunar infarct. Generalized volume loss. Confluent hypoattenuation in the cerebral white matter in keeping with chronic small vessel ischemic disease. No hemorrhage, mass-effect, parenchymal edema, or midline shift. Ventricles: Unremarkable. No hydrocephalus. Bones/joints: Unremarkable. No acute fracture. Soft tissues: Unremarkable. Vasculature: Intracranial atherosclerosis. Sinuses: Unremarkable as visualized. Mastoid air cells: Unremarkable as visualized. No mastoid effusion. Orbits: Bilateral lens replacements. IMPRESSION: 1. Chronic left parietal and left occipital infarcts. 2. Involutional and chronic small vessel ischemic changes. 3. No acute findings. Electronically signed by: Nancy Lazcano M.D. 11/16/23 19:25 PM
[2023-11-16 19:50] LABS: Adenovirus PCR Not Detected (NotDetected); Bordetella parapertussis PCR Not Detected (NotDetected); Bordetella pertussis PCR Not Detected (NotDetected); Chlamydia pneumoniae PCR Not Detected (NotDetected); Coronavirus 229E PCR Not Detected (NotDetected); Coronavirus CoV-2 (COVID19)PCR Not Detected (NotDetected); Coronavirus HKU1 PCR Not Detected (NotDetected); Coronavirus NL63 PCR Not Detected (NotDetected); Coronavirus OC43PCR Not Detected (NotDetected); Human Metapneumovirus PCR Not Detected (NotDetected); Influenza A PCR Not Detected (NotDetected); Influenza B PCR Not Detected (NotDetected); Mycoplasma pneumoniae PCR Not Detected (NotDetected); Parainfluenza Virus 1 PCR Not Detected (NotDetected); Parainfluenza Virus 2 PCR Not Detected (NotDetected); Parainfluenza Virus 3 PCR Not Detected (NotDetected); Parainfluenza Virus 4 PCR Not Detected (NotDetected); Respiratory Syncytial VirusPCR Not Detected (NotDetected); Rhinovirus/Enterovirus PCR Not Detected (NotDetected)
--- NOTE | 2023-11-16 20:09 | CT Scan Report ---
Exam(s): CT ABDOMEN + PELVIS Without Contrast EXAM: CT Abdomen and Pelvis Without Intravenous Contrast CLINICAL HISTORY: Reason for exam: ams, seizure, acidosis. TECHNIQUE: Axial computed tomography images of the abdomen and pelvis without intravenous contrast. CTDI is 33.32 mGy and DLP is 1709.08 mGy-cm. Automated exposure control was utilized for the study. A dose lowering technique was utilized adhering to the principles of ALARA. COMPARISON: 10/20/20 FINDINGS: Lung bases: Calcified granuloma right lower lobe. No consolidation. Pleural space: Small bilateral pleural effusions. ABDOMEN: Liver: Unremarkable. Gallbladder and bile ducts: Cholecystectomy. No ductal dilation. Pancreas: Unremarkable. No ductal dilation. Spleen: Calcified splenic granulomas. Adrenals: Unremarkable. No mass. Kidneys and ureters: No hydronephrosis. No radiopaque stones. Severe left renal atrophy. Simple 2 cm left kidney cyst; no follow-up required. Stomach and bowel: No bowel obstruction. Sigmoid diverticulosis without diverticulitis. PELVIS: Appendix: Normal appendix. Bladder: Unremarkable. No stones. Reproductive: Unremarkable as visualized. ABDOMEN and PELVIS: Intraperitoneal space: Unremarkable. No free fluid or free air. Bones/joints: Osteopenia. Chronic T12 compression fracture. No acute fracture or dislocation. Disc degeneration at the lumbosacral junction. Soft tissues: Unremarkable. Vasculature: Atherosclerosis. Infrarenal abdominal aortic aneurysm measuring 3.2 x 3.5 cm and extending over a craniocaudal length of 9 cm. Lymph nodes: Unremarkable. No enlarged lymph nodes. IMPRESSION: 1. Infrarenal abdominal aortic aneurysm measuring 3.2 x 3.5 cm and extending over a craniocaudal length of 9 cm. Aneurysm previously measured 3 cm. 2. Small bilateral pleural effusions. Electronically signed by: Nancy Lazcano M.D. 11/16/23 20:08 PM
[2023-11-16 20:53] LABS: Anion Gap 18 (3-11); BUN Creatinine Ratio 6.8 (10-20); Blood Urea Nitrogen 10 mg/dl (6-23); Calcium 6.9 mg/dl (8.6-10.3); Carbon Dioxide 16 mmol/L (21-32); Chloride 105 mmol/L (98-107); Est GFR (African American) 38.7 ml/min; Est GFR (Non-African American) 33.4 ml/min; Glucose 182 mg/dl (70-99(Fasting)); Potassium 3.4 mmol/L (3.5-5.1); Sodium 139 mmol/L (136-145)
[2023-11-16 21:04] LABS: Troponin I High Sensitivity 60.8 pg/ml (0-14)
[2023-11-16 21:07] LABS: Base Excess VBG -5.1 mEq/L; HCO3 VBG 20 mmol/L; Oxygen Saturation VBG < 60.0 %; PCO2 VBG 36 mmHg (38-50); PO2 VBG 31 mmHg; pH VBG 7.35 (7.36-7.41)
[2023-11-16] MEDS: SODIUM CHLORIDE 0.9% 1,000 ML IV ONE (21:20)
[2023-11-16 21:24] LABS: Appearance Urine Clear (Clear); Bacteria Urine Automated None Seen (None Seen); Bilirubin Urine Negative (Negative); Blood Urine 1+ (Negative); Color Urine Yellow; Epithelial Cell Urine Auto 0-2 /hpf (0-2); Glucose Urine UA Negative (Negative); Ketones Urine 1+ (Negative); Leukocyte Esterase Urine Negative (Negative); Nitrite Urine Negative (Negative); Protein Urine 2+ (Negative); RBC Urine Automated 0-2 /hpf (0-2); Specific Gravity Urine 1.016 (1.000-1.030); Urobilinogen Urine Negative (Negative); WBC Urine Automated 0-5 /hpf (0-5); pH Urine 5.5 (4.5-7.5)
[2023-11-16] MEDS: POTASSIUM CHLORIDE / WTR 10 MEQ/100 ML PLCT IV ONE (21:26)
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
[2023-11-16] MEDS ORDERED: DEXTROSE 50% 50 ML SYRINGE IV PRN (22:00)
[2023-11-16] MEDS ORDERED: GLUCOSE 10 TAB/TUBE PO PRN (22:00)
[2023-11-16] MEDS ORDERED: ONDANSETRON INJ 2 MG/ML 2 ML VIAL IV PRN (22:00)
[2023-11-16] MEDS ORDERED: CARBOHYDRATES FOR HYPOGLYCEMIA PO PRN (22:00)
[2023-11-16] MEDS ORDERED: GLUCAGON FOR INJ 1 MG VIAL SQ PRN (22:00)
[2023-11-16] MEDS ORDERED: ACETAMINOPHEN 1000 MG/100 ML IV IV PRN (22:00)
[2023-11-16] MEDS ORDERED: GLUCOSE 40% GEL 15 GM TUBE PO PRN (22:00)
[2023-11-16] MEDS: PANTOprazole 40 MG in SYRINGE 0 ML IV ONE (22:11)
[2023-11-16] MEDS: CEFEPIME 20 ML IV STA (22:11)
[2023-11-16] MEDS: LINEZOLID 600 MG/300 ML BAG IV ONE (22:12)
[2023-11-16] MEDS: Patient's HEIGHT &/or WEIGHT Needed STA ×2 (22:12→23:59)
[2023-11-16] MEDS: Patient's HEIGHT &/or WEIGHT Needed SCH (22:12)
--- NOTE | 2023-11-16 23:29 | Billing Data ---
Date of Service November 16, 2023 Coding Level of Care Code 78762 CRITICAL CARE
[2023-11-16 23:54] LABS: Anion Gap 10 (3-11); BUN Creatinine Ratio 6.9 (10-20); Blood Urea Nitrogen 10 mg/dl (6-23); Calcium 6.3 mg/dl (8.6-10.3); Carbon Dioxide 23 mmol/L (21-32); Chloride 106 mmol/L (98-107); Est GFR (African American) 39.3 ml/min; Est GFR (Non-African American) 33.9 ml/min; Glucose 158 mg/dl (70-99(Fasting)); Potassium 3.8 mmol/L (3.5-5.1); Sodium 139 mmol/L (136-145)
[2023-11-16] MEDS: SODIUM CHLORIDE 0.9% 1,000 ML IV SCH (23:56)
[2023-11-17] MEDS: HEPARIN SODIUM/DEXTROSE 25,000 UNITS/500 ML BAG IV SCH ×2 (00:39→21:29)
[2023-11-17] MEDS: Heparin IV Adult Wt-Based Low-Dose *NO* INITIAL Bolus Protocol IV STA ×2 (00:40→21:57)
[2023-11-17] MEDS: INSULIN ASPART PER UNIT CHARGE SC SCH (00:47)
--- NOTE | 2023-11-17 07:22 | Electroencephalogram ---
EEG Procedure Note Date of Service November 17, 2023 Start / End Times Start Time: 615 End Time: [address] Tillman History 82-year-old with history of seizure disorder Home Medication List Medication Instructions Recorded Confirmed Type aspirin 81 mg tablet,delayed 81 mg PO QAM 12/16/18 11/16/23 History release metoprolol succinate 100 mg 100 mg PO DAILY 90 days #90 tabs 05/04/23 11/16/23 Rx tablet,extended release 24 hr potassium chloride 20 mEq 20 meq PO QAM #90 tabs 06/10/23 11/16/23 Rx tablet,extended release atorvastatin 40 mg tablet 40 mg PO HS #90 tabs 08/26/23 11/16/23 Rx amlodipine 2.5 mg tablet 2.5 mg PO DAILY #90 tabs 10/26/23 11/16/23 Rx apixaban 5 mg tablet 5 mg PO BID 90 days #180 tabs 11/09/23 11/16/23 Rx acetaminophen 325 mg tablet 650 mg PO Q6H PRN PAIN/FEVER 11/16/23 11/16/23 History (Tylenol) levetiracetam 500 mg tablet 750 mg PO BID 11/16/23 11/16/23 History (Keppra) loperamide 2 mg capsule 2 mg PO Q2H PRN LOOSE STOOLS 11/16/23 11/16/23 History omeprazole 40 mg capsule,delayed 80 mg PO DAILY 11/16/23 11/16/23 History release Inpatient Medication List Heparin Sodium/Dextrose (Heparin Sodium/Dextrose) 25,000 units in 500 mls @ 16 mls/hr IV .Q24H JENNIFER; Protocol Stop: 12/16/23 21:59 Last Admin: 11/17/23 00:39 Dose: 800 units/hr, 16 mls/hr Documented By: JORGE LUIS Co-signed By: INGE Sodium Chloride (Nss) 1,000 mls @ 100 mls/hr IV .Q10H JENNIFER Stop: 12/16/23 21:59 Last Admin: 11/16/23 23:56 Dose: 100 mls/hr Documented By: JORGE LUIS Insulin Aspart (Insulin Aspart Per Unit Charge) 0 units SC Q6 JENNIFER Stop: 12/17/23 00:00 Last Admin: 11/17/23 05:34 Dose: Not Given Documented By: Admin: 11/17/23 00:47 Dose: 1 units Documented By: JORGE LUIS Co-signed By: BIBIANA Discontinued Medications Heparin Sodium/Dextrose (Heparin Iv Adult Wt-Based Low-Dose *No* Initial Bolus Protocol) 1 each IV ONE STA; Protocol Stop: 11/16/23 21:42 Last Admin: 11/17/23 00:40 Dose: 1 each Documented By: JORGE LUIS Sodium Chloride (Nss) 500 mls @ 999 mls/hr IV .Q31M ONE Stop: 11/16/23 19:00 Last Infusion: 11/16/23 19:40 Dose: Infused Documented By: JORGE LUIS Admin: 11/16/23 19:02 Dose: 999 mls/hr Documented By: RYAN Magnesium Sulfate/Dextrose (Magnesium Sulfate / D5w) 1 gm in 100 mls @ 200 mls/hr IV Q30M [facility] Stop: 11/16/23 19:56 Last Infusion: 11/16/23 20:13 Dose: Infused Documented By: JORGE LUIS Admin: 11/16/23 19:40 Dose: 200 mls/hr Documented By: JORGE LUIS Infusion: 11/16/23 19:40 Dose: Infused Documented By: JORGE LUIS Admin: 11/16/23 19:10 Dose: 200 mls/hr Documented By: JORGE LUIS Sodium Chloride (Nss) 500 mls @ 999 mls/hr IV .Q31M ONE Stop: 11/16/23 21:16 Last Admin: 11/16/23 20:55 Dose: Not Given Documented By: JORGE LUIS Magnesium Sulfate/Dextrose (Magnesium Sulfate / D5w) 1 gm in 100 mls @ 50 mls/hr IV Q2H [facility] Stop: 11/17/23 00:59 Last Infusion: 11/17/23 01:55 Dose: Infused Documented By: Admin: 11/16/23 23:55 Dose: 50 mls/hr Documented By: JORGE LUIS Infusion: 11/16/23 23:53 Dose: Infused Documented By: JORGE LUIS Admin: 11/16/23 21:20 Dose: 50 mls/hr Documented By: JORGE LUIS Sodium Chloride (Nss) 1,000 mls @ 999 mls/hr IV .Q1H1M ONE Stop: 11/16/23 21:52 Last Infusion: 11/16/23 23:53 Dose: Infused Documented By: JORGE LUIS Admin: 11/16/23 21:20 Dose: 999 mls/hr Documented By: JORGE LUIS Potassium Chloride (K Jacky / Wtr) 10 meq in 100 mls @ 100 mls/hr IV ONE ONE Stop: 11/16/23 21:56 Last Infusion: 11/16/23 22:44 Dose: Infused Documented By: JORGE LUIS Admin: 11/16/23 21:26 Dose: 100 mls/hr Documented By: JORGE LUIS Pantoprazole Sodium 40 mg/ (Syringe) 10 mls @ 5 mls/min IV NOW ONE Stop: 11/16/23 21:46 Last Admin: 11/16/23 22:11 Dose: 5 mls/min Documented By: JORGE LUIS Cefepime HCl (Maxipime) 20 mls @ 5 mls/min IV NOW STA Stop: 11/16/23 21:49 Last Admin: 11/16/23 22:11 Dose: 5 mls/min Documented By: JORGE LUIS Linezolid (Zyvox) 600 mg in 300 mls @ 200 mls/hr IV NOW ONE Stop: 11/16/23 23:29 Last Infusion: 11/16/23 23:53 Dose: Infused Documented By: JORGE LUIS Admin: 11/16/23 22:12 Dose: 200 mls/hr Documented By: JORGE LUIS Levetiracetam (Levetiracetam 500 Mg/5 Ml Vial) 1,000 mg IV NOW STA Stop: 11/16/23 18:13 Last Admin: 11/16/23 18:19 Dose: 1,000 mg Documented By: RYAN Metoprolol Tartrate (Metoprolol Tartrate 1 Mg/Ml Vial) 5 mg IV NOW STA Stop: 11/16/23 18:13 Last Admin: 11/16/23 18:19 Dose: 5 mg Documented By: RYAN Metoprolol Tartrate (Metoprolol Tartrate 1 Mg/Ml Vial) 5 mg IV NOW STA Stop: 11/16/23 19:37 Last Admin: 11/16/23 19:42 Dose: 5 mg Documented By: JORGE LUIS Metoprolol Tartrate (Metoprolol Tartrate 1 Mg/Ml Vial) 5 mg IV NOW STA Stop: 11/16/23 20:27 Last Admin: 11/16/23 20:32 Dose: 5 mg Documented By: JORGE LUIS Miscellaneous (Patient's Height &/Or Weight Needed) 1 each N/A Q2H JENNIFER Stop: 11/17/23 02:45 Last Admin: 11/16/23 22:12 Dose: 1 each Documented By: JORGE LUIS Miscellaneous (Patient's Height &/Or Weight Needed) 1 each N/A NOW STA Stop: 11/16/23 21:55 Last Admin: 11/16/23 22:12 Dose: 1 each Documented By: JORGE LUIS Miscellaneous (Patient's Height &/Or Weight Needed) 1 each N/A NOW STA Stop: 11/16/23 23:32 Last Admin: 11/16/23 23:59 Dose: Not Given Documented By: JORGE LUIS Description This is a 21 electrode EEG with a single channel dedicated to limited EKG. The electrodes were placed in accordance with the International 10-20 system. Interpretation The predominant background activity consists of a fairly well modulated 9 Hz activity, of up to 40 mV in amplitude, seen symmetrically distributed over the posterior head regions bilaterally. This activity attenuates with eye-opening and other alerting procedures. Photic stimulation was performed and elicited no change in the background activity and no abnormal responses were seen. Hyperventilation was not performed. A minimal amount of muscle and movement artifact activity contaminated the recording and did not hinder interpretation to any significant degree. Throughout the recording, there were PZ and O2 electrode artifacts seen ("electrode pops") Throughout the waking portion of the recording, no focal abnormalities, abnormal slow activity, or potentially epileptogenic discharges are seen. The patient entered the drowsy state with no further activation. Deeper stages of sleep were not recorded. In summary, this EEG was normal during wakefulness and drowsiness. No focal abnormalities, potentially epileptogenic discharges, or abnormal slow activity was seen. Clinical Correlation The abscence of potentially epileptogenic activity does not exclude a seizure disorder, since interictally, EEGs can be normal. Clinical correlation is required. [facility] EEG Procedure Codes Indication for Procedure (1) Seizure disorder as sequela of cerebrovascular accident: Neurology Neurology: 64371 EEG include record awake & drowsy
[2023-11-17] MEDS: levETIRAcetam IV 750 MG in 0.9 % SODIUM CHLORIDE 100 ML IV SCH (07:37)
[2023-11-17] MEDS: METOPROLOL TARTRATE 1 MG/ML VIAL IV SCH (07:37)
[2023-11-17 07:50] LABS: Basophils # (auto) 0.02 K/uL (0.00-0.20); Basophils % (auto) 0.1 %; Eosinophils # (auto) 0.01 K/uL (0.00-0.50); Eosinophils % (auto) 0.1 %; Hematocrit (blood only) 30.7 % (37.0-47.0); Hemoglobin 10.2 g/dl (12.0-16.0); Immature Granulocytes # (auto) 0.09 K/uL (0.01-0.20); Immature Granulocytes % (auto) 0.7 %; Lymphocytes # (auto) 1.87 K/uL (1.20-3.40); Lymphocytes % (auto) 13.8 %; Mean Corpuscular Hemoglobin 33.9 pg (25.0-34.0); Mean Corpuscular Hgb Conc 33.2 g/dL (32.0-36.0); Mean Platelet Volume 10.6 fL (9.4-12.4); Monocytes # (auto) 0.84 K/uL (0.11-0.59); Monocytes % (auto) 6.2 %; Neutrophils # (auto) 10.71 K/uL (1.40-6.50); Neutrophils % (auto) 79.1 %; Platelet Count 280 K/uL (130-400); RDW Coefficient of Variation 13.5 % (11.5-14.5); RDW Standard Deviation 50.4 fL (36.4-46.3); Red Blood Count 3.01 M/uL (4.20-5.40); White Blood Count 13.54 K/ul (4.8-10.8)
--- NOTE | 2023-11-17 08:08 | Hospitalist Progress Note ---
Date of Service November 17, 2023 Assessment & Plan (1) Seizure disorder as sequela of cerebrovascular accident: Plan: Seizure activity/postictal confusion/seizure disorder as sequela of previous CVA-metabolic encephalopathy acute to subacute cva seen on mri on aspirin, control secondary risk factors, return to anticoagulation Given Keppra 1000 mg IV by the ED Keppra from 750 mg p.o. twice daily to IV twice daily Order EEG was normal after above treatment Order MRI brain seizure protocol, 5 cm subacute appearing left parietal infarct and acute 2.3 cm left occipital infarct. Consult neurology, recommended add lamictal, discussion for superintendent terminal embolic stroke prevention Severe lactic acidosis- secondary to seizure, no defined infectious etiology found although concern for aspiration with seizure Lactate initially greater than 17, with follow-up 6.2 following IV fluids Follow urine and blood culture sensitivity (2) Atrial fibrillation with rapid ventricular response: Plan: Atrial fibrillation with RVR/PAF/hypertension- on scheduled metoprolol while po intake is in question hold apixaban,holding amlodipine, aspirin, metoprolol succinate 100 mg daily until assured can take po safely persistently elevate xa, stopping heparin gtt and then restarting at low dose no bolus , will need to discuss if xarelto "failure" Most recent echo on 04/23/2021 with ejection fraction 65-70% elevated troponin 17->60->60 suspect demand ischemia (3) Chronic kidney disease, stage III (moderate): Plan: Acute kidney injury superimposed on CKD 3 Magnesium 0.7 on admission, repletion (4) Aspiration pneumonia: Plan: Presumptive aspiration pneumonia- requiring oxygen and clinical examination suggestive of aspiration linezolid 600 mg IV every 12 hours and cefepime 2 g IV every 12 hours DuoNebs scheduled every 2 hours as needed, long standing smoker, likely some copd component Plan GERD- Change omeprazole 80 mg p.o. daily to pantoprazole 40 mg IV daily Admission and Anticipated Discharge Date Admission Date: November 16, 2023 Subjective pt is pleasantly confused and wheezing not offering focal complaints Physical Exam Physical Exam: wheezing sounds to be upper airway, only scant rhonchi at bi bases pt is conversant but confabulatory Results & Data Results & Data Vital Signs (Past 12 Hours) Vital Signs Pulse Pulse Resp BP BP Pulse Ox Pulse Ox 11/17/23 07:37 114 H 128/94 11/17/23 07:35 119 H 24 128/94 97 11/17/23 07:06 123 H 11/17/23 01:00 128 H 26 H 137/101 H 100 11/17/23 00:15 11/17/23 00:00 120 H 20 125/90 100 11/16/23 22:00 100 11/16/23 22:00 124 H 20 140/101 H 100 11/16/23 21:00 124 H 24 133/98 97 11/16/23 20:54 120 H 107/86 11/16/23 20:32 134 H 145/110 H 11/16/23 20:21 132 H 28 H 142/110 H 98 11/16/23 20:13 124 H 150/101 H O2 Del Method O2 Del Method O2 Flow Rate O2 Flow Rate 11/17/23 07:37 11/17/23 07:35 Nasal Cannula 3 11/17/23 07:06 11/17/23 01:00 Nasal Cannula 4 11/17/23 00:15 Nasal Cannula 4 11/17/23 00:00 Nasal Cannula 4 11/16/23 22:00 Nasal Cannula 4 11/16/23 22:00 Nasal Cannula 4 11/16/23 21:00 Nasal Cannula 4 11/16/23 20:54 11/16/23 20:32 11/16/23 20:21 Room Air 11/16/23 20:13 Laboratory Results review cbc review chemistry PG Care Time/CCT Total # of Minutes Spent Total Time Spent with Patient: Total time spent is greater than 50% in coordination of care (as documented) at patient's floor/unit and/or counseling patient: Coding Level of Care Code 97109 SUB INP/OBS CARE 3/50MIN Diagnoses Seizure disorder as sequela of cerebrovascular accident I69.398; G40.909 Atrial fibrillation with rapid ventricular response I48.91 Chronic kidney disease, stage III (moderate) N18.30 Aspiration pneumonia J69.0
--- NOTE | 2023-11-17 08:14 | Neurology Consultation ---
Date of Consultation November 17, 2023 Assessment & Plan (1) Seizure disorder as sequela of cerebrovascular accident: (2) Occipital stroke: (3) Hypertension: (4) Hypomagnesemia: (5) Atrial fibrillation with rapid ventricular response: Plan This patient has a seizure disorder stemming from her somewhat large left occipital stroke (2017), not adequately controlled on current dose of levetiracetam (750 mg twice daily). She had a seizure in the evening of November 15 but no seizure activity clinically or by an EEG this morning since. Her seizures seem to be left parietal occipital focal with or without secondary generalization. She gets a postictal confusional state which can last 48 to 72 hours and a right-sided post ictal weakness (Maco's paralysis) as well. Currently her right-sided weakness is very mild. I am not convinced that levetiracetam is the best anticonvulsant for her type of seizure. Lamotrigine would be ideal but cannot be given IV and takes 3 to 4 weeks to build up to a therapeutic level. Depakote would be another excellent medication for her seizure types. 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 She had profound hypomagnesemia which, by itself, could trigger seizures. She has atrial fibrillation with rapid ventricular response, mild anemia, and elevated white count and lactic acidosis. An infection is suspected, possibly aspiration pneumonia The patient has significant hypertension on admission. Recommendations: 1. Check MRI of the brain with and without contrast 2. Replace magnesium as you are doing 3. Keep levetiracetam 750 mg IV (or p.o. if able) twice daily. 4. Depakote 500mg BID. Check a level in 1 week. 4. Increase activity as able with physical, occupational, and speech therapy. 5. Avoid benzodiazepines or any other ADMINISTRATIVE NURSING SUPERVISOR altering medication. 6. Check B12. Overall, I spent a total of 100 minutes with this case including review of records, review of CT and MRI films, direct evaluation of the patient at bedside, report generation, and discussion of the case with the patient and RN at bedside, daughter via telephone, and Dr. Castillo including differential diagnosis and treatment options. History of Present Illness Reason for Consultation: Patient is an 82-year-old, who was asked to see at the request of Dr. Tillman, for neurologic evaluation regarding seizures Requesting Physician: Dr. Tillman Attending Physician: Roberto Castillo MD History of Present Illness Patient is a history of chronic kidney disease type III, hypertension, atrial fibrillation, dyslipidemia, sick sinus syndrome, and a previous stroke. I spoke to the patient's daughter to get additional history. In 2017 she had a rather large left posterior cerebral artery stroke resulting in a right homonymous hemianopsia and right-sided weakness. The weakness improved. She was put on 81 mg aspirin plus apixaban which she has been on since. In April 2021 she had a seizure and developed right-sided weakness and shaking. It was a focal seizure with some secondary generalization. MRI of the brain at that time showed a small left occipital stroke within the old stroke. EEG at that time showed left temporal sharp waves. She improved with her weakness over time and the seizures were controlled with levetiracetam 500 mg twice daily. She remained on aspirin and apixaban She was last seen by neurology and December 2022. She continued to have the right homonymous hemianopsia but her strength seems fairly symmetrical bilaterally. No hearing loss or confusion was noted at that time and her medications remain the same. Apparently, about 2 to 3 weeks ago she was found by her daughter sitting on the couch not responding. Her right arm was shaking. She was taken to [facility] but because of hypertension and tachycardia (A-fib with rapid ventricular rate) she was transferred to [facility]. Apparently an MRI and EEG were performed which were unremarkable (I do not have these results). Levetiracetam was increased to 750 mg twice a day. Patient had some confusion which took 2 to 3 days to completely resolved. According to the daughter, she has some hearing loss but it does not significant. She does not wear hearing aids. It is typical, following seizures, to not understand what is sent to her, thinking that somebody says something else. After her evaluation at [facility], [facility] Normally she lives alone and does fairly well. Apparently, for the last 24 hours prior to admission she was said to be confused although no one had witnessed any seizures. By the evening of November 15 her right hand started twitching and then she went into a generalized seizure. EMS gave her Versed and Ativan. She arrived to the emergency room November 15 at 1812 with a pulse of 141, blood pressure 160/113, and O2 saturation 98% She was described as being alert without focal deficits CBC showed a white count of 16 with increased neutrophils. Hemoglobin was 10.8 and hematocrit 34.7. MCV was elevated at 108. CHEM profile showed a creatinine of 1.64 with a magnesium of 0.7. Troponin was elevated at 60, urinalysis was unremarkable, lactate was elevated at greater than 17, and TSH was normal at 2.3. She was given an extra 1000 mg of levetiracetam IV. Because of increased wheezing and coughing, as well as her elevated white count and lactate, she was put on cefepime for suspected aspiration pneumonia. Chest x-ray showed mild cardiomegaly. CT scan of the head revealed the old left parietal/occipital CVA with some mild atrophy. There were no acute findings. CT scan of the abdomen pelvis showed an abdominal aortic aneurysm 9 cm long possibly wider compared to the previous scan. An EEG was performed this morning and was unremarkable with no seizure activity or abnormal slowing. There were no spike or sharp wave seen in the left hemisphere. This morning she really is in no complaint of pain or headache. She seems confused and possibly hard of hearing. Allergies Allergy/AdvReac Type Severity Reaction Status Date / Time Penicillins Allergy Intermediate HIVES Verified 11/16/23 18:42 Home Medications Medication Instructions Recorded Confirmed Type aspirin 81 mg tablet,delayed 81 mg PO QAM 12/16/18 11/16/23 History release metoprolol succinate 100 mg 100 mg PO DAILY 90 days #90 tabs 05/04/23 11/16/23 Rx tablet,extended release 24 hr potassium chloride 20 mEq 20 meq PO QAM #90 tabs 06/10/23 11/16/23 Rx tablet,extended release atorvastatin 40 mg tablet 40 mg PO HS #90 tabs 08/26/23 11/16/23 Rx amlodipine 2.5 mg tablet 2.5 mg PO DAILY #90 tabs 10/26/23 11/16/23 Rx apixaban 5 mg tablet 5 mg PO BID 90 days #180 tabs 11/09/23 11/16/23 Rx acetaminophen 325 mg tablet 650 mg PO Q6H PRN PAIN/FEVER 11/16/23 11/16/23 History (Tylenol) levetiracetam 500 mg tablet 750 mg PO BID 11/16/23 11/16/23 History (Corry) loperamide 2 mg capsule 2 mg PO Q2H PRN LOOSE STOOLS 11/16/23 11/16/23 History omeprazole 40 mg capsule,delayed 80 mg PO DAILY 11/16/23 11/16/23 History release Patient History Medical History Compression fx, thoracic spine Maco's paralysis Bradycardia Acute metabolic encephalopathy Elevated troponin Aphasia Right sided weakness Hypophosphatemia Hypokalemia Acute hyponatremia Elevated troponin I level Weakness Gastroenteritis PAD (peripheral artery disease) Hypertension Hyperlipidemia TIA (transient ischemic attack) History of CVA (cerebrovascular accident) Surgical History Hx of tonsillectomy History of cholecystectomy Family History Other Diabetes Hypertension Myocardial infarction Denies family history of Ovarian cancer Prostate cancer Breast cancer Colorectal cancer Social History Smoking Status: Current every day smoker Tobacco Type: Cigarettes Age Started Using Tobacco: 32; packs per day: 1; Cigarettes Per Day: pack a day; Second Hand Exposure: Yes; Do You Dip or Chew Tobacco: No; Hx Alcohol Use: No Hx Substance Use: No Preferred Language: Yemeni Communication Ability: Impaired Hearing Ability: Normal Medical Diagnostic Radiographer Required: No Beliefs That Will Affect Care: None marital status: / Current Living Situation: Alone Current Living Situation Comment: lives at [facility] current occupational status: retired 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 Exam (Neuro) Physical Exam: The patient is right-handed. The patient is awake, alert, and attentive. Speech is normal without any aphasia or dysarthria. Mood seems reasonable and affect is appropriate. The patient was difficult to communicate with because I believe she is somewhat hard of hearing but she just does not comprehend what is said to her. We tried writing sentences to her to read but she did not comprehend that either. She would perseverate after hearing a question on another topic. Pupils are 4 mm bilaterally and reactive to light. Extraocular eye muscles are intact without nystagmus. She does not see off to the right as before There are no deficits to sensation in the face in all 3 distributions of the fifth cranial nerve bilaterally. Corneal reflexes are positive bilaterally. Facial strength and symmetry was normal bilaterally. Hearing seems intact grossly to voice and finger rub bilaterally. Palate moves well without asymmetry. There is normal sternocleidomastoid and trapezius strength bilaterally. Tongue is midline with good strength bilaterally. Neck has a full range of motion without discomfort. There are no cervical bruits bilaterally. There are no cranial or ocular bruits. Heart is without murmur. There is a regular rhythm and rate. Cervical, thoracic, and lumbar spine are nontender to palpation. Gait was not tested. Stance sitting in bed is reasonable With outstretched arms there is no drift. There are no resting, postural, or action tremors. There is no ataxia with finger to nose testing. There is mildly decreased facility in the right hand compared to the left. No other abnormal involuntary movements are noted. Motor strength is 5/5 diffusely in the left upper extremity, including deltoids, biceps, triceps, brachioradialis, wrist flexors and extensors, hairspring inspector, and intri nsic hand muscles. These muscles were 4+/5 on the right. Motor strength is 5/5 diffusely in the left lower extremity, including hip flexors, quadriceps, hamstrings, gastrocnemius, tibialis anterior, tibialis posterior, and Peroneii muscles bilaterally. Again, the same muscles on the right were 4+/5. The limbs have good tone without rigidity or spasticity. There is no atrophy noted in the muscles. Muscle bulk is normal, there is no tenderness to palpation, no myotonia to percussion, and no fasciculations seen. Sensory examination is intact to touch and pin throughout all 4 limbs diffusely. Reflexes are 1/4 in the biceps, triceps, brachioradialis, quadriceps, and Achilles tendons bilaterally. Toes are downgoing with plantar stimulation on the left and equivocal to upgoing on the right. Peripheral pulses are present and of normal quality distally in all 4 limbs. There is no peripheral edema noted in the limbs. Results & Data Vital Signs (Past 12 Hours) Vital Signs Pulse Pulse Resp BP BP Pulse Ox Pulse Ox 11/17/23 07:37 114 H 128/94 11/17/23 07:35 119 H 24 128/94 97 11/17/23 07:06 123 H 11/17/23 01:00 128 H 26 H 137/101 H 100 11/17/23 00:15 11/17/23 00:00 120 H 20 125/90 100 11/16/23 22:00 100 11/16/23 22:00 124 H 20 140/101 H 100 11/16/23 21:00 124 H 24 133/98 97 11/16/23 20:54 120 H 107/86 11/16/23 20:32 134 H 145/110 H 11/16/23 20:21 132 H 28 H 142/110 H 98 11/16/23 20:13 124 H 150/101 H O2 Del Method O2 Del Method O2 Flow Rate O2 Flow Rate 11/17/23 07:37 11/17/23 07:35 Nasal Cannula 3 11/17/23 07:06 11/17/23 01:00 Nasal Cannula 4 11/17/23 00:15 Nasal Cannula 4 11/17/23 00:00 Nasal Cannula 4 11/16/23 22:00 Nasal Cannula 4 11/16/23 22:00 Nasal Cannula 4 11/16/23 21:00 Nasal Cannula 4 11/16/23 20:54 11/16/23 20:32 11/16/23 20:21 Room Air 11/16/23 20:13 PG Care Time/CCT Total # of Minutes Spent Total Time Spent with Patient: Total time spent is greater than 50% in coordination of care (as documented) at patient's floor/unit and/or counseling patient: Coding Level of Care Code 33831 INT INP/OBS CARE 3/MIN Diagnoses Seizure disorder as sequela of cerebrovascular accident I69.398; G40.909 Occipital stroke I63.9 Hypertension, unspecified type I10 Hypertension type: unspecified Hypomagnesemia E83.42 Atrial fibrillation with rapid ventricular response I48.91 Time Spent (min) 100 (3) Hypertension Hypertension type: unspecified Qualified Code(s): I10 - Essential (primary) hypertension
[2023-11-17 08:26] LABS: Albumin Globulin Ratio 1.4 (0.9-2); Albumin Level 3.2 gm/dl (3.4-5.0); Bilirubin,Total 0.9 mg/dl (0.2-1.0); Calcium 6.1 mg/dl (8.6-10.3); Creatinine Clr Calc Pharmacy 36.8 ml/min; Est GFR (African American) 45.3 ml/min; Est GFR (Non-African American) 39.1 ml/min; Globulin 2.3 gm/dl (2.5-4.0); Magnesium 1.8 mg/dl (1.7-2.4); Potassium 3.5 mmol/L (3.5-5.1); Total Protein 5.5 gm/dl (6.0-8.3)
[2023-11-17 08:46] LABS: ANTI-Xa, UFH(UnfractionatedHep > 1.50 IU/ml (0.3-0.7)
[2023-11-17] MEDS: LINEZOLID 600 MG/300 ML BAG IV SCH (09:27)
[2023-11-17] MEDS: VALPROATE SOD 500 MG in DEXTROSE 5% 50 ML IV SCH (09:51)
[2023-11-17] MEDS: CEFEPIME 2,000 MG in SYRINGE 0 ML IV SCH (09:51)
[2023-11-17 10:32] LABS: Estimated Average Glucose 114 mg/dl; Hemoglobin A1C 5.6 % (4.5-5.6)
[2023-11-17 10:53] LABS: ANTI-Xa, UFH(UnfractionatedHep 1.31 IU/ml (0.3-0.7)
[2023-11-17] MEDS: FUROSEMIDE INJ 20 MG/2 ML VIAL IV ONE (10:58)
[2023-11-17] MEDS: PANTOprazole 40 MG in SYRINGE 0 ML IV SCH (10:58)
[2023-11-17] MEDS: ALBUT/IPRATROP 3MG/0.5MG NEB 3 ML VIAL NEB SCH (10:59)
[2023-11-17] MEDS ORDERED: PANTOprazole 40 MG in SYRINGE 0 ML IV SCH (11:00)
[2023-11-17] MEDS: GADOBUTROL 65ML VIAL IV ONE (13:21)
--- NOTE | 2023-11-17 14:07 | Magnetic Resonance Report ---
MR brain seizure wo/w con HISTORY: 82 years-old Female seizure activity seizure-like activity COMPARISON: Head CT 11/16/2023, brain MRI April 22, 2021 TECHNIQUE: Multiplanar multisequence MRI of the brain was obtained with and without IV contrast. FINDINGS: Chronic left parietal and occipital infarct redemonstrated with associated encephalomalacia and glios is. There is a superimposed subacute appearing cortically-based 5 cm infarct within the superior left parietal lobe on image 18 series 4 adjacent to the chronic infarct demonstrating increased T2/FLAIR signal and mild cortically based enhancement.. There is an additional 2.3 cm acute left occipital inf arct on image 12 series 4 with increased T2/FLAIR signal. Midline structures appear unremarkable. Degenerative changes of the imaged cervical spine. Study is m otion degraded. No acute intracranial hemorrhage, midline shift, abnormal extra-axial collection or i ntra-axial mass. The cerebral venous sinuses and major arterial flow voids appear patent. Right great er than left mastoid effusions. Mild mucosal thickening of the ethmoid air cells. Bilateral lens repa ir. The visualized medial temporal lobes appear normal. Study is motion degraded. Involutional change s with extensive T2/FLAIR hyperintense foci throughout the white matter. IMPRESSION: 1. 5 cm subacute appearing left parietal infarct and acute 2.3 cm left occipital infarct. 2. Chronic left parietal and occipital infarcts. 3. Involutional changes with extensive chronic microvascular ischemic disease. ACT 112: Negative or not required by law. The above report was generated using voice recognition software. It may contain grammatical, syntax o r spelling errors. Electronically signed by: Oren Burton M.D. 11/17/2023 2:06 PM
[2023-11-17 19:58] LABS: ANTI-Xa, UFH(UnfractionatedHep 0.56 IU/ml (0.3-0.7)
[2023-11-18 03:58] LABS: Basophils # (auto) 0.03 K/uL (0.00-0.20); Basophils % (auto) 0.3 %; Eosinophils # (auto) 0.13 K/uL (0.00-0.50); Eosinophils % (auto) 1.2 %; Hematocrit (blood only) 29.2 % (37.0-47.0); Hemoglobin 9.5 g/dl (12.0-16.0); Immature Granulocytes # (auto) 0.06 K/uL (0.01-0.20); Immature Granulocytes % (auto) 0.6 %; Lymphocytes # (auto) 1.93 K/uL (1.20-3.40); Lymphocytes % (auto) 17.8 %; Mean Corpuscular Hemoglobin 33.5 pg (25.0-34.0); Mean Corpuscular Hgb Conc 32.5 g/dL (32.0-36.0); Mean Corpuscular Volume 102.8 fL (80.0-100.0); Mean Platelet Volume 10.8 fL (9.4-12.4); Monocytes % (auto) 5.5 %; Neutrophils % (auto) 74.6 %; Platelet Count 261 K/uL (130-400); RDW Coefficient of Variation 13.6 % (11.5-14.5); RDW Standard Deviation 51.3 fL (36.4-46.3); Red Blood Count 2.84 M/uL (4.20-5.40); White Blood Count 10.85 K/ul (4.8-10.8)
[2023-11-18 04:37] LABS: Albumin Globulin Ratio 1.5 (0.9-2); Albumin Level 3.1 gm/dl (3.4-5.0); BUN Creatinine Ratio 6.6 (10-20); Bilirubin,Total 0.6 mg/dl (0.2-1.0); Creatinine Clr Calc Pharmacy 28.6 ml/min; Est GFR (African American) 33.4 ml/min; Est GFR (Non-African American) 28.8 ml/min; Globulin 2.1 gm/dl (2.5-4.0); Magnesium 1.3 mg/dl (1.7-2.4); Total Protein 5.2 gm/dl (6.0-8.3)
--- NOTE | 2023-11-18 06:52 | Electrocardiogram Report ---
Test Reason : Blood Pressure : / mmHG Vent. Rate : 163 BPM Atrial Rate : 147 BPM P-R Int : 000 ms QRS Dur : 064 ms QT Int : 302 ms P-R-T Axes : 000 094 131 degrees QTc Int : 497 ms Atrial fibrillation with rapid ventricular response with premature ventricular or aberrantly conducte d complexes Rightward axis Low voltage QRS Cannot rule out Anteroseptal infarct (cited on or before 16-NOV-2014) Nonspecific ST and T wave abnormality Abnormal ECG When compared with ECG of 23-SEP-2022 13:08, Atrial fibrillation has replaced Sinus rhythm Vent. rate has increased by 108 bpm Confirmed by Jakub Hampton ([id number]) on 11/18/2023 6:52:21 AM Referred By: [facility] Confirmed By:Jakub Hampton
--- NOTE | 2023-11-18 08:06 | XRay Report ---
XR chest 1V portable HISTORY: 82 years-old Female eval for aspiration pneumonia acute shortness of breath COMPARISON: 11/16/2023 TECHNIQUE: AP view of the chest FINDINGS: Cardiac silhouette is enlarged. Trace pleural effusions redemonstrated. Pulmonary vascular congestion . Minimal bibasilar densities. Calcified granuloma, and lymph nodes of the chest. Bones appear grossl y intact. Atherosclerosis of the aorta. IMPRESSION: 1. Cardiomegaly with pulmonary vascular congestion. 2. Trace pleural effusions with mild bibasilar densities suggestive of atelectasis. 3. Prior granulomatous disease. ACT 112: Negative or not required by law. The above report was generated using voice recognition software. It may contain grammatical, syntax o r spelling errors. Electronically signed by: Oren Burton M.D. 11/18/2023 8:03 AM
--- NOTE | 2023-11-18 08:53 | Neurology Progress Note ---
Date of Service November 18, 2023 Assessment & Plan (1) Occipital stroke: (2) Seizure disorder as sequela of cerebrovascular accident: (3) Hypertension: (4) Hypomagnesemia: (5) Atrial fibrillation with rapid ventricular response: Plan This patient has a seizure disorder stemming from her somewhat large left occipital stroke (2017), not adequately controlled on current dose of levetiracetam (750 mg twice daily). She had a seizure in the evening of November 15 but no seizure activity clinically or by an EEG this morning since. Her seizures seem to be left parietal occipital focal with or without secondary generalization. She gets a postictal confusional state which can last 48 to 72 hours and a right-sided post ictal weakness (Maco's paralysis) as well. Currently her right-sided weakness is very mild. The patient has had an extension of her previous stroke in the left occipital area and seems to have a watershed type infarct at the distal middle cerebral artery territory next to the SURGICAL SUPERVISOR territory. Therefore, there are 2 new areas of infarct near the old original stroke. 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 Previous CT angiography and April 2021 showed a small left ICA aneurysm and less than 50% stenosis of the right internal carotid artery. The etiology of the new strokes are likely decreased perfusion/thrombotic. I doubt the strokes were embolic I am not convinced that levetiracetam is the best anticonvulsant for her type of seizure. Lamotrigine would be ideal but cannot be given IV and takes 3 to 4 weeks to build up to a therapeutic level. Depakote would be another excellent medication for her seizure types. 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 She had profound hypomagnesemia which, by itself, could trigger seizures. She has atrial fibrillation with rapid ventricular response, mild anemia, and elevated white count and lactic acidosis. An infection is suspected, possibly aspiration pneumonia The patient has significant hypertension on admission. Avoid overcorrection of blood pressure as this will increase chances of watershed infarcts. Recommendations: 1. Consider CT angiography of the head and neck, compared to the previous scan. 2. Echocardiogram to evaluate for source of thrombus and compare to the previous scan. 3. Replace magnesium as you are doing 4. Keep levetiracetam 750 mg IV (or p.o. if able) twice daily. 5. Continue valproic acid 500 mg twice daily. Check a trough valproic acid level in 5 to 7 days. 6. Increase activity as able with physical, occupational, AND speech therapy. 7. Avoid benzodiazepines or any other DOCUMENT [employer] SUPERVISOR altering medication. 8. Initiate clopidogrel 75 mg daily and discontinue 81 mg aspirin daily. 9. Check B12. 10. Control blood pressure as you are doing and try to keep the mean arterial pressure approximately 100. Overall, I spent a total of 50 minutes with this case including review of records, review of MRI films, direct evaluation of the patient at bedside, report generation, and discussion of the case with the patient and RN at bedside, Dr. Gold, and Dr. Castillo including differential diagnosis and treatment options. Admission and Anticipated Discharge Date Admission Date: November 16, 2023 Subjective Patient herself has no complaint of pain but she feels that her vision is "blurry" (actually it seems like the bright sunlight coming into her room bothers her more than anything else). Nursing reports no new issues or problems overnight. No further seizures. MRI of the brain shows new infarct in the left SURGICAL SUPERVISOR territoryhigher up in the distal fringes of the left middle cerebral artery territory (perhaps watershed between the SURGICAL SUPERVISOR and MCA). Previous CT angiography of the head revealed an occluded posterior cerebral artery (seen as recently as April 2021). I reviewed these films with Dr. Gold, radiology. Blood pressure is 136/80 and she is afebrile. Pulse is 116. Chest x-ray shows cardiomegaly with trace pleural effusions and mild bibasilar densities suggestive of atelectasis. There was prior granulomatous disease but no signs of infiltration. Today CBC shows anemia and a white count of 10.8 (lower than yesterday). CHEM profile showed a creatinine of 1.66 and a glucose of 89. Calcium is low at 6.0 and magnesium is low at 1.3. Folate is normal at 7.28 Results & Data Vital Signs (Past 12 Hours) Vital Signs Temp Pulse Pulse Resp BP BP Pulse Ox 11/18/23 07:50 116 H 136/80 11/18/23 07:36 36.4 C L 105 H 19 143/92 H 94 11/18/23 07:10 110 H 22 92 11/18/23 04:16 109 H 08/01/24 03:57 128 H 125/85 08/01/24 03:56 128 H 125/85 11/18/23 02:49 36.6 C 108 H 18 126/78 94 11/18/23 00:40 120 H 11/18/23 00:08 107 H 113/77 11/18/23 00:06 107 H 113/77 11/17/23 23:09 36.9 C 101 H 18 122/81 95 11/17/23 22:05 120 H 11/17/23 21:45 36.5 C 115 H 18 99/61 L 99 11/17/23 21:00 118 H 99/61 L O2 Del Method 11/18/23 07:50 11/18/23 07:36 Room Air 11/18/23 07:10 Room Air 11/18/23 04:16 11/18/23 03:57 11/18/23 03:56 11/18/23 02:49 Room Air 11/18/23 00:40 11/18/23 00:08 11/18/23 00:06 11/17/23 23:09 Room Air 11/17/23 22:05 11/17/23 21:45 Room Air 11/17/23 21:00 Exam (Neuro) Physical Exam: The patient was sleepy but easily aroused to voice. She is awake and alert and attentive. I did not detect any dysarthria. She does not seem to comprehend all questions and is a little hard of hearing which compounds the problem. She knew her name, but not her age. She was confused and not understanding questions. She would perseverate answers. Her example, when asked to her age she would state "my name is Kathi ". There is a concern about difficulty hearing but I was talking loud enough and convinced that she was hearing my questions adequately. Overall, this is reminiscent of a receptive aphasia. Extraocular eye muscles are intact without nystagmus. There is no facial droop. Tongue is midline. Coordination seems normal in the arms without tremor or ataxia. Strength was fairly symmetrical although the right hand was slightly weaker than the left. The right lower extremity was fairly symmetrical with the left. PG Care Time/CCT Total # of Minutes Spent Total Time Spent with Patient: Total time spent is greater than 50% in coordination of care (as documented) at patient's floor/unit and/or counseling patient: Coding Level of Care Code 86361 SUB INP/OBS CARE 3/50MIN Diagnoses Occipital stroke I63.9 Seizure disorder as sequela of cerebrovascular accident I69.398; G40.909 Hypertension, unspecified type I10 Hypertension type: unspecified Hypomagnesemia E83.42 Atrial fibrillation with rapid ventricular response I48.91 Time Spent (min) 50 (3) Hypertension Hypertension type: unspecified Qualified Code(s): I10 - Essential (primary) h ypertension
[2023-11-18] MEDS: POTASSIUM CHLORIDE / WTR 10 MEQ/100 ML PLCT IV SCH (09:22)
[2023-11-18] MEDS: MAGNESIUM SULFATE / D5W 1 GM/100 ML BAG IV SCH (09:22)
[2023-11-18] MEDS: CLOPIDOGREL BISULFATE 75 MG TAB PO SCH (09:28)
[2023-11-18] MEDS: POTASSIUM CHLORIDE 40 MEQ in SODIUM CHLORIDE 0.9% 1,000 ML IV SCH (09:28)
[2023-11-18] MEDS: POTASSIUM CHLORIDE CRTAB 20 MEQ TABCR PO SCH (11:08)
--- NOTE | 2023-11-18 15:27 | XCELERA ---
[id number]
--- NOTE | 2023-11-18 15:58 | Hospitalist Progress Note ---
Date of Service November 18, 2023 Assessment & Plan (1) Seizure disorder as sequela of cerebrovascular accident: Plan: Seizure activity/postictal confusion/seizure disorder as sequela of previous CVA-metabolic encephalopathy acute to subacute cva seen on mri on aspirin, control secondary risk factors, return to anticoagulation Given Keppra 1000 mg IV by the ED Keppra from 750 mg p.o. twice daily to IV twice daily EEG was normal after above treatment MRI brain seizure protocol, 5 cm subacute appearing left parietal infarct and acute 2.3 cm left occipital infarct. Consult neurology, recommended add lamictal, discussion for shelter embolic stroke prevention feels stroke more likely extension from prior vascular disease Severe lactic acidosis- secondary to seizure, no defined infectious etiology found although concern for aspiration with seizure Lactate initially greater than 17, with follow-up 6.2 following IV fluids Follow urine and blood culture sensitivity (2) Atrial fibrillation with rapid ventricular response: Plan: Atrial fibrillation with RVR/PAF/hypertension-now taking po restart metoprolol with iv backup resume apixiban if ECHO does not show intra cardiac embolic source, remains on heparin at the present Most recent echo on 04/23/2021 with ejection fraction 65-70% elevated troponin 17->60->60 suspect demand ischemia (3) Chronic kidney disease, stage III (moderate): Plan: Acute kidney injury superimposed on CKD 3 Magnesium 0.7 on admission, repletion (4) Aspiration pneumonia: Plan: Presumptive aspiration pneumonia- requiring oxygen and clinical examination suggestive of aspiration linezolid 600 mg IV every 12 hours and cefepime 2 g IV every 12 hours, repeat cxr without pneumonia will stop antibiotics DuoNebs scheduled every 2 hours as needed, long standing smoker, likely some copd component, pt stopped mdi in the past ans is not interested in restarting them Plan GERD- Change omeprazole 80 mg p.o. daily to pantoprazole 40 mg IV daily will need placement Admission and Anticipated Discharge Date Admission Date: November 16, 2023 Subjective pt is more alert but still with incorrect words when discussing son at the bedside and updated continue PT/OT/Speech, will need rehab after discharge Physical Exam Physical Exam: Pt is awake and alert oriented x 1 cardiac is tachycardic, murmur heard lungs with audible wheezes, not as pronounced with auscultation ext with edema Results & Data Results & Data Vital Signs (Past 12 Hours) Vital Signs Temp Pulse Pulse Resp BP BP Pulse Ox 11/18/23 15:21 110 H 20 97 11/18/23 15:18 97.9 F 118 H 22 102/78 97 11/18/23 11:32 129 H 107/82 11/18/23 11:25 98.2 F 129 H 19 107/82 97 11/18/23 11:00 106 H 20 97 11/18/23 08:42 11/18/23 07:50 116 H 136/80 11/18/23 07:36 97.5 F L 105 H 19 143/92 H 94 11/18/23 07:10 110 H 22 92 11/18/23 04:16 109 H 11/18/23 03:57 128 H 125/85 11/18/23 03:56 128 H 125/85 O2 Del Method 11/18/23 15:21 Room Air 11/18/23 15:18 Room Air 11/18/23 11:32 11/18/23 11:25 Room Air 11/18/23 11:00 Room Air 11/18/23 08:42 Room Air 11/18/23 07:50 11/18/23 07:36 Room Air 11/18/23 07:10 Room Air 11/18/23 04:16 11/18/23 03:57 11/18/23 03:56 Laboratory Results review cbc review chemistry PG Care Time/CCT Total # of Minutes Spent Total Time Spent with Patient: Total time spent is greater than 50% in coordination of care (as documented) at patient's floor/unit and/or counseling patient: Coding Level of Care Code 92930 SUB INP/OBS CARE 3/50MIN Diagnoses Seizure disorder as sequela of cerebrovascular accident I69.398; G40.909 Atrial fibrillation with rapid ventricular response I48.91 Chronic kidney disease, stage III (moderate) N18.30 Aspiration pneumonia J69.0
[2023-11-18] MEDS: METOPROLOL TARTRATE 25 MG TAB PO ONE (16:33)
[2023-11-18] MEDS: METOPROLOL TARTRATE 1 MG/ML VIAL IV PRN (16:42)
[2023-11-19] MEDS: METOPROLOL TARTRATE 1 MG/ML VIAL IV STA (02:50)
[2023-11-19 03:02] LABS: Basophils # (auto) 0.03 K/uL (0.00-0.20); Basophils % (auto) 0.3 %; Eosinophils # (auto) 0.23 K/uL (0.00-0.50); Eosinophils % (auto) 2.2 %; Hemoglobin 9.9 g/dl (12.0-16.0); Immature Granulocytes # (auto) 0.06 K/uL (0.01-0.20); Immature Granulocytes % (auto) 0.6 %; Lymphocytes # (auto) 1.91 K/uL (1.20-3.40); Lymphocytes % (auto) 18.7 %; Mean Corpuscular Hemoglobin 33.8 pg (25.0-34.0); Mean Corpuscular Volume 102.4 fL (80.0-100.0); Mean Platelet Volume 10.7 fL (9.4-12.4); Monocytes # (auto) 0.62 K/uL (0.11-0.59); Monocytes % (auto) 6.1 %; Neutrophils # (auto) 7.39 K/uL (1.40-6.50); Neutrophils % (auto) 72.1 %; Platelet Count 264 K/uL (130-400); RDW Coefficient of Variation 13.6 % (11.5-14.5); RDW Standard Deviation 51.7 fL (36.4-46.3); Red Blood Count 2.93 M/uL (4.20-5.40); White Blood Count 10.24 K/ul (4.8-10.8)
[2023-11-19 03:16] LABS: Albumin Globulin Ratio 1.4 (0.9-2); Albumin Level 3.2 gm/dl (3.4-5.0); BUN Creatinine Ratio 5.6 (10-20); Bilirubin,Total 0.6 mg/dl (0.2-1.0); Calcium 6.6 mg/dl (8.6-10.3); Est GFR (African American) 30.3 ml/min; Est GFR (Non-African American) 26.1 ml/min; Globulin 2.3 gm/dl (2.5-4.0); Magnesium 1.9 mg/dl (1.7-2.4); Potassium 3.4 mmol/L (3.5-5.1); Total Protein 5.5 gm/dl (6.0-8.3)
[2023-11-19 03:21] LABS: ANTI-Xa, UFH(UnfractionatedHep 0.31 IU/ml (0.3-0.7)
--- NOTE | 2023-11-19 07:23 | Hospitalist Progress Note ---
Date of Service November 19, 2023 Assessment & Plan (1) Seizure disorder as sequela of cerebrovascular accident: Plan: Seizure activity/postictal confusion/seizure disorder as sequela of previous CVA-metabolic encephalopathy acute to subacute cva seen on mri on aspirin, control secondary risk factors, return to anticoagulation Given Keppra 1000 mg IV by the ED Keppra from 750 mg p.o. twice daily to IV twice daily EEG was normal after above treatment MRI brain seizure protocol, 5 cm subacute appearing left parietal infarct and acute 2.3 cm left occipital infarct. Consult neurology, recommended add lamictal, (level scheduled drawn 11/19/2023) discussion for custodial embolic stroke prevention feels stroke more likely extension from prior vascular disease they are comfortable resuming apixaban with Plavix Speech therapy did see and release the patient for oral intake Severe lactic acidosis- secondary to seizure, resolved urine culture did not show any growth (2) Atrial fibrillation with rapid ventricular response: Plan: Atrial fibrillation with RVR/PAF/hypertension-now taking po restart metoprolol with iv backup resume apixiban if ECHO does not show intra cardiac embolic source, remains on heparin at the present Most recent echo on 04/23/2021 with ejection fraction 65-70% elevated troponin 17->60->60 suspect demand ischemia add 2 doses of digoxin on 11/19/2023 if improved consider continuing, need to replete electrolytes also (3) Chronic kidney disease, stage III (moderate): Plan: Acute kidney injury superimposed on CKD 3 Magnesium 0.7 on admission, repletion (4) Aspiration pneumonia: Plan: Presumptive aspiration pneumonia- requiring oxygen and clinical examination suggestive of aspiration linezolid 600 mg IV every 12 hours and cefepime 2 g IV every 12 hours, repeat cxr without pneumonia will stop antibiotics DuoNebs scheduled every 2 hours as needed, long standing smoker, likely some copd component, pt stopped mdi in the past ans is not interested in restarting them Plan GERD- Change omeprazole 80 mg p.o. daily to pantoprazole 40 mg IV daily will need placement, family request [facility] evaluation Admission and Anticipated Discharge Date Admission Date: November 16, 2023 Subjective Patient remains with some dysarthria was seen by speech and cleared to eat. In the past there was some concern regarding aspiration pneumonia but x-ray did not show this. Daughter was at bedside and updated requested evaluation by [facility]. Physical Exam Physical Exam: Patient is awake and responsive she has some dysarthria Patient has a tachycardic regular rhythm confirmed atrial fibrillation on monitor Lungs are diminished at the breath sounds but otherwise there is no focal loss or wheezes. Wheezes have resolved Abdomen NABS soft nontender Extremities are with trace edema Results & Data Results & Data Vital Signs (Past 12 Hours) Vital Signs Temp Pulse Pulse Resp BP BP BP 11/19/23 07:01 115 H 16 11/19/23 03:16 97.7 F 132 H 16 147/84 H 11/19/23 03:05 132 H 147/84 H 11/19/23 02:50 129 H 141/87 H 11/18/23 23:01 97.9 F 121 H 16 121/76 11/18/23 22:33 113 H 121/76 11/18/23 22:18 130 H 120/79 11/18/23 21:00 11/18/23 19:35 97.5 F L 128 H 18 123/86 Pulse Ox O2 Del Method 11/19/23 07:01 95 Room Air 11/19/23 03:16 97 Room Air 11/19/23 03:05 11/19/23 02:50 11/18/23 23:01 99 Room Air 11/18/23 22:33 11/18/23 22:18 11/18/23 21:00 Room Air 11/18/23 19:35 97 Room Air Laboratory Results Reviewed CBC reviewed chemistry PG Care Time/CCT Total # of Minutes Spent Total Time Spent with Patient: Total time spent is greater than 50% in coordination of care (as documented) at patient's floor/unit and/or counseling patient: Coding Level of Care Code 24570 SUB INP/OBS CARE 3/50MIN Diagnoses Seizure disorder as sequela of cerebrovascular accident I69.398; G40.909 Atrial fibrillation with rapid ventricular response I48.91 Chronic kidney disease, stage III (moderate) N18.30 Aspiration pneumonia J69.0
[2023-11-19] MEDS: METOPROLOL SUCC 50MG EXT REL TAB PO SCH (07:35)
[2023-11-19] MEDS: DIGOXIN 250 MCG in SYRINGE 9 ML IV STA ×2 (07:51→18:16)
--- NOTE | 2023-11-19 08:58 | Neurology Progress Note ---
Date of Service November 19, 2023 Assessment & Plan (1) Occipital stroke: (2) Seizure disorder as sequela of cerebrovascular accident: (3) Hypertension: (4) Hypomagnesemia: (5) Atrial fibrillation with rapid ventricular response: Plan This patient has a seizure disorder stemming from her somewhat large left occipital stroke (2017), not adequately controlled on current dose of levetiracetam (750 mg twice daily). She had a seizure in the evening of November 15 but no seizure activity clinically or by an EEG this morning since. Her seizures seem to be left parietal occipital focal with or without secondary generalization. She gets a postictal confusional state which can last 48 to 72 hours and a right-sided post ictal weakness (Maco's paralysis) as well. Today the patient still has some confusion, but I believe is a little improved compared to last 2 days. She has no focal weakness today. The patient has had an extension of her previous stroke in the left occipital area and seems to have a watershed type infarct at the distal middle cerebral artery territory next to the PHARMACEUTICAL SPECIALTY REPRESENTATIVE territory. Therefore, there are 2 new areas of infarct near the old original stroke. The left PHARMACEUTICAL SPECIALTY REPRESENTATIVE artery is known to have been occluded. Previous CT angiography and April 2021 showed a small left ICA aneurysm and less than 50% stenosis of the right internal carotid artery. The etiology of the new strokes are likely decreased perfusion/thrombotic. I doubt the strokes were embolic and echocardiogram did not show any obvious source of emboli. I am not convinced that levetiracetam is the best anticonvulsant for her type of seizure. Lamotrigine would be ideal but cannot be given IV and takes 3 to 4 weeks to build up to a therapeutic level. Depakote would be another excellent medication for her seizure types. 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 She had profound hypomagnesemia which, by itself, could trigger seizures. This has been adequately replaced. She has atrial fibrillation with rapid ventricular response, mild anemia, and elevated white count and lactic acidosis. An infection is suspected, possibly aspiration pneumonia The patient has significant hypertension on admission. Avoid overcorrection of blood pressure as this will increase chances of watershed infarcts. Recommendations: 1. Consider CT angiography of the head and neck, and compare to the previous scan. If her renal function precludes contrast then consider MRA angiography of the head and carotid ultrasound. I am not certain, however, that she would be able to cooperate and be still for an MRI. 2. Replace magnesium as you are doing 3. Keep levetiracetam 750 mg IV (or p.o. if able) twice daily for now. If the Depakote level is reasonable tomorrow morning I will decrease to 500 mg twice a day and slowly taper off.. 4. Continue valproic acid 500 mg twice daily. Check a trough valproic acid level tomorrow morning 5. Increase activity as able with physical, occupational, AND speech therapy. 6. Avoid benzodiazepines or any other CANOE MAKER altering medication. 7. Continue clopidogrel 75 mg daily (and remain off 8. Since B12 level was 249 on November 14, oral supplementation with B12 is reasona ble. 9. Control blood pressure as you are doing and try to keep the mean arterial pressure approximately 100. 10. Have speech therapy return and reevaluate swallowing and "receptive aphasia" Overall, I spent a total of 50 minutes with this case including review of records, direct evaluation of the patient at bedside, report generation, and discussion of the case with the patient and RN at bedside, and Dr. Castillo including differential diagnosis and treatment options. Admission and Anticipated Discharge Date Admission Date: November 16, 2023 Subjective The patient seems just a little more alert today than she did yesterday. Although she still perseverates and has some trouble understanding what I say, she seems to be answering questions a little better. She has no complaint of pain or headache. Blood pressure is 132/88. Pulse was 116 Nursing reports that she is still confused and has a little trouble swallowing solids. She is coughing a lot too. No further seizures CBC shows the anemia still. CHEM profile shows a low calcium at 6.6 but the magnesium was better at 1.9. Echocardiogram November 17 was similar to the previous study of April 2021. There was no obvious source of embolus Results & Data Vital Signs (Past 12 Hours) Vital Signs Temp Pulse Pulse Resp BP BP BP 11/19/23 08:15 116 H 132/78 11/19/23 07:51 130 H 11/19/23 07:51 130 H 11/19/23 07:01 115 H 16 11/19/23 03:16 36.5 C 132 H 16 147/84 H 11/19/23 03:05 132 H 147/84 H 08/02/24 02:50 129 H 141/87 H 11/18/23 23:01 36.6 C 121 H 16 121/76 11/18/23 22:33 113 H 121/76 11/18/23 22:18 130 H 120/79 11/18/23 21:00 Pulse Ox O2 Del Method 11/19/23 08:15 11/19/23 07:51 11/19/23 07:51 11/19/23 07:01 95 Room Air 11/19/23 03:16 97 Room Air 11/19/23 03:05 11/19/23 02:50 11/18/23 23:01 99 Room Air 11/18/23 22:33 11/18/23 22:18 11/18/23 21:00 Room Air Exam (Neuro) Physical Exam: She is awake and alert. Speech has no dysarthria but there is a component of receptive aphasia. She is fluent with her speech. She will follow some one- step commands and she can tell me her name and birthdate. When I asked her other questions she sometimes repeats her name and birthdate and sometimes answers to questions more reasonably. Extraocular muscles are intact without nystagmus. There is no facial droop. Tongue is midline. Coordination seems normal in the arms without obvious tremor or ataxia. Motor strength seems symmetrical in the limbs without any focal weakness. PG Care Time/CCT Total # of Minutes Spent Total Time Spent with Patient: Total time spent is greater than 50% in coordination of care (as documented) at patient's floor/unit and/or counseling patient: Coding Level of Care Code 68981 SUB INP/OBS CARE 3/50MIN Diagnoses Occipital stroke I63.9 Seizure disorder as sequela of cerebrovascular accident I69.398; G40.909 Hypertension, unspecified type I10 Hypertension type: unspecified Hypomagnesemia E83.42 Atrial fibrillation with rapid ventricular response I48.91 Time Spent (min) 50 (3) Hypertension Hypertension type: unspecified Qualified Code(s): I10 - Essential (primary) hypertension
[2023-11-19] MEDS: APIXABAN 2.5 MG TAB PO SCH (10:01)
[2023-11-19] MEDS: MAGNESIUM SULFATE / D5W 1 GM/100 ML BAG IV ONE (18:16)
[2023-11-19] MEDS: POTASSIUM CHLORIDE CRTAB 20 MEQ TABCR PO SCH (20:41)
--- NOTE | 2023-11-19 20:46 | Electrocardiogram Report ---
Test Reason : Blood Pressure : / mmHG Vent. Rate : 117 BPM Atrial Rate : 111 BPM P-R Int : 000 ms QRS Dur : 074 ms QT Int : 416 ms P-R-T Axes : 000 097 066 degrees QTc Int : 580 ms Atrial fibrillation with rapid ventricular response Low voltage QRS Anterior infarct T wave abnormality, consider anterior ischemia Prolonged QT Abnormal ECG When compared with ECG of 16-NOV-2023 18:09, Premature ventricular complexes are no longer Present Vent. rate has decreased by 46 bpm T wave inversion now evident in Anterior leads Confirmed by Jakub Hampton [id number]) on 11/19/2023 8:46:23 PM Referred By: [facility] Confirmed By:Jakub Hampton
[2023-11-20 05:46] LABS: Hematocrit (blood only) 30.2 % (37.0-47.0); Hemoglobin 9.9 g/dl (12.0-16.0); Mean Corpuscular Hemoglobin 33.8 pg (25.0-34.0); Mean Corpuscular Hgb Conc 32.8 g/dL (32.0-36.0); Mean Corpuscular Volume 103.1 fL (80.0-100.0); Mean Platelet Volume 11.2 fL (9.4-12.4); Platelet Count 257 K/uL (130-400); RDW Coefficient of Variation 13.5 % (11.5-14.5); RDW Standard Deviation 51.4 fL (36.4-46.3); Red Blood Count 2.93 M/uL (4.20-5.40); White Blood Count 7.57 K/ul (4.8-10.8)
[2023-11-20 05:58] LABS: BUN Creatinine Ratio 7.1 (10-20); Calcium 7.4 mg/dl (8.6-10.3); Creatinine Clr Calc Pharmacy 31.3 ml/min; Est GFR (African American) 36.3 ml/min; Est GFR (Non-African American) 31.3 ml/min; Potassium 4.1 mmol/L (3.5-5.1)
[2023-11-20 06:04] LABS: ANTI-Xa, UFH(UnfractionatedHep 0.33 IU/ml (0.3-0.7)
--- NOTE | 2023-11-20 09:56 | Neurology Progress Note ---
Date of Service November 20, 2023 Assessment & Plan (1) Occipital stroke: (2) Seizure disorder as sequela of cerebrovascular accident: (3) Hypertension: (4) Hypomagnesemia: (5) Atrial fibrillation with rapid ventricular response: Plan This patient has a seizure disorder stemming from her somewhat large left occipital stroke (2017), not adequately controlled on current dose of levetiracetam (750 mg twice daily). She had a seizure in the evening of November 15 but no seizure activity clinically or by an EEG this morning since. Her seizures seem to be left parietal occipital focal with or without secondary generalization. She gets a postictal confusional state which can last 48 to 72 hours and a right-sided post ictal weakness (Maco's paralysis) as well. Today the patient still has some confusion/aphasia, but is improved compared to last 2 days. She has no focal weakness today. The patient has had a new, acute extension of her previous stroke in the left occipital area (this hospitalization) and seems to have an acute watershed type infarct at the distal middle cerebral artery territory next to the PATIENT EXPERIENCE COORDINATOR territory. Therefore, there are 2 new areas of infarct near the old original stroke. The left PATIENT EXPERIENCE COORDINATOR artery is known to have been occluded. Previous CT angiography and April 2021 showed a small left ICA aneurysm and less than 50% stenosis of the right internal carotid artery. The etiology of the new strokes are likely decreased perfusion/thrombotic. I d oubt the strokes were embolic and echocardiogram did not show any obvious source of emboli. I am not convinced that levetiracetam is the best anticonvulsant for her type of seizure. 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 She had profound hypomagnesemia which, by itself, could trigger seizures. This has been adequately replaced. She has atrial fibrillation with rapid ventricular response, mild anemia, and elevated white count and lactic acidosis. An infection is suspected, possibly aspiration pneumonia The patient has significant hypertension on admission. Avoid overcorrection of blood pressure as this will increase chances of watershed infarcts. Recommendations: 1. Consider CT angiography of the head and neck, and compare to the previous scan. If her renal function precludes contrast then consider MRA angiography of the head and carotid ultrasound. I am not certain, however, that she would be able to cooperate and be still for an MRI. 2. Decrease levetiracetam to 500 mg IV twice daily. 3. On November 21 check another Depakote level. If still therapeutic then decrease levetiracetam to 250 mg twice daily for 3 days and then discontinue. 4. Continue valproic acid 500 mg twice daily. Adjust as per level. 5. Increase activity as able with physical, occupational, AND speech therapy. 6. Avoid benzodiazepines or any other COMMUNITY HEALTH NAVIGATOR altering medication. 7. Continue clopidogrel 75 mg daily (and remain off aspirin) 8. Since B12 level was 249 on November 14, oral supplementation with B12 is reasonable. 9. Control blood pressure as you are doing and try to keep the mean arterial pressure approximately 100. 10. Speech therapy is apparently going to do a video swallow study November 21 Overall, I spent a total of 35 minutes with this case including review of records, direct evaluation of the patient at bedside, report generation, and discussion of the case with the patient and RN at bedside, and Dr. Castillo including differential diagnosis and treatment options. Admission and Anticipated Discharge Date Admission Date: November 16, 2023 Subjective Patient feels better she states today. She does not have pain or headache. She believes she is "thinking better" than yesterday. Nursing feels she is answering questions better than she was previously. She has not choking or coughing is much as she was previously also. She has no complaint of pain or headache. She is not dizzy. Blood pressure is 142/82 Depakote level was 68. CBC shows anemia as before and a mildly improved calcium at 7.4 and creatinine of 1.55. Results & Data Vital Signs (Past 12 Hours) Vital Signs Temp Pulse Pulse Pulse Resp BP BP 11/20/23 09:33 119 H 142/82 H 11/20/23 08:11 36.5 C 119 H 18 11/20/23 06:56 118 H 18 11/20/23 03:55 36.6 C 100 H 18 133/76 11/19/23 23:53 36.7 C 85 20 136/95 BP Pulse Ox O2 Del Method 11/20/23 09:33 11/20/23 08:11 142/82 H 92 Room Air 11/20/23 06:56 92 Room Air 11/20/23 03:55 96 Room Air 11/19/23 23:53 99 Room Air Exam (Neuro) Physical Exam: She is awake and alert. Speech has a little less aphasia and she seems to be understanding questions better. She is not perseverating on answers today. Extraocular eye muscles are intact without nystagmus. There is no facial droop. Coordination seems normal in the arms without tremor or ataxia. Strength seems symmetrical in the limbs. PG Care Time/CCT Total # of Minutes Spent Total Time Spent with Patient: Total time spent is greater than 50% in coordination of care (as documented) at patient's floor/unit and/or counseling patient: Coding Level of Care Code 88490 SUB INP/OBS CARE 2MIN Diagnoses Occipital stroke I63.9 Seizure disorder as sequela of cerebrovascular accident I69.398; G40.909 Hypertension, unspecified type I10 Hypertension type: unspecified Hypomagnesemia E83.42 Atrial fibrillation with rapid ventricular response I48.91 (3) Hypertension Hypertension type: unspecified Qualified Code(s): I10 - Essential (primary) hypertension
--- NOTE | 2023-11-20 13:51 | Hospitalist Progress Note ---
Date of Service November 20, 2023 Assessment & Plan (1) Seizure disorder as sequela of cerebrovascular accident: Plan: 1. Left occipital stroke: Patient had a new left occipital stroke on a background of 2 previous old ones. MRI brain seizure protocol, 5 cm subacute appearing left parietal infarct and acute 2.3 cm left occipital infarct. Although neurology recommends repeat CT angio head and neck however her renal function precludes the use of contrast She still has some mild aphasia and confusion. And also persistent right homonymous hemianopia Continue seizure prophylaxis with Depakote, continue weaning down on Keppra as suggested by neurology. Continue Plavix, has been off aspirin. Physical therapy and speech therapy She is scheduled for a swallow evaluation on Wednesday. (2) Atrial fibrillation with rapid ventricular response: Plan: Atrial fibrillation with RVR/PAF/hypertension-now taking po restart metoprolol with iv backup resume apixiban if ECHO does not show intra cardiac embolic source, remains on heparin at the present Most recent echo on 04/23/2021 with ejection fraction 65-70% (3) Chronic kidney disease, stage III (moderate): Plan: Acute kidney injury superimposed on CKD 3 (4) Aspiration pneumonia: Plan: Presumed aspiration pneumonia, had a few doses of IV antibiotics Patient does not appear toxic does not appear to have pneumonia. (5) Occipital stroke: Plan GERD- Change omeprazole 80 mg p.o. daily to pantoprazole 40 mg IV daily will need placement, family request [facility] Admission and Anticipated Discharge Date Admission Date: November 16, 2023 Subjective Patient seen and examined, according to bedside nurse she is now more awake and her speech is more articulate Review of Systems Review of Systems: Unreliable due to episodes of confusion Physical Exam Physical Exam: The patient is awake, alert and oriented 3, well developed and well nourished, normocephalic and atraumatic, lying in bed and in no acute distress. HEENT--PERRL, EOMI, mucous membranes and oropharynx mildly dry Neck--supple. No JVD. No bruits. Thyroid normal, trachea midline, no adenopathy. Heart--normal S1 and S2. No murmurs, rubs or gallops. Lungs--clear bilaterally, no respiratory distress, no accessory muscle use. Abdomen--normal bowel sounds and soft. Extremities--no cyanosis or clubbing. No edema. Dermatologic--normal skin turgor, normal color, no abnormal lymph nodes, no rash. Neurologic--cranial nerves II through XII grossly intact.Hemianopsia, right- sided weakness, aphasia Rheumatologic--normal range of motion. Psychiatric--normal affect. Results & Data Results & Data Vital Signs (Past 12 Hours) Vital Signs Temp Pulse Pulse Pulse Resp BP BP 11/20/23 10:51 98.1 F 101 H 19 11/20/23 10:11 95 H 18 11/20/23 10:09 98 H 132/82 11/20/23 09:33 119 H 142/82 H 11/20/23 09:09 11/20/23 08:11 97.7 F 119 H 18 11/20/23 06:56 118 H 18 11/20/23 03:55 97.9 F 100 H 18 133/76 BP Pulse Ox O2 Del Method 11/20/23 10:51 147/99 H 98 Room Air 11/20/23 10:11 96 Room Air 11/20/23 10:09 11/20/23 09:33 11/20/23 09:09 Room Air 11/20/23 08:11 142/82 H 92 Room Air 11/20/23 06:56 92 Room Air 11/20/23 03:55 96 Room Air PG Care Time/CCT Total # of Minutes Spent Total Time Spent with Patient: Total time spent is greater than 50% in coordination of care (as documented) at patient's floor/unit and/or counseling patient: Coding Level of Care Code 35984 SUB INP/OBS CARE 2/35MIN Diagnoses Seizure disorder as sequela of cerebrovascular accident I69.398; G40.909 Atrial fibrillation with rapid ventricular response I48.91 Chronic kidney disease, stage III (moderate) N18.30 Aspiration pneumonia J69.0 Occipital stroke I63.9 Time Spent (min) 35
[2023-11-21] MEDS: ALBUT/IPRATROP 3MG/0.5MG NEB 3 ML VIAL NEB PRN (03:25)
[2023-11-21 07:07] LABS: BUN Creatinine Ratio 12.6 (10-20); Calcium 8.7 mg/dl (8.6-10.3); Creatinine Clr Calc Pharmacy 44.2 ml/min; Est GFR (African American) 54.3 ml/min; Est GFR (Non-African American) 46.9 ml/min
[2023-11-21 07:19] LABS: ANTI-Xa, UFH(UnfractionatedHep 0.33 IU/ml (0.3-0.7)
--- NOTE | 2023-11-21 11:10 | Ultrasound Report ---
RIGHT UPPER EXTREMITY VENOUS DOPPLER HISTORY: Right arm swelling. r/o DVT COMPARISON STUDY: None. FINDINGS: The right internal jugular vein is patent. There is normal flow within the right subclavian vein. There is normal flow and compressibility within the right axillary, basilic, brachial, radial, ulnar, and visualized cephalic veins. IMPRESSION: No DVT within the right upper extremity. ACT 112: Negative or not required by law. Electronically signed by: Kobe Gold M.D. 11/21/2023 11:09 AM
--- NOTE | 2023-11-21 11:23 | Hospitalist Progress Note ---
Date of Service November 21, 2023 Assessment & Plan (1) Seizure disorder as sequela of cerebrovascular accident: Plan: 1. Left occipital stroke: Patient had a new left occipital stroke on a background of 2 previous old ones. MRI brain seizure protocol, 5 cm subacute appearing left parietal infarct and acute 2.3 cm left occipital infarct. Although neurology recommends repeat CT angio head and neck however her renal function precludes the use of contrast She still has some mild aphasia and confusion. And also persistent right homonymous hemianopia Continue seizure prophylaxis with Depakote, continue weaning down on Keppra as suggested by neurology. Continue Plavix, has been off aspirin. Physical therapy and speech therapy She is scheduled for a swallow evaluation on Wednesday. (2) Atrial fibrillation with rapid ventricular response: Plan: Atrial fibrillation with RVR/PAF/hypertension-now taking po restart metoprolol with iv backup resume apixiban if ECHO does not show intra cardiac embolic source, remains on heparin at the present Most recent echo on 04/23/2021 with ejection fraction 65-70% (3) Chronic kidney disease, stage III (moderate): Plan: Acute kidney injury superimposed on CKD 3, Now resolved (4) Aspiration pneumonia: Plan: Presumed aspiration pneumonia, had a few doses of IV antibiotics Patient does not appear toxic does not appear to have pneumonia. (5) Swelling of right upper extremity: Plan: Right upper extremity is swollen, could be due to IV infiltration However will rule out DVT, order ultrasound duplex. (6) Occipital stroke: Plan GERD- Change omeprazole 80 mg p.o. daily to pantoprazole 40 mg IV daily will need placement, family request [facility] Admission and Anticipated Discharge Date Admission Date: November 16, 2023 Subjective Patient seen and examined, Awake and alert but still confused noticed right upper extremity swelling Review of Systems Review of Systems: Unreliable due to episodes of confusion Physical Exam Physical Exam: The patient is awake, alert and oriented 3, well developed and well nourished, normocephalic and atraumatic, lying in bed and in no acute distress. HEENT--PERRL, EOMI, mucous membranes and oropharynx mildly dry Neck--supple. No JVD. No bruits. Thyroid normal, trachea midline, no adenopathy. Heart--normal S1 and S2. No murmurs, rubs or gallops. Lungs--clear bilaterally, no respiratory distress, no accessory muscle use. Abdomen--normal bowel sounds and soft. Extremities--no cyanosis or clubbing. No edema.Right upper extremity swelling Dermatologic--normal skin turgor, normal color, no abnormal lymph nodes, no rash . Neurologic--cranial nerves II through XII grossly intact.Hemianopsia, right- sided weakness, aphasia Rheumatologic--normal range of motion. Psychiatric--normal affect. Results & Data Results & Data Vital Signs (Past 12 Hours) Vital Signs Temp Pulse Pulse Resp BP BP Pulse Ox 11/21/23 10:20 100 H 18 96 11/21/23 07:52 98.1 F 109 H 18 145/84 H 95 11/21/23 07:20 105 H 18 96 11/21/23 03:25 101 H 17 94 11/21/23 03:17 98.6 F 96 H 20 149/86 H 96 11/20/23 23:49 98.6 F 98 H 20 156/92 H 95 O2 Del Method 11/21/23 10:20 Room Air 11/21/23 07:52 Room Air 11/21/23 07:20 Room Air 11/21/23 03:25 Room Air 11/21/23 03:17 Room Air 11/20/23 23:49 Room Air PG Care Time/CCT Total # of Minutes Spent Total Time Spent with Patient: Total time spent is greater than 50% in coordination of care (as documented) at patient's floor/unit and/or counseling patient: Coding Level of Care Code 04570 SUB INP/OBS CARE 2/35MIN Diagnoses Seizure disorder as sequela of cerebrovascular accident I69.398; G40.909 Atrial fibrillation with rapid ventricular response I48.91 Chronic kidney disease, stage III (moderate) N18.30 Aspiration pneumonia J69.0 Swelling of right upper extremity M79.89 Occipital stroke I63.9 Time Spent (min) 35
[2023-11-21] MEDS: levETIRAcetam 250 MG TAB PO SCH (21:59)
[2023-11-21] MEDS: VALPROIC ACID SOLN 500 MG/10 ML UDC PO SCH (21:59)
[2023-11-22 08:53] LABS: Hematocrit (blood only) 32.8 % (37.0-47.0); Hemoglobin 10.6 g/dl (12.0-16.0); Mean Corpuscular Hemoglobin 33.5 pg (25.0-34.0); Mean Corpuscular Hgb Conc 32.3 g/dL (32.0-36.0); Mean Corpuscular Volume 103.8 fL (80.0-100.0); Mean Platelet Volume 11.8 fL (9.4-12.4); Platelet Count 271 K/uL (130-400); RDW Coefficient of Variation 13.7 % (11.5-14.5); RDW Standard Deviation 52.4 fL (36.4-46.3); Red Blood Count 3.16 M/uL (4.20-5.40); White Blood Count 8.14 K/ul (4.8-10.8)
[2023-11-22 08:56] LABS: ANTI-Xa, UFH(UnfractionatedHep 0.31 IU/ml (0.3-0.7)
[2023-11-22 09:38] LABS: Calcium 9.4 mg/dl (8.6-10.3); Potassium 4.6 mmol/L (3.5-5.1)
[2023-11-22 09:43] LABS: BUN Creatinine Ratio 10.8 (10-20); Creatinine Clr Calc Pharmacy 40.5 ml/min; Est GFR (African American) 49.4 ml/min; Est GFR (Non-African American) 42.7 ml/min
--- NOTE | 2023-11-22 13:03 | Hospitalist Progress Note ---
Date of Service November 22, 2023 Assessment & Plan (1) Seizure disorder as sequela of cerebrovascular accident: Plan: 1. Left occipital stroke: Patient had a new left occipital stroke on a background of 2 previous old ones. MRI brain seizure protocol, 5 cm subacute appearing left parietal infarct and acute 2.3 cm left occipital infarct. Although neurology recommends repeat CT angio head and neck however her renal function precludes the use of contrast She still has some mild aphasia and confusion. And also persistent right homonymous hemianopia Continue seizure prophylaxis with Depakote, continue weaning down on Keppra as suggested by neurology. Hopefully discontinue Keppra by tomorrow, able to wean down from 750 to 250 mg twice daily today Continue Plavix, has been off aspirin. Physical therapy and speech therapy She is scheduled for a swallow evaluation ttoday. (2) Atrial fibrillation with rapid ventricular response: Plan: Atrial fibrillation with RVR/PAF/hypertension-now taking po restart metoprolol with iv backup resume apixiban if ECHO does not show intra cardiac embolic source, remains on heparin at the present Most recent echo on 04/23/2021 with ejection fraction 65-70% (3) Chronic kidney disease, stage III (moderate): Plan: Acute kidney injury superimposed on CKD 3, Now resolved (4) Aspiration pneumonia: Plan: Presumed aspiration pneumonia, had a few doses of IV antibiotics Patient does not appear toxic does not appear to have pneumonia. (5) Swelling of right upper extremity: Plan: Right upper extremity is swollen, could be due to IV infiltration However will rule out DVT, order ultrasound duplex. (6) Occipital stroke: Plan will need placement, family request [facility] evaluation Admission and Anticipated Discharge Date Admission Date: November 16, 2023 Subjective Patient seen and examined, Awake and alert but still confused And aphasic Review of Systems Review of Systems: Unreliable due to episodes of confusion Physical Exam Physical Exam: The patient is awake, alert and oriented 3, well developed and well nourished, normocephalic and atraumatic, lying in bed and in no acute distress. HEENT--PERRL, EOMI, mucous membranes and oropharynx mildly dry Neck--supple. No JVD. No bruits. Thyroid normal, trachea midline, no adenopathy. Heart--normal S1 and S2. No murmurs, rubs or gallops. Lungs--clear bilaterally, no respiratory distress, no accessory muscle use. Abdomen--normal bowel sounds and soft. Extremities--no cyanosis or clubbing. No edema.Right upper extremity swelling Dermatologic--normal skin turgor, normal color, no abnormal lymph nodes, no rash. Neurologic--cranial nerves II through XII grossly intact.Hemianopsia, right- sided weakness, aphasia Rheumatologic--normal range of motion. Psychiatric--normal affect. Results & Data Results & Data Vital Signs (Past 12 Hours) Vital Signs Temp Pulse Resp BP BP Pulse Ox O2 Del Method 11/22/23 11:46 97.5 F L 84 17 140/102 H 97 Room Air 11/22/23 11:00 66 20 95 Room Air 11/22/23 07:42 97.7 F 95 H 16 134/81 90 Room Air 11/22/23 07:00 70 20 96 Room Air 11/22/23 03:48 97.9 F 106 H 18 157/98 H 96 Room Air PG Care Time/CCT Total # of Minutes Spent Total Time Spent with Patient: Total time spent is greater than 50% in coordination of care (as documented) at patient's floor/unit and/or counseling patient: Coding Level of Care Code 94109 SUB INP/OBS CARE 2/35MIN Diagnoses Seizure disorder as sequela of cerebrovascular accident I69.398; G40.909 Atrial fibrillation with rapid ventricular response I48.91 Chronic kidney disease, stage III (moderate) N18.30 Aspiration pneumonia J69.0 Swelling of right upper extremity M79.89 Occipital stroke I63.9 Time Spent (min) 35
--- NOTE | 2023-11-22 14:58 | Fluoroscopy Report ---
VIDEO SWALLOW STUDY CLINICAL HISTORY: Aspiration. COMPARISON STUDY: No priors. FLUOROSCOPY TIME: 36 seconds. Ka,r: 5.48 mGy FINDINGS: Fluoroscopic guidance is provided to department of speech pathology in performing a video s wallow study. The patient consumed thin barium and barium impregnated pudding while the swallowing me chanism was observed in real-time. The patient declined evaluation of additional textures. No penetra tion or aspiration was seen. IMPRESSION: No penetration or aspiration was seen with the sampled textures. See dedicated speech pat hology report for detailed findings and recommendations. Dictated: 11/22/2023 11:36 AM Transcribed: 11/22/2023 12:00 PM Melissa [id number] MELISSA_Ilia [id number] Electronically signed by: Michele Pavon M.D. 11/22/2023 2:57 PM
[2023-11-22] MEDS: levETIRAcetam 250 MG TAB PO SCH (20:37)
[2023-11-23] MEDS ORDERED: ALBUT/IPRATROP 3MG/0.5MG NEB 3 ML VIAL NEB PRN (08:00)
[2023-11-23 08:09] LABS: ANTI-Xa, UFH(UnfractionatedHep 0.34 IU/ml (0.3-0.7)
[2023-11-23 08:14] LABS: Calcium 9.2 mg/dl (8.6-10.3)
[2023-11-23 08:19] LABS: BUN Creatinine Ratio 9.9 (10-20); Creatinine Clr Calc Pharmacy 48.1 ml/min; Est GFR (African American) 60.9 ml/min; Est GFR (Non-African American) 52.5 ml/min
[2023-11-23] MEDS: PANTOprazole 40 MG TAB PO SCH (09:03)
--- NOTE | 2023-11-23 11:41 | Discharge Summary ---
Discharge Summary Date of Service November 23, 2023 Principal Dx & Hospital Course #1 = Principal Diagnosis (1) Seizure disorder as sequela of cerebrovascular accident: Ischemic left occipital CVA with resultant right hemiparesis. Appreciate neurology consultation and recommendations. Continue current medical management. (2) Atrial fibrillation with rapid ventricular response: Atrial fibrillation with RVR/PAF/hypertension. Resolved. She is back on her metoprolol and Eliquis. (3) Chronic kidney disease, stage III (moderate): Acute kidney injury superimposed on CKD 3. Now resolved (4) Aspiration pneumonia: Ruled out (5) Swelling of right upper extremity: Venous Doppler study negative for DVT. Local care (6) Occipital stroke: Ischemic with right hemiparesis. Appreciate neurology consultation and recommendations. Keppra dosage has been decreased and Depakote added. Her swallowing study completed November 21 was unremarkable. She is now on Plavix, Depakote, and statin therapy Plan Discharge today, November 22, to [facility] for inpatient rehabilitation Admission HPI Per Admitting Provider The patient is an 82-year-old female with a past medical history including PAF on apixaban, occipital stroke, UTI, depression, obesity, seizure disorder, sick sinus syndrome, history of tobacco use, history of A-fib with RVR, hypertension, and hypercholesterolemia. The patient presents to the emergency department with symptoms and history as noted above. Discharge Exam General-alert and oriented x3, no fever, no chills HEENT-head atraumatic and normocephalic, pupils equal and reactive to light, extraocular muscles intact Neck-no lymphadenopathy or thyromegaly, trachea midline Chest-clear to auscultation. No rales, wheezing or rhonchi Cardiac-irregular rhythm. Controlled rate. Normal S1 and S2 Abdomen-normal bowel sounds, no hepatosplenomegaly Extremities-no cyanosis, clubbing, or edema Neuro-cranial nerves II through XII intact, mild right hemiparesis noted. Psych-depressed affect Updated Medication List Medication Instructions Recorded Confirmed Type aspirin 81 mg tablet,delayed 81 mg PO QAM 12/16/18 11/16/23 History release metoprolol succinate 100 mg 100 mg PO DAILY 90 days #90 tabs 05/04/23 11/16/23 Rx tablet,extended release 24 hr potassium chloride 20 mEq 20 meq PO QAM #90 tabs 06/10/23 11/16/23 Rx tablet,extended release atorvastatin 40 mg tablet 40 mg PO HS #90 tabs 08/26/23 11/16/23 Rx amlodipine 2.5 mg tablet 2.5 mg PO DAILY #90 tabs 10/26/23 11/16/23 Rx apixaban 5 mg tablet 5 mg PO BID 90 days #180 tabs 11/09/23 11/16/23 Rx acetaminophen 325 mg tablet 650 mg PO Q6H PRN PAIN/FEVER 11/16/23 11/16/23 History (Tylenol) levetiracetam 500 mg tablet 750 mg PO BID 11/16/23 11/16/23 History (Keppra) loperamide 2 mg capsule 2 mg PO Q2H PRN LOOSE STOOLS 11/16/23 11/16/23 History omeprazole 40 mg capsule,delayed 80 mg PO DAILY 11/16/23 11/16/23 History release Hospital Stay Data Consultations 11/16/23 20:36 ED Decision to Admit Stat 11/16/23 21:49 Consult Neurology Routine Diagnostic Imagining Performed 11/16/23 18:12 CT head/brain wo con Stat 11/16/23 18:40 CT abd pelvis wo con Stat 11/17/23 22:00 MR brain seizure wo/w con Routine 11/21/23 09:28 US venous duplex arm [US venous doppler UE RT] Routine 11/22/23 10:00 FL video swallow Routine Pending Results Patient Have Any Pending Studies at Discharge: No Discharge Instructions Given to Patient (Per Discharging Provider) See your primary care provider as soon as possible after discharge from [facility] Total Time Total Time Spent Total Time Spent (In Minutes): 45 minutes Coding Level of Care Code 88761 INP/OBS DISCH >30 MIN Diagnoses Seizure disorder as sequela of cerebrovascular accident I69.398; G40.909 Atrial fibrillation with rapid ventricular response I48.91 Chronic kidney disease, stage III (moderate) N18.30 Aspiration pneumonia J69.0 Swelling of right upper extremity M79.89 Occipital stroke I63.9
[2023-11-23 11:44] VITALS: BP 155/92; PULSE 112; RESP 18; TEMP 97.7; O2SAT 92
== END 2023-11-23 16:21 | DRG 64 ==
LOC: EDSEX → ED 18:06 → SUATTDRO 21:49 → EDINP 21:49 → 2S 22:01